=== PATIENT | male | born 1960 | race Two or more races ===

== ENCOUNTER 2017-06-11 14:46 | Inpatient (IN) | payer BC ==
--- NOTE | 2017-06-11 16:16 | PDOC ---
History of Present Illness - History of Present Illness Initial Comments: 06/11/17 17:00 56M with pmh of CKD stage V, HIV, HTN and diabetes sent to the EDby PCP dr. Anthony for admission and initiation of dialysis. Also with inguinal hernia as per Dr. Anthony. 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 Garcia ID: Dr. [email or web address]. 06/11/17 17:09 <Noel Cabral - Last Filed: 06/11/17 18:47> <Gavi West - Last Filed: 06/14/17 21:25> - General Chief Complaint: Dialysis Shunt Problem Stated Complaint: ADMISSION FOR DIALYSIS (PCP SENT) Time Seen by Provider: 06/11/17 16:15 Past History - Past Medical History Anemia: No Asthma: No Cancer: No Cardiac Disorders: No CVA: No COPD: No CHF: No (Left Bundle Branch Block - see EKG) Dementia: No Diabetes: No GI Disorders: No Disorders: No HTN: Yes Hypercholesterolemia: No Liver Disease: No Seizures: No Thyroid Disease: No - Surgical History Abdominal Surgery: No Appendectomy: No Cardiac Surgery: No Cholecystectomy: No Lung Surgery: No Neurologic Surgery: No Orthopedic Surgery: No - Suicide/Smoking/Psychosocial Hx Smoking History: Never smoked Have you smoked in the past 12 months: No Cigars Per Day: 0 Information on smoking cessation initiated: No Hx Alcohol Use: No Drug/Substance Use Hx: No Substance Use Type: None Hx Substance Use Treatment: No (Pt reports he is in control, hence refuses treatment) <Noel Cabral - Last Filed: 06/11/17 18:47> <Gavi West - Last Filed: 06/14/17 21:25> - Past Medical History Allergies/Adverse Reactions: Allergies Allergy/AdvReac Type Severity Reaction Status Date / Time No Known Allergies Allergy Verified 06/11/17 14:54 Home Medications: Ambulatory Orders Amlodipine Besylate [Norvasc -] 10 mg PO DAILY #30 tablet 05/19/17 Metoprolol Tartrate [Lopressor -] 25 mg PO BID #60 mg 05/19/17 Review of Systems - Review of Systems Able to Perform ROS?: Yes Comments:: 06/11/17 17:06 used [employer] Constitutional: No: Symptoms Reported HEENTM: No: Symptoms Reported Respiratory: No: Symptoms reported Cardiac (ROS): No: Symptoms Reported ABD/GI: No: Symptoms Reported : Yes: Other (clear urine) Musculoskeletal: No: Symptoms Reported Integumentary: No: Symptoms Reported Neurological: No: Symptoms reported <Noel Cabral - Last Filed: 06/11/17 18:47> *Physical Exam - Vital Signs Last Vital Signs Temp Pulse Resp BP Pulse Ox 98.7 F 87 14 146/22 100 06/11/17 14:48 06/11/17 14:48 06/11/17 14:48 06/11/17 14:48 06/11/17 14:48 - Physical Exam General Appearance: Yes: Nourished, Appropriately Dressed. No: Apparent Distress HEENT: positive: EOMI, MARTINA, Normal ENT Inspection Neck: positive: Trachea midline, Normal Thyroid. negative: Tender Respiratory/Chest: positive: Lungs Clear, Normal Breath Sounds. negative: Chest Tender Cardiovascular: positive: Regular Rhythm, Regular Rate, S1, S2 Vascular Pulses: Dorsalis-Pedis (R): 2+, Doralis-Pedis (L): 2+ Gastrointestinal/Abdominal: positive: Normal Bowel Sounds, Flat, Soft. negative : Tender <Noel Cabral - Last Filed: 06/11/17 18:47> - Vital Signs Last Vital Signs Temp Pulse Resp BP Pulse Ox 98.7 F 87 14 146/22 100 06/11/17 14:48 06/11/17 14:48 06/11/17 14:48 06/11/17 14:48 06/11/17 14:48 <Gavi West - Last Filed: 06/14/17 21:25> ED Treatment Course - LABORATORY CBC & Chemistry Diagram: 06/11/17 16:57 06/11/17 16:57 <Noel Cabral - Last Filed: 06/11/17 18:47> - LABORATORY CBC & Chemistry Diagram: 06/13/17 05:10 06/14/17 05:18 - ADDITIONAL ORDERS Additional order review: Laboratory Results 06/11/17 06/11/17 16:57 16:57 PT with INR 10.30 INR 0.91 PTT (Actin FS) 30.7 Sodium 137 Potassium 6.0 H Chloride 108 H Carbon Dioxide 21 Anion Gap 8 BUN 63 H Creatinine 8.1 H* Creat Clearance w eGFR 6.97 Random Glucose 163 H D Calcium 7.3 L Total Bilirubin 0.2 D Direct Bilirubin < 0.1 AST 29 ALT 32 Alkaline Phosphatase 105 Total Protein 7.4 Albumin 3.2 L 06/11/17 16:57 RBC 2.97 L MCV 89.4 MCHC 33.7 RDW 13.7 MPV 9.7 Neutrophils % 40.9 L D Lymphocytes % 37.7 D Monocytes % 16.7 H D Eosinophils % 4.2 Basophils % 0.5 <Gavi West - Last Filed: 06/14/17 21:25> Medical Decision Making - Medical Decision Making 56M with pmh of CKD stage V, HIV, HTN and diabetes sent to the EDby PCP dr. Anthony for admission and initiation of dialysis. Ordered labs, coags, type and cross. CXR pending Spoke to admitting hospitalist resident who accepted the patient. <Noel Cabral - Last Filed: 06/11/17 18:47> - Medical Decision Making 06/14/17 21:24 agree with resident exam. Pt recently ( 2 weeks ago) had an AV fistula placed in his arm; now here for dialysis admission. Pt has worsening lab results. He is still able to urinate and he appears well, however fatigued. <Gavi West - Last Filed: 06/14/17 21:25> *DC/Admit/Observation/Transfer - Discharge Dispostion Admit: Yes <Noel Cabral - Last Filed: 06/11/17 18:47> <Gavi West - Last Filed: 06/14/17 21:25> Diagnosis at time of Disposition: Admission for dialysis - Referrals
[2017-06-11 17:05] LABS: BASOPHIL 0.5 % (0-2.0); EOSINOPHIL 4.2 % (0-4.5); MCH 30.1 pg (25.7-33.7); MCHC 33.7 g/dl (32.0-35.9); MEAN CELL VOLUME 89.4 fl (80-96); MEAN PLT VOLUME 9.7 fl (7.5-11.1); NEUTROPHILS 40.9 % (42.8-82.8); PLATELET COUNT 118 K/MM3 (134-434); RDW 13.7 % (11.9-15.9); WHITE BLOOD COUNT 3.4 K/mm3 (4.0-10.0)
--- NOTE | 2017-06-11 17:10 | PDOC ---
Attending Attestation - Resident Resident Name: Noel Cabral - HPI HPI: 06/11/17 17:08 Pt was sent by his PMD for admission for dialysis shunt placement and for dialysis session. We will get pre-op labs and admit to the hospitalist team. Pt has a hx of HIV and HTN and DM. - Physicial Exam PE: 06/11/17 17:09 Agree with resident exam. - Medical Decision Making 06/11/17 17:09 CBC demonstrates falling Hb/HCT. Chemistry pending. Pt INR pending and Type and screen sent
[2017-06-11 17:18] LABS: INR 0.91 (0.82-1.09); PROTHROMBIN TIME (PATIENT) 10.3 SEC (9.98-11.88)
[2017-06-11 17:21] LABS: ACTIVATED PTT 30.7 SECONDS (26.9-34.4)
[2017-06-11 17:30] LABS: ALBUMIN 3.2 g/dl (3.4-5.0); ANION GAP 8 (8-16); BILIRUBIN,DIRECT < 0.1 mg/dL (0.0-0.2); CALCIUM 7.3 mg/dL (8.5-10.1); CO2 21 mmol/L (21-32); GLUCOSE,RANDOM 163 mg/dL (74-106); SGOT/AST 29 U/L (15-37); SGPT/ALT 32 U/L (12-78)
[2017-06-11 17:37] LABS: ALK PHOS 105 U/L (45-117); BILIRUBIN,TOTAL 0.2 mg/dL (0.2-1.0); TOT PROT 7.4 g/dl (6.4-8.2)
[2017-06-11 17:53] LABS: CREATININE 8.1 mg/dL (0.7-1.3)
[2017-06-11] MEDS ORDERED: SODIUM POLYSTYRENE SULFONATE 15 GM/60 ML BOTTLE PO ONE (18:00)
--- NOTE | 2017-06-11 18:10 | HP ---
CHIEF COMPLAINT: Sent by PCP PCP: Dr. Connors HISTORY OF PRESENT ILLNESS: Patient is a 56 yo m with a pmh of HTN, DM, and HIV , CKD stage 5 was sent by his air carrier operations inspector for dialysis because of abnormal labs. Patient's lab results taken last week was remarkable for 8.4 creatinine and 64 BUN. Patient states he is currently not HIV medication because of his renal function. He goes to the [facility] for the HIV. Patient also complains of a right inguinal hernia which he says hes had for 2 years and does not bother him. Patient denies headache, nausea, vomiting, dizziness, SOB, chest pain, urinary symptoms, diarrhea, weakness, palpitations. Recent Travel: n/A PAST MEDICAL HISTORY: HTN, DM2, HIV PAST SURGICAL HISTORY: n/A Social History: Smoking: denies Alcohol: quit years ago Drugs: denies Family History: Allergies No Known Allergies Allergy (Verified 06/11/17 14:54) HOME MEDICATIONS: Home Medications Medication Instructions Recorded Amlodipine Besylate [Norvasc -] 10 mg PO DAILY #30 tablet 05/19/17 Metoprolol Tartrate [Lopressor -] 25 mg PO BID #60 mg 05/19/17 REVIEW OF SYSTEMS CONSTITUTIONAL: Absent: fever, chills, diaphoresis, generalized weakness, malaise, loss of appetite, weight change HEENT: Absent: rhinorrhea, nasal congestion, throat pain, throat swelling, difficulty swallowing, mouth swelling, ear pain, eye pain, visual changes CARDIOVASCULAR: Absent: chest pain, syncope, palpitations, irregular heart rate, lightheadedness , peripheral edema RESPIRATORY: Absent: cough, shortness of breath, dyspnea with exertion, orthopnea, wheezing, stridor, hemoptysis GASTROINTESTINAL: Absent: abdominal pain, abdominal distension, nausea, vomiting, diarrhea, constipation, melena, hematochezia GENITOURINARY: Absent: dysuria, frequency, urgency, hesitancy, hematuria, flank pain, genital pain MUSCULOSKELETAL: Absent: myalgia, arthralgia, joint swelling, back pain, neck pain SKIN: Absent: rash, itching, pallor HEMATOLOGIC/IMMUNOLOGIC: Absent: easy bleeding, easy bruising, lymphadenopathy, frequent infections ENDOCRINE: Absent: unexplained weight gain, unexplained weight loss, heat intolerance, cold intolerance NEUROLOGIC: Absent: headache, focal weakness or paresthesias, dizziness, unsteady gait, seizure, mental status changes, bladder or bowel incontinence PSYCHIATRIC: Absent: anxiety, depression, suicidal or homicidal ideation, hallucinations. PHYSICAL EXAMINATION Vital Signs - 24 hr 06/11/17 14:48 Temperature 98.7 F Pulse Rate 87 Respiratory 14 Rate Blood Pressure 146/22 O2 Sat by Pulse 100 Oximetry (%) GENERAL: Awake, alert, and fully oriented, in no acute distress. HEAD: Normal with no signs of trauma. EYES: Pupils equal, round and reactive to light, extraocular movements intact, sclera anicteric, conjunctiva clear. No lid lag. EARS, NOSE, THROAT: Ears normal, nares patent, oropharynx clear without exudates. Moist mucous membranes. NECK: Normal range of motion, supple without lymphadenopathy, JVD, or masses. LUNGS: Breath sounds equal, clear to auscultation bilaterally. No wheezes, and no crackles. No accessory muscle use. HEART: Regular rate and rhythm, Systolic murmber 3/6 LUSB, normal S1 and S2 ABDOMEN: Soft, nontender, not distended, normoactive bowel sounds, no guarding, no rebound, no masses. No hepatomegaly or splenomegaly. MUSCULOSKELETAL: Normal range of motion at all joints. No bony deformities or tenderness. No CVA tenderness. UPPER EXTREMITIES: 2+ pulses, warm, well-perfused. No cyanosis. No clubbing. No peripheral edema. LOWER EXTREMITIES: 2+ pulses, warm, well-perfused. No calf tenderness. No peripheral edema. NEUROLOGICAL: Cranial nerves II-XII intact. Normal speech. Normal gait. PSYCHIATRIC: Cooperative. Good eye contact. Appropriate mood and affect. SKIN: Warm, dry, normal turgor, no rashes or lesions noted, normal capillary refill. : nontender Large right reducible hernia Laboratory Results - last 24 hr 06/11/17 06/11/17 06/11/17 16:57 16:57 16:57 WBC 3.4 L RBC 2.97 L Hgb 8.9 L Hct 26.5 L MCV 89.4 MCH 30.1 MCHC 33.7 RDW 13.7 Plt Count 118 L MPV 9.7 Neutrophils % 40.9 L D Lymphocytes % 37.7 D Monocytes % 16.7 H D Eosinophils % 4.2 Basophils % 0.5 PT with INR 10.30 INR 0.91 PTT (Actin FS) 30.7 Sodium 137 Potassium 6.0 H Chloride 108 H Carbon Dioxide 21 Anion Gap 8 BUN 63 H Creatinine 8.1 H* Creat Clearance w eGFR 6.97 Random Glucose 163 H D Calcium 7.3 L Total Bilirubin 0.2 D Direct Bilirubin < 0.1 AST 29 ALT 32 Alkaline Phosphatase 105 Total Protein 7.4 Albumin 3.2 L ASSESSMENT/PLAN: Patient is a 56 yo M with a past medical history of HIV, HTN, and DM, CKD stage 5 presents to the ED after being sent by his air carrier operations inspector for Dialysis and AV access. #CKD stage Stage 5 -creatinine 8.1, BUN 63 -proteinuria -renal consulted -vascular consulted for access #Hyperkalemia -K level of 6 -slight peaked t waves on ekg -CKD stage 5 -calcium gluconate -Kayexylate -insulin -D50 #DM2 -ISS -BGM ACHS #HIV -pancytopenia -Has not taken HAART meds in 4 months due to renal function -ID consulted #Pancytopenia -likely from HIV infection or HIV medication -will monitor #HTN -continue home meds -Metoprolol, Amlodipine -Last A1c 8.4 (05/18) #Right inguinal hernia -Follow up outpatient #FEN -D50 -hyperkalemia (being treated) -Diabetic diet #DVT - Heparin SQ Visit type - Emergency Visit Emergency Visit: Yes Care time: The patient presented to the Emergency Department on the above date and was hospitalized for further evaluation of their emergent condition. - New Patient This patient is new to me today: Yes Date on this admission: 06/11/17 - Critical Care Critical Care patient: No
--- NOTE | 2017-06-11 18:13 | HP ---
CHIEF COMPLAINT: Sent over for Dialysis PCP: Dr. Connors HISTORY OF PRESENT ILLNESS: This is a 56 year old male who was sent over by beef pusher office for dialysis due to worsening renal functioning, CKD stage 5. Patient still make urine, voids 5-6x per day. Denies any associated symptoms including [place], altered mental status, blurry vision, n,v, lightheadedness, chest pain, palpitations, shortness of breath, leg swelling, changes in bowel or bladder. had recent labs that revealed creatinine 8.4. Past medical history of HTN, Diabetes, HIV (stopped taking HARRT) three months ago, due to worsening kidney function, as per patient. Last CD4 and viral load unknown. Recent Travel: no PAST MEDICAL HISTORY: HIV, Diabetes type II, HTN, ESRD PAST SURGICAL HISTORY: none Social History: from [facility] [place], lives in [place] with his Smoking:no Alcohol:quit 8 years ago Drugs: no Family History: Allergies No Known Allergies Allergy (Verified 06/11/17 14:54) HOME MEDICATIONS: Home Medications Medication Instructions Recorded Amlodipine Besylate [Norvasc -] 10 mg PO DAILY #30 tablet 05/19/17 Metoprolol Tartrate [Lopressor -] 25 mg PO BID #60 mg 05/19/17 REVIEW OF SYSTEMS CONSTITUTIONAL: Absent: fever, chills, diaphoresis, generalized weakness, malaise, loss of appetite, weight change HEENT: Absent: rhinorrhea, nasal congestion, throat pain, throat swelling, difficulty swallowing, mouth swelling, ear pain, eye pain, visual changes CARDIOVASCULAR: Absent: chest pain, syncope, palpitations, irregular heart rate, lightheadedness , peripheral edema RESPIRATORY: Absent: cough, shortness of breath, dyspnea with exertion, orthopnea, wheezing, stridor, hemoptysis GASTROINTESTINAL: Absent: abdominal pain, abdominal distension, nausea, vomiting, diarrhea, constipation, melena, hematochezia GENITOURINARY: Absent: dysuria, frequency, urgency, hesitancy, hematuria, flank pain, genital pain MUSCULOSKELETAL: Absent: myalgia, arthralgia, joint swelling, back pain, neck pain SKIN: Absent: rash, itching, pallor HEMATOLOGIC/IMMUNOLOGIC: Absent: easy bleeding, easy bruising, lymphadenopathy, frequent infections ENDOCRINE: Absent: unexplained weight gain, unexplained weight loss, heat intolerance, cold intolerance NEUROLOGIC: Absent: headache, focal weakness or paresthesias, dizziness, unsteady gait, seizure, mental status changes, bladder or bowel incontinence PSYCHIATRIC: Absent: anxiety, depression, suicidal or homicidal ideation, hallucinations. PHYSICAL EXAMINATION Vital Signs - 24 hr 06/11/17 14:48 Temperature 98.7 F Pulse Rate 87 Respiratory 14 Rate Blood Pressure 146/22 O2 Sat by Pulse 100 Oximetry (%) GENERAL: Awake, alert, and fully oriented, in no acute distress. HEAD: Normal with no signs of trauma. EYES: Pupils equal, round and reactive to light, extraocular movements intact, sclera anicteric, conjunctiva clear. No lid lag. EARS, NOSE, THROAT: Ears normal, nares patent, oropharynx clear without exudates. Moist mucous membranes. NECK: Normal range of motion, supple without lymphadenopathy, JVD, or masses. LUNGS: Breath sounds decreased, clear to auscultation bilaterally. No wheezes, and no crackles. No accessory muscle use. HEART: Regular rate and rhythm, normal S1 and S2 III/ systolic murmur left upper sternal border, rub or gallop. ABDOMEN: Soft, nontender, not distended, normoactive bowel sounds, no guarding, no rebound, no masses. No hepatomegaly or splenomegaly. Large inguinal hernia right side, reducible, non painful MUSCULOSKELETAL: Normal range of motion at all joints. No bony deformities or tenderness. No CVA tenderness. UPPER EXTREMITIES: 2+ pulses, warm, well-perfused. No cyanosis. No clubbing. No peripheral edema. LOWER EXTREMITIES: 2+ pulses, warm, well-perfused. No calf tenderness. No peripheral edema. NEUROLOGICAL: Cranial nerves II-XII intact. Normal speech. Normal gait. PSYCHIATRIC: Cooperative. Good eye contact. Appropriate mood and affect. SKIN: Warm, dry, normal turgor, no rashes or lesions noted, normal capillary refill. Laboratory Results - last 24 hr 06/11/17 06/11/17 16:57 16:57 WBC 3.4 L RBC 2.97 L Hgb 8.9 L Hct 26.5 L MCV 89.4 MCH 30.1 MCHC 33.7 RDW 13.7 Plt Count 118 L MPV 9.7 Neutrophils % 40.9 L D Lymphocytes % 37.7 D Monocytes % 16.7 H D Eosinophils % 4.2 Basophils % 0.5 PT with INR 10.30 INR 0.91 PTT (Actin FS) 30.7 ASSESSMENT/PLAN: 56 year old male with with a past medical history of HIV, HTN, Diabetes, CKD stage 5 sent over by beef pusher for dialysis, AV access. #CKD stage 5 ; set up for dialysis -creatinine 8.1 -renal consulted -vascular consulted for avf/ poss permacath #hyperkalemia -slightly peaked t waves on ecg -calcuim gluconate -insulin -d50 -kayexelate -repeat k -cont cardiac monitoring #Diabetes type II: -insulin ss -bgm achs -last hemoglobin a1c was 8.4 in May 2017 #proteinuria most likely secondary to diabetes/HIV; #Pancytopenia most likely related to HIV; possible HIV medication -stable from previous lab work done 05/18 #HIV: -currently not on HIV meds: states he stopped taking them 4 months ago -consult ID to [employer] meds; follow at [facility] #HTN: -cont metoprolol -cont amlodipine -advise start gorge or arb due to proteinuria FEN: Fluids: po Electrolytes: f/u k Diet: diabetic VTE heparin sq Disposition: cardiac monitoring; vascular for access for dialysis; Problem List - Problem (1) Admission for dialysis Code(s): Z99.2 - DEPENDENCE ON RENAL DIALYSIS (2) CKD (chronic kidney disease) Code(s): N18.9 - CHRONIC KIDNEY DISEASE, UNSPECIFIED (3) HIV (human immunodeficiency virus infection) Code(s): Z21 - ASYMPTOMATIC HUMAN IMMUNODEFICIENCY VIRUS INFECTION STATUS (4) HTN (hypertension) Code(s): I10 - ESSENTIAL (PRIMARY) HYPERTENSION (5) Heart murmur Code(s): R01.1 - CARDIAC MURMUR, UNSPECIFIED (6) Proteinuria due to type 2 diabetes mellitus Code(s): E11.29 - TYPE 2 DIABETES MELLITUS W H DIABETIC KIDNEY COMPLICATION R80.9 - PROTEINURIA, UNSPECIFIED (7) Hyperkalemia Code(s): E87.5 - HYPERKALEMIA Visit type - Emergency Visit Emergency Visit: Yes Care time: The patient presented to the Emergency Department on the above date and was hospitalized for further evaluation of their emergent condition. - New Patient This patient is new to me today: Yes Date on this admission: 06/11/17 - Critical Care Critical Care patient: No
[2017-06-11] MEDS ORDERED: SODIUM POLYSTYRENE SULFONATE 15 GM/60 ML BOTTLE ONE (18:18)
[2017-06-11] MEDS ORDERED: INSULIN REGULAR HUMAN 100 UNITS/ML *VIAL IVPUSH ONE (18:37)
[2017-06-11] MEDS ORDERED: CALCIUM GLUCONATE 10% - 1,000 MG/10 ML VIAL IVPUSH ONE (18:38)
[2017-06-11] MEDS ORDERED: ALBUTEROL SO4 0.083% IH SOL 2.5 MG/3 ML VIAL.NEB. NEB ONE ×2 (18:39→18:50)
[2017-06-11] MEDS ORDERED: DEXTROSE 50%-WATER - 25 GM/50 ML VIAL IVPUSH ONE (18:39)
[2017-06-11] MEDS ORDERED: SODIUM BICARBONATE 8.4% 50 MEQ/50 ML DISP.SYRIN IVPUSH ONE (18:41)
[2017-06-11] MEDS ORDERED: INSULIN REGULAR HUMAN 100 UNITS/ML *VIAL ONE (18:50)
[2017-06-11] MEDS ORDERED: DEXTROSE 50%-WATER 25 GM/50 ML DISP.SYRIN ONE (18:50)
[2017-06-11] MEDS ORDERED: CALCIUM GLUCONATE 10% - 1,000 MG/10 ML VIAL ONE (18:50)
[2017-06-11] MEDS ORDERED: SODIUM BICARBONATE 8.4% - 50 ML ONE (18:50)
--- NOTE | 2017-06-11 20:27 | PN ---
Teaching Attending Note Name of Resident: Bruce Pack ATTENDING PHYSICIAN STATEMENT I saw and evaluated the patient. I reviewed the resident's note and discussed the case with the resident. I agree with the resident's findings and plan as documented. SUBJECTIVE: Patient is a 56 year old male who was sent over by his insurance associate office for dialysis due to worsening of his renal function, CKD stage 5. Patient still makes urine, voids 5-6x per day. Patient has a hx of HTN, Diabetes, HIV ( stopped taking HARRT) three months ago, patient stated that he stopped taking HIV meds due to worsening his kidney function. Patient's Last CD4 and viral load unknown. OBJECTIVE: Vital Signs Temperature 98 F 06/11/17 19:02 Pulse Rate 72 06/11/17 19:02 Respiratory Rate 20 06/11/17 19:02 Blood Pressure 157/91 06/11/17 19:02 O2 Sat by Pulse Oximetry (%) 98 06/11/17 19:02 CBCD WBC 3.4 K/mm3 (4.0-10.0) L 06/11/17 16:57 RBC 2.97 M/mm3 (4.00-5.60) L 06/11/17 16:57 Hgb 8.9 GM/dL (11.7-16.9) L 06/11/17 16:57 Hct 26.5 % (35.4-49) L 06/11/17 16:57 MCV 89.4 fl (80-96) 06/11/17 16:57 MCHC 33.7 g/dl (32.0-35.9) 06/11/17 16:57 RDW 13.7 % (11.9-15.9) 06/11/17 16:57 Plt Count 118 K/MM3 (134-434) L 06/11/17 16:57 MPV 9.7 fl (7.5-11.1) 06/11/17 16:57 CMP Sodium 137 mmol/L (136-145) 06/11/17 16:57 Potassium 6.0 mmol/L (3.5-5.1) H 06/11/17 16:57 Chloride 108 mmol/L (98-107) H 06/11/17 16:57 Carbon Dioxide 21 mmol/L (21-32) 06/11/17 16:57 Anion Gap 8 (8-16) 10/11/17 16:57 BUN 63 mg/dL (7-18) H 06/11/17 16:57 Creatinine 8.1 mg/dL (0.7-1.3) H* 06/11/17 16:57 Creat Clearance w eGFR 6.97 (>60) 06/11/17 16:57 Random Glucose 163 mg/dL (74-106) H D 06/11/17 16:57 Calcium 7.3 mg/dL (8.5-10.1) L 06/11/17 16:57 Total Bilirubin 0.2 mg/dL (0.2-1.0) D 06/11/17 16:57 AST 29 U/L (15-37) 06/11/17 16:57 ALT 32 U/L (12-78) 06/11/17 16:57 Alkaline Phosphatase 105 U/L (45-117) 06/11/17 16:57 Total Protein 7.4 g/dl (6.4-8.2) 06/11/17 16:57 Albumin 3.2 g/dl (3.4-5.0) L 06/11/17 16:57 Current Medications Generic Name Dose Route Start Last Admin Trade Name Freq PRN Reason Stop Dose Admin Amlodipine Besylate 10 mg 06/12/17 10:00 Norvasc - PO DAILY [facility] Heparin Sodium (Porcine) 5,000 unit 06/11/17 22:00 Heparin - SQ TID [facility] Insulin Aspart 1 vial 06/11/17 22:00 Novolog Vial Sliding Scale - SQ ACHS [facility] Protocol Metoprolol Tartrate 25 mg 06/11/17 22:00 Lopressor - PO BID [facility] Home Medications Medication Instructions Recorded Amlodipine Besylate [Norvasc -] 10 mg PO DAILY #30 tablet 05/19/17 Metoprolol Tartrate [Lopressor -] 25 mg PO BID #60 mg 05/19/17 PE: as per resident's note. S1S2 positive. ASSESSMENT AND PLAN: Patient is a 56 year old male who was sent to the ED. by his insurance associate office for dialysis due to worsening of his renal function, CKD stage 5. Patient has hx of HIV stopped taking his meds 3 month ago. translation was done by an [employer] who is fluent in korean. Patient still makes urine, voids 5-6x per day. Patient has a hx of HTN, Diabetes, HIV (stopped taking HARRT) three months ago, patient stated that he stopped taking HIV meds due to worsening his kidney function. Patient's Last CD4 and viral load unknown. While in Ed.was found to have elevated Potassium with EKG changes ;peaked Twaves # ARF over chronic ESRD CKD 5 , presented with Hyperkalemia. admit to telemetry , kayexalate given in ED, Insulin/bicarb/d50 given in ED with calcium gluconate # ESRD going for Permacath in am , vascular surgery consult. # Acute Pancytopenia , will monitor platelets since the patient on Heparin sq for DVT px # HTN uncontrolled continue home meds. Norvasc, lopressor # Hx of HIV not on any meds. ID consult DVT px: heparin sq
[2017-06-12] MEDS ORDERED: METOPROLOL TARTRATE 25 MG TABLET (FP) ONE (01:48)
[2017-06-12] MEDS ORDERED: HEPARIN NA (PORCINE) 5,000 UNITS/ML 1ML VIAL ONE (01:48)
[2017-06-12] MEDS: HEPARIN NA (PORCINE) 5,000 UNITS/ML 1ML VIAL SQ SCH ×4 (02:21→21:49)
[2017-06-12] MEDS: INSULIN SLIDING SCALE (NOVOLOG) 1 VIAL SQ SCH ×5 (02:21→21:51)
[2017-06-12] MEDS: METOPROLOL TARTRATE 25 MG TABLET (FP) PO SCH ×3 (02:22→21:49)
[2017-06-12 02:48] LABS: ANION GAP 8 (8-16); CO2 19 mmol/L (21-32); GLUCOSE,RANDOM 98 mg/dL (74-106); PHOSPHOROUS 4.4 mg/dL (2.5-4.9)
[2017-06-12 02:50] LABS: MAGNESIUM 1.9 mg/dL (1.8-2.4)
[2017-06-12 03:05] VITALS: BMI 32.8
[2017-06-12] MEDS ORDERED: CALCIUM GLUCONATE 10% - 1,000 MG/10 ML VIAL IVPB ONE (03:08)
[2017-06-12 06:52] LABS: MCH 29.5 pg (25.7-33.7); MEAN CELL VOLUME 89.4 fl (80-96); PLATELET COUNT 109 K/MM3 (134-434); RDW 13.4 % (11.9-15.9); WHITE BLOOD COUNT 3.4 K/mm3 (4.0-10.0)
[2017-06-12 07:11] LABS: ANION GAP 7 (8-16); CALCIUM 7.9 mg/dL (8.5-10.1); CO2 21 mmol/L (21-32); GLUCOSE,RANDOM 93 mg/dL (74-106)
[2017-06-12 07:43] LABS: CREATININE 7.7 mg/dL (0.7-1.3)
[2017-06-12] MEDS: amLODIPine BESYLATE 10 MG TABLET (FP) PO SCH (09:25)
--- NOTE | 2017-06-12 10:25 | PN ---
Progress Note (short form) - Note Progress Note: ID This 56 year lD diabetic male with HIV CKD progressive and Diabetes admitted for electrolye imbalance and need for dialysis going foward. With regard to his HIV he has AIDS with 67 T cells in October with undectable viral load less then 20 copies. Long history of nonadherance off meds more then 3 months. He goes back and forth to [facility] and gets lost to follow up Seeing Dr Fischer for his ESRD and was resitant to dialysis. Selected Entries 06/12/17 05:29 Temperature 98 F Pulse Rate 59 L Respiratory 20 Rate Blood Pressure 143/84 Lung Clear Cor S1 S2 RR Abd Soft nontender Ext No edema Laboratory Tests 11/13/16 02/19/17 06/12/17 10:30 15:00 06:15 WBC 3.4 L Hgb 8.6 L Hct 26.1 L Plt Count 109 L Sodium Potassium BUN Creatinine Absolute CD4 [place] 67 L HIV-1 RNA (PCR) <20 06/12/17 06:15 WBC Hgb Hct Plt Count Sodium 138 Potassium 5.0 BUN 57 H Creatinine 7.7 H* Absolute CD4 [place] HIV-1 RNA (PCR) Assessment AIDS currently untreated with significant viral drug resistance issues !! ESRD Diabetes Mellitus HPTN Hyperkalemia Plan Renal consult for hemodialysis ? This is not the forum for evaluating his HIV and he has a long history of noncompliance and needs to first be committed to medication. Mepron 750mg bid Germaine [facility] Problem List - Problems (1) CKD (chronic kidney disease) Code(s): N18.9 - CHRONIC KIDNEY DISEASE, UNSPECIFIED Qualifiers: Chronic kidney disease stage: stage 5, not on chronic dialysis Qualified Code(s): N18.5 - Chronic kidney disease, stage 5; N18.5 - Chronic kidney disease, stage 5; N18.5 - Chronic kidney disease, stage 5; N18.5 - Chronic kidney disease, stage 5 (2) AIDS Code(s): B20 - HUMAN IMMUNODEFICIENCY VIRUS [HIV] DISEASE (3) Diabetes Code(s): E11.9 - TYPE 2 DIABETES MELLITUS WITHOUT COMPLICATIONS
--- NOTE | 2017-06-12 11:56 | EKG ---
Test Reason : Blood Pressure : / mmHG Vent. Rate : 069 BPM Atrial Rate : 069 BPM P-R Int : 198 ms QRS Dur : 128 ms QT Int : 414 ms P-R-T Axes : 051 -37 051 degrees QTc Int : 443 ms NORMAL SINUS RHYTHM LEFT AXIS DEVIATION RIGHT BUNDLE BRANCH BLOCK ABNORMAL ECG WHEN COMPARED WITH ECG OF 07-DEC-2016 11:04, NO SIGNIFICANT CHANGE WAS FOUND Confirmed by TERRY MILLER MD ([id number]) on 06/12/2017 11:55:57 AM Referred By: Confirmed By:TERRY MILLER MD
--- NOTE | 2017-06-12 15:43 | CONSULT ---
Consult Consult Specialty:: Nephrology Reason for Consultation:: CKD stage 5 - History of Present Illness Chief Complaint: sent in for dialysis History of Present Illness: Pt is a 56 year old male with pmhx of CKD, HTN and HIV who was sent in to the ER for dialysis. He has history of CKD 5 that has been gradually worsening. He has seen several nephrologists over the last few months. He denies shortness of breath. He does complain of lower extremity edema. He denies loss of appetite. He denies chest pain or palpitations. He denies nausea or vomiting. He was found to be hyperkalemic in ER last night. - History Source History Provided By: Patient - Past Medical History Cardio/Vascular: Yes: HTN Renal/: Yes: Renal Inusuff Infectious Disease: Yes: HIV - Alcohol/Substance Use Hx Alcohol Use: No - Smoking History Smoking history: Never smoked Have you smoked in the past 12 months: No Home Medications - Allergies Allergies/Adverse Reactions: Allergies Allergy/AdvReac Type Severity Reaction Status Date / Time No Known Allergies Allergy Verified 06/11/17 14:54 - Home Medications Home Medications: Ambulatory Orders Amlodipine Besylate [Norvasc -] 10 mg PO DAILY #30 tablet 05/19/17 Metoprolol Tartrate [Lopressor -] 25 mg PO BID #60 mg 05/19/17 Family Disease History - Family Disease History Family History: Denies Review of Systems - Review of Systems Constitutional: reports: No Symptoms Eyes: reports: No Symptoms HENT: reports: No Symptoms Neck: reports: No Symptoms Cardiovascular: reports: No Symptoms Respiratory: reports: No Symptoms Gastrointestinal: reports: No Symptoms Genitourinary: reports: No Symptoms Musculoskeletal: reports: No Symptoms Integumentary: reports: No Symptoms Neurological: reports: No Symptoms Endocrine: reports: No Symptoms Hematology/Lymphatic: reports: No Symptoms Psychiatric: reports: No Symptoms Physical Exam Vital Signs: Vital Signs Temperature 98.1 F 06/12/17 14:00 Pulse Rate 70 06/12/17 14:00 Respiratory Rate 20 06/12/17 14:00 Blood Pressure 153/103 06/12/17 14:00 O2 Sat by Pulse Oximetry (%) 100 06/12/17 11:10 Constitutional: Yes: Calm Eyes: Yes: Conjunctiva Clear HENT: Yes: Atraumatic Cardiovascular: Yes: S1, S2 Respiratory: Yes: CTA Bilaterally Gastrointestinal: Yes: Normal Bowel Sounds, Soft Renal/: Yes: WNL Edema: Yes Edema: LLE: Trace, RLE: Trace Neurological: Yes: Oriented Psychiatric: Yes: Oriented Labs: CBC, BMP 06/12/17 06:15 06/12/17 06:15 Laboratory Tests 02/28/17 03/24/17 05/19/17 15:50 15:25 12:45 Potassium 4.5 5.0 Creatinine 6.3 H 6.9 H 8.2 H* 06/09/17 06/11/17 06/12/17 12:07 16:57 02:00 Potassium 5.5 H 6.0 H 5.3 H Creatinine 8.2 H* 8.1 H* 06/12/17 06:15 Potassium 5.0 Creatinine Imaging - Results Chest X-ray: Report Reviewed Ultrasound: Report Reviewed Problem List - Problems (1) Admission for dialysis Code(s): Z99.2 - DEPENDENCE ON RENAL DIALYSIS (2) Hyperkalemia Code(s): E87.5 - HYPERKALEMIA (3) CKD (chronic kidney disease) Code(s): N18.9 - CHRONIC KIDNEY DISEASE, UNSPECIFIED Qualifiers: Chronic kidney disease stage: stage 5, not on chronic dialysis Qualified Code(s): N18.5 - Chronic kidney disease, stage 5; N18.5 - Chronic kidney disease, stage 5; N18.5 - Chronic kidney disease, stage 5; N18.5 - Chronic kidney disease, stage 5 Assessment/Plan Current Medications Generic Name Dose Route Start Last Admin Trade Name Freq PRN Reason Stop Dose Admin Amlodipine Besylate 10 mg 06/12/17 10:00 06/12/17 09:25 Norvasc - PO 10 mg DAILY JAZMINE Administration Atovaquone 750 mg 06/12/17 17:30 Mepron - PO BIDWM [facility] Heparin Sodium (Porcine) 5,000 unit 06/11/17 22:00 06/12/17 15:03 Heparin - SQ Not Given TID [facility] Insulin Aspart 1 vial 06/11/17 22:00 06/12/17 11:38 Novolog Vial Sliding Scale - SQ Not Given ACHS [facility] Protocol Metoprolol Tartrate 25 mg 06/11/17 22:00 06/12/17 09:25 Lopressor - PO 25 mg BID JAZMINE Administration Impression 1. CKD stage 5 2. HIV 3. HTN 4. hyperkalemia 5. anemia Plan - spoke to pt at length about renal failure and HD. Used translater line as well , #[id number]. - called vascular surgery to place permacath and fistula - potassium treated medically in er - cont current meds - will send out serologic workup - spent over an hour and 15 minutes on his care today - discussed with medical team - will check ua with prt to flavorings compounder ration - discussed possibility of kidney biopsy if there is enough cortex - check iron studies - pt agrees to HD Dr Garcia
--- NOTE | 2017-06-12 15:51 | PN ---
Physical Exam: SUBJECTIVE: Patient seen and examined. No acute events overnight. Patient offers no complaints. Denies abdominal pain, headache, sob, dizziness, weakness. OBJECTIVE: Vital Signs Period Temp Pulse Resp BP Sys/Estrada Pulse Ox Last 24 Hr 98 F-98.7 F 59-72 17-20 141-157/80-103 97-100 GENERAL: Awake, alert, and fully oriented, in no acute distress. HEAD: Normal with no signs of trauma. EYES: Pupils equal, round and reactive to light, extraocular movements intact, sclera anicteric, conjunctiva clear. No lid lag. EARS, NOSE, THROAT: Ears normal, nares patent, oropharynx clear without exudates. Moist mucous membranes. NECK: Normal range of motion, supple without lymphadenopathy, JVD, or masses. LUNGS: Breath sounds equal, clear to auscultation bilaterally. No wheezes, and no crackles. No accessory muscle use. HEART: Regular rate and rhythm, Systolic murmber 3/6 LUSB, normal S1 and S2 ABDOMEN: Soft, nontender, not distended, normoactive bowel sounds, no guarding, no rebound, no masses. No hepatomegaly or splenomegaly. MUSCULOSKELETAL: Normal range of motion at all joints. No bony deformities or tenderness. No CVA tenderness. UPPER EXTREMITIES: 2+ pulses, warm, well-perfused. No cyanosis. No clubbing. No peripheral edema. LOWER EXTREMITIES: 2+ pulses, warm, well-perfused. No calf tenderness. No peripheral edema. NEUROLOGICAL: Cranial nerves II-XII intact. Normal speech. Normal gait. PSYCHIATRIC: Cooperative. Good eye contact. Appropriate mood and affect. SKIN: Warm, dry, normal turgor, no rashes or lesions noted, normal capillary refill. : nontender Large right reducible hernia Laboratory Results - last 24 hr 06/12/17 06/12/17 06/12/17 02:00 05:27 06:15 WBC 3.4 L RBC 2.92 L Hgb 8.6 L Hct 26.1 L MCV 89.4 MCH 29.5 MCHC 33.0 RDW 13.4 Plt Count 109 L MPV 10.0 Sodium 140 Potassium 5.3 H Chloride 113 H Carbon Dioxide 19 L Anion Gap 8 BUN 53 H Creatinine 7.0 H POC Glucometer 101 Random Glucose 98 D Calcium 7.0 L Phosphorus 4.4 Magnesium 1.9 06/12/17 06/12/17 06:15 11:25 WBC RBC Hgb Hct MCV MCH MCHC RDW Plt Count MPV Sodium 138 Potassium 5.0 Chloride 110 H Carbon Dioxide 21 Anion Gap 7 L BUN 57 H Creatinine 7.7 H* POC Glucometer 176 Random Glucose 93 Calcium 7.9 L Phosphorus Magnesium Active Medications Generic Name Dose Route Start Last Admin Trade Name Yfn PRN Reason Stop Dose Admin Amlodipine Besylate 10 mg 06/12/17 10:00 06/12/17 09:25 Norvasc - PO 10 mg DAILY JAZMINE Administration Atovaquone 750 mg 06/12/17 17:30 Mepron - PO BIDWM [facility] Heparin Sodium (Porcine) 5,000 unit 06/11/17 22:00 06/12/17 15:03 Heparin - SQ Not Given TID [facility] Insulin Aspart 1 vial 06/11/17 22:00 06/12/17 11:38 Novolog Vial Sliding Scale - SQ Not Given ACHS [facility] Protocol Metoprolol Tartrate 25 mg 06/11/17 22:00 06/12/17 09:25 Lopressor - PO 25 mg BID [facility] Administration ASSESSMENT/PLAN: Patient is a 56 yo M with a past medical history of HIV, HTN, and DM, CKD stage 5 presents to the ED after being sent by his kit assembler for Dialysis and AV access. #CKD stage Stage 5 -creatinine 7.7, BUN 57 -dialysis today -proteinuria -renal consulted -vascular consulted for access -FU hep panel, labs in am #Hyperkalemia -resolved -K level of 5 -CKD stage 5 #DM2 -ISS -BGM ACHS #HIV -pancytopenia -Has not taken HAART meds in 4 months due to renal function -ID consulted -atovaquone started #Pancytopenia -likely from HIV infection or HIV medication -will monitor #HTN -continue home meds -Metoprolol, Amlodipine -Last A1c 8.4 (05/18) #Right inguinal hernia -Follow up outpatient #FEN -No IV fluids -WNL -Diabetic diet #DVT - Heparin SQ Visit type - Emergency Visit Emergency Visit: Yes ED Registration Date: 06/11/17 Care time: The patient presented to the Emergency Department on the above date and was hospitalized for further evaluation of their emergent condition. - New Patient This patient is new to me today: No - Critical Care Critical Care patient: No
--- NOTE | 2017-06-12 17:16 | PN ---
Teaching Attending Note Name of Resident: Bruce Pack ATTENDING PHYSICIAN STATEMENT I saw and evaluated the patient. I reviewed the resident's note and discussed the case with the resident. I agree with the resident's findings and plan as documented. SUBJECTIVE: Patient is comfortable with no acute distress. OBJECTIVE: Vital Signs Temperature 98.1 F 06/12/17 14:00 Pulse Rate 70 06/12/17 14:00 Respiratory Rate 20 06/12/17 14:00 Blood Pressure 153/103 06/12/17 14:00 O2 Sat by Pulse Oximetry (%) 100 06/12/17 11:10 CBCD WBC 3.4 K/mm3 (4.0-10.0) L 06/12/17 06:15 RBC 2.92 M/mm3 (4.00-5.60) L 06/12/17 06:15 Hgb 8.6 GM/dL (11.7-16.9) L 06/12/17 06:15 Hct 26.1 % (35.4-49) L 06/12/17 06:15 MCV 89.4 fl (80-96) 06/12/17 06:15 MCHC 33.0 g/dl (32.0-35.9) 06/12/17 06:15 RDW 13.4 % (11.9-15.9) 06/12/17 06:15 Plt Count 109 K/MM3 (134-434) L 06/12/17 06:15 MPV 10.0 fl (7.5-11.1) 06/12/17 06:15 CMP Sodium 138 mmol/L (136-145) 06/12/17 06:15 Potassium 5.0 mmol/L (3.5-5.1) 06/12/17 06:15 Chloride 110 mmol/L (98-107) H 06/12/17 06:15 Carbon Dioxide 21 mmol/L (21-32) 06/12/17 06:15 Anion Gap 7 (8-16) L 06/12/17 06:15 BUN 57 mg/dL (7-18) H 06/12/17 06:15 Creatinine 7.7 mg/dL (0.7-1.3) H* 06/12/17 06:15 Creat Clearance w eGFR 6.97 (>60) 06/11/17 16:57 Random Glucose 93 mg/dL (74-106) 06/12/17 06:15 Calcium 7.9 mg/dL (8.5-10.1) L 06/12/17 06:15 Total Bilirubin 0.2 mg/dL (0.2-1.0) D 06/11/17 16:57 AST 29 U/L (15-37) 06/11/17 16:57 ALT 32 U/L (12-78) 06/11/17 16:57 Alkaline Phosphatase 105 U/L (45-117) 06/11/17 16:57 Total Protein 7.4 g/dl (6.4-8.2) 06/11/17 16:57 Albumin 3.2 g/dl (3.4-5.0) L 06/11/17 16:57 Current Medications Generic Name Dose Route Start Last Admin Trade Name Freq PRN Reason Stop Dose Admin Amlodipine Besylate 10 mg 06/12/17 10:00 06/12/17 09:25 Norvasc - PO 10 mg DAILY JAZMINE Administration Atovaquone 750 mg 06/12/17 17:30 Mepron - PO BIDWM [facility] Heparin Sodium (Porcine) 5,000 unit 06/11/17 22:00 06/12/17 15:03 Heparin - SQ Not Given TID [facility] Insulin Aspart 1 vial 06/11/17 22:00 06/12/17 16:31 Novolog Vial Sliding Scale - SQ Not Given ACHS [facility] Protocol Metoprolol Tartrate 25 mg 06/11/17 22:00 06/12/17 09:25 Lopressor - PO 25 mg BID JAZMINE Administration Sodium Bicarbonate 650 mg 06/12/17 22:00 Sodium Bicarbonate - PO TID [facility] Home Medications Medication Instructions Recorded Amlodipine Besylate [Norvasc -] 10 mg PO DAILY #30 tablet 05/19/17 Metoprolol Tartrate [Lopressor -] 25 mg PO BID #60 mg 05/19/17 PE: per resident's note ASSESSMENT AND PLAN: Patient is a 56 year old male who was sent to the ED. by his meter installer office for dialysis due to worsening of his renal function, CKD stage 5. Patient has hx of HIV stopped taking his meds 3 month ago. translation was done by an Ant[employer] Jewelry Repairer who is fluent in english. Patient still makes urine, voids 5-6x per day. Patient has a hx of HTN, Diabetes, HIV (stopped taking HARRT) three months ago, patient stated that he stopped taking HIV meds due to worsening his kidney function. Patient's Last CD4 and viral load unknown. While in Ed.was found to have elevated Potassium with EKG changes ;peaked Twaves # ARF over chronic ESRD CKD 5 , potassium dropped to 5.0 today fro 6.0 post kayexalate given in ED, Insulin/bicarb/d50 given in ED s/p calcium gluconate # ESRD going for Permacath in am , vascular surgery consult. Drafter Tool Design seen the patient # Acute Pancytopenia with thrombocytopenia on heparin will hold it for now, most likely due to HIV # HTN uncontrolled continue home meds. Norvasc, lopressor # Hx of HIV not on any meds. ID consult DVT px: will hold heparin sq for now, since dropping platelets, early ambulation.
[2017-06-12] MEDS: ATOVAQUONE 750 MG/5 ML (UNIT-DOSE PACKAGING) PO SCH (17:52)
--- NOTE | 2017-06-12 18:31 | CONSULT ---
Consult - Past Medical History Cardio/Vascular: Yes: HTN Renal/: Yes: Renal Inusuff Infectious Disease: Yes: HIV - Alcohol/Substance Use Hx Alcohol Use: No - Smoking History Smoking history: Never smoked Have you smoked in the past 12 months: No Home Medications - Allergies Allergies/Adverse Reactions: Allergies Allergy/AdvReac Type Severity Reaction Status Date / Time No Known Allergies Allergy Verified 06/11/17 14:54 - Home Medications Home Medications: Ambulatory Orders Amlodipine Besylate [Norvasc -] 10 mg PO DAILY #30 tablet 05/19/17 Metoprolol Tartrate [Lopressor -] 25 mg PO BID #60 mg 05/19/17 Physical Exam Vital Signs: Vital Signs Temperature 98.1 F 06/12/17 14:00 Pulse Rate 70 06/12/17 14:00 Respiratory Rate 20 06/12/17 14:00 Blood Pressure 153/103 06/12/17 14:00 O2 Sat by Pulse Oximetry (%) 100 06/12/17 11:10 Labs: CBC, BMP 06/12/17 06:15 06/12/17 06:15 Assessment/Plan VAscular Surgery 56M with pmh of CKD stage V, HIV, HTN and diabetes sent to the EDby PCP dr. Anthony for admission and initiation of dialysis. Also with inguinal hernia as per Dr. Anthony. Logistics Intern: Dr. Garcia ID: [email or web address]. 06/11/17 17:09 <Noel Cabral - Last Filed: 06/11/17 18:45> - General Chief Complaint: Dialysis Shunt Problem Stated Complaint: ADMISSION FOR DIALYSIS (PCP SENT) Time Seen by Provider: 06/11/17 16:15 PE Head - NC/AT Lung - cTA Heart - rRR abd - soft,nt,nd ext - warm, pink. Pt is right handed. A/P CKD 1. For PC in am. 2. will order vein mapping. 3. will need avf early next week. 4. save left arm. Robert Morgan DO
[2017-06-12] MEDS: SODIUM BICARBONATE 650 MG TABLET PO SCH (21:49)
[2017-06-13] MEDS: HEPARIN NA (PORCINE) 5,000 UNITS/ML 1ML VIAL SQ SCH ×3 (06:04→21:10)
[2017-06-13] MEDS: SODIUM BICARBONATE 650 MG TABLET PO SCH ×3 (06:05→21:06)
[2017-06-13] MEDS: INSULIN SLIDING SCALE (NOVOLOG) 1 VIAL SQ SCH ×4 (06:05→21:07)
[2017-06-13 07:21] LABS: BASOPHIL 0.7 % (0-2.0); EOSINOPHIL 5.8 % (0-4.5); MCH 29.9 pg (25.7-33.7); MCHC 33.7 g/dl (32.0-35.9); MEAN CELL VOLUME 88.5 fl (80-96); NEUTROPHILS 46.7 % (42.8-82.8); PLATELET COUNT 113 K/MM3 (134-434); RDW 13.1 % (11.9-15.9); WHITE BLOOD COUNT 3.3 K/mm3 (4.0-10.0)
[2017-06-13 07:35] LABS: ALBUMIN 3.1 g/dl (3.4-5.0); ANION GAP 8 (8-16); CALCIUM 7.5 mg/dL (8.5-10.1); CO2 21 mmol/L (21-32); GLUCOSE,RANDOM 109 mg/dL (74-106); SGOT/AST 23 U/L (15-37); SGPT/ALT 28 U/L (12-78)
[2017-06-13 07:45] LABS: ALK PHOS 94 U/L (45-117); BILIRUBIN,TOTAL 0.2 mg/dL (0.2-1.0); TOT PROT 6.8 g/dl (6.4-8.2)
[2017-06-13 09:35] LABS: CREATININE 7.8 mg/dL (0.7-1.3)
--- NOTE | 2017-06-13 09:35 | PN ---
Physical Exam: SUBJECTIVE: Patient seen and examined. No acute events overnight. Patient offered no new complaints. He denies dizziness, nausea, vomiting, abdominal/ chest pain, headache and weakness. OBJECTIVE: Vital Signs Period Temp Pulse Resp BP Sys/Estrada Pulse Ox Last 24 Hr 98.1 F-98.6 F 60-70 20-20 131-153/73-103 99-100 GENERAL: Awake, alert, and fully oriented, in no acute distress. HEAD: Normal with no signs of trauma. EYES: Pupils equal, round and reactive to light, extraocular movements intact, sclera anicteric, conjunctiva clear. No lid lag. EARS, NOSE, THROAT: Ears normal, nares patent, oropharynx clear without exudates. Moist mucous membranes. NECK: Normal range of motion, supple without lymphadenopathy, JVD, or masses. LUNGS: Breath sounds equal, clear to auscultation bilaterally. No wheezes, and no crackles. No accessory muscle use. HEART: Regular rate and rhythm, Systolic murmber 3/6 LUSB, normal S1 and S2 ABDOMEN: Soft, nontender, not distended, normoactive bowel sounds, no guarding, no rebound, no masses. No hepatomegaly or splenomegaly. MUSCULOSKELETAL: Normal range of motion at all joints. No bony deformities or tenderness. No CVA tenderness. UPPER EXTREMITIES: 2+ pulses, warm, well-perfused. No cyanosis. No clubbing. No peripheral edema. LOWER EXTREMITIES: 2+ pulses, warm, well-perfused. No calf tenderness. trace edema b/l NEUROLOGICAL: Cranial nerves II-XII intact. Normal speech. Normal gait. PSYCHIATRIC: Cooperative. Good eye contact. Appropriate mood and affect. SKIN: Warm, dry, normal turgor, no rashes or lesions noted, normal capillary refill. : nontender Large right reducible hernia Laboratory Results - last 24 hr 06/12/17 06/12/17 06/12/17 02:18 11:25 15:39 WBC RBC Hgb Hct MCV MCH MCHC RDW Plt Count MPV Neutrophils % Lymphocytes % Monocytes % Eosinophils % Basophils % Sodium Potassium Chloride Carbon Dioxide Anion Gap BUN Creat Clearance w eGFR POC Glucometer [phone] 125 Random Glucose Calcium Total Bilirubin AST ALT Alkaline Phosphatase Total Protein Albumin Sfzfp-1-Fwvhuzazu (%) Srdbm-5-Jnlsheino (%) Beta Globulins (%) Gamma Globulins (%) M-Xander % Ref Test Comments 06/12/17 06/13/17 06/13/17 21:48 05:10 05:10 WBC 3.3 L RBC 2.94 L Hgb 8.8 L Hct 26.0 L MCV 88.5 MCH 29.9 MCHC 33.7 RDW 13.1 Plt Count 113 L MPV 10.0 Neutrophils % 46.7 Lymphocytes % 33.2 Monocytes % 13.6 H Eosinophils % 5.8 H Basophils % 0.7 Sodium Potassium Chloride Carbon Dioxide Anion Gap BUN Creat Clearance w eGFR POC Glucometer 184 Random Glucose Calcium Total Bilirubin AST ALT Alkaline Phosphatase Total Protein Albumin Uohlk-8-Kbqapmfbw (%) Cancelled Gwhif-0-Vjqsorkod (%) Cancelled Beta Globulins (%) Cancelled Gamma Globulins (%) Cancelled M-Xander % Cancelled Ref Test Comments Cancelled 06/13/17 06/13/17 05:10 05:31 WBC RBC Hgb Hct MCV MCH MCHC RDW Plt Count MPV Neutrophils % Lymphocytes % Monocytes % Eosinophils % Basophils % Sodium 137 Potassium 4.6 Chloride 108 H Carbon Dioxide 21 Anion Gap 8 BUN 64 H Creat Clearance w eGFR 7.28 POC Glucometer 122 Random Glucose 109 H Calcium 7.5 L Total Bilirubin 0.2 AST 23 D ALT 28 Alkaline Phosphatase 94 Total Protein 6.8 Albumin 3.1 L Oqjit-7-Eybcbwxpc (%) Iswgc-1-Tpwfslomv (%) Beta Globulins (%) Gamma Globulins (%) M-Xander % Ref Test Comments Active Medications Generic Name Dose Route Start Last Admin Trade Name Freq PRN Reason Stop Dose Admin Amlodipine Besylate 10 mg 06/12/17 10:00 06/12/17 09:25 Norvasc - PO 10 mg DAILY [facility] Administration Atovaquone 750 mg 06/12/17 17:30 06/12/17 17:52 Mepron - PO Not Given BIDWM [facility] Heparin Sodium (Porcine) 5,000 unit 06/11/17 22:00 06/13/17 06:04 Heparin - SQ Not Given TID [facility] Insulin Aspart 1 vial 06/11/17 22:00 06/13/17 06:05 Novolog Vial Sliding Scale - SQ Not Given ACHS [facility] Protocol Metoprolol Tartrate 25 mg 06/11/17 22:00 06/12/17 21:49 Lopressor - PO 25 mg BID JAZMINE Administration Sodium Bicarbonate 650 mg 06/12/17 22:00 06/13/17 06:05 Sodium Bicarbonate - PO Not Given TID JAZMINE ASSESSMENT/PLAN: Patient is a 56 yo M with a past medical history of HIV, HTN, and DM, CKD stage 5 s/p permacath presents to the ED after being sent by his mail order sorter for Dialysis and AV access. #CKD stage Stage 5 -creatinine 7.8, BUN 64 -patient agrees to dialysis after long discussion with Dr. Garcia. ( rectifying operator used) -possibility of kidney biopsy -proteinuria -renal consulted -FU hep panel, iron studies -FU FELICITY M-spike, STACIA, c-Anca, PR3, p-anca, myeloperoxidase, DsDNA, Glomerular BM. -s/p permacath today -HD planned for tomorrow -will need avf early next week as per vascular #Hyperkalemia -resolved -K level of 4.6 -CKD stage 5 #DM2 -ISS -BGM ACHS --Last A1c 8.4 (05/18) #HIV -pancytopenia -Has not taken HAART meds in 4 months due to renal function -ID consulted -atovaquone 750mg daily started #Pancytopenia -likely from HIV infection or HIV medication -will monitor #HTN -continue home meds -Metoprolol 25mg BID -Cont. Amlodipine 10mg daily -Hydralazine 25mg BID added -Consider adding labetolol if needed as per Cardio -Need to avoid DANIEL inhibitor or ARB due to his kidney disease at this time #Chest Pain -echo in office 05/28: normal LV/RV size and function, no pericardial effusion, mod LVH , mild MR -F/U with cardio outpatient -Exercise stress test outpatient #Right inguinal hernia -reducible -nontender -Follow up outpatient #FEN -No IV fluids -WNL -Diabetic diet #DVT - Heparin SQ Visit type - Emergency Visit Emergency Visit: Yes ED Registration Date: 06/11/17 Care time: The patient presented to the Emergency Department on the above date and was hospitalized for further evaluation of their emergent condition. - New Patient This patient is new to me today: No - Critical Care Critical Care patient: No
--- NOTE | 2017-06-13 09:46 | CON.CARD ---
Consult Consult Specialty:: Cardiology Referred by:: Hospitalist Reason for Consultation:: Electrolyte abnormality, telemetry monitoring for arrhythmias - History of Present Illness Chief Complaint: admitted for initiation of HD, electrolyte abnl History of Present Illness: 56 year old man with h/o HTN, DMII, HIV, ESRD admitted for initiation of HD, HD access placement, electrolyte abnl. Pt was recently seen in office for difficult to control HTN, chest pain, dyspnea. [facility]. he denies any current complaints. No current chest pain, sob, palpitations. no pnd, orthopnea, or LE edema. no lightheadedness/dizziness, syncope, or near syncope. Pt had echo in office 05/28 showing normal LV/RV size and function, no pericardial effusion, mod LVH and E-A reversal c/w impaired relaxation, mild MR - History Source History Provided By: Patient, Medical Record Limitations to Obtaining History: Language Barrier - Past Medical History Cardio/Vascular: Yes: HTN, Hyperlipdemia Renal/: Yes: Renal Inusuff Infectious Disease: Yes: HIV - Alcohol/Substance Use Hx Alcohol Use: No - Smoking History Smoking history: Never smoked Have you smoked in the past 12 months: No - Social History Usual Living Arrangement: With Spouse ADL: Independent History of Recent Travel: No Home Medications - Allergies Allergies/Adverse Reactions: Allergies Allergy/AdvReac Type Severity Reaction Status Date / Time No Known Allergies Allergy Verified 06/11/17 14:54 - Home Medications Home Medications: Ambulatory Orders Amlodipine Besylate [Norvasc -] 10 mg PO DAILY #30 tablet 05/19/17 Metoprolol Tartrate [Lopressor -] 25 mg PO BID #60 mg 05/19/17 Family Disease History - Family Disease History Family History: Denies Review of Systems - Review of Systems Constitutional: reports: Malaise. denies: No Symptoms, Chills, Diaphoresis, Fever, Lethargy, Loss of Appetite, Night Sweats, Unintentional Wgt. Loss, Weakness, Other Eyes: denies: No Symptoms, Blind Spots, Blurred Vision, Double Vision, Eye Pain , Floaters, Photophobia, Recent Change in Vision, Other HENT: denies: No Symptoms, Difficult Swallowing, Ear Discharge, Ear Pain, Epistaxis, Gingival Bleeding, Hearing Loss, Mouth Swelling, Nasal Congestion, Ocular Prosthesis, Throat Pain, Toothache, Ringing in Ears, Other Neck: denies: No Symptoms, Decreased ROM, Lumps, Pain on Movement, Stiffness, Swollen Glands, Tenderness, Other Cardiovascular: reports: Chest Pain, Shortness of Breath. denies: No Symptoms, Edema, Palpitations, Other Respiratory: reports: Exercise Intolerance, SOB on Exertion. denies: No Symptoms, Cough, Hemoptysis, Orthopnea, PND, Snoring, SOB, Wheezing, Other Gastrointestinal: denies: No Symptoms, Abdominal Pain, Bloating, Constipation, Diarrhea, Dysphagia, Indigestion, Melena, Nausea, Rectal Bleeding, Vomiting, Vomiting Blood, Other Genitourinary: denies: No Symptoms, Burning, Discharge, Dysuria, Flank Pain, Frequency, Hematuria, Incontinence, Lesions, Menses, Pain, Testicular Mass, Testicular Pain, Testicular Swelling, Urgency, Vaginal Bleeding, Other Breasts: denies: No Symptoms Reported, See HPI, Breast Implants, Discharge from Nipple, Lumps, Pain, Skin Changes, Other Musculoskeletal: denies: No Symptoms, Back Pain, Crepitus, Decreased ROM, Extremity Pain, Joint Pain, Joint Swelling, Muscle Pain, Muscle Cramps, Muscle Weakness, Other Integumentary: denies: No Symptoms, Blister, Bruising, Change in Color, Eczema, Erythema, Incision, Lesions, Lump, Pallor, Pruritis, Rash, Wound, Other Neurological: denies: No Symptoms, Change in LOC, Change in Speech, Confusion, Dizziness, Headache, Incoordination, Numbness, Parasthesia, Pre-Existing Deficit , Seizure, Syncope, Tremors, Unsteady Gait, Weakness, Other Endocrine: denies: No Symptoms, Excessive Sweating, Flushing, Increased Hunger, Increased Thirst, Intolerance to Cold, Intolerance to Heat, Unexplained Weight Gain, Unexplained Weight Loss, Other Hematology/Lymphatic: denies: No Symptoms, Easily Bruised, Excessive Bleeding, Swollen Glands, Other Psychiatric: denies: No Symptoms, Altered Sleep Pattern, Anxiety, Depression, Hallucinations, Panic, Paranoia, Suicidal, Other - Risk Factors Known Risk Factors: Yes: Hypercholesterolemia, Hypertension Vital Signs: Vital Signs Temperature 98.5 F 06/13/17 06:00 Pulse Rate 66 06/13/17 06:00 Respiratory Rate 20 06/13/17 09:00 Blood Pressure 142/80 06/13/17 06:00 O2 Sat by Pulse Oximetry (%) 99 06/13/17 09:00 Constitutional: Yes: Well Nourished, No Distress, Calm Eyes: Yes: WNL, Conjunctiva Clear, EOM Intact, PERRL HENT: Yes: WNL, Atraumatic, Normocephalic Neck: Yes: WNL, Supple, Trachea Midline Respiratory: Yes: WNL, Regular, CTA Bilaterally. No: Rales, Rhonchi, Wheezes Gastrointestinal: Yes: WNL, Normal Bowel Sounds, Soft. No: Distention, Tenderness Renal/: Yes: WNL Cardiovascular: Yes: Regular Rate and Rhythm. No: Bradycardia, Tachycardia, Pulse Irregular, Gallop, Rub, Varicosities JVD: No Carotid Bruit: No PMI: Non-Displaced Heart Sounds: Yes: S1, S2. No: Split S2, S3, S4, Clicks, Gallop, Rub, Bruit Murmur: Yes: Systolic Murmur Musculoskeletal: Yes: WNL Extremities: Yes: WNL Edema: No Peripheral Pulses WNL: Yes Peripheral Pulses: 2+ Left Doralis Pedis, 2+ Right Dorsalis Pedis Integumentary: Yes: WNL Neurological: Yes: WNL, Alert, Oriented, Cran Nerves II-XII Intact ...Motor Strength: WNL Psychiatric: Yes: WNL, Alert, Oriented - Other Data Labs, Other Data: CBC, BMP 06/13/17 05:10 06/13/17 05:10 INR, PTT INR 0.91 (0.82-1.09) 06/11/17 16:57 ekg-nsr 69bpm, lad, rbbb, no sig st abnl Echo: Report Reviewed Imaging - Results Chest X-ray: Report Reviewed, Image Reviewed EKG: Report Reviewed, Image Reviewed Other: Report Reviewed, Image Reviewed (tele-nsr, no arrhythmias) Assessment/Plan 56 year old man with h/o HTN, DMII, HIV, ESRD admitted for initiation of HD, HD access placement, electrolyte abnl. Pt was recently seen in office for difficult to control HTN, chest pain, dyspnea. echo in office 05/28 showing normal LV/RV size and function, no pericardial effusion, mod LVH and E-A reversal c/w impaired relaxation, mild MR Hyperkalemia-K normalized -no arrhythmias on tele -can monitor on tele until after HD started if no arrhythmias it can be dcd, can go off tele for HD HTN-Mildly above goal -cont metoprolol and amlodipine for now -Hydralazine 25mg bid was added recently in office but pt not currently on it -if needed hydralazine can be added - We will add hydralazine 25 mg b.i.d. today. - Need to avoid DANIEL inhibitor or ARB due to his kidney disease at this time. If felt safe, would consider. - Avoid diuretics at this time due to his kidney disease. - Could also consider adding labetalol if needed. Chest pain Atypical, none on this admission - With multiple cardiac risk factors and then abnormal EKG. - plan is for exercise treadmill stress as outpatient. -echo as above, normal LV systolic function Shortness of breath and dyspnea overall euvolemic on examination - recent echo as above - We will plan for treadmill stress test as above as outpatient
[2017-06-13] MEDS: amLODIPine BESYLATE 10 MG TABLET (FP) PO SCH (09:47)
[2017-06-13] MEDS: METOPROLOL TARTRATE 25 MG TABLET (FP) PO SCH ×2 (09:47→21:07)
[2017-06-13] MEDS: ATOVAQUONE 750 MG/5 ML (UNIT-DOSE PACKAGING) PO SCH ×2 (09:47→16:51)
[2017-06-13] MEDS ORDERED: LIDOCAINE HCL 1%, 10 MG/ML (20ML VIAL) ONE (10:23)
[2017-06-13] MEDS ORDERED: MIDAZOLAM HCL 2 MG/2 ML SINGLE DOSE VIAL ONE (11:00)
--- NOTE | 2017-06-13 11:15 | PN ---
Teaching Attending Note Name of Resident: Bruce Pack ATTENDING PHYSICIAN STATEMENT I saw and evaluated the patient. I reviewed the resident's note and discussed the case with the resident. I agree with the resident's findings and plan as documented. SUBJECTIVE: Patient is feeling better, with no acute distress. OBJECTIVE: Vital Signs Temperature 98.3 F 06/13/17 10:05 Pulse Rate 67 06/13/17 10:05 Respiratory Rate 20 06/13/17 10:05 Blood Pressure 146/83 06/13/17 10:05 O2 Sat by Pulse Oximetry (%) 99 06/13/17 09:00 CBCD WBC 3.3 K/mm3 (4.0-10.0) L 06/13/17 05:10 RBC 2.94 M/mm3 (4.00-5.60) L 06/13/17 05:10 Hgb 8.8 GM/dL (11.7-16.9) L 06/13/17 05:10 Hct 26.0 % (35.4-49) L 06/13/17 05:10 MCV 88.5 fl (80-96) 06/13/17 05:10 MCHC 33.7 g/dl (32.0-35.9) 06/13/17 05:10 RDW 13.1 % (11.9-15.9) 06/13/17 05:10 Plt Count 113 K/MM3 (134-434) L 06/13/17 05:10 MPV 10.0 fl (7.5-11.1) 06/13/17 05:10 CMP Sodium 137 mmol/L (136-145) 06/13/17 05:10 Potassium 4.6 mmol/L (3.5-5.1) 06/13/17 05:10 Chloride 108 mmol/L (98-107) H 06/13/17 05:10 Carbon Dioxide 21 mmol/L (21-32) 06/13/17 05:10 Anion Gap 8 (8-16) 06/13/17 05:10 BUN 64 mg/dL (7-18) H 06/13/17 05:10 Creatinine 7.8 mg/dL (0.7-1.3) H* 06/13/17 05:10 Creat Clearance w eGFR 7.28 (>60) 06/13/17 05:10 Random Glucose 109 mg/dL (74-106) H 06/13/17 05:10 Calcium 7.5 mg/dL (8.5-10.1) L 06/13/17 05:10 Total Bilirubin 0.2 mg/dL (0.2-1.0) 06/13/17 05:10 AST 23 U/L (15-37) D 06/13/17 05:10 ALT 28 U/L (12-78) 06/13/17 05:10 Alkaline Phosphatase 94 U/L (45-117) 06/13/17 05:10 Total Protein 6.8 g/dl (6.4-8.2) 06/13/17 05:10 Albumin 3.1 g/dl (3.4-5.0) L 06/13/17 05:10 Current Medications Generic Name Dose Route Start Last Admin Trade Name Freq PRN Reason Stop Dose Admin Amlodipine Besylate 10 mg 06/12/17 10:00 06/13/17 09:47 Norvasc - PO 10 mg DAILY JAZMINE Administration Atovaquone 750 mg 06/12/17 17:30 06/13/17 09:47 Mepron - PO Not Given BIDWM [facility] Fentanyl 25 mcg 06/13/17 11:06 Sublimaze Injection - IVPUSH 06/16/17 11:07 [id number] PRN PAIN Heparin Sodium (Porcine) 5,000 unit 06/11/17 22:00 06/13/17 06:04 Heparin - SQ Not Given TID [facility] Insulin Aspart 1 vial 06/11/17 22:00 06/13/17 06:05 Novolog Vial Sliding Scale - SQ Not Given ACHS [facility] Protocol Metoprolol Tartrate 25 mg 06/11/17 22:00 06/13/17 09:47 Lopressor - PO 25 mg BID JAZMINE Administration Sodium Bicarbonate 650 mg 06/12/17 22:00 06/13/17 06:05 Sodium Bicarbonate - PO Not Given TID [facility] Home Medications Medication Instructions Recorded Amlodipine Besylate [Norvasc -] 10 mg PO DAILY #30 tablet 05/19/17 Metoprolol Tartrate [Lopressor -] 25 mg PO BID #60 mg 05/19/17 PE: per resident's note ASSESSMENT AND PLAN: Patient is a 56 year old male who was sent to the ED. 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 Patient has hx of HIV stopped taking his meds 3 month ago. translation was done by an Audiology Technician who is fluent in ind[place]ian. Patient still makes urine, voids 5-6x per day. Patient has a hx of HTN, Diabetes, HIV (stopped taking HARRT) three months ago, patient stated that he stopped taking HIV meds due to worsening his kidney function. Patient's Last CD4 and viral load unknown. While in Ed.was found to have elevated Potassium with EKG changes ;peaked Twaves # ARF over chronic ESRD CKD 5 , potassium dropped to 5.0 today fro 6.0 post kayexalate given in ED, Insulin/bicarb/d50 given in ED s/p calcium gluconate # ESRD, patient is going for Permacath today by vascular surgeon. for dialysis access # Acute Pancytopenia with thrombocytopenia on heparin will hold it for now, most likely due to HIV , ambulating ok # HTN uncontrolled continue home meds. Norvasc, lopressor # Hx of HIV not on any HIV meds. ID consult . On mepron only DVT px: will hold heparin sq for now, since dropping platelets,continue ambulation. discussed with , HD in am , Patient is still doesn't have chair in HD unit , hepatitis panel is pending.
[2017-06-13] MEDS ORDERED: ceFAZolin SODIUM 1 GM VIAL ONE (11:28)
[2017-06-13] MEDS ORDERED: ceFAZolin SODIUM 1 GM VIAL IVPB ONE (11:29)
[2017-06-13] MEDS ORDERED: LIDOCAINE HCL 1%, 10 MG/ML (50 mL VIAL) IJ ONE ×2 (11:36)
--- NOTE | 2017-06-13 11:56 | OP ---
Operative Note - Note: Operative Date: 06/13/17 Pre-Operative Diagnosis: ARF Operation: insertion of permacath Post-Operative Diagnosis: Same as Pre-op Surgeon: Robert Morgan Anesthesia: Fractional Estimated Blood Loss (mls): 10 Operative Report Dictated: Yes
--- NOTE | 2017-06-13 14:49 | PN ---
Progress Note, Physician History of Present Illness: Pt seen and examined at bedside. He had his permacath placed. He says he would prefer to start HD tomorrow. He does not want to start today. - Current Medication List Current Medications: Active Medications Amlodipine Besylate (Norvasc -) 10 mg PO DAILY [facility] Atovaquone (Mepron -) 750 mg PO BIDWM [facility] Fentanyl (Sublimaze Injection -) 25 mcg IVPUSH [id number] PRN PRN Reason: PAIN Stop: 06/16/17 11:07 Heparin Sodium (Porcine) (Heparin -) 5,000 unit SQ TID [facility] Last Admin: 06/13/17 14:08 Dose: Not Given Insulin Aspart (Novolog Vial Sliding Scale -) 1 vial SQ ACHS [facility] PRN Reason: Protocol Metoprolol Tartrate (Lopressor -) 25 mg PO BID [facility] Sodium Bicarbonate (Sodium Bicarbonate -) 650 mg PO TID [facility] Last Admin: 06/13/17 14:10 Dose: Not Given - Objective Vital Signs: Vital Signs Temperature 98.8 F 06/13/17 13:10 Pulse Rate 75 06/13/17 13:32 Respiratory Rate 20 06/13/17 13:32 Blood Pressure 146/89 06/13/17 13:32 O2 Sat by Pulse Oximetry (%) 96 06/13/17 12:55 Constitutional: Yes: Calm Eyes: Yes: Conjunctiva Clear HENT: Yes: Atraumatic Neck: Yes: Supple Cardiovascular: Yes: S1, S2 Respiratory: Yes: CTA Bilaterally Gastrointestinal: Yes: Soft Genitourinary: Yes: WNL Musculoskeletal: Yes: WNL Edema: Yes Edema: LLE: Trace, RLE: Trace Neurological: Yes: Oriented Psychiatric: Yes: Oriented Labs: CBC, BMP 06/13/17 05:10 06/13/17 05:10 INR, PTT INR 0.91 (0.82-1.09) 06/11/17 16:57 - ....Imaging Chest X-ray: Report Reviewed Problem List - Problems (1) Admission for dialysis Code(s): Z99.2 - DEPENDENCE ON RENAL DIALYSIS (2) Hyperkalemia Code(s): E87.5 - HYPERKALEMIA (3) CKD (chronic kidney disease) Code(s): N18.9 - CHRONIC KIDNEY DISEASE, UNSPECIFIED Qualifiers: Qualified Code(s): N18.5 - Chronic kidney disease, stage 5; N18.5 - Chronic kidney disease, stage 5; N18.5 - Chronic kidney disease, stage 5; N18.5 - Chronic kidney disease, stage 5 Assessment/Plan Current Medications Generic Name Dose Route Start Last Admin Trade Name Freq PRN Reason Stop Dose Admin Amlodipine Besylate 10 mg 06/14/17 10:00 Norvasc - PO DAILY [facility] Atovaquone 750 mg 06/13/17 17:30 Mepron - PO BIDWM [facility] Fentanyl 25 mcg 06/13/17 12:17 Sublimaze Injection - IVPUSH 06/16/17 11:07 [id number] PRN PAIN Heparin Sodium (Porcine) 5,000 unit 06/13/17 14:00 06/13/17 14:08 Heparin - SQ Not Given TID [facility] Insulin Aspart 1 vial 06/13/17 16:30 Novolog Vial Sliding Scale - SQ ACHS [facility] Protocol Metoprolol Tartrate 25 mg 06/13/17 22:00 Lopressor - PO BID [facility] Sodium Bicarbonate 650 mg 06/13/17 14:00 06/13/17 14:10 Sodium Bicarbonate - PO Not Given TID [facility] Laboratory Tests 06/13/17 05:10 Urine Total Protein Pending Urine PEP Interpret Pending FELICITY M-Xander Pending STACIA Screen Pending c-ANCA Pending Proteinase 3 (PR3) Pending p-ANCA Pending Atypical p-ANCA Pending Myeloperoxidase Ab Pending Double Strand DNA Ab Pending Glomerular Base Memb Ab Pending Hepatitis A Ab Total Pending Hep Bs Antigen Pending Hep Bs Antibody Pending Hep B Core Total Ab Pending Hepatitis C Antibody Pending Impression 1. ESRD 2. HIV 3. HTN 4. hyperkalemia 5. anemia Plan - permacath placed today - HD tomorrow - renal workup in progress - will also need av-fistula - monitor blood pressure - check iron and ferritin Dr Garcia
[2017-06-13 21:10] LABS: ANION GAP 8 (8-16); CALCIUM 7.7 mg/dL (8.5-10.1); CO2 21 mmol/L (21-32); GLUCOSE,RANDOM 112 mg/dL (74-106)
[2017-06-13 21:20] LABS: CREATININE 8.6 mg/dL (0.7-1.3)
[2017-06-13 21:23] LABS: URINE APPEARANCE CLEAR; URINE BILIRUBIN NEGATIVE (NEGATIVE); URINE BLOOD 1+ (NEGATIVE); URINE COLOR STRAW; URINE GLUCOSE (UA) 1+ (NEGATIVE); URINE KETONE NEGATIVE (NEGATIVE); URINE NITRITE NEGATIVE (NEGATIVE); URINE UROBILINOGEN NEGATIVE mg/dL (0.2-1.0)
[2017-06-13 21:33] LABS: URINE PROTEIN 2+ (NEGATIVE)
[2017-06-13 21:35] LABS: URINE BACTERIA RARE /hpf (NONE SEEN); URINE RBC 1 /hpf (0-3); URINE WBC 2 /hpf (3-5)
[2017-06-13 21:36] LABS: URINE MUCUS RARE
[2017-06-14] MEDS: SODIUM BICARBONATE 650 MG TABLET PO SCH ×3 (05:41→22:53)
[2017-06-14] MEDS: HEPARIN NA (PORCINE) 5,000 UNITS/ML 1ML VIAL SQ SCH ×3 (05:42→22:54)
[2017-06-14] MEDS: INSULIN SLIDING SCALE (NOVOLOG) 1 VIAL SQ SCH ×4 (06:14→23:03)
[2017-06-14 08:19] LABS: ANION GAP 7 (8-16); CALCIUM 8.1 mg/dL (8.5-10.1); CO2 21 mmol/L (21-32); GLUCOSE,RANDOM 96 mg/dL (74-106)
[2017-06-14 08:28] LABS: PHOSPHOROUS 5.3 mg/dL (2.5-4.9)
[2017-06-14 08:54] LABS: CREATININE 8.3 mg/dL (0.7-1.3)
--- NOTE | 2017-06-14 09:09 | PN ---
Progress Note, Physician Chief Complaint: on HD, no distress History of Present Illness: TELE: NSR - Current Medication List Current Medications: Active Medications Amlodipine Besylate (Norvasc -) 10 mg PO DAILY [facility] Atovaquone (Mepron -) 750 mg PO BIDWM [facility] Last Admin: 06/13/17 16:51 Dose: 750 mg Fentanyl (Sublimaze Injection -) 25 mcg IVPUSH [id number] PRN PRN Reason: PAIN Stop: 06/16/17 11:07 Heparin Sodium (Porcine) (Heparin -) 5,000 unit SQ TID [facility] Last Admin: 06/14/17 05:42 Dose: 5,000 unit Insulin Aspart (Novolog Vial Sliding Scale -) 1 vial SQ ACHS [facility] PRN Reason: Protocol Last Admin: 06/14/17 06:14 Dose: Not Given Metoprolol Tartrate (Lopressor -) 25 mg PO BID [facility] Last Admin: 06/13/17 21:07 Dose: 25 mg Sodium Bicarbonate (Sodium Bicarbonate -) 650 mg PO TID [facility] Last Admin: 06/14/17 05:41 Dose: 650 mg - Objective Vital Signs: Vital Signs Temperature 98.7 F 06/14/17 06:40 Pulse Rate 73 06/14/17 08:46 Respiratory Rate 18 06/14/17 08:46 Blood Pressure 156/97 06/14/17 08:46 O2 Sat by Pulse Oximetry (%) 99 06/13/17 20:29 Constitutional: Yes: No Distress Cardiovascular: Yes: Regular Rate and Rhythm Respiratory: Yes: CTA Bilaterally Gastrointestinal: Yes: Soft Edema: No Neurological: Yes: Alert, Oriented Labs: CBC, BMP 06/13/17 05:10 06/14/17 05:18 INR, PTT INR 0.91 (0.82-1.09) 06/11/17 16:57 - ....Imaging EKG: Image Reviewed (TELE: NSR) Assessment/Plan Assessment/Plan 56 year old man with h/o HTN, DMII, HIV, ESRD admitted for initiation of HD, HD access placement, electrolyte abnl. Pt was recently seen in office for difficult to control HTN, chest pain, dyspnea. echo in office 05/28 showing normal LV/RV size and function, no pericardial effusion, mod LVH and E-A reversal c/w impaired relaxation, mild MR HTN-Mildly above goal -cont metoprolol and amlodipine for now -Hydralazine 25mg bid was added recently in office but pt not currently on it -if needed hydralazine can be added - We will add hydralazine 25 mg b.i.d. today. - Need to avoid DANIEL inhibitor or ARB due to his kidney disease at this time. If felt safe, would consider. - Avoid diuretics at this time due to his kidney disease. - Could also consider adding labetalol if needed or switching amlodipine to Nifedipine 30g and titrating
--- NOTE | 2017-06-14 09:37 | PN ---
Progress Note (short form) - Note Progress Note: Anesthesia Post Op Pt seen and examined S;alert and awake O: Vital Signs Temperature 98.7 F 06/14/17 06:40 Pulse Rate 78 06/14/17 09:05 Respiratory Rate 18 06/14/17 09:05 Blood Pressure 158/76 06/14/17 09:05 O2 Sat by Pulse Oximetry (%) 99 06/13/17 20:29 CBC, BMP 06/13/17 05:10 06/14/17 05:18 A/P: Current Active Problems Admission for dialysis (Acute) Hyperkalemia (Acute) s/p permacath insertion Doing well post op Continue current care Stefan Bishop MD
[2017-06-14] MEDS: METOPROLOL TARTRATE 25 MG TABLET (FP) PO SCH ×2 (09:51→22:53)
[2017-06-14] MEDS: ATOVAQUONE 750 MG/5 ML (UNIT-DOSE PACKAGING) PO SCH ×2 (09:51→18:16)
[2017-06-14] MEDS: amLODIPine BESYLATE 10 MG TABLET (FP) PO SCH (09:51)
[2017-06-14 10:07] LABS: URINE CREATININE 76.4 mg/dL (20-370)
[2017-06-14 11:43] LABS: URINE LEUK ESTERASE Negative (NEGATIVE)
--- NOTE | 2017-06-14 13:04 | PN ---
Progress Note, Physician - Current Medication List Current Medications: Active Medications Amlodipine Besylate (Norvasc -) 10 mg PO DAILY [facility] Last Admin: 06/14/17 09:51 Dose: 10 mg Atovaquone (Mepron -) 750 mg PO BIDWM [facility] Last Admin: 06/14/17 09:51 Dose: 750 mg Fentanyl (Sublimaze Injection -) 25 mcg IVPUSH [id number] PRN PRN Reason: PAIN Stop: 06/16/17 11:07 Heparin Sodium (Porcine) (Heparin -) 5,000 unit SQ TID [facility] Last Admin: 06/14/17 05:42 Dose: 5,000 unit Insulin Aspart (Novolog Vial Sliding Scale -) 1 vial SQ ACHS [facility] PRN Reason: Protocol Last Admin: 06/14/17 12:17 Dose: Not Given Metoprolol Tartrate (Lopressor -) 25 mg PO BID [facility] Last Admin: 06/14/17 09:51 Dose: 25 mg Sodium Bicarbonate (Sodium Bicarbonate -) 650 mg PO TID [facility] Last Admin: 06/14/17 05:41 Dose: 650 mg - Objective Vital Signs: Vital Signs Temperature 98.7 F 06/14/17 06:40 Pulse Rate 83 06/14/17 10:53 Respiratory Rate 18 06/14/17 09:05 Blood Pressure 158/76 06/14/17 09:05 O2 Sat by Pulse Oximetry (%) 99 06/14/17 10:53 Constitutional: Yes: Well Nourished Eyes: Yes: WNL HENT: Yes: WNL Cardiovascular: Yes: WNL Respiratory: Yes: Regular, CTA Bilaterally Gastrointestinal: Yes: WNL Musculoskeletal: Yes: WNL (patient is doing well without any complaints sitting in the rest area waiting to be placed) Labs: CBC, BMP 06/13/17 05:10 06/14/17 05:18 INR, PTT INR 0.91 (0.82-1.09) 06/11/17 16:57 Problem List - Problems (1) Admission for dialysis Assessment/Plan: c/w dialysis waiting placement for dialysis center Code(s): Z99.2 - DEPENDENCE ON RENAL DIALYSIS (2) Hyperkalemia Assessment/Plan: c/w dialysis Code(s): E87.5 - HYPERKALEMIA (3) CKD (chronic kidney disease) Assessment/Plan: patient is ESRD s/p right catheter placement - awaiting placement in dialysis center Code(s): N18.9 - CHRONIC KIDNEY DISEASE, UNSPECIFIED Qualifiers: Chronic kidney disease stage: on chronic dialysis Qualified Code(s) : N18.6 - End stage renal disease; N18.6 - End stage renal disease; N18.6 - End stage renal disease; N18.6 - End stage renal disease; Z99.2 - Dependence on renal dialysis; Z99.2 - Dependence on renal dialysis; Z99.2 - Dependence on renal dialysis; Z99.2 - Dependence on renal dialysis (4) AIDS Assessment/Plan: ID follow up for medical managment and optimization Code(s): B20 - HUMAN IMMUNODEFICIENCY VIRUS [HIV] DISEASE (5) Acute kidney injury Code(s): N17.9 - ACUTE KIDNEY FAILURE, UNSPECIFIED (6) Diabetes Assessment/Plan: c/w insulin Code(s): E11.9 - TYPE 2 DIABETES MELLITUS WITHOUT COMPLICATIONS Qualifiers: Diabetes mellitus type: type 2 Diabetes mellitus complication status: with kidney complications Diabetes mellitus complication detail: with nephropathy Diabetes mellitus termite treater helper insulin use: without termite treater helper use Qualified Code(s): E11.21 - Type 2 diabetes mellitus with diabetic nephropathy; E11.21 - Type 2 diabetes mellitus with diabetic nephropathy; E11.21 - Type 2 diabetes mellitus with diabetic nephropathy; E11.21 - Type 2 diabetes mellitus with diabetic nephropathy; E11.21 - Type 2 diabetes mellitus with diabetic nephropathy (7) Glycosuria Code(s): R81 - GLYCOSURIA
--- NOTE | 2017-06-14 14:07 | PN ---
Progress Note, Physician History of Present Illness: Pt seen and examined at bedside. He is awake and alert. He tolerated HD this morning. - Current Medication List Current Medications: Active Medications Amlodipine Besylate (Norvasc -) 10 mg PO DAILY [facility] Last Admin: 06/14/17 09:51 Dose: 10 mg Atovaquone (Mepron -) 750 mg PO BIDWM [facility] Last Admin: 06/14/17 09:51 Dose: 750 mg Fentanyl (Sublimaze Injection -) 25 mcg IVPUSH [id number] PRN PRN Reason: PAIN Stop: 06/16/17 11:07 Heparin Sodium (Porcine) (Heparin -) 5,000 unit SQ TID [facility] Last Admin: 06/14/17 05:42 Dose: 5,000 unit Insulin Aspart (Novolog Vial Sliding Scale -) 1 vial SQ ACHS [facility] PRN Reason: Protocol Last Admin: 06/14/17 12:17 Dose: Not Given Metoprolol Tartrate (Lopressor -) 25 mg PO BID [facility] Last Admin: 06/14/17 09:51 Dose: 25 mg Sodium Bicarbonate (Sodium Bicarbonate -) 650 mg PO TID [facility] Last Admin: 06/14/17 05:41 Dose: 650 mg - Objective Vital Signs: Vital Signs Temperature 98.7 F 06/14/17 06:40 Pulse Rate 83 06/14/17 10:53 Respiratory Rate 18 06/14/17 09:05 Blood Pressure 158/76 06/14/17 09:05 O2 Sat by Pulse Oximetry (%) 99 06/14/17 10:53 Constitutional: Yes: Calm Eyes: Yes: Conjunctiva Clear HENT: Yes: Atraumatic Neck: Yes: Supple Cardiovascular: Yes: S1, S2 Respiratory: Yes: CTA Bilaterally Gastrointestinal: Yes: WNL Genitourinary: Yes: WNL Musculoskeletal: Yes: WNL Edema: No Neurological: Yes: Oriented Psychiatric: Yes: Oriented Labs: CBC, BMP 06/13/17 05:10 06/14/17 05:18 INR, PTT INR 0.91 (0.82-1.09) 06/11/17 16:57 Problem List - Problems (1) Admission for dialysis Code(s): Z99.2 - DEPENDENCE ON RENAL DIALYSIS (2) Hyperkalemia Code(s): E87.5 - HYPERKALEMIA (3) CKD (chronic kidney disease) Code(s): N18.9 - CHRONIC KIDNEY DISEASE, UNSPECIFIED Qualifiers: Chronic kidney disease stage: on chronic dialysis Qualified Code(s) : N18.6 - End stage renal disease; N18.6 - End stage renal disease; N18.6 - End stage renal disease; N18.6 - End stage renal disease; Z99.2 - Dependence on renal dialysis; Z99.2 - Dependence on renal dialysis; Z99.2 - Dependence on renal dialysis; Z99.2 - Dependence on renal dialysis Assessment/Plan Current Medications Generic Name Dose Route Start Last Admin Trade Name Freq PRN Reason Stop Dose Admin Amlodipine Besylate 10 mg 06/14/17 10:00 06/14/17 09:51 Norvasc - PO 10 mg DAILY [facility] Administration Atovaquone 750 mg 06/13/17 17:30 06/14/17 09:51 Mepron - PO 750 mg BIDWM [facility] Administration Fentanyl 25 mcg 06/13/17 12:17 Sublimaze Injection - IVPUSH 06/16/17 11:07 [id number] PRN PAIN Heparin Sodium (Porcine) 5,000 unit 06/13/17 14:00 06/14/17 05:42 Heparin - SQ 5,000 unit TID [facility] Administration Insulin Aspart 1 vial 06/13/17 16:30 06/14/17 12:17 Novolog Vial Sliding Scale - SQ Not Given ACHS [facility] Protocol Metoprolol Tartrate 25 mg 06/13/17 22:00 06/14/17 09:51 Lopressor - PO 25 mg BID [facility] Administration Sodium Bicarbonate 650 mg 06/13/17 14:00 06/14/17 05:41 Sodium Bicarbonate - PO 650 mg TID [facility] Administration Laboratory Tests 06/14/17 06/14/17 05:18 05:18 Iron Pending Ferritin 379.263 H Impression 1. ESRD 2. HIV 3. HTN 4. hyperkalemia 5. anemia Plan - renal workup in progress - check labs in am - will dialyze on friday - will likely stop po bicarb tomorrow - monitor bp - anemia workup - will follow Dr Garcia
[2017-06-15] MEDS: INSULIN SLIDING SCALE (NOVOLOG) 1 VIAL SQ SCH ×4 (06:15→22:29)
[2017-06-15] MEDS: HEPARIN NA (PORCINE) 5,000 UNITS/ML 1ML VIAL SQ SCH ×3 (06:15→22:29)
[2017-06-15] MEDS: SODIUM BICARBONATE 650 MG TABLET PO SCH ×2 (06:15→13:58)
[2017-06-15 06:37] LABS: HEP B SURFACE AB Reactive (.)
--- NOTE | 2017-06-15 09:12 | PN ---
Progress Note, Physician Chief Complaint: no complaints TELE: NSR BP trend improved - Current Medication List Current Medications: Active Medications Amlodipine Besylate (Norvasc -) 10 mg PO DAILY [facility] Last Admin: 06/14/17 09:51 Dose: 10 mg Atovaquone (Mepron -) 750 mg PO BIDWM [facility] Last Admin: 06/14/17 18:16 Dose: 750 mg Fentanyl (Sublimaze Injection -) 25 mcg IVPUSH [id number] PRN PRN Reason: PAIN Stop: 06/16/17 11:07 Heparin Sodium (Porcine) (Heparin -) 5,000 unit SQ TID [facility] Last Admin: 06/15/17 06:15 Dose: 5,000 unit Insulin Aspart (Novolog Vial Sliding Scale -) 1 vial SQ ACHS [facility] PRN Reason: Protocol Last Admin: 06/15/17 06:15 Dose: Not Given Metoprolol Tartrate (Lopressor -) 25 mg PO BID [facility] Last Admin: 06/14/17 22:53 Dose: 25 mg Sodium Bicarbonate (Sodium Bicarbonate -) 650 mg PO TID [facility] Last Admin: 06/15/17 06:15 Dose: 650 mg - Objective Vital Signs: Vital Signs Temperature 97.3 F L 06/15/17 08:45 Pulse Rate 83 06/15/17 08:45 Respiratory Rate 20 06/15/17 08:45 Blood Pressure 145/69 06/15/17 08:45 O2 Sat by Pulse Oximetry (%) 97 06/14/17 20:59 Constitutional: Yes: No Distress, Calm Cardiovascular: Yes: Regular Rate and Rhythm Respiratory: Yes: CTA Bilaterally Gastrointestinal: Yes: Soft Edema: No Neurological: Yes: Alert, Oriented Labs: INR, PTT INR 0.91 (0.82-1.09) 06/11/17 16:57 Laboratory Tests 06/15/17 06/15/17 08:35 08:35 WBC Pending RBC Pending Hgb Pending Hct Pending Plt Count Pending Sodium Pending Potassium Pending Chloride Pending Carbon Dioxide Pending Anion Gap Pending BUN Pending Creatinine Pending Creat Clearance w eGFR Pending Assessment/Plan Assessment/Plan 56 year old man with h/o HTN, DMII, HIV, ESRD admitted for initiation of HD, HD access placement, electrolyte abnl. Pt was recently seen in office for difficult to control HTN, chest pain, dyspnea. echo in office 05/28 showing normal LV/RV size and function, no pericardial effusion, mod LVH and E-A reversal c/w impaired relaxation, mild MR HTN-trend last 24 hours with improvement -cont metoprolol and amlodipine for now - Need to avoid DANIEL inhibitor or ARB due to his kidney disease at this time. If felt safe, would consider in future. - Avoid diuretics at this time due to his kidney disease.
[2017-06-15] MEDS: METOPROLOL TARTRATE 25 MG TABLET (FP) PO SCH ×2 (09:14→22:29)
[2017-06-15] MEDS: amLODIPine BESYLATE 10 MG TABLET (FP) PO SCH (09:14)
[2017-06-15] MEDS: ATOVAQUONE 750 MG/5 ML (UNIT-DOSE PACKAGING) PO SCH ×2 (09:15→16:54)
[2017-06-15 09:19] LABS: MCH 29.5 pg (25.7-33.7); MCHC 33.6 g/dl (32.0-35.9); MEAN CELL VOLUME 87.7 fl (80-96); MEAN PLT VOLUME 9.6 fl (7.5-11.1); PLATELET COUNT 108 K/MM3 (134-434); RDW 13.1 % (11.9-15.9); WHITE BLOOD COUNT 3.7 K/mm3 (4.0-10.0)
[2017-06-15 09:58] LABS: ALBUMIN 3.2 g/dl (3.4-5.0); ALK PHOS 97 U/L (45-117); ANION GAP 10 (8-16); BILIRUBIN,TOTAL 0.3 mg/dL (0.2-1.0); CALCIUM 7.7 mg/dL (8.5-10.1); CO2 24 mmol/L (21-32); GLUCOSE,RANDOM 143 mg/dL (74-106); SGOT/AST 38 U/L (15-37); SGPT/ALT 25 U/L (12-78); TOT PROT 7.4 g/dl (6.4-8.2)
[2017-06-15 10:57] LABS: CREATININE 7.5 mg/dL (0.7-1.3)
--- NOTE | 2017-06-15 10:57 | PN ---
Physical Exam: SUBJECTIVE: Patient seen and examined. No acute events overnight. Offers no new complaints. Denies dizziness, nausea, chest pain, sob, abdominal pain. OBJECTIVE: Vital Signs Period Temp Pulse Resp BP Sys/Estrada Pulse Ox Last 24 Hr 97.3 F-98.1 F 64-83 20-20 141-149/69-88 97-99 GENERAL: Awake, alert, and fully oriented, in no acute distress. HEAD: Normal with no signs of trauma. EYES: Pupils equal, round and reactive to light, extraocular movements intact, sclera anicteric, conjunctiva clear. No lid lag. EARS, NOSE, THROAT: Ears normal, nares patent, oropharynx clear without exudates. Moist mucous membranes. NECK: Normal range of motion, supple without lymphadenopathy, JVD, or masses. LUNGS: Breath sounds equal, clear to auscultation bilaterally. No wheezes, and no crackles. No accessory muscle use. HEART: Regular rate and rhythm, Systolic murmber 3/6 LUSB, normal S1 and S2 ABDOMEN: Soft, nontender, not distended, normoactive bowel sounds, no guarding, no rebound, no masses. No hepatomegaly or splenomegaly. MUSCULOSKELETAL: Normal range of motion at all joints. No bony deformities or tenderness. No CVA tenderness. UPPER EXTREMITIES: 2+ pulses, warm, well-perfused. No cyanosis. No clubbing. No peripheral edema. LOWER EXTREMITIES: 2+ pulses, warm, well-perfused. No calf tenderness. trace edema b/l NEUROLOGICAL: Cranial nerves II-XII intact. Normal speech. Normal gait. PSYCHIATRIC: Cooperative. Good eye contact. Appropriate mood and affect. SKIN: Warm, dry, normal turgor, no rashes or lesions noted, normal capillary refill. : nontender Large right reducible hernia Laboratory Results - last 24 hr 06/13/17 06/13/17 06/13/17 05:10 10:00 20:25 WBC RBC Hgb Hct MCV MCH MCHC RDW Plt Count MPV POC Glucometer Iron Urine Color Straw Urine Appearance Clear Urine pH 7.0 Ur Specific Oxbow 1.020 Urine Protein 2+ H Urine Glucose (UA) 1+ H Urine Ketones Negative Urine Blood 1+ H Urine Nitrite Negative Urine Bilirubin Negative Urine Urobilinogen Negative Ur Leukocyte Esterase Negative Urine RBC 1 Urine WBC 2 Ur Epithelial Cells Rare Urine Bacteria Rare Urine Mucus Rare U Random Total Protein 245 H Urine Creatinine 76.4 Protein/Creatinin Ratio 3.2 STACIA Screen Positive H STACIA Homogeneous Pattern TNP STACIA Nucleolar Pattern TNP STACIA Speckled Pattern 1:80 STACIA Centromere Pattern TNP Double Strand DNA Ab <1 Hep A IgM Ab Confirm Negative Hepatitis A Ab Total Positive H Hep Bs Antigen Negative Hep Bs Antibody Reactive Hep B Core Total Ab Negative Hepatitis C Antibody 0.1 06/14/17 06/14/17 06/14/17 05:18 12:15 17:14 WBC RBC Hgb Hct MCV MCH MCHC RDW Plt Count MPV POC Glucometer 134 129 Iron 53 Urine Color Urine Appearance Urine pH Ur Specific Oxbow Urine Protein Urine Glucose (UA) Urine Ketones Urine Blood Urine Nitrite Urine Bilirubin Urine Urobilinogen Ur Leukocyte Esterase Urine RBC Urine WBC Ur Epithelial Cells Urine Bacteria Urine Mucus U Random Total Protein Urine Creatinine Protein/Creatinin Ratio STACIA Screen STACIA Homogeneous Pattern STACIA Nucleolar Pattern STACIA Speckled Pattern STACIA Centromere Pattern Double Strand DNA Ab Hep A IgM Ab Confirm Hepatitis A Ab Total Hep Bs Antigen Hep Bs Antibody Hep B Core Total Ab Hepatitis C Antibody 06/15/17 06/15/17 06:03 08:35 WBC 3.7 L RBC 3.24 L Hgb 9.6 L Hct 28.4 L MCV 87.7 MCH 29.5 MCHC 33.6 RDW 13.1 Plt Count 108 L MPV 9.6 POC Glucometer 115 Iron Urine Color Urine Appearance Urine pH Ur Specific Oxbow Urine Protein Urine Glucose (UA) Urine Ketones Urine Blood Urine Nitrite Urine Bilirubin Urine Urobilinogen Ur Leukocyte Esterase Urine RBC Urine WBC Ur Epithelial Cells Urine Bacteria Urine Mucus U Random Total Protein Urine Creatinine Protein/Creatinin Ratio STACIA Screen STACIA Homogeneous Pattern STACIA Nucleolar Pattern STACIA Speckled Pattern STACIA Centromere Pattern Double Strand DNA Ab Hep A IgM Ab Confirm Hepatitis A Ab Total Hep Bs Antigen Hep Bs Antibody Hep B Core Total Ab Hepatitis C Antibody Active Medications Generic Name Dose Route Start Last Admin Trade Name Freq PRN Reason Stop Dose Admin Amlodipine Besylate 10 mg 06/14/17 10:00 06/15/17 09:14 Norvasc - PO 10 mg DAILY [facility] Administration Atovaquone 750 mg 06/13/17 17:30 06/15/17 09:15 Mepron - PO 750 mg BIDWM [facility] Administration Fentanyl 25 mcg 06/13/17 12:17 Sublimaze Injection - IVPUSH 06/16/17 11:07 [id number] PRN PAIN Heparin Sodium (Porcine) 5,000 unit 06/13/17 14:00 06/15/17 06:15 Heparin - SQ 5,000 unit TID [facility] Administration Insulin Aspart 1 vial 06/13/17 16:30 06/15/17 06:15 Novolog Vial Sliding Scale - SQ Not Given ACHS [facility] Protocol Metoprolol Tartrate 25 mg 06/13/17 22:00 06/15/17 09:14 Lopressor - PO 25 mg BID [facility] Administration Sodium Bicarbonate 650 mg 06/13/17 14:00 06/15/17 06:15 Sodium Bicarbonate - PO 650 mg TID [facility] Administration ASSESSMENT/PLAN: Patient is a 56 yo M with a past medical history of HIV, HTN, and DM, CKD stage 5 s/p permacath presents to the ED 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 #CKD stage Stage 5 -s/p permacath insertion -FU FELICITY M-spike, STACIA, c-Anca, PR3, p-anca, myeloperoxidase, DsDNA, Glomerular BM. -s/p permacath -HD planned for tomorrow -will need avf early next week as per vascular -Bicab given, will likely be stopped today #Hyperkalemia -resolved -K level of 4.6 -CKD stage 5 #DM2 -ISS -BGM ACHS -Last A1c 8.4 (05/18) #HIV -pancytopenia -Has not taken HAART meds in 4 months due to renal function -atovaquone 750mg daily started per ID #Pancytopenia -likely from HIV infection or HIV medication -will monitor #HTN -continue home meds -Metoprolol 25mg BID -Cont. Amlodipine 10mg daily -Hydralazine 25mg BID added -Consider adding labetolol if needed as per Cardio -Need to avoid DANIEL inhibitor or ARB due to his kidney disease at this time #Chest Pain -echo in office 05/28: normal LV/RV size and function, no pericardial effusion, mod LVH , mild MR -F/U with cardio outpatient -Exercise stress test outpatient #Right inguinal hernia -reducible -nontender -Follow up outpatient #FEN -No IV fluids -WNL -renal diet Visit type - Emergency Visit Emergency Visit: Yes ED Registration Date: 10/11/17 Care time: The patient presented to the Emergency Department on the above date and was hospitalized for further evaluation of their emergent condition. - New Patient This patient is new to me today: No - Critical Care Critical Care patient: No
--- NOTE | 2017-06-15 15:42 | PN ---
Teaching Attending Note Name of Resident: Bruce Pack ATTENDING PHYSICIAN STATEMENT I saw and evaluated the patient. I reviewed the resident's note and discussed the case with the resident. I agree with the resident's findings and plan as documented. SUBJECTIVE: OBJECTIVE: ASSESSMENT AND PLAN: patient was sitting outside the room he has no complaints, patient is awaiting dialysis center to be d/c Problem List - Problems (1) Admission for dialysis Code(s): Z99.2 - DEPENDENCE ON RENAL DIALYSIS (2) Hyperkalemia Code(s): E87.5 - HYPERKALEMIA (3) CKD (chronic kidney disease) Code(s): N18.9 - CHRONIC KIDNEY DISEASE, UNSPECIFIED Qualifiers: Chronic kidney disease stage: on chronic dialysis Qualified Code(s) : N18.6 - End stage renal disease; N18.6 - End stage renal disease; N18.6 - End stage renal disease; N18.6 - End stage renal disease; Z99.2 - Dependence on renal dialysis; Z99.2 - Dependence on renal dialysis; Z99.2 - Dependence on renal dialysis; Z99.2 - Dependence on renal dialysis (4) AIDS Code(s): B20 - HUMAN IMMUNODEFICIENCY VIRUS [HIV] DISEASE (5) Acute kidney injury Code(s): N17.9 - ACUTE KIDNEY FAILURE, UNSPECIFIED (6) Diabetes Code(s): E11.9 - TYPE 2 DIABETES MELLITUS WITHOUT COMPLICATIONS Qualifiers: Diabetes mellitus type: type 2 Diabetes mellitus complication status: with kidney complications Diabetes mellitus complication detail: with nephropathy Diabetes mellitus rn long term care insulin use: without rn long term care use Qualified Code(s): E11.21 - Type 2 diabetes mellitus with diabetic nephropathy; E11.21 - Type 2 diabetes mellitus with diabetic nephropathy; E11.21 - Type 2 diabetes mellitus with diabetic nephropathy; E11.21 - Type 2 diabetes mellitus with diabetic nephropathy; E11.21 - Type 2 diabetes mellitus with diabetic nephropathy; Z79.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
--- NOTE | 2017-06-15 17:02 | PN ---
Progress Note, Physician History of Present Illness: Pt seen and examined at bedside. He is awake and alert. He denies shortness of breath. - Current Medication List Current Medications: Active Medications Amlodipine Besylate (Norvasc -) 10 mg PO DAILY [facility] Last Admin: 06/15/17 09:14 Dose: 10 mg Atovaquone (Mepron -) 750 mg PO BIDWM [facility] Last Admin: 06/15/17 16:54 Dose: 750 mg Fentanyl (Sublimaze Injection -) 25 mcg IVPUSH [id number] PRN PRN Reason: PAIN Stop: 06/16/17 11:07 Heparin Sodium (Porcine) (Heparin -) 5,000 unit SQ TID [facility] Last Admin: 06/15/17 13:58 Dose: 5,000 unit Insulin Aspart (Novolog Vial Sliding Scale -) 1 vial SQ ACHS [facility] PRN Reason: Protocol Last Admin: 06/15/17 16:54 Dose: Not Given Metoprolol Tartrate (Lopressor -) 25 mg PO BID [facility] Last Admin: 06/15/17 09:14 Dose: 25 mg Sodium Bicarbonate (Sodium Bicarbonate -) 650 mg PO TID [facility] Last Admin: 06/15/17 13:58 Dose: 650 mg - Objective Vital Signs: Vital Signs Temperature 98.4 F 06/15/17 14:00 Pulse Rate 72 06/15/17 14:00 Respiratory Rate 20 06/15/17 08:45 Blood Pressure 142/86 06/15/17 14:00 O2 Sat by Pulse Oximetry (%) 97 06/15/17 10:30 Constitutional: Yes: Calm Eyes: Yes: Conjunctiva Clear HENT: Yes: Atraumatic Cardiovascular: Yes: S1, S2 Respiratory: Yes: CTA Bilaterally Gastrointestinal: Yes: Normal Bowel Sounds, Soft Genitourinary: Yes: WNL Musculoskeletal: Yes: WNL Edema: No Neurological: Yes: Oriented Psychiatric: Yes: Oriented Labs: CBC, BMP 06/15/17 08:35 06/15/17 08:35 INR, PTT INR 0.91 (0.82-1.09) 06/11/17 16:57 Problem List - Problems (1) Admission for dialysis Code(s): Z99.2 - DEPENDENCE ON RENAL DIALYSIS (2) Hyperkalemia Code(s): E87.5 - HYPERKALEMIA (3) CKD (chronic kidney disease) Code(s): N18.9 - CHRONIC KIDNEY DISEASE, UNSPECIFIED Qualifiers: Chronic kidney disease stage: on chronic dialysis Qualified Code(s) : N18.6 - End stage renal disease; N18.6 - End stage renal disease; N18.6 - End stage renal disease; N18.6 - End stage renal disease; Z99.2 - Dependence on renal dialysis; Z99.2 - Dependence on renal dialysis; Z99.2 - Dependence on renal dialysis; Z99.2 - Dependence on renal dialysis Assessment/Plan Current Medications Generic Name Dose Route Start Last Admin Trade Name Freq PRN Reason Stop Dose Admin Amlodipine Besylate 10 mg 06/14/17 10:00 06/15/17 09:14 Norvasc - PO 10 mg DAILY [facility] Administration Atovaquone 750 mg 06/13/17 17:30 06/15/17 16:54 Mepron - PO 750 mg BIDWM [facility] Administration Fentanyl 25 mcg 06/13/17 12:17 Sublimaze Injection - IVPUSH 06/16/17 11:07 [id number] PRN PAIN Heparin Sodium (Porcine) 5,000 unit 06/13/17 14:00 06/15/17 13:58 Heparin - SQ 5,000 unit TID [facility] Administration Insulin Aspart 1 vial 06/13/17 16:30 06/15/17 16:54 Novolog Vial Sliding Scale - SQ Not Given ACHS [facility] Protocol Metoprolol Tartrate 25 mg 06/13/17 22:00 06/15/17 09:14 Lopressor - PO 25 mg BID [facility] Administration Sodium Bicarbonate 650 mg 06/13/17 14:00 06/15/17 13:58 Sodium Bicarbonate - PO 650 mg TID [facility] Administration Laboratory Tests 06/13/17 05:10 FELICITY M-Xander Pending TATIANA Screen Positive H TATIANA Homogeneous Pattern TNP [place] Nucleolar Pattern TNP [place] Speckled Pattern 1:80 TATIANA Centromere Pattern TNP c-ANCA Pending Proteinase 3 (PR3) Pending p-ANCA Pending Atypical p-ANCA Pending Myeloperoxidase Ab Pending Double Strand DNA Ab <1 Glomerular Base Memb Ab Pending Hep A IgM Ab Confirm Negative Hepatitis A Ab Total Positive H Hep Bs Antigen Negative Hep Bs Antibody Reactive Hep B Core Total Ab Negative Hepatitis C Antibody 0.1 Impression 1. ESRD 2. HIV 3. HTN 4. hyperkalemia 5. anemia Plan - HD in am - pt needs placement for dialysis - rheum eval for tatiana - can stop PO bicarb - anemia workup - will follow Dr Garcia
[2017-06-16] MEDS: HEPARIN NA (PORCINE) 5,000 UNITS/ML 1ML VIAL SQ SCH ×3 (06:33→21:55)
[2017-06-16] MEDS: INSULIN SLIDING SCALE (NOVOLOG) 1 VIAL SQ SCH ×4 (06:34→21:58)
[2017-06-16 07:18] LABS: ANION GAP 10 (8-16); CALCIUM 7.6 mg/dL (8.5-10.1); CO2 23 mmol/L (21-32); GLUCOSE,RANDOM 107 mg/dL (74-106)
[2017-06-16 07:19] LABS: BASOPHIL 0.7 % (0-2.0); EOSINOPHIL 4.5 % (0-4.5); MCH 29.4 pg (25.7-33.7); MCHC 33.6 g/dl (32.0-35.9); MEAN CELL VOLUME 87.4 fl (80-96); MEAN PLT VOLUME 9.9 fl (7.5-11.1); NEUTROPHILS 43.8 % (42.8-82.8); PLATELET COUNT 95 K/MM3 (134-434); RDW 13.6 % (11.9-15.9); WHITE BLOOD COUNT 3.5 K/mm3 (4.0-10.0)
[2017-06-16 07:52] LABS: CREATININE 7.7 mg/dL (0.7-1.3)
[2017-06-16] MEDS: ATOVAQUONE 750 MG/5 ML (UNIT-DOSE PACKAGING) PO SCH ×3 (08:40→17:40)
[2017-06-16 08:45] LABS: MAGNESIUM 2.1 mg/dL (1.8-2.4); PHOSPHOROUS 5.6 mg/dL (2.5-4.9)
[2017-06-16] MEDS: amLODIPine BESYLATE 10 MG TABLET (FP) PO SCH ×2 (09:39→11:15)
[2017-06-16] MEDS: METOPROLOL TARTRATE 25 MG TABLET (FP) PO SCH ×3 (09:39→21:55)
--- NOTE | 2017-06-16 10:43 | PN ---
Progress Note, Physician History of Present Illness: seen and examined today in nad. currently on HD. no new complaints. no overnight events. - Current Medication List Current Medications: Active Medications Amlodipine Besylate (Norvasc -) 10 mg PO DAILY [facility] Last Admin: 06/16/17 09:39 Dose: Not Given Atovaquone (Mepron -) 750 mg PO BIDWM [facility] Last Admin: 06/16/17 08:40 Dose: Not Given Fentanyl (Sublimaze Injection -) 25 mcg IVPUSH [id number] PRN PRN Reason: PAIN Stop: 06/16/17 11:07 Heparin Sodium (Porcine) (Heparin -) 5,000 unit SQ TID [facility] Last Admin: 06/16/17 06:33 Dose: Not Given Insulin Aspart (Novolog Vial Sliding Scale -) 1 vial SQ ACHS [facility] PRN Reason: Protocol Last Admin: 06/16/17 06:34 Dose: Not Given Metoprolol Tartrate (Lopressor -) 25 mg PO BID [facility] Last Admin: 06/16/17 09:39 Dose: Not Given - Objective Vital Signs: Vital Signs Temperature 98 F 06/16/17 08:40 Pulse Rate 77 06/16/17 10:10 Respiratory Rate 18 06/16/17 10:10 Blood Pressure 143/93 06/16/17 10:10 O2 Sat by Pulse Oximetry (%) 96 06/16/17 08:43 Constitutional: Yes: Well Nourished, No Distress, Calm Eyes: Yes: WNL, Conjunctiva Clear, EOM Intact, PERRL HENT: Yes: WNL, Atraumatic, Normocephalic Neck: Yes: WNL, Supple, Trachea Midline Cardiovascular: Yes: Regular Rate and Rhythm, S1, S2. No: Bradycardia, Tachycardia, Pulse Irregular, Bruit, JVD, Gallop, Murmur, Rub, S3, S4, Varicosities Respiratory: Yes: Regular, CTA Bilaterally. No: Rales, Rhonchi, SOB, Wheezes Gastrointestinal: Yes: Normal Bowel Sounds, Soft. No: Distention, Tenderness Edema: No Peripheral Pulses WNL: Yes Peripheral Pulses: Left Doralis Pedis: 2+, Right Dorsalis Pedis: 2+ Neurological: Yes: Alert, Oriented Psychiatric: Yes: Alert, Oriented Labs: CBC, BMP 06/16/17 06:30 06/16/17 06:30 INR, PTT INR 0.91 (0.82-1.09) 06/11/17 16:57 - ....Imaging Chest X-ray: Report Reviewed, Image Reviewed EKG: Report Reviewed, Image Reviewed Other: Report Reviewed, Image Reviewed (tele-nsr, no arrhythmias recorded) Assessment/Plan 56 year old man with h/o HTN, DMII, HIV, ESRD admitted for initiation of HD, HD access placement, electrolyte abnl. Pt was recently seen in office for difficult to control HTN, chest pain, dyspnea. echo in office 05/28 showing normal LV/RV size and function, no pericardial effusion, mod LVH and E-A reversal c/w impaired relaxation, mild MR HTN-improving overall, still above long term goal but adequate for now - cont metoprolol and amlodipine for now - now that HD has been started may benefit from DANIEL-I/ARB, can be considered as outpatient -close outpatient f/up Chest pain/dyspnea-none during this admission -plan for stress test as outpatient -pt is acceptable from cardiac standpoint for discharge with close outpatient f/ up Would recc pt f/up in office this week or early next week for close f/up and further work up as needed If he remains inpatient can [facility] wing has been wnl
--- NOTE | 2017-06-16 13:55 | PN ---
Progress Note, Physician History of Present Illness: Pt seen and examined at bedside. He tolerated HD today. He denies chest pain or shortness of breath. - Current Medication List Current Medications: Active Medications Amlodipine Besylate (Norvasc -) 10 mg PO DAILY [facility] Last Admin: 06/16/17 11:15 Dose: 10 mg Atovaquone (Mepron -) 750 mg PO BIDWM [facility] Last Admin: 06/16/17 11:14 Dose: 750 mg Heparin Sodium (Porcine) (Heparin -) 5,000 unit SQ TID [facility] Last Admin: 06/16/17 06:33 Dose: Not Given Insulin Aspart (Novolog Vial Sliding Scale -) 1 vial SQ ACHS [facility] PRN Reason: Protocol Last Admin: 06/16/17 06:34 Dose: Not Given Metoprolol Tartrate (Lopressor -) 25 mg PO BID [facility] Last Admin: 06/16/17 11:15 Dose: 25 mg - Objective Vital Signs: Vital Signs Temperature 98 F 06/16/17 08:40 Pulse Rate 77 06/16/17 10:10 Respiratory Rate 18 06/16/17 10:10 Blood Pressure 143/93 06/16/17 10:10 O2 Sat by Pulse Oximetry (%) 96 06/16/17 08:43 Constitutional: Yes: Calm Eyes: Yes: Conjunctiva Clear HENT: Yes: Atraumatic Neck: Yes: Supple Cardiovascular: Yes: S1, S2 Respiratory: Yes: CTA Bilaterally Gastrointestinal: Yes: Soft Genitourinary: Yes: WNL Musculoskeletal: Yes: WNL Edema: No Neurological: Yes: Oriented Psychiatric: Yes: Oriented Labs: CBC, BMP 06/16/17 06:30 06/16/17 06:30 INR, PTT INR 0.91 (0.82-1.09) 06/11/17 16:57 Problem List - Problems (1) Admission for dialysis Code(s): Z99.2 - DEPENDENCE ON RENAL DIALYSIS (2) Hyperkalemia Code(s): E87.5 - HYPERKALEMIA (3) CKD (chronic kidney disease) Code(s): N18.9 - CHRONIC KIDNEY DISEASE, UNSPECIFIED Qualifiers: Chronic kidney disease stage: on chronic dialysis Qualified Code(s) : N18.6 - End stage renal disease; N18.6 - End stage renal disease; N18.6 - End stage renal disease; N18.6 - End stage renal disease; Z99.2 - Dependence on renal dialysis; Z99.2 - Dependence on renal dialysis; Z99.2 - Dependence on renal dialysis; Z99.2 - Dependence on renal dialysis Assessment/Plan Current Medications Generic Name Dose Route Start Last Admin Trade Name Freq PRN Reason Stop Dose Admin Amlodipine Besylate 10 mg 06/14/17 10:00 06/16/17 11:15 Norvasc - PO 10 mg DAILY [facility] Administration Atovaquone 750 mg 06/13/17 17:30 06/16/17 11:14 Mepron - PO 750 mg BIDWM [facility] Administration Heparin Sodium (Porcine) 5,000 unit 06/13/17 14:00 06/16/17 06:33 Heparin - SQ Not Given TID [facility] Insulin Aspart 1 vial 06/13/17 16:30 06/16/17 06:34 Novolog Vial Sliding Scale - SQ Not Given ACHS [facility] Protocol Metoprolol Tartrate 25 mg 06/13/17 22:00 06/16/17 11:15 Lopressor - PO 25 mg BID [facility] Administration Laboratory Tests 06/13/17 06/13/17 05:10 10:00 Protein/Creatinin Ratio 3.2 Urine Total Protein Pending Urine PEP Interpret Pending STACIA Screen Positive H STACIA Homogeneous Pattern TNP STACIA Nucleolar Pattern TNP STACIA Speckled Pattern 1:80 STACIA Centromere Pattern TNP c-ANCA Pending Proteinase 3 (PR3) Pending p-ANCA Pending Atypical p-ANCA Pending Myeloperoxidase Ab Pending Double Strand DNA Ab <1 Glomerular Base Memb Ab 4 Hep Bs Antigen Negative Hep Bs Antibody Reactive Hep B Core Total Ab Negative Hepatitis C Antibody 0.1 Impression 1. ESRD 2. HIV 3. HTN 4. hyperkalemia 5. anemia Plan - pt had HD today - spoke to vascular, fistula to be placed on Friday - rheum follow up - renal workup in progress - recommend ID follow up - anemia workup - will follow Dr Garcia
--- NOTE | 2017-06-16 15:20 | PN ---
Progress Note (short form) - Note Progress Note: VAsc[facility] Surgery Pt for avf placement on fri morning. US reviewed, pt has a good cephalic vein. Will do cephalic vein fistula. Robert brown DO
--- NOTE | 2017-06-16 15:46 | PN ---
Teaching Attending Note Name of Resident: Bruce Pack ATTENDING PHYSICIAN STATEMENT I saw and evaluated the patient. I reviewed the resident's note and discussed the case with the resident. I agree with the resident's findings and plan as documented. SUBJECTIVE: no acute events no new complaints OBJECTIVE: Vital Signs Temperature 97.9 F 06/16/17 15:00 Pulse Rate 68 06/16/17 15:00 Respiratory Rate 18 06/16/17 15:00 Blood Pressure 139/76 06/16/17 15:00 O2 Sat by Pulse Oximetry (%) 96 06/16/17 08:43 HENT: Yes: Atraumatic Neck: Yes: Supple Cardiovascular: Yes: S1, S2 Respiratory: Yes: CTA Bilaterally Gastrointestinal: Yes: Soft Genitourinary: Yes: WNL Musculoskeletal: Yes: WNL Edema: No CBC, BMP 06/16/17 06:30 06/16/17 06:30 ASSESSMENT AND PLAN: #CKD stage Stage 5 -s/p permacath insertion -HD planned for tomorrow -as per vascular surgery - av fistula on Friday #HIV -pancytopenia -Has not taken HAART meds in 4 months due to renal function -atovaquone 750mg daily started per ID #HTN- controlled -Metoprolol 25mg BID -Cont. Amlodipine 10mg daily -Hydralazine #Chest Pain -echo in office 05/28: normal LV/RV size and function, no pericardial effusion, mod LVH , mild MR -F/U with cardio outpatient -Exercise stress test outpatient #Right inguinal hernia -reducible -nontender -Follow up outpatient Disposition - AV fistula on friday D/C planning
--- NOTE | 2017-06-16 16:06 | PN ---
Physical Exam: SUBJECTIVE: Patient seen and examined. No acute events overnight. Offers no new complaints. Denies dizziness, chest pain, headache, nausea and vomiting. OBJECTIVE: Vital Signs Period Temp Pulse Resp BP Sys/Estrada Pulse Ox Last 24 Hr 97.2 F-98.9 F 62-78 18-20 130-149/76-96 96-97 GENERAL: Awake, alert, and fully oriented, in no acute distress. HEAD: Normal with no signs of trauma. EYES: Pupils equal, round and reactive to light, extraocular movements intact, sclera anicteric, conjunctiva clear. No lid lag. EARS, NOSE, THROAT: oropharynx clear without exudates. Moist mucous membranes. NECK: Normal range of motion, supple without lymphadenopathy, JVD, or masses. LUNGS: Breath sounds equal, clear to auscultation bilaterally. No wheezes, and no crackles. No accessory muscle use. HEART: Regular rate and rhythm, Systolic murmber 3/6 LUSB, normal S1 and S2 ABDOMEN: Soft, nontender, not distended, normoactive bowel sounds, no guarding, no rebound, no masses. No hepatomegaly or splenomegaly. MUSCULOSKELETAL: Normal range of motion at all joints. No bony deformities or tenderness. No CVA tenderness. UPPER EXTREMITIES: 2+ pulses, warm, well-perfused. No cyanosis. No clubbing. No peripheral edema. LOWER EXTREMITIES: 2+ pulses, warm, well-perfused. No calf tenderness. trace edema b/l NEUROLOGICAL: Cranial nerves II-XII intact. Normal speech. Normal gait. PSYCHIATRIC: Cooperative. Good eye contact. Appropriate mood and affect. SKIN: Warm, dry, normal turgor, no rashes or lesions noted, normal capillary refill. : nontender Large right reducible hernia Laboratory Results - last 24 hr 06/13/17 06/15/17 06/16/17 05:10 16:49 05:25 WBC RBC Hgb Hct MCV MCH MCHC RDW Plt Count MPV Neutrophils % Lymphocytes % Monocytes % Eosinophils % Basophils % Sodium Potassium Chloride Carbon Dioxide Anion Gap BUN Creatinine POC Glucometer 128 118 Random Glucose Calcium Phosphorus Magnesium STACIA Screen Positive H STACIA Homogeneous Pattern TNP STACIA Nucleolar Pattern TNP STACIA Speckled Pattern 1:80 STACIA Centromere Pattern TNP Double Strand DNA Ab <1 Glomerular Base Memb Ab 4 Hep A IgM Ab Confirm Negative Hepatitis A Ab Total Positive H Hep Bs Antigen Negative Hep Bs Antibody Reactive Hep B Core Total Ab Negative Hepatitis C Antibody 0.1 06/16/17 06/16/17 06/16/17 06:30 06:30 11:10 WBC 3.5 L RBC 3.05 L Hgb 9.0 L Hct 26.7 L MCV 87.4 MCH 29.4 MCHC 33.6 RDW 13.6 Plt Count 95 L MPV 9.9 Neutrophils % 43.8 Lymphocytes % 35.7 Monocytes % 15.3 H Eosinophils % 4.5 Basophils % 0.7 Sodium 136 Potassium 4.4 Chloride 103 Carbon Dioxide 23 Anion Gap 10 BUN 56 H Creatinine 7.7 H* POC Glucometer 491 Random Glucose 107 H D Calcium 7.6 L Phosphorus 5.6 H Magnesium 2.1 STACIA Screen STACIA Homogeneous Pattern STACIA Nucleolar Pattern STACIA Speckled Pattern STACIA Centromere Pattern Double Strand DNA Ab Glomerular Base Memb Ab Hep A IgM Ab Confirm Hepatitis A Ab Total Hep Bs Antigen Hep Bs Antibody Hep B Core Total Ab Hepatitis C Antibody Active Medications Generic Name Dose Route Start Last Admin Trade Name Gauravq PRN Reason Stop Dose Admin Amlodipine Besylate 10 mg 06/14/17 10:00 06/16/17 11:15 Norvasc - PO 10 mg DAILY [facility] Administration Atovaquone 750 mg 06/13/17 17:30 06/16/17 11:14 Mepron - PO 750 mg BIDWM [facility] Administration Heparin Sodium (Porcine) 5,000 unit 06/13/17 14:00 06/16/17 14:35 Heparin - SQ 5,000 unit TID [facility] Administration Insulin Aspart 1 vial 06/13/17 16:30 06/16/17 11:35 Novolog Vial Sliding Scale - SQ Not Given [facility] Protocol Metoprolol Tartrate 25 mg 06/13/17 22:00 06/16/17 11:15 Lopressor - PO 25 mg BID [facility] Administration ASSESSMENT/PLAN: Patient is a 56 yo M with a past medical history of HIV, HTN, and DM, CKD stage 5 s/p permacath presents to the ED after being sent by his product design manager for Dialysis and AV access. #CKD stage Stage 5 -s/p permacath insertion -FU FELICITY M-spike, STACIA, c-Anca, PR3, p-anca, myeloperoxidase, DsDNA, Glomerular BM. -s/p permacath -had HD today -Pt for avf placement (cephalic vein fistule) on fri. -Bicarb stopped #Hyperkalemia -resolved -K level of 4.4 -CKD stage 5 #DM2 -ISS -BGM ACHS -Last A1c 8.4 (05/18) #HIV -pancytopenia -atovaquone 750mg daily started per ID -follow up ID #Pancytopenia -likely from HIV infection or HIV medication -will monitor #HTN -continue home meds -Metoprolol 25mg BID -Cont. Amlodipine 10mg daily -Hydralazine 25mg BID added -Consider adding labetolol if needed as per Cardio -Need to avoid DANIEL inhibitor or ARB due to his kidney disease at this time #Chest Pain -echo in office 05/28: normal LV/RV size and function, no pericardial effusion, mod LVH , mild MR -F/U with cardio outpatient -Exercise stress test outpatient #Right inguinal hernia -reducible -nontender -Follow up outpatient #FEN -No IV fluids -WNL -renal diet Visit type - Emergency Visit Emergency Visit: Yes ED Registration Date: 06/11/17 Care time: The patient presented to the Emergency Department on the above date and was hospitalized for further evaluation of their emergent condition. - New Patient This patient is new to me today: No - Critical Care Critical Care patient: No
[2017-06-17 00:16] LABS: A/G RATIO 0.9 (0.7-1.7); ALBUMIN 3.2 g/dL (2.9-4.4); GLOBULIN, TOTAL 3.6 g/dL (2.2-3.9); M-SPIKE Not Observed g/dL (Not Observed); TOTAL PROTEIN 6.8 g/dL (6.0-8.5)
[2017-06-17] MEDS: INSULIN SLIDING SCALE (NOVOLOG) 1 VIAL SQ SCH ×4 (06:16→22:09)
[2017-06-17] MEDS: HEPARIN NA (PORCINE) 5,000 UNITS/ML 1ML VIAL SQ SCH ×3 (06:16→22:09)
[2017-06-17 07:05] LABS: ANION GAP 10 (8-16); CALCIUM 7.4 mg/dL (8.5-10.1); CO2 27 mmol/L (21-32); GLUCOSE,RANDOM 108 mg/dL (74-106)
[2017-06-17 07:08] LABS: CREATININE 6.2 mg/dL (0.7-1.3)
--- NOTE | 2017-06-17 08:11 | CONSULT ---
Consult Consult Specialty:: Rheumatology - History of Present Illness History of Present Illness: 56 year old male with history of diabetes since 2000, HIV since 2008 (October 2016 CD4: 67, viral load <20 - not compliant with medications), HTN and chronic kidney insufficiency, admitted with hyperkalemia and progression of CKD. The patient was found to have a positive STACIA, rule out CTD. The patient is asymptomatic. He denies arthralgia, skin rash, oral ulcers, Raynaud's phenomenon, Sicca syndrome, shortness of breath, chest pain or fever. Laboratory: CBC with WBC of 3.5, Hgb 9, platelets 95. Creat on admission 8.1. UA with protein 2+. blood 1+, glucose 1+. STACIA 1:80 with speckled pattern. Anti -DNA ds, anti-GBM antibody were negative. M-spike was negative. - History Source History Provided By: Patient, Medical Record Limitations to Obtaining History: No Limitations - Past Medical History Cardio/Vascular: Yes: HTN, Hyperlipdemia Renal/: Yes: Renal Inusuff Infectious Disease: Yes: HIV - Alcohol/Substance Use Hx Alcohol Use: No - Smoking History Smoking history: Never smoked Have you smoked in the past 12 months: No - Social History Usual Living Arrangement: With Spouse ADL: Independent History of Recent Travel: No Home Medications - Allergies Allergies/Adverse Reactions: Allergies Allergy/AdvReac Type Severity Reaction Status Date / Time No Known Allergies Allergy Verified 06/11/17 14:54 - Home Medications Home Medications: Ambulatory Orders Amlodipine Besylate [Norvasc -] 10 mg PO DAILY #30 tablet 05/19/17 Metoprolol Tartrate [Lopressor -] 25 mg PO BID #60 mg 05/19/17 Review of Systems - Review of Systems Constitutional: reports: No Symptoms Eyes: reports: No Symptoms HENT: reports: No Symptoms Neck: reports: No Symptoms Cardiovascular: reports: No Symptoms Respiratory: reports: No Symptoms Gastrointestinal: reports: No Symptoms Musculoskeletal: reports: No Symptoms Integumentary: reports: No Symptoms Physical Exam Vital Signs: Vital Signs Temperature 98.1 F 06/17/17 05:53 Pulse Rate 68 06/17/17 05:53 Respiratory Rate 18 06/17/17 05:53 Blood Pressure 128/78 06/17/17 05:53 O2 Sat by Pulse Oximetry (%) 98 06/16/17 20:33 Constitutional: Yes: No Distress Eyes: Yes: WNL HENT: Yes: WNL Neck: Yes: WNL Cardiovascular: Yes: Other (S1 and S2 normal 2/5 systolic murmur in apex.) Respiratory: Yes: WNL Gastrointestinal: Yes: WNL Musculoskeletal: Yes: WNL Labs: CBC, BMP 06/16/17 06:30 06/17/17 06:15 Laboratory Tests 06/13/17 06/13/17 05:10 20:25 Urine Color Straw Urine Appearance Clear Urine pH 7.0 Ur Specific Cooter 1.020 Urine Protein 2+ H Urine Glucose (UA) 1+ H Urine Ketones Negative Urine Blood 1+ H FELICITY M-Xander Not observed STACIA Screen Positive H STACIA Speckled Pattern 1:80 Double Strand DNA Ab <1 Glomerular Base Memb Ab 4 Problem List - Problems (1) STACIA positive Assessment/Plan: Progressive chronic renal insufficiency. detention history of diabetes , HTN and HIV positive. Pancytopenia. STACIA positive at a low titer (1:80) and anti- DNAds negative. The patient is asymptomatic. Probable false positive STACIA. Even though unlikely - rule out lupus. Plan: ANCA pending. Complement and Serology. repeat UA. Hematology consult. Code(s): R76.8 - OTHER SPECIFIED ABNORMAL IMMUNOLOGICAL FINDINGS IN SERUM
--- NOTE | 2017-06-17 08:20 | PN ---
Physical Exam: SUBJECTIVE: Patient seen and examined. No acute events overnight. Offers no new complaints. Denies dizziness, chest pain, headache, nausea and vomiting. OBJECTIVE: Vital Signs Period Temp Pulse Resp BP Sys/Estrada Pulse Ox Last 24 Hr 97.9 F-98.3 F 68-78 18-20 128-149/73-96 96-98 GENERAL: The patient is awake, alert, and fully oriented, in no acute distress. HEAD: Normal with no signs of trauma. EYES: PERRL, extraocular movements intact, sclera anicteric, conjunctiva clear. No ptosis. ENT: Ears normal, nares patent, oropharynx clear without exudates, moist mucous membranes. NECK: Trachea midline, full range of motion, supple. LUNGS: Breath sounds equal, clear to auscultation bilaterally, no wheezes, no crackles, no accessory muscle use. HEART: Regular rate and rhythm, S1, S2 without murmur, rub or gallop. ABDOMEN: Soft, nontender, nondistended, normoactive bowel sounds, no guarding, no rebound, no hepatosplenomegaly, no masses. EXTREMITIES: 2+ pulses, warm, well-perfused, no edema. NEUROLOGICAL: Cranial nerves II through XII grossly intact. Normal speech, gait not observed. PSYCH: Normal mood, normal affect. SKIN: Warm, dry, normal turgor, no rashes or lesions noted : nontender Large right reducible hernia Laboratory Results - last 24 hr 06/13/17 06/16/17 06/16/17 05:10 06:30 11:10 Sodium 136 Potassium 4.4 Chloride 103 Carbon Dioxide 23 Anion Gap 10 BUN 56 H Creatinine 7.7 H* POC Glucometer 491 Random Glucose 107 H D Calcium 7.6 L Phosphorus 5.6 H Magnesium 2.1 Prot Electrophoresis Serum Total Protein 6.8 Albumin 3.2 Globulin 3.6 Albumin/Globulin Ratio 0.9 Mdjsv-2-Wmdapgxuj 0.2 Cvupx-6-Xuypmxnuh 0.6 Beta Globulins 0.8 Gamma Globulins 2.0 H FELICITY M-Xander Not observed STACIA Screen Positive H STACIA Homogeneous Pattern TNP STACIA Nucleolar Pattern TNP STACIA Speckled Pattern 1:80 STACIA Centromere Pattern TNP Double Strand DNA Ab <1 Glomerular Base Memb Ab 4 Hep A IgM Ab Confirm Negative Hepatitis A Ab Total Positive H Hep Bs Antigen Negative Hep Bs Antibody Reactive Hep B Core Total Ab Negative Hepatitis C Antibody 0.1 06/16/17 06/16/17 06/17/17 17:27 21:53 05:46 Sodium Potassium Chloride Carbon Dioxide Anion Gap BUN Creatinine POC Glucometer 137 217 100 Random Glucose Calcium Phosphorus Magnesium Prot Electrophoresis Serum Total Protein Albumin Globulin Albumin/Globulin Ratio Gkasa-0-Ffhhupcae Kopyf-9-Efwjxfdtz Beta Globulins Gamma Globulins FELICITY M-Xander STACIA Screen STACIA Homogeneous Pattern STACIA Nucleolar Pattern STACIA Speckled Pattern STACIA Centromere Pattern Double Strand DNA Ab Glomerular Base Memb Ab Hep A IgM Ab Confirm Hepatitis A Ab Total Hep Bs Antigen Hep Bs Antibody Hep B Core Total Ab Hepatitis C Antibody 06/17/17 06:15 Sodium 137 Potassium 4.4 Chloride 100 Carbon Dioxide 27 Anion Gap 10 BUN 45 H Creatinine 6.2 H POC Glucometer Random Glucose 108 H Calcium 7.4 L Phosphorus Magnesium Prot Electrophoresis Serum Total Protein Albumin Globulin Albumin/Globulin Ratio Soqra-8-Ncsqwihdz Nzkfw-2-Kqvkubdqt Beta Globulins Gamma Globulins FELICITY M-Xander STACIA Screen STACIA Homogeneous Pattern STACIA Nucleolar Pattern STACIA Speckled Pattern STACIA Centromere Pattern Double Strand DNA Ab Glomerular Base Memb Ab Hep A IgM Ab Confirm Hepatitis A Ab Total Hep Bs Antigen Hep Bs Antibody Hep B Core Total Ab Hepatitis C Antibody Active Medications Generic Name Dose Route Start Last Admin Trade Name Freq PRN Reason Stop Dose Admin Amlodipine Besylate 10 mg 06/14/17 10:00 06/16/17 11:15 Norvasc - PO 10 mg DAILY [facility] Administration Atovaquone 750 mg 06/13/17 17:30 06/16/17 17:40 Mepron - PO 750 mg BIDWM [facility] Administration Heparin Sodium (Porcine) 5,000 unit 06/13/17 14:00 06/17/17 06:16 Heparin - SQ Not Given TID [facility] Insulin Aspart 1 vial 06/13/17 16:30 06/17/17 06:16 Novolog Vial Sliding Scale - SQ Not Given ACHS [facility] Protocol Metoprolol Tartrate 25 mg 06/13/17 22:00 06/16/17 21:55 Lopressor - PO 25 mg BID [facility] Administration ASSESSMENT/PLAN: Patient is a 56 yo M with a past medical history of HIV, HTN, and DM, CKD stage 5 s/p permacath presents to the ED after being sent by his food and nutrition professor for Dialysis and AV access. #CKD stage Stage 5 -s/p permacath insertion -FU FELICITY M-spike, STACIA, c-Anca, PR3, p-anca, myeloperoxidase, DsDNA, Glomerular BM. -s/p permacath -had HD today -Pt for avf placement (cephalic vein fistule) AM tomorrow. -Bicarb stopped - may benefit from daniel/arb as outpatient since dialysis has started. #Hyperkalemia -resolved -K level of 4.4 -CKD stage 5 #Positve STACIA -Rheum on board to r/o CTD -follow up reccs #DM2 -ISS -BGM ACHS -Last A1c 8.4 (05/18) #HIV -pancytopenia -atovaquone 750mg daily started per ID -follow up ID reccs #Pancytopenia -likely from HIV infection or HIV medication -will monitor #HTN -continue home meds -Metoprolol 25mg BID -Cont. Amlodipine 10mg daily -Hydralazine 25mg BID added -Need to avoid DANIEL inhibitor or ARB due to his kidney disease at this time #Chest Pain -echo in office 05/28: normal LV/RV size and function, no pericardial effusion, mod LVH , mild MR -F/U with cardio outpatient -Exercise stress test outpatient #Right inguinal hernia -reducible -nontender -Follow up outpatient #FEN -No IV fluids -WNL -renal diet dispo: will likely discharge after AVF placement tomorrow Visit type - Emergency Visit Emergency Visit: Yes ED Registration Date: 06/11/17 Care time: The patient presented to the Emergency Department on the above date and was hospitalized for further evaluation of their emergent condition. - New Patient This patient is new to me today: No - Critical Care Critical Care patient: No
[2017-06-17] MEDS: ATOVAQUONE 750 MG/5 ML (UNIT-DOSE PACKAGING) PO SCH (08:42)
--- NOTE | 2017-06-17 09:16 | PN ---
Progress Note, Physician Chief Complaint: TELE: NSR, no complaints Plan for fistula tomorrow - Current Medication List Current Medications: Active Medications Amlodipine Besylate (Norvasc -) 10 mg PO DAILY [facility] Last Admin: 06/16/17 11:15 Dose: 10 mg Atovaquone (Mepron -) 750 mg PO BIDWM [facility] Last Admin: 06/16/17 17:40 Dose: 750 mg Heparin Sodium (Porcine) (Heparin -) 5,000 unit SQ TID [facility] Last Admin: 06/17/17 06:16 Dose: Not Given Insulin Aspart (Novolog Vial Sliding Scale -) 1 vial SQ ACHS [facility] PRN Reason: Protocol Last Admin: 06/17/17 06:16 Dose: Not Given Metoprolol Tartrate (Lopressor -) 25 mg PO BID [facility] Last Admin: 06/16/17 21:55 Dose: 25 mg - Objective Vital Signs: Vital Signs Temperature 98.1 F 06/17/17 05:53 Pulse Rate 68 06/17/17 05:53 Respiratory Rate 18 06/17/17 05:53 Blood Pressure 128/78 06/17/17 05:53 O2 Sat by Pulse Oximetry (%) 98 06/16/17 20:33 Constitutional: Yes: Calm Cardiovascular: Yes: Regular Rate and Rhythm Respiratory: Yes: CTA Bilaterally Gastrointestinal: Yes: Soft Edema: No Neurological: Yes: Alert, Oriented Labs: CBC, BMP 06/16/17 06:30 06/17/17 06:15 INR, PTT INR 0.91 (0.82-1.09) 06/11/17 16:57 Laboratory Tests 06/17/17 06:15 Potassium 4.4 Creatinine 6.2 H - ....Imaging EKG: Image Reviewed Assessment/Plan Assessment/Plan 56 year old man with h/o HTN, DMII, HIV, ESRD admitted for initiation of HD, HD access placement, electrolyte abnl. Pt was recently seen in office for difficult to control HTN, chest pain, dyspnea. echo in office 05/28 showing normal LV/RV size and function, no pericardial effusion, mod LVH and E-A reversal c/w impaired relaxation, mild MR HTN-improved. - cont metoprolol and amlodipine for now - now that HD has been started may benefit from DANIEL-I/ARB, can be considered as outpatient -close outpatient f/up -no arrhythmias noted in last 48-72 hours; can d/c tele
[2017-06-17] MEDS: amLODIPine BESYLATE 10 MG TABLET (FP) PO SCH (09:42)
[2017-06-17] MEDS: METOPROLOL TARTRATE 25 MG TABLET (FP) PO SCH ×2 (09:42→22:08)
--- NOTE | 2017-06-17 11:34 | SPA.PREOP ---
- PRE-OP NOTE Dx: ESRD Planned Procedure: LUE AVF, possible graft Surgeon: Robert Morgan Consent: To be obtained by surgeon after all risks, benefits and alternatives explained to patient. Last Vital Signs Temp Pulse Resp BP Pulse Ox 98.1 F 68 18 128/78 97 06/17/17 05:53 06/17/17 05:53 06/17/17 08:32 06/17/17 05:53 06/17/17 08:32 Lab Results WBC 3.5 K/mm3 (4.0-10.0) L 06/16/17 06:30 RBC 3.05 M/mm3 (4.00-5.60) L 06/16/17 06:30 Hgb 9.0 GM/dL (11.7-16.9) L 06/16/17 06:30 Hct 26.7 % (35.4-49) L 06/16/17 06:30 MCV 87.4 fl (80-96) 06/16/17 06:30 MCHC 33.6 g/dl (32.0-35.9) 06/16/17 06:30 RDW 13.6 % (11.9-15.9) 06/16/17 06:30 Plt Count 95 K/MM3 (134-434) L 06/16/17 06:30 Sodium 137 mmol/L (136-145) 06/17/17 06:15 Potassium 4.4 mmol/L (3.5-5.1) 06/17/17 06:15 Chloride 100 mmol/L (98-107) 06/17/17 06:15 Carbon Dioxide 27 mmol/L (21-32) 06/17/17 06:15 Anion Gap 10 (8-16) 06/17/17 06:15 BUN 45 mg/dL (7-18) H 06/17/17 06:15 Creatinine 6.2 mg/dL (0.7-1.3) H 06/17/17 06:15 Random Glucose 108 mg/dL (74-106) H 06/17/17 06:15 Calcium 7.4 mg/dL (8.5-10.1) L 06/17/17 06:15 Blood Type O POSITIVE 06/11/17 16:57 Antibody Screen Negative 06/11/17 16:57 INR 0.91 (0.82-1.09) 06/11/17 16:57 - IMAGING Other: Image Reviewed, Other (LUE vein mapping --> acceptable cephalic vein) - ASSESSMENT/PLAN Problem List - Problems (1) ESRD (end stage renal disease) Assessment/Plan: 1. Make NPO after midnight except po meds 2. GI/DVT PPX 3. Medical optimization / clearance Code(s): N18.6 - END STAGE RENAL DISEASE (2) CKD (chronic kidney disease) Code(s): N18.9 - CHRONIC KIDNEY DISEASE, UNSPECIFIED Qualifiers: Chronic kidney disease stage: on chronic dialysis Qualified Code(s) : N18.6 - End stage renal disease; N18.6 - End stage renal disease; N18.6 - End stage renal disease; N18.6 - End stage renal disease; Z99.2 - Dependence on renal dialysis; Z99.2 - Dependence on renal dialysis; Z99.2 - Dependence on renal dialysis; Z99.2 - Dependence on renal dialysis Visit type - Case Type Case Type: ED Admission - New patient This patient is new to me today: Yes Date on this admission: 06/17/17
--- NOTE | 2017-06-17 16:43 | PN ---
Progress Note, Physician History of Present Illness: Pt seen and examined at bedside. He is awake and alert. He denies shortness of breath. - Current Medication List Current Medications: Active Medications Amlodipine Besylate (Norvasc -) 10 mg PO DAILY [facility] Last Admin: 06/17/17 09:42 Dose: 10 mg Atovaquone (Mepron -) 750 mg PO BIDWM [facility] Last Admin: 06/17/17 08:42 Dose: 750 mg Heparin Sodium (Porcine) (Heparin -) 5,000 unit SQ TID [facility] Last Admin: 06/17/17 14:16 Dose: Not Given Insulin Aspart (Novolog Vial Sliding Scale -) 1 vial SQ ACHS [facility] PRN Reason: Protocol Last Admin: 06/17/17 12:43 Dose: Not Given Metoprolol Tartrate (Lopressor -) 25 mg PO BID [facility] Last Admin: 06/17/17 09:42 Dose: 25 mg - Objective Vital Signs: Vital Signs Temperature 98.2 F 06/17/17 14:55 Pulse Rate 71 06/17/17 14:55 Respiratory Rate 18 06/17/17 14:55 Blood Pressure 133/77 06/17/17 14:55 O2 Sat by Pulse Oximetry (%) 98 06/17/17 10:35 Constitutional: Yes: Calm Eyes: Yes: Conjunctiva Clear Cardiovascular: Yes: S1, S2 Respiratory: Yes: CTA Bilaterally Gastrointestinal: Yes: Normal Bowel Sounds, Soft Genitourinary: Yes: WNL Musculoskeletal: Yes: WNL Edema: No Neurological: Yes: Oriented Psychiatric: Yes: Oriented Labs: CBC, BMP 06/16/17 06:30 06/17/17 06:15 INR, PTT INR 0.91 (0.82-1.09) 06/11/17 16:57 Problem List - Problems (1) Admission for dialysis Code(s): Z99.2 - DEPENDENCE ON RENAL DIALYSIS (2) Hyperkalemia Code(s): E87.5 - HYPERKALEMIA (3) CKD (chronic kidney disease) Code(s): N18.9 - CHRONIC KIDNEY DISEASE, UNSPECIFIED Qualifiers: Chronic kidney disease stage: on chronic dialysis Qualified Code(s) : N18.6 - End stage renal disease; N18.6 - End stage renal disease; N18.6 - End stage renal disease; N18.6 - End stage renal disease; Z99.2 - Dependence on renal dialysis; Z99.2 - Dependence on renal dialysis; Z99.2 - Dependence on renal dialysis; Z99.2 - Dependence on renal dialysis Assessment/Plan Current Medications Generic Name Dose Route Start Last Admin Trade Name Freq PRN Reason Stop Dose Admin Amlodipine Besylate 10 mg 06/14/17 10:00 06/17/17 09:42 Norvasc - PO 10 mg DAILY [facility] Administration Atovaquone 750 mg 06/13/17 17:30 06/17/17 08:42 Mepron - PO 750 mg BIDWM [facility] Administration Heparin Sodium (Porcine) 5,000 unit 06/13/17 14:00 06/17/17 14:16 Heparin - SQ Not Given TID [facility] Insulin Aspart 1 vial 06/13/17 16:30 06/17/17 12:43 Novolog Vial Sliding Scale - SQ Not Given ACHS [facility] Protocol Metoprolol Tartrate 25 mg 06/13/17 22:00 06/17/17 09:42 Lopressor - PO 25 mg BID [facility] Administration Laboratory Tests 06/13/17 05:10 STACIA Screen Positive H STACIA Speckled Pattern 1:80 STACIA Centromere Pattern TNP c-ANCA Pending Proteinase 3 (PR3) Pending p-ANCA Pending Atypical p-ANCA Pending Myeloperoxidase Ab Pending Double Strand DNA Ab <1 Glomerular Base Memb Ab 4 Impression 1. ESRD 2. HIV 3. HTN 4. hyperkalemia 5. anemia Plan - Hd in am - pt going for av fistula tomorrow - ID eval for HIV meds - rheum input appreciated - discussed with vascular Dr Garcia
--- NOTE | 2017-06-17 17:07 | CONSULT ---
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 Patient has hx of HIV stopped taking his meds 3 month ago. hx of HTN, Diabetes, HIV (stopped taking HARRT) three months ago - History Source History Provided By: Patient, Medical Record - Past Medical History Cardio/Vascular: Yes: HTN, Hyperlipdemia Renal/: Yes: Renal Inusuff Infectious Disease: Yes: HIV - Alcohol/Substance Use Hx Alcohol Use: No - Smoking History Smoking history: Never smoked Have you smoked in the past 12 months: No - Social History Usual Living Arrangement: With Spouse ADL: Independent History of Recent Travel: No Home Medications - Allergies Allergies/Adverse Reactions: Allergies Allergy/AdvReac Type Severity Reaction Status Date / Time No Known Allergies Allergy Verified 06/11/17 14:54 - Home Medications Home Medications: Ambulatory Orders Amlodipine Besylate [Norvasc -] 10 mg PO DAILY #30 tablet 05/19/17 Metoprolol Tartrate [Lopressor -] 25 mg PO BID #60 mg 05/19/17 Review of Systems - Review of Systems Constitutional: denies: Chills, Diaphoresis, Fever, Lethargy, Loss of Appetite Neck: denies: Decreased ROM, Lumps Cardiovascular: denies: Chest Pain Respiratory: denies: Cough, Exercise Intolerance, Hemoptysis Gastrointestinal: denies: Abdominal Pain Neurological: denies: Change in LOC, Change in Speech, Confusion, Dizziness Physical Exam Vital Signs: Vital Signs Temperature 98.2 F 06/17/17 14:55 Pulse Rate 71 06/17/17 14:55 Respiratory Rate 18 06/17/17 14:55 Blood Pressure 133/77 06/17/17 14:55 O2 Sat by Pulse Oximetry (%) 98 06/17/17 10:35 Constitutional: Yes: Well Nourished, No Distress, Calm Eyes: Yes: Conjunctiva Clear HENT: Yes: Atraumatic, Normocephalic Neck: Yes: Supple, Trachea Midline. No: Lymphadenopathy Cardiovascular: Yes: Regular Rate and Rhythm Respiratory: Yes: Regular, CTA Bilaterally Gastrointestinal: Yes: Normal Bowel Sounds, Soft, Abdomen, Obese Edema: No Labs: CBC, BMP 06/16/17 06:30 06/17/17 06:15 Assessment/Plan Pancytopenia ESRD HIV, off of meds for three months. likely in the setting of HIV. Likely chronic, but now thrombocytopenia is worsening unlikely HIT. US abdomen. for labs
--- NOTE | 2017-06-17 17:34 | PN ---
Teaching Attending Note Name of Resident: Bruce Pack ATTENDING PHYSICIAN STATEMENT I saw and evaluated the patient. I reviewed the resident's note and discussed the case with the resident. I agree with the resident's findings and plan as documented. SUBJECTIVE: Patient has no complaints. OBJECTIVE: Vital Signs Period Temp Pulse Resp BP Sys/Estrada Pulse Ox Last 24 Hr 97.9 F-98.3 F 68-82 18-20 128-146/73-92 97-98 HEART: S1S2, RRR LUNGS: Clear ABDOMEN: Soft, non-tender, non-distended, normal BS EXTREMITIES: No edema Current Medications Generic Name Dose Route Start Last Admin Trade Name Freq PRN Reason Stop Dose Admin Amlodipine Besylate 10 mg 06/14/17 10:00 06/17/17 09:42 Norvasc - PO 10 mg DAILY [facility] Administration Atovaquone 750 mg 06/13/17 17:30 06/17/17 08:42 Mepron - PO 750 mg BIDWM [facility] Administration Heparin Sodium (Porcine) 5,000 unit 06/13/17 14:00 06/17/17 14:16 Heparin - SQ Not Given TID [facility] Insulin Aspart 1 vial 06/13/17 16:30 06/17/17 17:20 Novolog Vial Sliding Scale - SQ Not Given ACHS [facility] Protocol Metoprolol Tartrate 25 mg 06/13/17 22:00 06/17/17 09:42 Lopressor - PO 25 mg BID [facility] Administration ASSESSMENT AND PLAN: 1. ESRD - HD started 06/16 - Plan for HD tomorrow - Plan for AV fistula tomorrow - Outpatient HD at [facility] starting 06/20 2. Hyperkalemia - Resolved 3. HIV/AIDS - Has been non-compliant with treatment - On Mepron for PCP prophylaxis 4. HTN - Continue Norvasc 5. Pancytopenia - WBC and hemoglobin stable, platelets decreasing - Work-up in progress - Continue to monitor CBC 6. Right inguinal hernia
[2017-06-18 00:06] LABS: C-ANCA <1:20 titer (Neg:<1:20); MYELOPEROXIDASE ANTIBODY <9.0 U/mL (0.0-9.0); P-ANCA <1:20 titer (Neg:<1:20); PROTEINASE-3 ANTIBODY <3.5 U/mL (0.0-3.5)
[2017-06-18] MEDS: HEPARIN NA (PORCINE) 5,000 UNITS/ML 1ML VIAL SQ SCH ×3 (06:19→21:45)
[2017-06-18] MEDS: INSULIN SLIDING SCALE (NOVOLOG) 1 VIAL SQ SCH ×4 (06:19→23:39)
--- NOTE | 2017-06-18 08:22 | PN ---
Physical Exam: SUBJECTIVE: Patient seen and examined. No acute events overnight. Offers no new complaints. Denies dizziness, headache, chest pain, sob, nausea, vomiting, chills. OBJECTIVE: Vital Signs Period Temp Pulse Resp BP Sys/Estrada Pulse Ox Last 24 Hr 98 F-98.2 F 71-82 18-20 126-138/65-86 97-98 GENERAL: The patient is awake, alert, and fully oriented, in no acute distress. HEAD: Normal with no signs of trauma. EYES: PERRL, extraocular movements intact, sclera anicteric, conjunctiva clear. No ptosis. ENT: Ears normal, nares patent, oropharynx clear without exudates, moist mucous membranes. NECK: Trachea midline, full range of motion, supple. LUNGS: Breath sounds equal, clear to auscultation bilaterally, no wheezes, no crackles, no accessory muscle use. HEART: Regular rate and rhythm, S1, S2 without murmur, rub or gallop. ABDOMEN: Soft, nontender, nondistended, normoactive bowel sounds, no guarding, no rebound, no hepatosplenomegaly, no masses. EXTREMITIES: 2+ pulses, warm, well-perfused, no edema. NEUROLOGICAL: Cranial nerves II through XII grossly intact. Normal speech, gait not observed. PSYCH: Normal mood, normal affect. SKIN: Warm, dry, normal turgor, no rashes or lesions noted : nontender Large right reducible hernia Laboratory Results - last 24 hr 06/13/17 06/18/17 06/18/17 05:10 05:18 05:18 Retic Count 0.85 POC Glucometer Prot Electrophoresis Serum Total Protein 6.8 Albumin 3.2 Globulin 3.6 Albumin/Globulin Ratio 0.9 Urfth-0-Boakareuu 0.2 Yosrv-7-Zonipzfhb 0.6 Beta Globulins 0.8 Gamma Globulins 2.0 H FELICITY M-Xander Not observed STACIA Screen Positive H STACIA Homogeneous Pattern TNP STACIA Nucleolar Pattern TNP STAC[facility] Speckled Pattern 1:80 STACIA Centromere Pattern TNP c-ANCA <1:20 Proteinase 3 (PR3) <3.5 p-ANCA <1:20 Atypical p-ANCA <1:20 Myeloperoxidase Ab <9.0 Double Strand DNA Ab <1 Glomerular Base Memb Ab 4 Hep A IgM Ab Confirm Negative Hepatitis A Ab Total Positive H Hep Bs Antigen Negative Hep Bs Antibody Reactive Hep B Core Total Ab Negative Hepatitis C Antibody 0.1 Direct Antiglob Test Negative 06/18/17 06:17 Retic Count POC Glucometer 109 Prot Electrophoresis Serum Total Protein Albumin Globulin Albumin/Globulin Ratio Esozi-1-Ycrkbilcj Atayr-4-Ykgttyufq Beta Globulins Gamma Globulins FELICITY M-Xander STACIA Screen STACIA Homogeneous Pattern STACIA Nucleolar Pattern STACIA Speckled Pattern STACIA Centromere Pattern c-ANCA Proteinase 3 (PR3) p-ANCA Atypical p-ANCA Myeloperoxidase Ab Double Strand DNA Ab Glomerular Base Memb Ab Hep A IgM Ab Confirm Hepatitis A Ab Total Hep Bs Antigen Hep Bs Antibody Hep B Core Total Ab Hepatitis C Antibody Direct Antiglob Test Active Medications Generic Name Dose Route Start Last Admin Trade Name Freq PRN Reason Stop Dose Admin Amlodipine Besylate 10 mg 06/14/17 10:00 06/17/17 09:42 Norvasc - PO 10 mg DAILY [facility] Administration Atovaquone 750 mg 06/13/17 17:30 06/17/17 08:42 Mepron - PO 750 mg BIDWM [facility] Administration Heparin Sodium (Porcine) 5,000 unit 06/13/17 14:00 06/18/17 06:19 Heparin - SQ Not Given TID [facility] Insulin Aspart 1 vial 06/13/17 16:30 06/18/17 06:19 Novolog Vial Sliding Scale - SQ Not Given ACHS [facility] Protocol Metoprolol Tartrate 25 mg 06/13/17 22:00 06/17/17 22:08 Lopressor - PO 25 mg BID [facility] Administration ASSESSMENT/PLAN: Patient is a 56 yo M with a past medical history of HIV, HTN, and DM, CKD stage 5 s/p permacath presents to the ED 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 #CKD stage Stage 5 -s/p permacath insertion -HD today -s/p avf placement (cephalic vein fistula) -will monitor post-avf placement -Bicarb stopped -may benefit from daniel/arb as outpatient since dialysis has started. #Hyperkalemia -resolved -K level of 4.4 -CKD stage 5 #Positve STACIA -Probable false positive STACIA per Rheum -r/o CTD -follow up reccs -FU serology #DM2 -ISS -BGM ACHS -Last A1c 8.4 (05/18) #HIV -noncompliant, has no taken medications in 4 months -pancytopenia -atovaquone 750mg daily for PCP ppx per ID (for life or until T cell>200) -follow up ID reccs #Pancytopenia -likely from HIV infection or HIV medication -will monitor -heme consulted -FU abdominal US #HTN -continue home meds -Metoprolol 25mg BID -Cont. Amlodipine 10mg daily -Hydralazine 25mg BID added -Need to avoid DANIEL inhibitor or ARB due to his kidney disease at this time #Chest Pain -echo in office 05/28: normal LV/RV size and function, no pericardial effusion, mod LVH , mild MR -F/U with cardio outpatient -Exercise stress test outpatient #Right inguinal hernia -reducible -nontender -Follow up outpatient #FEN -No IV fluids -WNL -renal diet Visit type - Emergency Visit Emergency Visit: Yes ED Registration Date: 06/11/17 Care time: The patient presented to the Emergency Department on the above date and was hospitalized for further evaluation of their emergent condition. - New Patient This patient is new to me today: No - Critical Care Critical Care patient: No
[2017-06-18 08:39] LABS: ALBUMIN 3.1 g/dl (3.4-5.0); ALK PHOS 85 U/L (45-117); ANION GAP 10 (8-16); BILIRUBIN,TOTAL 0.2 mg/dL (0.2-1.0); CALCIUM 7.5 mg/dL (8.5-10.1); CO2 24 mmol/L (21-32); CREATININE 7.1 mg/dL (0.7-1.3); GLUCOSE,RANDOM 107 mg/dL (74-106); LDH 256 U/L (87-241); SGOT/AST 45 U/L (15-37); SGPT/ALT 38 U/L (12-78); TOT PROT 6.9 g/dl (6.4-8.2)
[2017-06-18] MEDS ORDERED: HEPARIN NA (PORCINE) 5,000 UNITS/ML 1ML VIAL ONE ×2 (08:59→11:07)
[2017-06-18] MEDS ORDERED: LIDOCAINE HCL 1%, 10 MG/ML (20ML VIAL) ONE (08:59)
[2017-06-18] MEDS ORDERED: DEXAMETHASONE SOD PHOSPHATE/PF 10 MG/ML SDV ONE (09:06)
[2017-06-18] MEDS ORDERED: ROPIVACAINE HCL 0.5% 30ML VIAL ONE (09:06)
[2017-06-18] MEDS ORDERED: MIDAZOLAM HCL 2 MG/2 ML SINGLE DOSE VIAL ONE ×2 (09:08)
[2017-06-18] MEDS ORDERED: ceFAZolin SODIUM 1 GM VIAL IVPB ONE (09:56)
[2017-06-18] MEDS ORDERED: LIDOCAINE HCL 1%, 10 MG/ML (20ML VIAL) INF ONE (09:57)
[2017-06-18] MEDS ORDERED: ONDANSETRON 4 MG/2 ML VIAL IVPUSH PRN ×2 (10:36→13:04)
[2017-06-18] MEDS ORDERED: POVIDONE-IODINE OINTMENT 10% - 28.4 GM TUBE ONE (12:14)
--- NOTE | 2017-06-18 12:54 | OP ---
Operative Note - Note: Operative Date: 06/18/17 Pre-Operative Diagnosis: ESRD Operation: Creation of left radial cephalic fistula Post-Operative Diagnosis: Same as Pre-op Surgeon: Robert Morgan Anesthesia: Fractional Estimated Blood Loss (mls): 75 Operative Report Dictated: Yes
--- NOTE | 2017-06-18 13:16 | PN ---
Progress Note, Physician History of Present Illness: Pt seen and examined at bedside. He is in the recovery room. He had the AV fistula placed today. - Current Medication List Current Medications: Active Medications Amlodipine Besylate (Norvasc -) 10 mg PO DAILY [facility] Atovaquone (Mepron -) 750 mg PO [facility]IDWM [facility] Heparin Sodium (Porcine) (Heparin -) 5,000 unit SQ TID [facility] Insulin Aspart (Novolog Vial Sliding Scale -) 1 vial SQ ACHS [facility] PRN Reason: Protocol Metoprolol Tartrate (Lopressor -) 25 mg PO BID [facility] Ondansetron HCl (Zofran Injection) 4 mg IVPUSH Q6H PRN PRN Reason: NAUSEA AND/OR VOMITING Stop: 06/18/17 16:37 - Objective Vital Signs: Vital Signs Temperature 98 F 06/18/17 08:32 Pulse Rate 76 06/18/17 08:32 Respiratory Rate 18 06/18/17 08:32 Blood Pressure 124/70 06/18/17 08:32 O2 Sat by Pulse Oximetry (%) 96 06/18/17 09:00 Constitutional: Yes: Calm Eyes: Yes: Conjunctiva Clear HENT: Yes: Atraumatic Cardiovascular: Yes: S1, S2 Respiratory: Yes: CTA Bilaterally Gastrointestinal: Yes: Soft Genitourinary: Yes: WNL Musculoskeletal: Yes: WNL Extremities: Yes: Other (left arm fistula with thrill and bruit) Neurological: Yes: Oriented Psychiatric: Yes: Oriented Labs: CBC, BMP 06/16/17 06:30 06/18/17 05:18 INR, PTT INR 0.91 (0.82-1.09) 06/11/17 16:57 Problem List - Problems (1) Admission for dialysis Code(s): Z99.2 - DEPENDENCE ON RENAL DIALYSIS (2) Hyperkalemia Code(s): E87.5 - HYPERKALEMIA (3) CKD (chronic kidney disease) Code(s): N18.9 - CHRONIC KIDNEY DISEASE, UNSPECIFIED Qualifiers: Chronic kidney disease stage: on chronic dialysis Qualified Code(s) : N18.6 - End stage renal disease; N18.6 - End stage renal disease; N18.6 - End stage renal disease; N18.6 - End stage renal disease; Z99.2 - Dependence on renal dialysis; Z99.2 - Dependence on renal dialysis; Z99.2 - Dependence on renal dialysis; Z99.2 - Dependence on renal dialysis Assessment/Plan Current Medications Generic Name Dose Route Start Last Admin Trade Name Yfn PRN Reason Stop Dose Admin Amlodipine Besylate 10 mg 06/19/17 10:00 Norvasc - PO DAILY [facility] Atovaquone 750 mg 06/18/17 17:30 Mepron - PO BIDWM [facility] Heparin Sodium (Porcine) 5,000 unit 06/18/17 14:00 Heparin - SQ TID [facility] Insulin Aspart 1 vial 06/18/17 16:30 Novolog Vial Sliding Scale - SQ ACHS [facility] Protocol Metoprolol Tartrate 25 mg 06/18/17 22:00 Lopressor - PO BID [facility] Ondansetron HCl 4 mg 06/18/17 13:04 Zofran Injection IVPUSH 06/18/17 16:37 Q6H PRN NAUSEA AND/OR VOMITING Laboratory Tests 06/13/17 05:10 c-ANCA <1:20 Proteinase 3 (PR3) <3.5 p-ANCA <1:20 Atypical p-ANCA <1:20 Myeloperoxidase Ab <9.0 Double Strand DNA Ab <1 Glomerular Base Memb Ab 4 Impression 1. ESRD 2. HIV 3. HTN 4. hyperkalemia 5. anemia 6. thrombocytopenia Plan - pt had fistula placed - discussed plan with him and his - HD today - ID eval for HIV meds - discussed with vascular, will need follow up after discharge - will follow Dr Garcia
[2017-06-18] MEDS: METOPROLOL TARTRATE 25 MG TABLET (FP) PO SCH ×2 (14:03→21:45)
[2017-06-18] MEDS: ATOVAQUONE 750 MG/5 ML (UNIT-DOSE PACKAGING) PO SCH ×2 (14:03→18:19)
[2017-06-18] MEDS: amLODIPine BESYLATE 10 MG TABLET (FP) PO SCH (14:03)
[2017-06-18] MEDS ORDERED: PT OWN MED DRAWER 7, Y5N ONE (17:19)
[2017-06-18] MEDS ORDERED: morphine CARPU-JECT 2 MG/1 ML DISP.SYRIN IVPUSH ONE (17:41)
--- NOTE | 2017-06-18 17:55 | PN ---
Teaching Attending Note Name of Resident: Bruce Pack ATTENDING PHYSICIAN STATEMENT I saw and evaluated the patient. I reviewed the resident's note and discussed the case with the resident. I agree with the resident's findings and plan as documented. SUBJECTIVE: pain in L fore arm after fistula creation no SOB or fever or chills OBJECTIVE: NAD CV: RRR Lungs : CTAB Ext : no edema , L fore arm dressing . ASSESSMENT AND PLAN: 56 y/o man with h/o HTN, DM , ESRD and other medical problems who presented with hyperkalemia 1- ESRD: started on HD . s/p L AVF creation today tylenol for pain no Bx done in past , and current w/u neg so far. Further w/u as out p t 2- HTN: cont BB and norvasc 3- DM : SSI 4- Pancytopenia : likely due to BM suppression from uremia and HIV. - US pending - HIT Abs pending , unlikely HIT. dispo : need to monitor the graft, till am , then dc tomorrow
[2017-06-18] MEDS: ACETAMINOPHEN 325 MG TABLET (FP) PO PRN ×2 (18:18→23:41)
[2017-06-19 06:06] LABS: SERUM IRON 57 ug/dL (38-169); TOTAL IRON BINDING CAPACITY 184 ug/dL (250-450); UIBC 127 ug/dL (111-343)
[2017-06-19] MEDS: ACETAMINOPHEN 325 MG TABLET (FP) PO PRN ×2 (06:06→11:47)
[2017-06-19] MEDS: HEPARIN NA (PORCINE) 5,000 UNITS/ML 1ML VIAL SQ SCH ×2 (06:07→14:10)
[2017-06-19] MEDS: INSULIN SLIDING SCALE (NOVOLOG) 1 VIAL SQ SCH ×2 (06:08→12:41)
--- NOTE | 2017-06-19 06:41 | OP ---
DATE OF OPERATION: 06/18/2017 PREOPERATIVE DIAGNOSIS: End-stage renal disease. POSTOPERATIVE DIAGNOSIS: End-stage renal disease. PROCEDURE: Creation of left radiocephalic arteriovenous fistula. SURGEON: Robert Vines DO ANESTHESIA: Fractional. BLOOD LOSS: 75 mL. INDICATION: The patient is a 56-year-old male who has end-stage renal disease. He had a PermCath placed last week and now needs permanent dialysis access. DESCRIPTION OF PROCEDURE: Preoperative vain mapping showed that he has a good cephalic vein in his left arm. Patient came in. Patient was consented for procedure understanding all risks, benefits, and alternatives prior to the procedure. Anesthesia performed a supraclavicular nerve block for the left arm, and the patient was then brought to the operating room. Once in the operating room, we then mapped out our cephalic vein using ultrasound guidance and the cephalic vein was marked on the wrist using a skin marker, and the radial artery was marked on the skin as well. We then went ahead and prepped and draped the left arm in the sterile surgical manner. We then went ahead and made a 7-cm incision over the cephalic vein above the wrist. Bovie electrocautery was used to control hemostasis. We dissected out our vein anteriorly and posteriorly. All branches were ligated using 4-0 silk. We then ligated the vein using 4-0 silk distally, and we then were able to dilate the vein up with saline, and there was good backflow. We then went ahead medially and made a 4-cm incision using a 15 blade. Bovie electrocautery was used to control hemostasis, and we were able to get down to the radial artery. Radial artery was dissected anteriorly and posteriorly and vessel loops were placed around it; 5000 units of IV heparin were administered to the patient then. We then were able to tunnel the cephalic vein over to the radial artery using micro Herrera scissors. We were able to make a 7-mm venotomy on the vein. We then went ahead and after 3 minutes of being on IV heparin, we got distal and proximal control on the radial artery. We then used a 15 blade and made an arteriotomy extended to 7 mm using Herrera scissors. We then went ahead and placed 6-0 Prolene stay sutures on the artery, then used 6-0 Prolene double-arm outside in the vein and inside of the artery and ran a suture around artery and the vein. Once completed, we opened this artery first and the proximal artery, and there was a good thrill in our AV fistula. We then went ahead and irrigated both copiously. We then used 3-0 Vicryl and the subcutaneous tissue was approximated in an interrupted manner for both incisions, and the skin was then closed with skin sidney. The areas were then dried, 4x4s and Tegaderm were placed. Patient tolerated with no complications. Patient transferred back in stable condition. Total blood loss 75 mL. ROBERT VINES DO NP/[id number]
[2017-06-19 08:00] LABS: MCH 29.5 pg (25.7-33.7); MCHC 33.8 g/dl (32.0-35.9); MEAN CELL VOLUME 87.2 fl (80-96); MEAN PLT VOLUME 10.3 fl (7.5-11.1); PLATELET COUNT 91 K/MM3 (134-434); WHITE BLOOD COUNT 4.4 K/mm3 (4.0-10.0)
[2017-06-19 08:28] LABS: ANION GAP 10 (8-16); CALCIUM 7.9 mg/dL (8.5-10.1); CO2 27 mmol/L (21-32); CREATININE 5.7 mg/dL (0.7-1.3); GLUCOSE,RANDOM 107 mg/dL (74-106)
--- NOTE | 2017-06-19 08:45 | DS ---
Physical Exam: SUBJECTIVE: Patient seen and examined Had the L radial cephalic fistula created yesterday. Arm still a bit swollen, is elevated on a pillow. No new c/o. OBJECTIVE: Vital Signs Period Temp Pulse Resp BP Sys/Estrada Pulse Ox Last 24 Hr 97.6 F-98.8 F 65-87 18-20 122-169/70-103 96-100 PHYSICAL EXAM GENERAL: The patient is awake, alert, and fully oriented, in no acute distress. HEAD: Normal with no signs of trauma. EYES: PERRL, extraocular movements intact, sclera anicteric, conjunctiva clear. ENT: Oropharynx clear without exudates, moist mucous membranes. NECK: Trachea midline, full range of motion, supple. LUNGS: Permacath on the R upper chest. Breath sounds equal, clear to auscultation bilaterally, no wheezes, no crackles HEART: Regular rate and rhythm, S1, S2 , Grade 3/6 murmur apical region,not radiating to the axilla. ABDOMEN: Soft, nontender, nondistended, normoactive bowel sounds, no guarding, no rebound, no hepatosplenomegaly, no masses. EXTREMITIES: R arm 2+ pulses, warm, well-perfused, no edema. L arm mildly swollen, sidney in place of surgical incison site proximal to wrist. Bruit present. No pedal edema. NEUROLOGICAL: AAO X3. No facial droop. No tongue or uvula deviation. Power, tone and reflexes normal globally. Normal speech, gait not observed. PSYCH: Normal mood, normal affect. LABS Laboratory Results - last 24 hr 06/18/17 06/18/17 06/18/17 05:18 05:18 05:18 WBC RBC Hgb Hct MCV MCH MCHC RDW Plt Count MPV ESR 76 H Sodium 135 L Potassium 4.6 Chloride 101 Carbon Dioxide 24 Anion Gap 10 BUN 55 H D Creatinine 7.1 H Creat Clearance w eGFR 8.11 POC Glucometer Random Glucose 107 H Calcium 7.5 L Iron 57 TIBC 184 L Iron Saturation 31 Total Bilirubin 0.2 D AST 45 H ALT 38 D Alkaline Phosphatase 85 LD Total 256 H Total Protein 6.9 Albumin 3.1 L Vitamin B12 418 Serum Folate 7 06/18/17 06/19/17 06/19/17 13:26 05:25 06:01 WBC 4.4 RBC 2.96 L Hgb 8.7 L Hct 25.8 L MCV 87.2 MCH 29.5 MCHC 33.8 RDW 13.0 Plt Count 91 L MPV 10.3 ESR Sodium Potassium Chloride Carbon Dioxide Anion Gap BUN Creatinine Creat Clearance w eGFR POC Glucometer 102 117 Random Glucose Calcium Iron TIBC Iron Saturation Total Bilirubin AST ALT Alkaline Phosphatase LD Total Total Protein Albumin Vitamin B12 Serum Folate HOSPITAL COURSE: Date of Admission:06/11/17 Date of Discharge: 06/19/17 Minutes to complete discharge: 47 Discharge Summary Reason For Visit: CHRONIC KIDNEY DISEASE; HIV Current Active Problems STACIA positive (Acute) Admission for dialysis (Acute) ESRD (end stage renal disease) (Acute) Hyperkalemia (Acute) AIDS (Chronic) Diabetes (Chronic) HIV (human immunodeficiency virus infection) (Chronic) HTN (hypertension) (Chronic) Renal insufficiency (Chronic) Hospital Course: Patient is a 56 yo M with a past medical history of HIV, HTN, and DM, CKD stage 5 s/p permacath presents to the ED after being sent by his computer applications instructor for Dialysis and AV access. #CKD stage Stage 5 -permacath insertion done -Had Cephalic vein avf done on 06/18/17 -Had hemodialysis on 06/18/17 -To continue Friday, Friday, Friday Schedule -may benefit from daniel/arb as outpatient since dialysis has started. #Hyperkalemia -resolved- presented with 6.0 -K level of 4.1 this am -CKD stage 5 #Positve STACIA -Probable false positive STACIA per Rheum -r/o Connective Tissue Disease -ANCA results- negative #DM2 -Glimepiride 2mg PO daily -Last A1c 8.4 (05/18) #HIV -noncompliant, has no taken medications in 4 months -pancytopenia -atovaquone 750mg daily for PCP ppx per ID (for life or until T cell>200) -follow up ID rec -Follow up in [facility] #Pancytopenia -likely from HIV infection or HIV medication -will monitor -heme consulted -FU abdominal US #HTN -continue home meds -Metoprolol 25mg BID -Cont. Amlodipine 10mg daily -To discuss DANIEL inhibitor or ARB with computer applications instructor #Chest Pain -echo in office 05/28: normal LV/RV size and function, no pericardial effusion, mod LVH , mild MR -F/U with cardio outpatient -Exercise stress test outpatient #Right inguinal hernia -reducible -nontender -Follow up outpatient Condition: Improved - Instructions Diet, Activity, Other Instructions: Kidney Disease: You came in because your kidneys were not working as well as they should and you needed to have a catheter placed and a permanent blood vessel channel created so you could get dialysis. Please follow at the dialysis center [facility] Fri, Fri, Friday starting tomorrow Please follow up with your computer applications instructor as an outpatient. Diabetes: Continue with diet and exercise. Your glimepiride is being reduced from 4mg to 2mg daily You will no longer take metformin because you have kidney disease HIV: You were placed on atovaquone 750mg daily to prevent a lung infection since your CD4 cell count is low Please follow up with your infectious disease doctor - Dr Metzger at [facility] for your HIV management Low blood counts: Please follow up with a blood doctor -Dr Gracia as an outpatient to identify the likely cause of your low blood numbers High blood pressure: Please continue with your home medications: Metoprolol 25mg BID Amlodipine 10mg daily Please follow up with your primary care provider-Alen Islas Chest pain: Ultrasound of your heart on 05/28:only showed a moderately enlarged left side of the heart with mild L poor valve closure Please follow up with your heart doctor _Dr Ponce as outpatient Your Heart doctor may do an exercise stress test for you as an outpatient Hernia: On the right side of your groin is not painful now and goes back in Please follow up with your primary care provider as an outpatient to make sure there are no complications If you have fever, increased swelling or bleeding from your arm or difficulty breathing, worsening chest pain or feel like you are not getting better, please go to your primary care doctor or go to the nearest emergency room. Referrals: Alen Islas NP [Nurse Practitioner] - 1 Week (Follow up with your primary care provider- Alen Islas about management of your DM, HTN, and HIV) Nithya Gracia MD [Staff Physician] - 2 Weeks (To check about the likely cause of your low blood count) Eder Crawford MD [Staff Physician] - 2 Weeks (Follow up to see about an exercise stress test as an outpatient) Robert Morgan MD [Staff Physician] - 1 Week (Follow up with Dr Robert Morgan on Friday06/22/17 to have the surgery on your left arm checked) Umer Garcia MD [Staff Physician] - 1 Week (Follow up with your kidney doctor and check about adding ACEI/ARBs to your medications) Disposition: HOME - Home Medications Comprehensive Discharge Medication List: Ambulatory Orders Amlodipine Besylate [Norvasc -] 10 mg PO DAILY #30 tablet 05/19/17 Metoprolol Tartrate [Lopressor -] 25 mg PO BID #60 mg 05/19/17 Atovaquone [Mepron Oral Solution -] 750 mg PO BIDWM #120 mg 06/19/17 Glimepiride 2mg PO daily This patient is new to me today: Yes Date on this admission: 06/22/17 Emergency Visit: Yes ED Registration Date: 06/11/17 Care time: The patient presented to the Emergency Department on the above date and was hospitalized for further evaluation of their emergent condition. Critical Care patient: No - Discharge Referral Referred to [facility] Med P.C.: No
--- NOTE | 2017-06-19 09:03 | PN ---
Progress Note, Physician Chief Complaint: seen and examined in US No distress - Current Medication List Current Medications: Active Medications Acetaminophen (Tylenol -) 650 mg PO Q6H PRN PRN Reason: FEVER OR PAIN Last Admin: 06/19/17 06:06 Dose: 650 mg Amlodipine Besylate (Norvasc -) 10 mg PO DAILY [facility] Atovaquone (Mepron -) 750 mg PO BIDWM [facility] Last Admin: 06/18/17 18:19 Dose: 750 mg Heparin Sodium (Porcine) (Heparin -) 5,000 unit SQ TID [facility] Last Admin: 06/19/17 06:07 Dose: 5,000 unit Insulin Aspart (Novolog Vial Sliding Scale -) 1 vial SQ ACHS [facility] PRN Reason: Protocol Last Admin: 06/19/17 06:08 Dose: Not Given Metoprolol Tartrate (Lopressor -) 25 mg PO BID [facility] Last Admin: 06/18/17 21:45 Dose: 25 mg - Objective Vital Signs: Vital Signs Temperature 98 F 06/19/17 05:59 Pulse Rate 78 06/19/17 05:59 Respiratory Rate 20 06/19/17 05:59 Blood Pressure 138/90 06/19/17 05:59 O2 Sat by Pulse Oximetry (%) 100 06/18/17 20:54 Constitutional: Yes: No Distress Cardiovascular: Yes: Regular Rate and Rhythm Respiratory: Yes: CTA Bilaterally Gastrointestinal: Yes: Soft Edema: No Neurological: Yes: Alert Labs: CBC, BMP 06/19/17 05:25 06/19/17 05:25 INR, PTT INR 0.91 (0.82-1.09) 06/11/17 16:57 Laboratory Tests 06/19/17 06/19/17 05:25 05:25 WBC 4.4 Hgb 8.7 L Plt Count 91 L Sodium 136 Potassium 4.1 BUN 36 H D Creatinine 5.7 H Random Glucose 107 H Calcium 7.9 L Assessment/Plan Assessment/Plan 56 year old man with h/o HTN, DMII, HIV, ESRD admitted for initiation of HD, HD access placement, electrolyte abnl. Pt was recently seen in office for difficult to control HTN, dyspnea. echo in office 05/28 showing normal LV/RV size and function, no pericardial effusion, mod LVH and E-A reversal c/w impaired relaxation, mild MR HTN-improved. - cont metoprolol and amlodipine for now - now that HD has been started may benefit from DANIEL-I/ARB, can be considered as outpatient -Should f/u w/ Dr. Crawford in 2 weeks
[2017-06-19] MEDS: METOPROLOL TARTRATE 25 MG TABLET (FP) PO SCH (09:23)
[2017-06-19] MEDS: ATOVAQUONE 750 MG/5 ML (UNIT-DOSE PACKAGING) PO SCH (09:26)
[2017-06-19] MEDS ORDERED: amLODIPine BESYLATE 10 MG TABLET (FP) PO SCH (10:00)
--- NOTE | 2017-06-19 14:08 | PN ---
Teaching Attending Note Name of Resident: Estelita Barber ATTENDING PHYSICIAN STATEMENT I saw and evaluated the patient. I reviewed the resident's note and discussed the case with the resident. I agree with the resident's findings and plan as documented. SUBJECTIVE: no fever or chills. has minimal pain in L forearm . OBJECTIVE: NAD CV: RRR Lungs : CTAB Ext : no edema over LE . , L fore arm dressing removed, 2 wounds with sidney, with clear non erythematous skin. R hand dorsum edema . ASSESSMENT AND PLAN: 56 y/o man with h/o HTN, DM , ESRD and other medical problems who presented with hyperkalemia 1- ESRD: started on HD . s/p L AVF creation yesterday tylenol for pain no Bx done in past , further w/u as outpt with Dr. Garcia 2- HTN: cont BB and norvasc 3- DM : meds confirmed with pharmacy. will resume a lower dose of glemipiride 2 mg due to low sugars here not needing SSI.last A1C elevated 4- Pancytopenia : likely due to BM suppression from uremia and HIV. - US showed splenomegaly - HIT Abs pending , unlikely HIT. - continued w/u as out pt with Dr. Felder dispo : DC today
[2017-06-19 14:31] VITALS: BP 137/85; PULSE 86; TEMP 97.9
--- NOTE | 2017-06-19 14:34 | PN ---
Progress Note, Physician History of Present Illness: Pt seen and examined at bedside. He is going home today. - Objective Vital Signs: Vital Signs Temperature 98 F 06/19/17 05:59 Pulse Rate 78 06/19/17 05:59 Respiratory Rate 20 06/19/17 05:59 Blood Pressure 138/90 06/19/17 05:59 O2 Sat by Pulse Oximetry (%) 100 06/19/17 09:00 Constitutional: Yes: Calm Eyes: Yes: Conjunctiva Clear Cardiovascular: Yes: S1, S2 Respiratory: Yes: CTA Bilaterally Gastrointestinal: Yes: Soft Genitourinary: Yes: WNL Extremities: Yes: Other (fistula with thrill and bruit) Neurological: Yes: Oriented Psychiatric: Yes: Oriented Labs: CBC, BMP 06/19/17 05:25 06/19/17 05:25 INR, PTT INR 0.91 (0.82-1.09) 06/11/17 16:57 Problem List - Problems (1) Admission for dialysis Code(s): Z99.2 - DEPENDENCE ON RENAL DIALYSIS (2) Hyperkalemia Code(s): E87.5 - HYPERKALEMIA (3) CKD (chronic kidney disease) Code(s): N18.9 - CHRONIC KIDNEY DISEASE, UNSPECIFIED Qualifiers: Chronic kidney disease stage: on chronic dialysis Qualified Code(s) : N18.6 - End stage renal disease; N18.6 - End stage renal disease; N18.6 - End stage renal disease; N18.6 - End stage renal disease; Z99.2 - Dependence on renal dialysis; Z99.2 - Dependence on renal dialysis; Z99.2 - Dependence on renal dialysis; Z99.2 - Dependence on renal dialysis Assessment/Plan Impression 1. ESRD 2. HIV 3. HTN 4. hyperkalemia 5. anemia 6. thrombocytopenia Plan - pt scheduled for HD tomorrow as outpt - will need follow up with ID - discussed plan with him and his - will need vascular follow up as well - will follow Dr Garcia
--- NOTE | 2017-06-24 15:25 | OP ---
DATE OF OPERATION: 06/13/2017 PREOPERATIVE DIAGNOSIS: Acute renal failure. POSTOPERATIVE DIAGNOSIS: Acute renal failure. PROCEDURE: Insertion of PermCath. SURGEON: Robert Vines DO ANESTHESIA: Fractional. BLOOD LOSS: 10 mL INDICATION FOR PROCEDURE: The patient comes in with acute renal failure and needs temporary dialysis catheter placement. The patient was consented for the procedure, understanding all risks, benefits, and alternatives, and was then taken to the operating room. DESCRIPTION OF PROCEDURE: Once in the operating room, he laid on the operating table in supine manner. The area of the right neck and chest were prepped and draped in a sterile surgical manner. Under ultrasound guidance, we were able to visualize the right internal jugular vein, and 10 mL of lidocaine 1% was injected there. We then took our Micropuncture needle and punctured the right internal jugular vein under ultrasound guidance, and a Micropuncture wire was inserted. A 5-Greenlandic sheath was inserted, and a traditional 0.035 floppy guidewire was inserted under fluoroscopy. We then injected 10 mL of lidocaine 1% above and below the clavicle. We then took an 11 blade and made a 1-cm incision at the puncture site. We took a 15 blade and made a 1-cm incision below the clavicle. We then tunneled the PermCath up to the puncture site. We then took our break-away sheath and placed it over the guidewire under fluoroscopy, and the cannula and guidewire were removed. Catheter was placed inside the sheath. Sheath was broken away as the catheter was placed inside the vein. The neck of the catheter was nice and smooth. Tip of the catheter was located outside the right atrium. We then jesus back on each port of the catheter, and there was good flow. Heparinized saline was injected, and 2000 units of IV heparin were injected. We then took 4-0 Biosyn, and 2 simple sutures were placed at the puncture site. Nylon 3-0 was used, and the catheter was attached to the skin. Biopatch, Steri-Strips, 4 x 4, and Tegaderms were placed. The patient tolerated the procedure with no complications. The patient transferred to the PACU in stable condition where chest x-ray will be ordered. TOTAL BLOOD LOSS: 10 mL ROBERT VINES DO CONCESSION STAND ATTENDANT/[id number]
--- NOTE | 2017-06-25 07:55 | OP ---
DATE OF OPERATION: 06/12/2017 PREOPERATIVE DIAGNOSIS: End-stage renal disease. POSTOPERATIVE DIAGNOSIS: End-stage renal disease. PROCEDURE PERFORMED: Insertion of PermCath. SURGEON: Robert Vines DO ANESTHESIA: Fractional. BLOOD LOSS: 10 mL. INDICATIONS: The patient is a 56-year-old male who comes in with acute renal failure and needs temporary dialysis catheter placement. DESCRIPTION OF PROCEDURE: The patient was consented for the procedure, understanding all risks, benefits and alternatives. He was then taken to the operating room. Once in the operating room, the patient was laid on the operating table in the supine manner. The area of the right neck and chest were prepped and draped in a sterile surgical manner. Under ultrasound guidance, we visualized the right internal jugular vein and 10 mL of lidocaine 1% was injected there. We then took our Micropuncture needle and punctured the right internal jugular vein. A Micropuncture wire was inserted. A 5-H[place] Konger sheath was inserted. A 0.035 floppy guidewire was inserted. We then injected 10 mL of lidocaine 1% above and below the clavicle. We then took a number 11 blade and made a 1-cm incision at the puncture site. Using a 15 blade, we made a 1-cm incision below the clavicle. We then tunneled the PermCath up to the punctate site. We then took our break-away sheath and placed it over the guidewire into the vein under fluoroscopy. The cannula and guidewire were removed. The catheter was placed inside the sheath, and the sheath was pulled. The neck of the catheter was nice and smooth. The tip of the catheter was located outside the right atrium. We then jesus back on each port of the catheter, and there was good flow. Heparinized saline was injected, 2000 units of IV heparin was injected into each port. Two 4-0 Biosyn stitches were placed at the puncture site. 3-0 nylon was used to attach the catheter to the skin. Biopatch, Steri-Strips, 4 x 4s and Tegaderm were placed. The patient tolerated the procedure with no complications. The patient was transferred to PACU in stable condition, where a chest x-ray will be obtained. ROBERT VINES DO NP/[id number]
== END 2017-06-19 14:29 | disposition home or self-care (01) | DRG 673 ==
LOC: JER 14:46 → JERBED 18:45 → J4W 06-12 02:39
PROVIDERS: ADMIT Internal Medicine; ATTEND Internal Medicine
PROC: 05HM33Z Insertion of Infusion Device into Right Internal Jugular Vein, Percutaneous Approach (ICD-10-PCS; 2017-06-13)
PROC: B513ZZA Fluoroscopy of Right Jugular Veins, Guidance (ICD-10-PCS; 2017-06-13)
PROC: 3E043GC Introduction of Other Therapeutic Substance into Central Vein, Percutaneous Approach (ICD-10-PCS; 2017-06-13)
PROC: B543ZZA Ultrasonography of Right Jugular Veins, Guidance (ICD-10-PCS; 2017-06-13)
PROC: 5A1D70Z Performance of Urinary Filtration, Intermittent, Less than 6 Hours Per Day (ICD-10-PCS; 2017-06-14)
PROC: 031C0ZF Bypass Left Radial Artery to Lower Arm Vein, Open Approach (ICD-10-PCS; principal; 2017-06-18 10:30)
DX: I12.0 Hypertensive chronic kidney disease with stage 5 chronic kidney disease or end stage renal disease (principal); N18.6 End stage renal disease; B20 Human immunodeficiency virus [HIV] disease; N17.8 Other acute kidney failure; E11.22 Type 2 diabetes mellitus with diabetic chronic kidney disease; E87.5 Hyperkalemia; K40.90 Unilateral inguinal hernia, without obstruction or gangrene, not specified as recurrent; D64.9 Anemia, unspecified; E87.8 Other disorders of electrolyte and fluid balance, not elsewhere classified; E11.21 Type 2 diabetes mellitus with diabetic nephropathy; R07.89 Other chest pain; R76.8 Other specified abnormal immunological findings in serum; D69.6 Thrombocytopenia, unspecified; Z91.14 Patient's other noncompliance with medication regimen; Z99.2 Dependence on renal dialysis
CPT/HCPCS: 36415; 71010-TC; 76000-TC; 76700-TC; 80048; 80053; 80076; 81003; 81015; 82570; 82607; 82728; 82746; 83516; 83520; 83540; 83550; 83615; 83735; 84100; 84155; 84156; 84165; 85025; 85027; 85044; 85610; 85651; 85730; 86022; 86038; 86162; 86225; 86256; 86704; 86706; 86708; 86803; 86850; 86880; 86900; 86901; 87340; 93005; 93010; 93931; 93971; 94760; 99284-25; J1644

== ENCOUNTER 2017-07-11 10:00 | Inpatient (IN) | payer BC ==
--- NOTE | 2017-07-11 10:31 | PDOC ---
History of Present Illness - General History Source: Patient Exam Limitations: No Limitations - History of Present Illness Initial Comments: 07/11/17 11:02 56 year old male, with significant past medical history of ESRD (dialysis Fri/ Fri/Friday), HTN, DM, and HIV (last CD4 = 90), who presents to the emergency room complaining of persistent fever and weakness. The patient was recently evaluated in the ED for similar complaints on 07/09/17 and discharged with the diagnosis of a viral infection. Blood cultures from 07/10/17 resulted in presumptive Mssa. He was sent into the emergency room by this morning for further evaluation. He is scheduled for dialysis this afternoon. Denies nausea, vomiting, abdominal pain. Denies chest pain, SOB, cough. Denies headache, lightheadedness. Allergies: NKA Social Hx: No tobacco use. ID: Dr. Metzger, Alen Islas [[facility]] Car Cleaning Supervisor: Dr. Garcia <Mela Rock - Last Filed: 07/11/17 12:00> <Isac Love - Last Filed: 07/11/17 18:27> - General Chief Complaint: Pain, Acute Stated Complaint: RT SIDE PAIN Time Seen by Provider: 07/11/17 10:30 Past History <Mela Rock - Last Filed: 07/11/17 12:00> - Past Medical History Anemia: No Asthma: No Cancer: No Cardiac Disorders: No CVA: No COPD: No CHF: No (Left Bundle Branch Block - see EKG) Dementia: No Diabetes: No GI Disorders: No Disorders: Yes (Dialysis (M,W,F)) HTN: Yes Hypercholesterolemia: No Liver Disease: No Seizures: No Thyroid Disease: No - Surgical History Abdominal Surgery: No Appendectomy: No Cardiac Surgery: No Cholecystectomy: No Lung Surgery: No Neurologic Surgery: No Orthopedic Surgery: No - Immunization History Immunization Up to Date: Yes - Suicide/Smoking/Psychosocial Hx Smoking History: Unknown if ever smoked Have you smoked in the past 12 months: No Cigars Per Day: 0 Information on smoking cessation initiated: No Hx Alcohol Use: No Drug/Substance Use Hx: No Substance Use Type: None Hx Substance Use Treatment: No (Pt reports he is in control, hence refuses treatment) <Isac Love - Last Filed: 07/11/17 18:27> - Past Medical History Allergies/Adverse Reactions: Allergies Allergy/AdvReac Type Severity Reaction Status Date / Time No Known Allergies Allergy Verified 07/11/17 10:03 Home Medications: Ambulatory Orders Abacavir Sulfate [Ziagen -] 300 mg PO BID #60 tablet 06/24/17 Acetaminophen [Tylenol] 2 tab PO Q6H PRN #30 tablet MDD 8 06/24/17 Amlodipine Besylate [Norvasc -] 10 mg PO DAILY #30 tablet 06/24/17 Atovaquone [Mepron Oral Solution -] 750 mg PO BIDWM #120 mg 06/24/17 Dolutegravir Sodium [Tivicay] 50 mg PO DAILY #30 tablet 06/24/17 Glimepiride 2 mg PO DAILY #30 tablet 06/24/17 Metoprolol Tartrate [Lopressor -] 25 mg PO BID #60 mg 06/24/17 Multivitamin-Min/Iron/FA/Vit K [Multi-Day Plus Minerals Tablet] 1 each PO DAILY #30 tablet 06/24/17 Rilpivirine HCl [Edurant] 25 mg PO DAILY #30 tablet 06/24/17 Review of Systems - Review of Systems Able to Perform ROS?: Yes Comments:: 07/11/17 11:03 A complete review of 10 out of 10 review of systems is taken and is negative apart from what is previously mentioned below and in the HPI. <Mela Rock - Last Filed: 07/11/17 12:00> *Physical Exam - Vital Signs Last Vital Signs Temp Pulse Resp BP Pulse Ox 98.3 F 108 H 16 106/63 100 07/11/17 10:03 07/11/17 10:03 07/11/17 10:03 07/11/17 10:03 07/11/17 10:03 - Physical Exam Comments: 07/11/17 11:03 Vitals: Triage Vital signs reviewed General Appearance: no acute distress, well nourished well developed Head: Atraumatic Eyes: Pupils equal reactive round, extraocular movement intact Neck: Supple; No Nucal rigidity Chest Wall: Nontender Cardiac: Regular rate and rhythym, no murmurs, no rubs, no gallops Lungs: Clear to auscultation bilateral, good air movement bilaterally Abdomen: Soft, non distended, normal bowel sounds, non tender to palpation Genitourinary: Edematous testicles Extremities: Full range of motion to all extremities, no cyanosis, clubbing, or edema Skin: Warm and dry, left wrist fistula slight dehissanance with some purulent drainage, right tunneled infraclavicular port, no flutuance or erythema, no petechiae Psych: Normal mood, normal affect 07/11/17 12:00 <Mela Rock - Last Filed: 07/11/17 12:00> - Vital Signs Last Vital Signs Temp Pulse Resp BP Pulse Ox 98.3 F 108 H 16 106/63 100 07/11/17 10:03 07/11/17 10:03 07/11/17 10:03 07/11/17 10:03 07/11/17 10:03 <Isac Love - Last Filed: 07/11/17 18:27> Heart Score/ECG Review #1 07/11/17 11:25 EKG performed at 11:16am demonstrates rate of 102bpm, rhythm of sinus tachycardia, right bundle branch block, axis normal. No st elevations, No t wave inversions. <Mela Rock - Last Filed: 07/11/17 12:00> ED Treatment Course - LABORATORY CBC & Chemistry Diagram: 07/11/17 11:07 07/11/17 11:07 <Mela Rock - Last Filed: 07/11/17 12:00> - LABORATORY CBC & Chemistry Diagram: 07/11/17 11:07 07/11/17 11:07 <Isac Love - Last Filed: 07/11/17 18:27> Medical Decision Making - Medical Decision Making 07/11/17 11:04 Dr. Garcia was paged at 11:04am. 07/11/17 11:[address] Garcia at 11:28am 07/11/17 11:32 Dr. Garcia retuned the page at 11:32am. 07/11/17 11:[address] Metzger 07/11/17 11:57 Dr. Metzger visited the patient bedside 11:57am <Mela Rock - Last Filed: 07/11/17 12:00> - Critical Care Time Total Critical Care Time (minutes): 35 Critical Care Statement: The care of this patient involved high complexity decision making to prevent further life threatening deterioration of the patient 's condition and/or to evaluate & treat vital organ system(s) failure or risk of failure. - Medical Decision Making Patient with slight tachycardia slight hypotension end-stage renal disease diabetic patient with positive blood cultures from 2 days ago. Normal saline ordered. Tylenol ordered. Vancomycin and Zosyn ordered. ID consulted. Patient' s elevated guard consulted for dialysis later today. Vascular consulted in for evaluation of possible infected fistula on left wrist/tunneled catheter infection. We'll admit to hospital for further management of bacteremia early sepsis <Isac Love - Last Filed: 07/11/17 18:27> *DC/Admit/Observation/Transfer - Attestations Scribe Attestion: 07/11/17 11:03 Documentation prepared by SANDHYA Wilson, acting as medical imaging tech for Isac Love MD. <Mela Rock - Last Filed: 07/11/17 12:00> - Discharge Dispostion Admit: Yes <Isac Love - Last Filed: 07/11/17 18:27> Diagnosis at time of Disposition: Bacteremia, ESRD (end stage renal disease), HIV (human immunodeficiency virus infection) Diabetes Qualifiers: Diabetes mellitus type: type 2 Diabetes mellitus complication status: with kidney complications Diabetes mellitus complication detail: with nephropathy Diabetes mellitus skilled nursing insulin use: without skilled nursing use Qualified Code(s) : E11.21 - Type 2 diabetes mellitus with diabetic nephropathy - Discharge Dispostion Condition at time of disposition: Stable
[2017-07-11] MEDS ORDERED: PIPERACILLIN/TAZOBACTAM 4.5 GM VIAL IVPB ONE (10:36)
[2017-07-11] MEDS ORDERED: SODIUM CHLORIDE 0.9% 1000 ML INFUS.BAG IV STA (10:36)
[2017-07-11] MEDS ORDERED: VANCOMYCIN 1,000 MG in DEXTROSE 5%-WATER - 250 ML IVPB ONE (10:36)
[2017-07-11] MEDS ORDERED: ACETAMINOPHEN 500 MG TABLET (FP) PO ONE (10:56)
[2017-07-11 11:12] LABS: VENOUS PH 7.38 (7.32-7.42)
[2017-07-11 11:13] LABS: VENOUS BLOOD GAS HCO3 24.2 meq/L (19-25)
[2017-07-11] MEDS ORDERED: ACETAMINOPHEN 325 MG TABLET (FP) ONE ×2 (11:16→16:07)
[2017-07-11] MEDS ORDERED: VANCOMYCIN 1 GRAM (PRE-DOCKED) 1,000 MG/250 ML BAG IVPB ONE (11:17)
[2017-07-11] MEDS ORDERED: PIPERACILLIN/TAZOB 4.5 GM 4.5 GM/100 ML BAG IVPB ONE (11:17)
[2017-07-11 11:19] LABS: MCH 29.1 pg (25.7-33.7); MCHC 32.3 g/dl (32.0-35.9); MEAN PLT VOLUME 8.7 fl (7.5-11.1); PLATELET COUNT 141 K/MM3 (134-434); RDW 14.1 % (11.9-15.9); WHITE BLOOD COUNT 12.8 K/mm3 (4.0-10.0)
[2017-07-11 11:30] LABS: INR 1.24 (0.82-1.09)
[2017-07-11 11:33] LABS: ACTIVATED PTT 30.5 SECONDS (26.9-34.4)
[2017-07-11 11:42] LABS: URINE APPEARANCE CLOUDY; URINE BILIRUBIN NEGATIVE (NEGATIVE); URINE BLOOD 2+ (NEGATIVE); URINE COLOR DKYELLOW; URINE GLUCOSE (UA) 1+ (NEGATIVE); URINE KETONE NEGATIVE (NEGATIVE); URINE NITRITE NEGATIVE (NEGATIVE); URINE UROBILINOGEN NEGATIVE mg/dL (0.2-1.0)
[2017-07-11 11:44] LABS: ALBUMIN 3.1 g/dl (3.4-5.0); ANION GAP 12 (8-16); BILIRUBIN,TOTAL 1.1 mg/dL (0.2-1.0); CALCIUM 8.3 mg/dL (8.5-10.1); CO2 22 mmol/L (21-32); GLUCOSE,RANDOM 189 mg/dL (74-106); SGOT/AST 79 U/L (15-37); SGPT/ALT 60 U/L (12-78); TOT PROT 7.9 g/dl (6.4-8.2)
[2017-07-11 11:44] LABS: URINE PROTEIN 3+ (NEGATIVE)
[2017-07-11 11:47] LABS: GRANULAR CASTS 21 /lpf; URINE BACTERIA RARE /hpf (NONE SEEN); URINE RBC 30; URINE WBC 15; YEAST FEW
[2017-07-11 11:50] LABS: ALK PHOS 115 U/L (45-117); CPK 142 IU/L (39-308); TROPONIN I < 0.02 ng/ml (0.00-0.05)
[2017-07-11 11:58] LABS: CREATININE 10.1 mg/dL (0.7-1.3)
[2017-07-11 12:01] LABS: HYPOCHROMIA 1+; PLATELET COMMENTS NO CLUMPING; PLATELET ESTIMATE DECREASED; POLYCHROMASIA 1+; TOTAL CELLS COUNTED 100; TOXIC GRANULATION 1+
[2017-07-11] MEDS ORDERED: VANCOMYCIN 1,500 MG in DEXTROSE 5%-WATER - 500 ML IVPB ONE (12:03)
--- NOTE | 2017-07-11 12:07 | PN ---
Progress Note (short form) - Note Progress Note: ID consult dictated imp/reccd staph bacteremia esrd/hd HIV-aids by abimael vancomycin based on levels until cultures are back blood cultures via permacath vascular to see- drainage at avf site noted, evaluate the permacath continue hiv meds-patient may need to have family bring in his meds continue his mepron for pcp prophylaxis as well echo has been ordered Problem List - Problems (1) Staphylococcus aureus bacteremia Code(s): R78.81 - BACTEREMIA (2) ESRD (end stage renal disease) on dialysis Code(s): N18.6 - END STAGE RENAL DISEASE; Z99.2 - DEPENDENCE ON RENAL DIALYSIS (3) AIDS Code(s): B20 - HUMAN IMMUNODEFICIENCY VIRUS [HIV] DISEASE
[2017-07-11] MEDS ORDERED: SODIUM CHLORIDE 1,000 ML IV STA (13:12)
--- NOTE | 2017-07-11 13:38 | CONSULT ---
Consult Consult Specialty:: Nephrology Reason for Consultation:: ESRD on HD - History of Present Illness Chief Complaint: called in for positive blood cultures History of Present Illness: Pt is a 56 year old male with pmhx of ESRD and HIV who initially presented to the ER for fever yesterday. He had blood cultures that were positive and he was called back. He complains of chills. He has a left av fistula which has erythma. He is due for dialysis today. He gets HD via a chest wall permacath. He denies shortness of breath. He is not taking HIV meds. - History Source History Provided By: Patient, Medical Record - Past Medical History Cardio/Vascular: Yes: HTN, Hyperlipdemia Renal/: Yes: Renal Failure, Hemodialysis Heme/Onc: Yes: Anemia Infectious Disease: Yes: HIV - Alcohol/Substance Use Hx Alcohol Use: No - Smoking History Smoking history: Unknown if ever smoked Have you smoked in the past 12 months: No - Social History Usual Living Arrangement: With Spouse ADL: Independent History of Recent Travel: No Home Medications - Allergies Allergies/Adverse Reactions: Allergies Allergy/AdvReac Type Severity Reaction Status Date / Time No Known Allergies Allergy Verified 07/11/17 10:03 - Home Medications Home Medications: Ambulatory Orders Abacavir Sulfate [Ziagen -] 300 mg PO BID #60 tablet 06/24/17 Acetaminophen [Tylenol] 2 tab PO Q6H PRN #30 tablet MDD 8 06/24/17 Amlodipine Besylate [Norvasc -] 10 mg PO DAILY #30 tablet 06/24/17 Atovaquone [Mepron Oral Solution -] 750 mg PO BIDWM #120 mg 06/24/17 Dolutegravir Sodium [Tivicay] 50 mg PO DAILY #30 tablet 06/24/17 Glimepiride 2 mg PO DAILY #30 tablet 06/24/17 Metoprolol Tartrate [Lopressor -] 25 mg PO BID #60 mg 06/24/17 Multivitamin-Min/Iron/FA/Vit K [Multi-Day Plus Minerals Tablet] 1 each PO DAILY #30 tablet 06/24/17 Rilpivirine HCl [Edurant] 25 mg PO DAILY #30 tablet 06/24/17 Family Disease History - Family Disease History Family History: Denies Review of Systems - Review of Systems Constitutional: reports: Fever, Malaise Eyes: reports: No Symptoms HENT: reports: No Symptoms Neck: reports: No Symptoms Cardiovascular: reports: No Symptoms Respiratory: reports: No Symptoms Gastrointestinal: reports: No Symptoms Genitourinary: reports: No Symptoms Musculoskeletal: reports: No Symptoms Integumentary: reports: Erythema Endocrine: reports: No Symptoms Hematology/Lymphatic: reports: No Symptoms Psychiatric: reports: No Symptoms Physical Exam Vital Signs: Vital Signs Temperature 100.5 F H 07/11/17 10:30 Pulse Rate 108 H 07/11/17 10:03 Respiratory Rate 16 07/11/17 10:03 Blood Pressure 106/63 07/11/17 10:03 O2 Sat by Pulse Oximetry (%) 100 07/11/17 10:03 Constitutional: Yes: Calm Eyes: Yes: Conjunctiva Clear HENT: Yes: Atraumatic Cardiovascular: Yes: S1, S2 Respiratory: Yes: CTA Bilaterally Gastrointestinal: Yes: Soft Renal/: Yes: WNL Extremities: Yes: Other (left arm av fistula, erythema) Neurological: Yes: Oriented Psychiatric: Yes: Oriented Labs: CBC, BMP 07/11/17 11:07 07/11/17 11:07 Laboratory Tests 06/13/17 07/11/17 07/11/17 05:10 11:07 11:07 WBC 12.8 H D Hgb 9.0 L Sodium 131 L Potassium 4.7 Chloride 97 L Carbon Dioxide 22 Anion Gap 12 BUN 56 H D Creatinine 10.1 H* D Random Glucose 189 H D Urine Color Urine Appearance Urine pH Ur Specific [place] Urine Protein Urine Glucose (UA) Urine Ketones Urine Blood Urine Nitrite Urine Bilirubin Urine Urobilinogen c-ANCA <1:20 Proteinase 3 (PR3) <3.5 p-ANCA <1:20 Atypical p-ANCA <1:20 Myeloperoxidase Ab <9.0 Double Strand DNA Ab <1 Glomerular Base Memb Ab 4 Hep Bs Antigen Negative Hep B Core Total Ab Negative 07/11/17 11:28 WBC Hgb Sodium Potassium Chloride Carbon Dioxide Anion Gap BUN Creatinine Random Glucose Urine Color Dkyellow Urine Appearance Cloudy Urine pH 5.0 Ur Specific [place] 1.016 Urine Protein 3+ H Urine Glucose (UA) 1+ H Urine Ketones Negative Urine Blood 2+ H Urine Nitrite Negative Urine Bilirubin Negative Urine Urobilinogen Negative c-ANCA Proteinase 3 (PR3) p-ANCA Atypical p-ANCA Myeloperoxidase Ab Double Strand DNA Ab Glomerular Base Memb Ab Hep Bs Antigen Hep B Core Total Ab Problem List - Problems (1) Anemia Code(s): D64.9 - ANEMIA, UNSPECIFIED (2) AIDS Code(s): B20 - HUMAN IMMUNODEFICIENCY VIRUS [HIV] DISEASE (3) Staphylococcus aureus bacteremia Code(s): R78.81 - BACTEREMIA (4) HIV (human immunodeficiency virus infection) Code(s): Z21 - ASYMPTOMATIC HUMAN IMMUNODEFICIENCY VIRUS INFECTION STATUS Assessment/Plan Current Medications Generic Name Dose Route Start Last Admin Trade Name Freq PRN Reason Stop Dose Admin Acetaminophen 650 mg 07/11/17 13:12 Tylenol - PO Q4H PRN FEVER OR PAIN Heparin Sodium (Porcine) 5,000 unit 07/11/17 18:00 Heparin - SQ Q8H-IV JAZMINE Vancomycin HCl 1,500 mg/ 500 mls @ 250 mls/hr 07/11/17 12:03 07/11/17 13:34 Dextrose IVPB 07/11/17 14:02 250 mls/hr ONCE ONE Administration Protocol Sodium Chloride 1,000 mls @ 1,000 mls/hr 07/11/17 13:12 07/11/17 13:34 Normal Saline - IV 07/11/17 14:11 1,000 mls/hr ASDIR STA Administration Impression 1. ESRD 2. HIV 3. HTN 4. sepsis 5. anemia 6. bacteremia - staph Plan - admit for antibiotics - will arrange for HD today - check blood cultures on dialysis - called vascular surgery to evaluate fistula - discussed case with ID - epogen for anemia - cont to follow blood cultures Dr Garcia
[2017-07-11] MEDS ORDERED: EPOETIN ALFA 2,000 UNITS/1 ML VIAL IVPUSH ONE (13:39)
[2017-07-11 14:06] LABS: URINE LEUK ESTERASE Negative (NEGATIVE)
--- NOTE | 2017-07-11 14:21 | CONS ---
DATE OF CONSULTATION: HISTORY: This is a 66-year-old man who is followed at the [facility]. He has a history of end-stage renal disease, recently started on dialysis via PermCath. He has a history of hypertension as well. He presented to the emergency room on the complaining of weakness and fever. He reports that he went to dialysis on Friday after which he developed some abdominal cramps and generalized weakness and fever. In the emergency room on the , he was found to have fever of 103.9. His exam was felt to be normal. He was noted to have a right-sided PermCath. He had a white count of 8.5. Blood cultures were sent, and he was discharged home. He was called the next morning to return as his blood cultures are now growing gram-positive cocci 4/4 bottles in clusters. I am seeing him in the emergency room. He reports feeling better. He denies any cough, nausea, vomiting, diarrhea, or dysuria. PAST MEDICAL HISTORY: Notable for HIV disease. His most recent T cells are 90 with a viral load of 25,000. He has a history of end-stage renal disease. PermCath was placed on June 12. He has a recent placement of AV fistula as well, which was placed on June 18. As well, he has a history of hypertension and [id number] diabetes. ALLERGIES: He has no known drug allergies. MEDICATIONS: As an outpatient include Rilpivirine, multivitamins, metoprolol, glimepiride, Tivicay, Atovaquone, amlodipine, acetaminophen, and Abacavir. FAMILY HISTORY: Noncontributory. SOCIAL HISTORY: He resides in the community. He was born in [place]. He denies any illicit substance use. He is not a smoker. REVIEW OF SYSTEMS: He reports feeling better but still has generalized weakness. He has no focal joint pain. He has no rash. He has no nausea, vomiting, diarrhea, dysuria, chest pain, or abdominal pain. PHYSICAL EXAMINATION: Vital Signs: His current temperature is 100.5, pulse of 108, blood pressure is 106/63, respiratory rate 16. He weighs 124 ounces. He is saturating 100%. HEENT: He is normocephalic. His eyes are anicteric. He has no conjunctival hemorrhages. He has no thrush. Neck: Supple. Lungs: Clear to auscultation. Heart: Regular rate and rhythm. Abdomen: Soft and nontender. Extremities: He has no edema. Skin: He has no skin breakdown. He has no healed ulcers. He has no perirectal sores or lesions. He has no stigmata of endocarditis on his hands. His PermCath site is without any erythema or tenderness. His left hand AV fistula site there is some opening at the incision, and he has some drainage on the gauze. There is no surrounding erythema. LABORATORIES: Notable for a white count of 12.8, hemoglobin 9, platelets 141, BUN 56, creatinine 10.1 with AST 79. As stated before his blood culture of 12/03 bottle on the are growing gram-positive cocci, presumptive Staphylococcus aureus. In summary, this is a 56-year-old man with Staphylococcal bacteremia, end-stage renal disease on dialysis, HIV disease, AIDS by T cells. Would dose him with vancomycin and continue based on levels until cultures and sensitivities are back. Blood cultures via PermCath have been ordered by Renal. Vascular to see for drainage of the AV fistula site and to evaluate the PermCath. Both were just placed in June. I would continue his HIV medications. The patient may need his family to bring in his medications. Would continue his Mepron for PCP prophylaxis as well. Echocardiogram has been ordered. Further recommendations based on his clinical course. I discussed the case with Renal. MARIANNA LANDEROS M.D. JESICA/[id number]
--- NOTE | 2017-07-11 14:32 | HP ---
CHIEF COMPLAINT:fever/ chills. PCP:Dr. Garcia HISTORY OF PRESENT ILLNESS: 56 yo M with PMhx of ESRD (HD MWF), HTN, Diabetes, HIV (stopped taking HARRT) three months ago, presents with three day history of worsening fever and chills. He was here in ED two days ago when these symptoms started. He was dishcarged home without Antibiotics and blood cultures done. His BC returned positive for MSSA and was called to return to ED. His has had fever, chills, night sweats, and generalized malaise. Denies CP,LEWIS,SOB, palpitations, abdominal pain, N/V or urinary symptoms. ER course was notable for: (1)Started on Vanco Zosyn (2)Echo pending (3)IVF Recent Travel: no PAST MEDICAL HISTORY:HIV, Diabetes type II, HTN, ESRD PAST SURGICAL HISTORY:none Social History: from [facility] [place], lives in [place] with his Smoking:no Alcohol:quit 8 years ago Drugs: no Family History: Allergies No Known Allergies Allergy (Verified 07/11/17 10:03) HOME MEDICATIONS: Home Medications Medication Instructions Recorded Abacavir Sulfate [Ziagen -] 300 mg PO BID #60 tablet 06/24/17 Acetaminophen [Tylenol] 2 tab PO Q6H PRN #30 tablet MDD 8 06/24/17 Amlodipine Besylate [Norvasc -] 10 mg PO DAILY #30 tablet 06/24/17 Atovaquone [Mepron Oral Solution -] 750 mg PO BIDWM #120 mg 06/24/17 Dolutegravir Sodium [Tivicay] 50 mg PO DAILY #30 tablet 06/24/17 Glimepiride 2 mg PO DAILY #30 tablet 06/24/17 Metoprolol Tartrate [Lopressor -] 25 mg PO BID #60 mg 06/24/17 Multivitamin-Min/Iron/FA/Vit K 1 each PO DAILY #30 tablet 06/24/17 [Multi-Day Plus Minerals Tablet] Rilpivirine HCl [Edurant] 25 mg PO DAILY #30 tablet 06/24/17 REVIEW OF SYSTEMS CONSTITUTIONAL: fever, chills, diaphoresis, generalized weakness, malaise, loss of appetite Absent: , weight change HEENT: Absent: rhinorrhea, nasal congestion, throat pain, throat swelling, difficulty swallowing, mouth swelling, ear pain, eye pain, visual changes CARDIOVASCULAR: Absent: chest pain, syncope, palpitations, irregular heart rate, lightheadedness , peripheral edema RESPIRATORY: Absent: cough, shortness of breath, dyspnea with exertion, orthopnea, wheezing, stridor, hemoptysis GASTROINTESTINAL: Absent: abdominal pain, abdominal distension, nausea, vomiting, diarrhea, constipation, melena, hematochezia GENITOURINARY: Absent: dysuria, frequency, urgency, hesitancy, hematuria, flank pain, genital pain MUSCULOSKELETAL: Absent: myalgia, arthralgia, joint swelling, back pain, neck pain SKIN: Absent: rash, itching, pallor HEMATOLOGIC/IMMUNOLOGIC: Absent: easy bleeding, easy bruising, lymphadenopathy, frequent infections ENDOCRINE: Absent: unexplained weight gain, unexplained weight loss, heat intolerance, cold intolerance NEUROLOGIC: Absent: headache, focal weakness or paresthesias, dizziness, unsteady gait, seizure, mental status changes, bladder or bowel incontinence PSYCHIATRIC: Absent: anxiety, depression, suicidal or homicidal ideation, hallucinations. PHYSICAL EXAMINATION Vital Signs - 24 hr 07/11/17 07/11/17 10:03 10:30 Temperature 98.3 F 100.5 F H Pulse Rate 108 H Respiratory 16 Rate Blood Pressure 106/63 O2 Sat by Pulse 100 Oximetry (%) GENERAL:AAOx3, Mild distress HEAD: NC/AT EYES: PERRLA,EOMI, sclera pallor, conjunctiva clear. No lid lag. EARS, NOSE, THROAT: Dry mucous membranes. NECK: Supple , NO JVD LUNGS: CTAB. No wheezes, and no crackles. No accessory muscle use. HEART:RRR, normal S1 and S2 , 2/6 VONDA RSB ABDOMEN: Soft, NT/ND, normoactive bowel sounds, no guarding, no rebound, no masses. No hepatomegaly or splenomegaly. MUSCULOSKELETAL: Normal range of motion at all joints. No bony deformities or tenderness. No CVA tenderness. UPPER EXTREMITIES: 2+ pulses, warm, well-perfused. No cyanosis. No clubbing. Left arm AV fistula erythema, and indurated. LOWER EXTREMITIES: 2+ pulses, warm, well-perfused. No calf tenderness. No peripheral edema. NEUROLOGICAL: Cranial nerves II-XII intact. Normal speech. PSYCHIATRIC: anxious SKIN: erythema and induration of left forearm AV fistula. Laboratory Results - last 24 hr 07/11/17 07/11/17 07/11/17 11:03 11:07 11:07 WBC 12.8 H D RBC 3.09 L Hgb 9.0 L Hct 27.8 L MCV 90.0 MCH 29.1 MCHC 32.3 RDW 14.1 Plt Count 141 MPV 8.7 Total Counted 100 Neutrophils % Auto Leasing Manager Neutrophils % (Manual) 76.0 D Band Neutrophils % 12.0 Lymphocytes % Auto Leasing Manager Lymphocytes % (Manual) 6.0 L D Monocytes % Auto Leasing Manager Monocytes % (Manual) 5 Eosinophils % Auto Leasing Manager Eosinophils % (Manual) 1.0 Basophils % Auto Le[employer] Manager Hypochromia 1+ Toxic Granulation 1+ Dohle Bodies 1+ Platelet Estimate Decreased Platelet Comment No clumping Polychromasia 1+ PT with INR 14.00 H INR 1.24 H PTT (Actin FS) 30.5 VBG pH 7.38 POC VBG pCO2 42.0 POC VBG pO2 25.9 L Mixed VBG HCO3 24.2 Sodium Potassium Chloride Carbon Dioxide Anion Gap BUN Creatinine Creat Clearance w eGFR Random Glucose Lactic Acid Calcium Total Bilirubin AST ALT Alkaline Phosphatase Creatine Kinase Troponin I Total Protein Albumin Urine Color Urine Appearance Urine pH Ur Specific [place] Urine Protein Urine Glucose (UA) Urine Ketones Urine Blood Urine Nitrite Urine Bilirubin Urine Urobilinogen Ur Leukocyte Esterase Urine RBC Urine WBC Ur Epithelial Cells Urine Bacteria Granular Casts Urine Yeast Blood Type Antibody Screen 07/11/17 07/11/17 07/11/17 11:07 11:07 11:07 WBC RBC Hgb Hct MCV MCH MCHC RDW Plt Count MPV Total Counted Neutrophils % Neutrophils % (Manual) Band Neutrophils % Lymphocytes % Lymphocytes % (Manual) Monocytes % Monocytes % (Manual) Eosinophils % Eosinophils % (Manual) Basophils % Hypochromia Toxic Granulation Dohle Bodies Platelet Estimate Platelet Comment Polychromasia PT with INR INR PTT (Actin FS) VBG pH POC VBG pCO2 POC VBG pO2 Mixed VBG HCO3 Sodium 131 L Potassium 4.7 Chloride 97 L Carbon Dioxide 22 Anion Gap 12 BUN 56 H D Creatinine 10.1 H* D Creat Clearance w eGFR 5.40 Random Glucose 189 H D Lactic Acid 1.6 Calcium 8.3 L Total Bilirubin 1.1 H D AST 79 H D ALT 60 D Alkaline Phosphatase 115 Creatine Kinase 142 Troponin I < 0.02 Total Protein 7.9 Albumin 3.1 L Urine Color Urine Appearance Urine pH Ur Specific [place] Urine Protein Urine Glucose (UA) Urine Ketones Urine Blood Urine Nitrite Urine Bilirubin Urine Urobilinogen Ur Leukocyte Esterase Urine RBC Urine WBC Ur Epithelial Cells Urine Bacteria Granular Casts Urine Yeast Blood Type O POSITIVE Antibody Screen Negative 07/11/17 11:28 WBC RBC Hgb Hct MCV MCH MCHC RDW Plt Count MPV Total Counted Neutrophils % Neutrophils % (Manual) Band Neutrophils % Lymphocytes % Lymphocytes % (Manual) Monocytes % Monocytes % (Manual) Eosinophils % Eosinophils % (Manual) Basophils % Hypochromia Toxic Granulation Dohle Bodies Platelet Estimate Platelet Comment Polychromasia PT with INR INR PTT (Actin FS) VBG pH POC VBG pCO2 POC VBG pO2 Mixed VBG HCO3 Sodium Potassium Chloride Carbon Dioxide Anion Gap BUN Creatinine Creat Clearance w eGFR Random Glucose Lactic Acid Calcium Total Bilirubin AST ALT Alkaline Phosphatase Creatine Kinase Troponin I Total Protein Albumin Urine Color Dkyellow Urine Appearance Cloudy Urine pH 5.0 Ur Specific [place] 1.016 Urine Protein 3+ H Urine Glucose (UA) 1+ H Urine Ketones Negative Urine Blood 2+ H Urine Nitrite Negative Urine Bilirubin Negative Urine Urobilinogen Negative Ur Leukocyte Esterase Negative Urine RBC 30 Urine WBC 15 Ur Epithelial Cells Rare Urine Bacteria Rare Granular Casts 21 Urine Yeast Few Blood Type Antibody Screen ASSESSMENT/PLAN: 56 yo M with PMhx of HTN, Diabetes, HIV (stopped taking HARRT) three months ago , presents with 3 day history of fever and chills will be admitted for sepsis secondary to bactermia. Problem List - Problem (1) Staphylococcus aureus bacteremia Assessment/Plan: This is most likely from infected AV fistula. * Blood cultures show MSSA * Vanco and Zosyn given in ED--> ID consulted. * Echo pending. * IV fluids with NS 1L bolus. (2) Diabetes mellitus type II, controlled Assessment/Plan: Will hold oral hyperglycemic meds. * Renal/diabetic diet. * ISS with Novolog ACHS * BGM ACHS (3) HIV (human immunodeficiency virus infection) Assessment/Plan: HAART has been on hold for last three months. * ID consulted * CD4 and viral load pending. * Will refer to ID as to when to restart HAART considering acute bactermia. (4) CKD (chronic kidney disease) Assessment/Plan: He is on MWF schedule * Agrees to dialysis today. * Will obtain cultures for catheter tip. * Dr. Samarneh has been consulted. * Avoid nephrotoxins. * Renal dose meds. (5) HTN (hypertension) Assessment/Plan: Essenital HTN * Metoprolol and Amlodipine to be continued at home dose. * Hold parameters for SBP<90 or HR <55 (6) DVT prophylaxis Assessment/Plan: Heparin SQ 5000u Q8H Visit type - Emergency Visit Emergency Visit: Yes ED Registration Date: 07/11/17 Care time: The patient presented to the Emergency Department on the above date and was hospitalized for further evaluation of their emergent condition. - New Patient This patient is new to me today: Yes Date on this admission: 07/14/17 - Critical Care Critical Care patient: No
[2017-07-11] MEDS ORDERED: LIDOCAINE HCL/PF 2% SDV 5ML VIAL SQ ONE (15:29)
[2017-07-11] MEDS ORDERED: LIDOCAINE HCL 2% (20ML MULTI-DOSE VIAL) NR ONE (15:31)
[2017-07-11] MEDS: ACETAMINOPHEN 325 MG TABLET (FP) PO PRN ×2 (16:00→20:22)
--- NOTE | 2017-07-11 16:17 | PN ---
Teaching Attending Note Name of Resident: Clinton Griggs ATTENDING PHYSICIAN STATEMENT I saw and evaluated the patient. I reviewed the resident's note and discussed the case with the resident. I agree with the resident's findings and plan as documented. SUBJECTIVE: OBJECTIVE: Vital Signs Period Temp Pulse Resp BP Sys/Estrada Pulse Ox Last 24 Hr 97.9 F-100.5 F 87-108 16-16 95-106/63-68 98-100 Home Medications Medication Instructions Recorded Abacavir Sulfate [Ziagen -] 300 mg PO BID #60 tablet 06/24/17 Acetaminophen [Tylenol] 2 tab PO Q6H PRN #30 tablet MDD 8 06/24/17 Amlodipine Besylate [Norvasc -] 10 mg PO DAILY #30 tablet 06/24/17 Atovaquone [Mepron Oral Solution -] 750 mg PO BIDWM #120 mg 06/24/17 Dolutegravir Sodium [Tivicay] 50 mg PO DAILY #30 tablet 06/24/17 Glimepiride 2 mg PO DAILY #30 tablet 06/24/17 Metoprolol Tartrate [Lopressor -] 25 mg PO BID #60 mg 06/24/17 Multivitamin-Min/Iron/FA/Vit K 1 each PO DAILY #30 tablet 06/24/17 [Multi-Day Plus Minerals Tablet] Rilpivirine HCl [Edurant] 25 mg PO DAILY #30 tablet 06/24/17 Laboratory Tests 07/11/17 07/11/17 07/11/17 11:03 11:07 11:07 WBC 12.8 H D RBC 3.09 L Hgb 9.0 L Hct 27.8 L MCV 90.0 MCH 29.1 MCHC 32.3 RDW 14.1 Plt Count 141 MPV 8.7 Total Counted 100 Neutrophils % Diamond Grinder Neutrophils % (Manual) 76.0 D Band Neutrophils % 12.0 Lymphocytes % Diamond Grinder Lymphocytes % (Manual) 6.0 L D Monocytes % Diamond Grinder Monocytes % (Manual) 5 Eosinophils % Diamond Grinder Eosinophils % (Manual) 1.0 Basophils % Diamond Grinder Hypochromia 1+ Toxic Granulation 1+ Dohle Bodies 1+ Platelet Estimate Decreased Platelet Comment No clumping Polychromasia 1+ PT with INR 14.00 H INR 1.24 H PTT (Actin FS) 30.5 VBG pH 7.38 POC VBG pCO2 42.0 POC VBG pO2 25.9 L Mixed VBG HCO3 24.2 Sodium Potassium Chloride Carbon Dioxide Anion Gap BUN Creatinine Creat Clearance w eGFR Random Glucose Lactic Acid Calcium Total Bilirubin AST ALT Alkaline Phosphatase Creatine Kinase Troponin I Total Protein Albumin Urine Color Urine Appearance Urine pH Ur Specific [place] Urine Protein Urine Glucose (UA) Urine Ketones Urine Blood Urine Nitrite Urine Bilirubin Urine Urobilinogen Ur Leukocyte Esterase Urine RBC Urine WBC Ur Epithelial Cells Urine Bacteria Granular Casts Urine Yeast Blood Type Antibody Screen 07/11/17 07/11/17 07/11/17 11:07 11:07 11:07 WBC RBC Hgb Hct MCV MCH MCHC RDW Plt Count MPV Total Counted Neutrophils % Neutrophils % (Manual) Band Neutrophils % Lymphocytes % Lymphocytes % (Manual) Monocytes % Monocytes % (Manual) Eosinophils % Eosinophils % (Manual) Basophils % Hypochromia Toxic Granulation Dohle Bodies Platelet Estimate Platelet Comment Polychromasia PT with INR INR PTT (Actin FS) VBG pH POC VBG pCO2 POC VBG pO2 Mixed VBG HCO3 Sodium 131 L Potassium 4.7 Chloride 97 L Carbon Dioxide 22 Anion Gap 12 BUN 56 H D Creatinine 10.1 H* D Creat Clearance w eGFR 5.40 Random Glucose 189 H D Lactic Acid 1.6 Calcium 8.3 L Total Bilirubin 1.1 H D AST 79 H D ALT 60 D Alkaline Phosphatase 115 Creatine Kinase 142 Troponin I < 0.02 Total Protein 7.9 Albumin 3.1 L Urine Color Urine Appearance Urine pH Ur Specific [place] Urine Protein Urine Glucose (UA) Urine Ketones Urine Blood Urine Nitrite Urine Bilirubin Urine Urobilinogen Ur Leukocyte Esterase Urine RBC Urine WBC Ur Epithelial Cells Urine Bacteria Granular Casts Urine Yeast Blood Type O POSITIVE Antibody Screen Negative 07/11/17 11:28 WBC RBC Hgb Hct MCV MCH MCHC RDW Plt Count MPV Total Counted Neutrophils % Neutrophils % (Manual) Band Neutrophils % Lymphocytes % Lymphocytes % (Manual) Monocytes % Monocytes % (Manual) Eosinophils % Eosinophils % (Manual) Basophils % Hypochromia Toxic Granulation Dohle Bodies Platelet Estimate Platelet Comment Polychromasia PT with INR INR PTT (Actin FS) VBG pH POC VBG pCO2 POC VBG pO2 Mixed VBG HCO3 Sodium Potassium Chloride Carbon Dioxide Anion Gap BUN Creatinine Creat Clearance w eGFR Random Glucose Lactic Acid Calcium Total Bilirubin AST ALT Alkaline Phosphatase Creatine Kinase Troponin I Total Protein Albumin Urine Color Dkyellow Urine Appearance Cloudy Urine pH 5.0 Ur Specific [place] 1.016 Urine Protein 3+ H Urine Glucose (UA) 1+ H Urine Ketones Negative Urine Blood 2+ H Urine Nitrite Negative Urine Bilirubin Negative Urine Urobilinogen Negative Ur Leukocyte Esterase Negative Urine RBC 30 Urine WBC 15 Ur Epithelial Cells Rare Urine Bacteria Rare Granular Casts 21 Urine Yeast Few Blood Type Antibody Screen ASSESSMENT AND PLAN:
--- NOTE | 2017-07-11 16:22 | PN ---
Progress Note (short form) - Note Progress Note: Vascular Surgery Pt seen and examined. Pt with positive echo with vegetations on heart. PC is infected. PC removed in ER. Pus found around cath. Left femoral shiley placed. Guidewire removed. All ports flushed. can use cath for HD Left avf evaluated -- no thrill or bruit. Will need new access. Brachial cephalic fistula left arm prior to DC Robert Morgan DO
[2017-07-11] MEDS ORDERED: EPOETIN ALFA 3,000 UNIT, EPOETIN ALFA 2,000 UNIT IVPUSH ONE (18:30)
--- NOTE | 2017-07-11 18:49 | CON.CARD ---
Consult Consult Specialty:: Cardiology Referred by:: Hospitalist Medicine Reason for Consultation:: R/o endocarditis - History of Present Illness Chief Complaint: Fever History of Present Illness: Pt is a 56 year old male with pmhx of ESRD on HD and HIV who initially presented to the ER for fever yesterday. He had blood cultures that were positive and he was called back. He complains of chills. He has a left av fistula which has erythma. He is due for dialysis today. He gets HD via a chest wall permacath. He denies shortness of breath. He is not taking HIV meds. PC removed in ER, pus found around cath, left femoral shiley placed, left AVF failed. - History Source History Provided By: Patient Limitations to Obtaining History: No Limitations - Past Medical History Cardio/Vascular: Yes: HTN, Hyperlipdemia Renal/: Yes: Renal Failure, Hemodialysis Infectious Disease: Yes: HIV - Alcohol/Substance Use Hx Alcohol Use: No - Smoking History Smoking history: Unknown if ever smoked Have you smoked in the past 12 months: No - Social History Usual Living Arrangement: With Spouse ADL: Independent History of Recent Travel: No Home Medications - Allergies Allergies/Adverse Reactions: Allergies Allergy/AdvReac Type Severity Reaction Status Date / Time No Known Allergies Allergy Verified 07/11/17 10:03 - Home Medications Home Medications: Ambulatory Orders Abacavir Sulfate [Ziagen -] 300 mg PO BID #60 tablet 06/24/17 Acetaminophen [Tylenol] 2 tab PO Q6H PRN #30 tablet MDD 8 06/24/17 Amlodipine Besylate [Norvasc -] 10 mg PO DAILY #30 tablet 06/24/17 Atovaquone [Mepron Oral Solution -] 750 mg PO BIDWM #120 mg 06/24/17 Dolutegravir Sodium [Tivicay] 50 mg PO DAILY #30 tablet 06/24/17 Glimepiride 2 mg PO DAILY #30 tablet 06/24/17 Metoprolol Tartrate [Lopressor -] 25 mg PO BID #60 mg 06/24/17 Multivitamin-Min/Iron/FA/Vit K [Multi-Day Plus Minerals Tablet] 1 each PO DAILY #30 tablet 06/24/17 Rilpivirine HCl [Edurant] 25 mg PO DAILY #30 tablet 06/24/17 Vital Signs: Vital Signs Temperature 97.9 F 07/11/17 15:00 Pulse Rate 104 H 07/11/17 17:50 Respiratory Rate 18 07/11/17 17:50 Blood Pressure 119/78 07/11/17 17:50 O2 Sat by Pulse Oximetry (%) 98 07/11/17 15:00 Constitutional: Yes: No Distress, Calm Neck: Yes: Supple Respiratory: Yes: Diminished Gastrointestinal: Yes: Normal Bowel Sounds, Soft Cardiovascular: Yes: Tachycardia JVD: No Carotid Bruit: No Heart Sounds: Yes: S1, S2 Murmur: Yes: Systolic Murmur, Grade 1 Edema: No - Other Data Labs, Other Data: CBC, BMP 07/11/17 11:07 07/11/17 11:07 INR, PTT INR 1.24 (0.82-1.09) H 07/11/17 11:07 Troponin, BNP 07/11/17 11:07 Troponin I < 0.02 Troponin, BNP 07/11/17 11:07 Troponin I < 0.02 ST @ 102 RBBB Imaging - Results Chest X-ray: Report Reviewed (NAD) Problem List - Problems (1) AIDS Code(s): B20 - HUMAN IMMUNODEFICIENCY VIRUS [HIV] DISEASE (2) Diabetes mellitus type II, controlled Code(s): E11.9 - TYPE 2 DIABETES MELLITUS WITHOUT COMPLICATIONS Qualifiers: Diabetes mellitus complication status: with kidney complications Diabetes mellitus complication detail: with chronic kidney disease Diabetes mellitus intermediate school teacher insulin use: unspecified intermediate school teacher insulin use status Chronic kidney disease stage: on chronic dialysis Qualified Code(s): E11.22 - Type 2 diabetes mellitus with diabetic chronic kidney disease; N18.6 - End stage renal disease; N18.6 - End stage renal disease; N18.6 - End stage renal disease; N18.6 - End stage renal disease; Z99.2 - Dependence on renal dialysis; Z99.2 - Dependence on renal dialysis; Z99.2 - Dependence on renal dialysis; Z99.2 - Dependence on renal dialysis (3) Staphylococcus aureus bacteremia Code(s): R78.81 - BACTEREMIA (4) HIV (human immunodeficiency virus infection) Code(s): Z21 - ASYMPTOMATIC HUMAN IMMUNODEFICIENCY VIRUS INFECTION STATUS (5) AVF (arteriovenous fistula) Code(s): I77.0 - ARTERIOVENOUS FISTULA, ACQUIRED (6) Diabetes Code(s): E11.9 - TYPE 2 DIABETES MELLITUS WITHOUT COMPLICATIONS Qualifiers: Diabetes mellitus type: type 2 Diabetes mellitus complication status: with kidney complications Diabetes mellitus complication detail: with nephropathy Diabetes mellitus nursing home insulin use: without intermediate school teacher use Qualified Code(s): E11.21 - Type 2 diabetes mellitus with diabetic nephropathy (7) ESRD (end stage renal disease) on dialysis Code(s): N18.6 - END STAGE RENAL DISEASE; Z99.2 - DEPENDENCE ON RENAL DIALYSIS (8) HTN (hypertension) Code(s): I10 - ESSENTIAL (PRIMARY) HYPERTENSION Assessment/Plan 07/11/2017 Echo: Low normal LV fxn, small mobile echodensity on posterior leaflet of MV and aortic valve suspicious for vegetation, mild MR, TR 1. Staph bacteremia and line sepsis with suspected endocarditis post infected PC removal 2. ESRD->HD 3. HIV-aids by t cells 4. HTN 5. Type 2 DM P:1. Vancomycin based on levels until cultures are back 2. HAART and PCP prophylaxis per ID 3. Will review echo, may require WILLARD to further elucidate vegetations 4. Continue Norvasc 10 qd, Lopressor 25 bid 5. Thank you for consultative opportunity
[2017-07-11 20:38] VITALS: BMI 32.3
[2017-07-12] MEDS: ACETAMINOPHEN 325 MG TABLET (FP) PO PRN ×2 (00:24→19:01)
[2017-07-12] MEDS: HEPARIN NA (PORCINE) 5,000 UNITS/ML 1ML VIAL SQ SCH ×3 (02:14→17:50)
[2017-07-12 08:28] LABS: MCH 29.6 pg (25.7-33.7); MCHC 33.2 g/dl (32.0-35.9); MEAN CELL VOLUME 89.2 fl (80-96); MEAN PLT VOLUME 9.4 fl (7.5-11.1); PLATELET COUNT 109 K/MM3 (134-434); RDW 14.2 % (11.9-15.9); WHITE BLOOD COUNT 9.6 K/mm3 (4.0-10.0)
--- NOTE | 2017-07-12 08:46 | PN ---
Physical Exam: SUBJECTIVE: Patient seen and examined Patient is c/o having lower extremity pain, fever of 102.3, he states that he does not feel well. Vital Signs Temperature 102.3 F H 07/12/17 18:57 Pulse Rate 103 H 07/12/17 18:00 Respiratory Rate 18 07/12/17 18:00 Blood Pressure 127/71 07/12/17 18:00 O2 Sat by Pulse Oximetry (%) 96 07/11/17 20:53 OBJECTIVE: GENERAL: The patient is awake, alert, and fully oriented, Feverish . HEAD: Normal with no signs of trauma. EYES: PERRL, extraocular movements intact, sclera anicteric, conjunctiva clear. ENT: Ears normal, oropharynx clear without exudates, moist mucous membranes. NECK: Trachea midline, full range of motion, supple. LUNGS: Breath sounds equal, clear to auscultation bilaterally, no wheezes, no crackles, no accessory muscle use. HEART: tachycardic, SEM2/6 , S1, S2 positive, no rub or gallop. ABDOMEN: Soft, nontender, nondistended, normoactive bowel sounds, no guarding, no rebound, no hepatosplenomegaly, no masses. EXTREMITIES: 2+ pulses, warm, well-perfused, no edema. NEUROLOGICAL: Cranial nerves II through XII grossly intact. Normal speech, gait not observed. PSYCH: Normal mood, normal affect. SKIN: Warm, dry, normal turgor, no rashes or lesions noted CBCD WBC 9.6 K/mm3 (4.0-10.0) 07/12/17 07:00 RBC 2.78 M/mm3 (4.00-5.60) L 07/12/17 07:00 Hgb 8.2 GM/dL (11.7-16.9) L 07/12/17 07:00 Hct 24.8 % (35.4-49) L 07/12/17 07:00 MCV 89.2 fl (80-96) 07/12/17 07:00 MCHC 33.2 g/dl (32.0-35.9) 07/12/17 07:00 RDW 14.2 % (11.9-15.9) 07/12/17 07:00 Plt Count 109 K/MM3 (134-434) L D 07/12/17 07:00 MPV 9.4 fl (7.5-11.1) 07/12/17 07:00 CMP Sodium 131 mmol/L (136-145) L 07/11/17 11:07 Potassium 4.7 mmol/L (3.5-5.1) 07/11/17 11:07 Chloride 97 mmol/L (98-107) L 07/11/17 11:07 Carbon Dioxide 22 mmol/L (21-32) 07/11/17 11:07 Anion Gap 12 (8-16) 07/11/17 11:07 BUN 56 mg/dL (7-18) H D 07/11/17 11:07 Creatinine 10.1 mg/dL (0.7-1.3) H* D 07/11/17 11:07 Creat Clearance w eGFR 5.40 (>60) 07/11/17 11:07 Random Glucose 189 mg/dL (74-106) H D 07/11/17 11:07 Calcium 8.3 mg/dL (8.5-10.1) L 07/11/17 11:07 Total Bilirubin 1.1 mg/dL (0.2-1.0) H D 07/11/17 11:07 AST 79 U/L (15-37) H D 07/11/17 11:07 ALT 60 U/L (12-78) D 07/11/17 11:07 Alkaline Phosphatase 115 U/L (45-117) 07/11/17 11:07 Total Protein 7.9 g/dl (6.4-8.2) 07/11/17 11:07 Albumin 3.1 g/dl (3.4-5.0) L 07/11/17 11:07 CARDIAC ENZYMES Creatine Kinase 142 IU/L (39-308) 07/11/17 11:07 Troponin I < 0.02 ng/ml (0.00-0.05) 07/11/17 11:07 Active Medications Generic Name Dose Route Start Last Admin Trade Name Freq PRN Reason Stop Dose Admin Acetaminophen 650 mg 07/11/17 13:12 07/12/17 00:24 Tylenol - PO 650 mg Q4H PRN Administration FEVER OR PAIN Heparin Sodium (Porcine) 5,000 unit 07/11/17 18:00 07/12/17 02:14 Heparin - SQ 5,000 unit Q8H-IV JAZMINE Administration Home Medications Medication Instructions Recorded Abacavir Sulfate [Ziagen -] 300 mg PO BID #60 tablet 06/24/17 Acetaminophen [Tylenol] 2 tab PO Q6H PRN #30 tablet MDD 8 06/24/17 Amlodipine Besylate [Norvasc -] 10 mg PO DAILY #30 tablet 06/24/17 Atovaquone [Mepron Oral Solution -] 750 mg PO BIDWM #120 mg 06/24/17 Dolutegravir Sodium [Tivicay] 50 mg PO DAILY #30 tablet 06/24/17 Glimepiride 2 mg PO DAILY #30 tablet 06/24/17 Metoprolol Tartrate [Lopressor -] 25 mg PO BID #60 mg 06/24/17 Multivitamin-Min/Iron/FA/Vit K 1 each PO DAILY #30 tablet 06/24/17 [Multi-Day Plus Minerals Tablet] Rilpivirine HCl [Edurant] 25 mg PO DAILY #30 tablet 06/24/17 Urine Test Results Urine Color Dkyellow 07/11/17 11:28 Urine Appearance Cloudy 07/11/17 11:28 Urine pH 5.0 (5.0-8.0) 07/11/17 11:28 Ur Specific [place] 1.016 (1.001-1.035) 07/11/17 11:28 Urine Protein 3+ (NEGATIVE) H 07/11/17 11:28 Urine Glucose (UA) 1+ (NEGATIVE) H 07/11/17 11:28 Urine Ketones Negative (NEGATIVE) 07/11/17 11:28 Urine Blood 2+ (NEGATIVE) H 07/11/17 11:28 Urine Nitrite Negative (NEGATIVE) 07/11/17 11:28 Urine Bilirubin Negative (NEGATIVE) 07/11/17 11:28 Ur Leukocyte Esterase Negative (NEGATIVE) 07/11/17 11:28 Urine RBC 30 07/11/17 11:28 Urine WBC 15 07/11/17 11:28 Ur Epithelial Cells Rare /hpf (FEW) 07/11/17 11:28 Urine Bacteria Rare /hpf (NONE SEEN) 07/11/17 11:28 Microbiology 07/11/17 11:07 Blood - Peripheral Venous Blood Culture - Preliminary Pending Organism Pending Organism#2 07/11/17 11:40 Blood - Peripheral Venous Blood Culture - Preliminary Pending Organism Assessment/Plan: 56 yo M with PMhx of HTN, Diabetes, HIV (stopped taking HARRT) three months ago, presents with 3 day history of fever and chills will be admitted for sepsis secondary to bactermia. # Acute Staphylococcus aureus bacteremia 4/ ; most likely due from infected AV fistula. pending organism and sensitivity s/p Vanco and Zosyn given in ED--> discussed with Dr. Quijano added Nafcillin and Vancomycin x 1 dose as per ID. Echo Mobile echodensity attached to Aortic valve and Mitral valve, arlet give him one more liter of IVF, discussed with ok to give one liter, discussed with cardio, no indication to TX the patient to another facility , discussed with ICU attending to Tx the patient to ICU but no Beds are available at this time. Fever of 102.3, ordered one dose of IV Tylenol. # Diabetes mellitus type II controlled : SS with coverage # HIV (human immunodeficiency virus infection); HAART has been on hold for last three months. ID consulted, CD4 and viral load pending. # CKD (chronic kidney disease) ;He is on MWF schedule, Agrees to dialysis , Discussed with # HTN (hypertension); Essenital HTN. Metoprolol and Amlodipine to be continued at home dose. Hold parameters for SBP<90 or HR <55 DVT : Sq heparin Critical care time of 35 minutes. No beds to ICU to Tx the patient. Visit type - Emergency Visit Emergency Visit: Yes ED Registration Date: 07/11/17 Care time: The patient presented to the Emergency Department on the above date and was hospitalized for further evaluation of their emergent condition. - New Patient This patient is new to me today: Yes Date on this admission: 07/12/17 - Critical Care Critical Care patient: Yes Total Critical Care Time (in minutes): 35 Critical Care Statement: The care of this patient involved high complexity decision making to prevent further life threatening deterioration of the patient 's condition and/or to evaluate & treat vital organ system(s) failure or risk of failure.
[2017-07-12 08:56] LABS: ALBUMIN 2.6 g/dl (3.4-5.0); ANION GAP 12 (8-16); CALCIUM 7.5 mg/dL (8.5-10.1); CO2 26 mmol/L (21-32); GLUCOSE,RANDOM 107 mg/dL (74-106); MAGNESIUM 2.1 mg/dL (1.8-2.4)
[2017-07-12 09:08] LABS: ALK PHOS 97 U/L (45-117); PHOSPHOROUS 3.2 mg/dL (2.5-4.9); SGOT/AST 63 U/L (15-37); SGPT/ALT 50 U/L (12-78); TOT PROT 6.6 g/dl (6.4-8.2)
[2017-07-12 09:27] LABS: CREATININE 7.7 mg/dL (0.7-1.3)
[2017-07-12 09:32] LABS: HYPOCHROMIA 1+; POLYCHROMASIA 1+; TOTAL CELLS COUNTED 100
[2017-07-12 09:33] LABS: PLATELET ESTIMATE SLT DECREASE
--- NOTE | 2017-07-12 11:27 | PN ---
Progress Note (short form) - Note Progress Note: RENAL Pt is awake and alert says he cant move but his legs are moving Last Vital Signs Temp Pulse Resp BP Pulse Ox 100.0 F H 106 H 20 127/62 96 07/12/17 08:40 07/12/17 08:40 07/12/17 08:40 07/12/17 08:40 07/11/17 20:53 lungs clear cvs s1s2 rr abd soft ext no edema, left arm avf no thrill or bruit neuro a+Ox3 Current Medications Generic Name Dose Route Start Last Admin Trade Name Freq PRN Reason Stop Dose Admin Acetaminophen 650 mg 07/11/17 13:12 07/12/17 00:24 Tylenol - PO 650 mg Q4H PRN Administration FEVER OR PAIN Heparin Sodium (Porcine) 5,000 unit 07/11/17 18:00 07/12/17 09:57 Heparin - SQ Not Given Q8H-IV JAZMINE Impression 1. ESRD 2. HIV 3. HTN 4. sepsis- pt took a shower and permcath was wet--- became infected 5. anemia 6. bacteremia - staph Plan -antibiotics - will need a new fistula once infection clears - epogen for anemia - cont to follow blood cultures -PT MV
--- NOTE | 2017-07-12 15:47 | EKG ---
Test Reason : Blood Pressure : / mmHG Vent. Rate : 102 BPM Atrial Rate : 102 BPM P-R Int : 172 ms QRS Dur : 138 ms QT Int : 364 ms P-R-T Axes : 046 011 051 degrees QTc Int : 474 ms SINUS TACHYCARDIA RIGHT BUNDLE BRANCH BLOCK ATRIAL ABNORMALITY ABNORMAL ECG WHEN COMPARED WITH ECG OF 10-JUL-2017 02:49, LEFT ANTERIOR FASCICULAR BLOCK IS NO LONGER PRESENT Confirmed by TERA DAVID MD ([id number]) on 07/12/2017 3:46:38 PM Referred By: Confirmed By:TERA DAVID MD
--- NOTE | 2017-07-12 16:01 | PN ---
Progress Note (short form) - Note Progress Note: Chief Complaint: Events noted, notes reviewed, resting in bed, complaining of left groin discomfort at the site of the catheter insertion for HD History of Present Illness: Seen and examined. Events noted, notes reviewed, resting in bed, complaining of left groin discomfort at the site of the catheter insertion for HD Echocardiography dated 07/11/2017 Low normal LV function, small mobile echodensity on posterior leaflet of MV and aortic valve suspicious for vegetation, mild MR and TR Medications: Current Medications Acetaminophen (Tylenol -) 650 mg PO Q4H PRN PRN Reason: FEVER OR PAIN Last Admin: 07/12/17 00:24 Dose: 650 mg Heparin Sodium (Porcine) (Heparin -) 5,000 unit SQ Q8H-IV JAZMINE Last Admin: 07/12/17 09:57 Dose: Not Given Vital Signs: Last Vital Signs Temp Pulse Resp BP Pulse Ox 100.5 F H 103 H 18 119/76 96 07/12/17 14:05 07/12/17 14:05 07/12/17 14:05 07/12/17 14:05 07/11/17 20:53 Intake & Output 07/09/17 07/10/17 07/11/17 07/12/17 23:59 23:59 23:59 23:59 Intake Total 700 500 Output Total 200 400 Balance 500 100 Weight 225 lb Constitutional: No Distress, Calm Neck: Supple Negative JVD no bruit appreciated Respiratory: Diminished Breath sounds at the bases Cardiovascular: S1 and S2 regular rate and rhythm grade 2/6 systolic ejection murmur Gastrointestinal: Soft benign Normal Bowel Sounds Ext: No Edema Labs: CBC, BMP 07/12/17 07:00 07/12/17 07:00 Assessment/Plan ASSESSMENT: 1. Staphylococcus aureus bacteremia/line sepsis with suspected endocarditis ( Based on transthoracic echocardiographic finding) post infected line removal 2. HTN 3. DM 4. ESRD on HD 5. HIV-AIDS PLAN: 1. Antibiotics as per the primary and ID teams 2. Continue Lopressor, hemodynamics permitting 3. continue Norvasc, hemodynamics permitting 4. Plan to proceed with transesophageal echocardiography this coming week for further evaluation of the above-noted valvular vegetations Azar Callahan M.D.
[2017-07-12] MEDS ORDERED: VANCOMYCIN 1,000 MG in DEXTROSE 5%-WATER - 250 ML IVPB ONE (18:30)
--- NOTE | 2017-07-12 18:33 | PN ---
Progress Note, Physician History of Present Illness: OOB in chair C/O scrotal edema Temps, WBC down BC presumed MSSA Final c/s pending - Current Medication List Current Medications: Active Medications Acetaminophen (Tylenol -) 650 mg PO Q4H PRN PRN Reason: FEVER OR PAIN Last Admin: 07/12/17 00:24 Dose: 650 mg Heparin Sodium (Porcine) (Heparin -) 5,000 unit SQ Q8H-IV JAZMINE Last Admin: 07/12/17 17:50 Dose: 5,000 unit Vancomycin HCl 1,000 mg/ (Dextrose) 250 mls @ 200 mls/hr IVPB ONCE ONE Stop: 07/12/17 19:44 - Objective Vital Signs: Vital Signs Temperature 100.5 F H 07/12/17 14:05 Pulse Rate 103 H 07/12/17 14:05 Respiratory Rate 18 07/12/17 14:05 Blood Pressure 119/76 07/12/17 14:05 O2 Sat by Pulse Oximetry (%) 96 07/11/17 20:53 Constitutional: Yes: No Distress Eyes: Yes: Conjunctiva Clear Cardiovascular: Yes: Regular Rate and Rhythm, S1, S2 Respiratory: Yes: CTA Bilaterally Gastrointestinal: Yes: Normal Bowel Sounds, Soft Genitourinary: Yes: Scrotal Edema Edema: Yes Labs: CBC, BMP 07/12/17 07:00 07/12/17 07:00 INR, PTT INR 1.24 (0.82-1.09) H 07/11/17 11:07 Assessment/Plan Staph bacteremia/ sepsis ESRD HIV/AIDS Await final blood c/s Redose vancomycin 1gm
[2017-07-12] MEDS ORDERED: SODIUM CHLORIDE 1,000 ML IV SCH (19:30)
[2017-07-12] MEDS ORDERED: CEFEPIME HCL 2 GM VIAL (RESTRICTED TO ID) IVPB ONE (19:50)
[2017-07-12] MEDS ORDERED: ACETAMINOPHEN 1000 MG/100 ML VIAL (NON FORMULARY) IVPB ONE (20:00)
[2017-07-12] MEDS: NAFCILLIN - 2 GM in DEXTROSE 5%-WATER - 100 ML IVPB SCH ×3 (20:00→22:55)
[2017-07-12] MEDS ORDERED: CEFEPIME 2 GM/100 ML BAG PRE-DOCKED IVPB ONE (20:15)
[2017-07-13] MEDS: HEPARIN NA (PORCINE) 5,000 UNITS/ML 1ML VIAL SQ SCH ×3 (01:29→17:47)
[2017-07-13] MEDS: NAFCILLIN - 2 GM in DEXTROSE 5%-WATER - 100 ML IVPB SCH ×6 (02:37→21:29)
--- NOTE | 2017-07-13 07:36 | PDOC ---
Patient Follow-up (Call Back) - Post ED Follow - Up Condition at time of discharge: Stable Reason for Call Back: Abnwl. Microbiology (prelim blood cx shows staph areus. Pt is admitted to 6s . ID involved. Pt has new blood cxs pending result in the computer)
--- NOTE | 2017-07-13 09:10 | PN ---
Teaching Attending Note Name of Resident: Stefan Willett ATTENDING PHYSICIAN STATEMENT I saw and evaluated the patient. I reviewed the resident's note and discussed the case with the resident. I agree with the resident's findings and plan as documented. SUBJECTIVE: Patient has no new complain, No fever or chills, denies any back pain, no nausea or vomiting, no shortness of breath. OBJECTIVE: Vital Signs Temperature 97.7 F 07/13/17 05:51 Pulse Rate 89 07/13/17 05:51 Respiratory Rate 19 07/13/17 05:51 Blood Pressure 132/79 07/13/17 05:51 O2 Sat by Pulse Oximetry (%) 96 07/11/17 20:53 CBCD WBC 9.6 K/mm3 (4.0-10.0) 07/12/17 07:00 RBC 2.78 M/mm3 (4.00-5.60) L 07/12/17 07:00 Hgb 8.2 GM/dL (11.7-16.9) L 07/12/17 07:00 Hct 24.8 % (35.4-49) L 07/12/17 07:00 MCV 89.2 fl (80-96) 07/12/17 07:00 MCHC 33.2 g/dl (32.0-35.9) 07/12/17 07:00 RDW 14.2 % (11.9-15.9) 07/12/17 07:00 Plt Count 109 K/MM3 (134-434) L D 07/12/17 07:00 MPV 9.4 fl (7.5-11.1) 07/12/17 07:00 CMP Sodium 136 mmol/L (136-145) 07/12/17 07:00 Potassium 3.9 mmol/L (3.5-5.1) 07/12/17 07:00 Chloride 98 mmol/L (98-107) 07/12/17 07:00 Carbon Dioxide 26 mmol/L (21-32) 07/12/17 07:00 Anion Gap 12 (8-16) 07/12/17 07:00 BUN 41 mg/dL (7-18) H D 07/12/17 07:00 Creatinine 7.7 mg/dL (0.7-1.3) H* D 07/12/17 07:00 Creat Clearance w eGFR 7.39 (>60) 07/12/17 07:00 Random Glucose 107 mg/dL (74-106) H D 07/12/17 07:00 Calcium 7.5 mg/dL (8.5-10.1) L 07/12/17 07:00 Total Bilirubin 1.0 mg/dL (0.2-1.0) 07/12/17 07:00 AST 63 U/L (15-37) H D 07/12/17 07:00 ALT 50 U/L (12-78) 07/12/17 07:00 Alkaline Phosphatase 97 U/L (45-117) 07/12/17 07:00 Total Protein 6.6 g/dl (6.4-8.2) 07/12/17 07:00 Albumin 2.6 g/dl (3.4-5.0) L 07/12/17 07:00 CARDIAC ENZYMES Creatine Kinase 142 IU/L (39-308) 07/11/17 11:07 Troponin I < 0.02 ng/ml (0.00-0.05) 07/11/17 11:07 Current Medications Generic Name Dose Route Start Last Admin Trade Name Freq PRN Reason Stop Dose Admin Acetaminophen 1,000 mg 07/12/17 19:22 Tylenol - PO Q6H PRN FEVER OR PAIN Heparin Sodium (Porcine) 5,000 unit 07/11/17 18:00 07/13/17 01:29 Heparin - SQ 5,000 unit Q8H-IV JAZMINE Administration Nafcillin Sodium 2 gm/ 100 mls @ 100 mls/hr 07/12/17 19:00 07/13/17 06:01 Dextrose IVPB 100 mls/hr Q4H-IV JAZMINE Administration Protocol Home Medications Medication Instructions Recorded Abacavir Sulfate [Ziagen -] 300 mg PO BID #60 tablet 06/24/17 Acetaminophen [Tylenol] 2 tab PO Q6H PRN #30 tablet MDD 8 06/24/17 Amlodipine Besylate [Norvasc -] 10 mg PO DAILY #30 tablet 06/24/17 Atovaquone [Mepron Oral Solution -] 750 mg PO BIDWM #120 mg 06/24/17 Dolutegravir Sodium [Tivicay] 50 mg PO DAILY #30 tablet 06/24/17 Glimepiride 2 mg PO DAILY #30 tablet 06/24/17 Metoprolol Tartrate [Lopressor -] 25 mg PO BID #60 mg 06/24/17 Multivitamin-Min/Iron/FA/Vit K 1 each PO DAILY #30 tablet 06/24/17 [Multi-Day Plus Minerals Tablet] Rilpivirine HCl [Edurant] 25 mg PO DAILY #30 tablet 06/24/17 Microbiology 07/11/17 17:10 Blood - Pre-Dialysis Blood Culture - Preliminary Gram Positive Cocci 07/11/17 17:10 Blood - Pre-Dialysis Blood Culture - Preliminary Gram Positive Cocci 07/11/17 11:07 Blood - Peripheral Venous Blood Culture - Preliminary Pending Organism 07/11/17 11:40 Blood - Peripheral Venous Blood Culture - Preliminary Pending Organism Laboratory Tests 01/17/15 06/18/17 06/24/17 09:20 05:18 13:00 Urine Color Urine Appearance Urine pH Ur Specific [place] Urine Protein Urine Glucose (UA) Urine Blood Urine RBC Urine WBC Tot Complement (CH50) 29 L T-Lymphocyte CD4 11.0 L T-Lymph CD4/CD8 Ratio 0.21 L Absolute CD3 Count 824 % CD3+ Lymphocytes 68.7 Absolute CD4 [place] 90 L % CD4+ Lymphocyte 7.5 L CD4/CD8 Ratio 0.12 L % CD8+ Lymphocyte 61.0 H Absolute CD8 Count 732 07/11/17 11:28 Urine Color Dkyellow Urine Appearance Cloudy Urine pH 5.0 Ur Specific [place] 1.016 Urine Protein 3+ H Urine Glucose (UA) 1+ H Urine Blood 2+ H Urine RBC 30 Urine WBC 15 Tot Complement (CH50) T-Lymphocyte CD4 T-Lymph CD4/CD8 Ratio Absolute CD3 Count % CD3+ Lymphocytes Absolute CD4 [place] % CD4+ Lymphocyte CD4/CD8 Ratio % CD8+ Lymphocyte Absolute CD8 Count PE: VONDA /. Shiley on his left femoral for now. rest of PE per resident's note Assessment/Plan: 56 yo M with PMhx of HTN, Diabetes, HIV (stopped taking HARRT) three months ago, presents with 3 day history of fever and chills will be admitted for sepsis secondary to bactermia. # Sepsis with Staphylococcus aureus bacteremia / , no fever this morning, received one dose of cefepime and vancomycin and Nafcillin. Most likely due from infected AV fistula. Pending organism and sensitivity.S/p Vanco and Zosyn given in ED. Echo Mobile echodensity attached to Aortic valve and Mitral valve. s/p One liter of IVF. s/p one dose of IV Tylenol. Continue with PO Tylenol 1gm q6h prn. # Diabetes mellitus type II controlled : diet controlled # HIV (human immunodeficiency virus infection); HAART has been on hold for last three months. ID consulted, CD4 count is low, further management as per ID . # CKD (chronic kidney disease) ; He is on MWF schedule. # HTN (hypertension); Essenital HTN. Metoprolol and Amlodipine to be continued at home dose. Hold parameters for SBP<90 or HR <55 DVT : Sq heparin
[2017-07-13 09:30] LABS: MCH 29.3 pg (25.7-33.7); MCHC 33.2 g/dl (32.0-35.9); MEAN CELL VOLUME 88.3 fl (80-96); PLATELET COUNT 114 K/MM3 (134-434); RDW 14.4 % (11.9-15.9); WHITE BLOOD COUNT 7.3 K/mm3 (4.0-10.0)
--- NOTE | 2017-07-13 09:37 | PN ---
Physical Exam: SUBJECTIVE: Patient c/o pain from L knee down to L foot. Pt states it has felt slightly painful since catheter, however is seen sitting comfortably in bed and can transition to sitting at bedside without problem. Denies fevers/chills, back pain, abdominal pain. OBJECTIVE: Vital Signs Period Temp Pulse Resp BP Sys/Estrada Pulse Ox Last 24 Hr 97.7 F-102.3 F 81-103 18-20 108-132/62-79 GENERAL: The patient is awake, alert, and fully oriented, in no acute distress. HEENT: Moist mucosa, EOMI, ANDREW LUNGS: CTA bilaterally, no wheezes, rhonchi, rales. HEART: RRR, S1, S2 with 3+/6 systolic murmur ABDOMEN: Soft, nontender, nondistended, normoactive bowel sounds, no guarding, no rebound, no hepatosplenomegaly, no masses. EXTREMITIES: DP, PT 2+ pulses, warm, no edema, catheter in place R groin without drainage. NEUROLOGICAL: alert and orientedx3. Gait not observed. Pt has 5/5 strength b/l upper extremities. 5/5 RLE strength. 4/5 hip flexion LLE otherwise 5/5 elsewhere SKIN: Warm, dry, normal turgor, no rashes or lesions noted Laboratory Results - last 24 hr 07/12/17 07/12/17 07:00 07:00 Total Counted 100 Neutrophils % (Manual) 59.0 D Band Neutrophils % 14.0 Lymphocytes % (Manual) 18.0 D Monocytes % (Manual) 8 Hypochromia 1+ Platelet Estimate Slt decrease Platelet Comment No Result Required. Polychromasia 1+ Sodium 136 Potassium 3.9 Chloride 98 Carbon Dioxide 26 Anion Gap 12 BUN 41 H D Creatinine 7.7 H* D Creat Clearance w eGFR 7.39 Random Glucose 107 H D Calcium 7.5 L Phosphorus 3.2 D Magnesium 2.1 D Total Bilirubin 1.0 AST 63 H D ALT 50 Alkaline Phosphatase 97 Total Protein 6.6 Albumin 2.6 L Active Medications Generic Name Dose Route Start Last Admin Trade Name Freq PRN Reason Stop Dose Admin Acetaminophen 1,000 mg 07/12/17 19:22 Tylenol - PO Q6H PRN FEVER OR PAIN Heparin Sodium (Porcine) 5,000 unit 07/11/17 18:00 07/13/17 01:29 Heparin - SQ 5,000 unit Q8H-IV JAZMINE Administration Nafcillin Sodium 2 gm/ 100 mls @ 100 mls/hr 07/12/17 19:00 07/13/17 06:01 Dextrose IVPB 100 mls/hr Q4H-IV JAZMINE Administration Protocol Laboratory Tests 06/24/17 13:00 Absolute CD4 [place] 90 L % CD4+ Lymphocyte 7.5 L CD4/CD8 Ratio 0.12 L % CD8+ Lymphocyte 61.0 H Absolute CD8 Count 732 ASSESSMENT/PLAN: 1) Sepsis 2/2 staph aureus bacteremia --Most likely from AV fistula seeding --Repeat cultures still positive --Continue Naficillin 2gm and Vancomycin --ID on case --Tylenol 1gm PRN q6 for fever 2) CKD --Pt is on HD MWF --May repeat Blood Cx with dialysis on Friday (07/14) --Dr. Garcia following 3) DM Type II --BGM --Glucose levels controlled currently with proper diet 4) HIV --Per ID --Immunology from 06/24/17 as above --CD4 helper 90 with CD4/8 ratio 0.12 --Appreciate ID recommendations --Pt stopped HAART therapy for 3 months prior to this hospitalization 5) HTN --Essential HTN --Metoprolol continued --Amlodipine continued FEN: Fluids: None currently: tolerating PO and on HD Electrolyte abnormalities: Mild hyponatremia; will trend; fluid restrict and expect to come up. Nutrition: Renal and diabetic diet PPX: DVT - Heparin 5000U SQ TID Case discussed with Dr. Kei Willett, DO - Internal Medicine PGY-1 Visit type - Emergency Visit Emergency Visit: No - New Patient This patient is new to me today: No - Critical Care Critical Care patient: No
--- NOTE | 2017-07-13 10:23 | PN ---
Progress Note, Physician History of Present Illness: Ambulatory C/O leg pain Temps down this am WBC WNL C/O scrotal edema BC (07/10) MSSA oxacillin JOON < 0.5 ? Ireneo intermediate - Current Medication List Current Medications: Active Medications Acetaminophen (Tylenol -) 1,000 mg PO Q6H PRN PRN Reason: FEVER OR PAIN Heparin Sodium (Porcine) (Heparin -) 5,000 unit SQ Q8H-IV JAZMINE Last Admin: 07/13/17 09:29 Dose: 5,000 unit Nafcillin Sodium 2 gm/ (Dextrose) 100 mls @ 100 mls/hr IVPB Q4H-IV JAZMINE PRN Reason: Protocol Last Admin: 07/13/17 09:27 Dose: 100 mls/hr - Objective Vital Signs: Vital Signs Temperature 97.7 F 07/13/17 05:51 Pulse Rate 89 07/13/17 05:51 Respiratory Rate 19 07/13/17 05:51 Blood Pressure 132/79 07/13/17 05:51 O2 Sat by Pulse Oximetry (%) 96 07/11/17 20:53 Constitutional: Yes: No Distress, Obese Eyes: Yes: Conjunctiva Clear Cardiovascular: Yes: Regular Rate and Rhythm, S1, S2 Respiratory: Yes: CTA Bilaterally Gastrointestinal: Yes: Normal Bowel Sounds, Soft, Tenderness Genitourinary: Yes: Scrotal Edema, Other Extremities: Yes: Other (+ femoral dialysis catheter) Labs: CBC, BMP 07/13/17 09:00 INR, PTT INR 1.24 (0.82-1.09) H 07/11/17 11:07 Assessment/Plan MSSA bacteremia/ sepsis ESRD HIV/AIDS Continue nafcillin 2gm q4h Repeat BC at HD am
[2017-07-13 10:25] LABS: ALBUMIN 2.3 g/dl (3.4-5.0); ANION GAP 12 (8-16); CALCIUM 7.8 mg/dL (8.5-10.1); CO2 24 mmol/L (21-32); GLUCOSE,RANDOM 168 mg/dL (74-106); SGOT/AST 75 U/L (15-37); SGPT/ALT 58 U/L (12-78); TOT PROT 6.4 g/dl (6.4-8.2)
[2017-07-13 10:31] LABS: ALK PHOS 106 U/L (45-117); BILIRUBIN,TOTAL 2.3 mg/dL (0.2-1.0)
[2017-07-13 10:40] LABS: CREATININE 9.1 mg/dL (0.7-1.3)
--- NOTE | 2017-07-13 12:50 | PN ---
Progress Note (short form) - Note Progress Note: RENAL Pt is awake and alert describes some leg numbness. Was able to walk yesterday Last Vital Signs Temp Pulse Resp BP Pulse Ox 98.4 F 93 H 20 121/71 96 07/13/17 10:00 07/13/17 10:00 07/13/17 10:00 07/13/17 10:00 07/11/17 20:53 lungs clear cvs s1s2 rr +VONDA abd soft ext no edema, left arm avf no thrill or bruit neuro a+Ox3 Current Medications Generic Name Dose Route Start Last Admin Trade Name Freq PRN Reason Stop Dose Admin Acetaminophen 1,000 mg 07/12/17 19:22 Tylenol - PO Q6H PRN FEVER OR PAIN Heparin Sodium (Porcine) 5,000 unit 07/11/17 18:00 07/13/17 09:29 Heparin - SQ 5,000 unit Q8H-IV JAZMINE Administration Nafcillin Sodium 2 gm/ 100 mls @ 100 mls/hr 07/12/17 19:00 07/13/17 09:27 Dextrose IVPB 100 mls/hr Q4H-IV JAZMINE Administration Protocol Impression 1. ESRD 2. HIV 3. HTN 4. sepsis- pt took a shower and permcath was wet--- became infected 5. anemia 6. bacteremia - staph Plan - antibiotics - will need a new fistula once infection clears - epogen for anemia - cont to follow blood cultures - PT - re hd tomorrow MV
[2017-07-13] MEDS ORDERED: PT OWN MED DRAWER 7, Y5N ONE ×2 (13:11→17:45)
--- NOTE | 2017-07-13 13:19 | PN ---
Progress Note (short form) - Note Progress Note: Chief Complaint: Events noted, notes reviewed, sitting in a chair, complaining of persistent left groin discomfort at the site of the catheter insertion for HD History of Present Illness: Seen and examined. Events noted, notes reviewed, sitting in a chair, complaining of persistent left groin discomfort at the site of the catheter insertion for HD Echocardiography dated 07/11/2017 Low normal LV function, small mobile echodensity on posterior leaflet of MV and aortic valve suspicious for vegetation, mild MR and TR Medications: Current Medications Acetaminophen (Tylenol -) 1,000 mg PO Q6H PRN PRN Reason: FEVER OR PAIN Epoetin Stanley (Procrit -) 10,000 unit SQ ONCE ONE Stop: 07/13/17 14:01 Heparin Sodium (Porcine) (Heparin -) 5,000 unit SQ Q8H-IV JAZMINE Last Admin: 07/13/17 09:29 Dose: 5,000 unit Nafcillin Sodium 2 gm/ (Dextrose) 100 mls @ 100 mls/hr IVPB Q4H-IV JAZMINE PRN Reason: Protocol Last Admin: 07/13/17 09:27 Dose: 100 mls/hr Vital Signs: Last Vital Signs Temp Pulse Resp BP Pulse Ox 98.4 F 93 H 20 121/71 96 07/13/17 10:00 07/13/17 10:00 07/13/17 10:00 07/13/17 10:00 07/11/17 20:53 Intake & Output 07/10/17 07/11/17 07/12/17 07/13/17 23:59 23:59 23:59 23:59 Intake Total 700 850 550 Output Total 200 400 800 Balance 500 450 -250 Weight 225 lb Constitutional: No Distress, Calm Neck: Supple Negative JVD no bruit appreciated Respiratory: Diminished Breath sounds at the bases Cardiovascular: S1 and S2 regular rate and rhythm grade 2/6 systolic ejection murmur Gastrointestinal: Soft benign Normal Bowel Sounds Ext: No Edema Labs: CBC, BMP 07/13/17 09:00 07/13/17 09:00 INR, PTT INR 1.24 (0.82-1.09) H 07/11/17 11:07 Microbiology 07/11/17 11:28 Urine - Urine Clean Catch Urine Culture - Final NO GROWTH OBTAINED 07/11/17 17:10 Blood - Pre-Dialysis Blood Culture - Preliminary Staphylococcus Latex Coag Pos 07/11/17 17:10 Blood - Pre-Dialysis Blood Culture - Preliminary Staphylococcus Latex Coag Pos 07/11/17 11:40 Blood - Peripheral Venous Blood Culture - Preliminary Staphylococcus Latex Coag Pos 07/11/17 11:07 Blood - Peripheral Venous Blood Culture - Preliminary Staphylococcus Latex Coag Pos Assessment/Plan ASSESSMENT: 1. Staphylococcus aureus bacteremia/line sepsis with suspected endocarditis ( Based on transthoracic echocardiographic finding) post infected line removal 2. HTN 3. DM 4. ESRD on HD 5. HIV-AIDS PLAN: 1. Antibiotics as per the primary and ID teams 2. Resume Lopressor, hemodynamics permitting 3. Hold Norvasc therapy re-initiation 4. Plan to proceed with transesophageal echocardiography this coming week for further evaluation of the above-noted suspected valvular vegetations Azar Callahan M.D.
[2017-07-13] MEDS ORDERED: EPOETIN ALFA 10,000 UNIT/1 ML VIAL SQ ONE (14:00)
[2017-07-13] MEDS: ACETAMINOPHEN 500 MG TABLET (FP) PO PRN (20:13)
[2017-07-13] MEDS: METOPROLOL TARTRATE 25 MG TABLET (FP) PO SCH (21:29)
[2017-07-14] MEDS: NAFCILLIN - 2 GM in DEXTROSE 5%-WATER - 100 ML IVPB SCH ×6 (01:53→21:50)
[2017-07-14] MEDS: HEPARIN NA (PORCINE) 5,000 UNITS/ML 1ML VIAL SQ SCH ×3 (01:54→18:37)
[2017-07-14] MEDS: ACETAMINOPHEN 500 MG TABLET (FP) PO PRN ×2 (06:15→15:35)
[2017-07-14 07:48] LABS: MCH 29.4 pg (25.7-33.7); MCHC 33.5 g/dl (32.0-35.9); MEAN PLT VOLUME 9.4 fl (7.5-11.1); PLATELET COUNT 138 K/MM3 (134-434); RDW 14.3 % (11.9-15.9); WHITE BLOOD COUNT 7.2 K/mm3 (4.0-10.0)
[2017-07-14 07:56] LABS: ALBUMIN 2.3 g/dl (3.4-5.0); ANION GAP 11 (8-16); BILIRUBIN,DIRECT 2.1 mg/dL (0.0-0.2); CALCIUM 7.8 mg/dL (8.5-10.1); CO2 24 mmol/L (21-32); GLUCOSE,RANDOM 83 mg/dL (74-106); MAGNESIUM 2.4 mg/dL (1.8-2.4); PHOSPHOROUS 3.7 mg/dL (2.5-4.9); SGOT/AST 50 U/L (15-37); SGPT/ALT 51 U/L (12-78)
[2017-07-14 08:03] LABS: ALK PHOS 119 U/L (45-117); BILIRUBIN,TOTAL 3.6 mg/dL (0.2-1.0); TOT PROT 6.5 g/dl (6.4-8.2)
[2017-07-14 08:37] LABS: CREATININE 9.2 mg/dL (0.7-1.3)
--- NOTE | 2017-07-14 08:41 | PN ---
Physical Exam: SUBJECTIVE: Pt seen sleeping in bed. Pt reports not problems overnight. Pt has no complaints today. Pt denies SOB, CP/discomfort, abdominal pain, and leg pain. OBJECTIVE: Vital Signs Period Temp Pulse Resp BP Sys/Estrada Pulse Ox Last 24 Hr 98.4 F-99.8 F 93-104 18-20 119-140/71-80 GENERAL: The patient is awake, alert, and fully oriented, in no acute distress. HEENT: Moist mucosa, EOMI, ANDREW LUNGS: CTA bilaterally, no wheezes, rhonchi, rales. HEART: RRR, S1, S2 present with 3+/6 systolic murmur ABDOMEN: Soft, nontender, nondistended, normoactive bowel sounds, no guarding, no rebound, no hepatosplenomegaly, no masses. EXTREMITIES: DP, PT 2+ pulses, warm, no edema, catheter in place R groin without drainage. NEUROLOGICAL: alert and orientedx3. Gait not observed. Pt has 5/5 strength b/l upper extremities. 5/5 RLE strength. 4/5 hip flexion LLE otherwise 5/5 elsewhere SKIN: L hand scar near wrist noted. No splinter hemorrhages or rash noted. Laboratory Results - last 24 hr 07/13/17 07/13/17 07/14/17 09:00 09:00 06:08 WBC 7.3 RBC 2.65 L Hgb 7.8 L Hct 23.4 L MCV 88.3 MCH 29.3 MCHC 33.2 RDW 14.4 Plt Count 114 L MPV 9.0 Sodium 134 L Potassium 3.9 Chloride 98 Carbon Dioxide 24 Anion Gap 12 BUN 50 H D Creatinine 9.1 H* Creat Clearance w eGFR 6.09 POC Glucometer 80 Random Glucose 168 H D Calcium 7.8 L Phosphorus Magnesium Total Bilirubin 2.3 H D Direct Bilirubin AST 75 H ALT 58 Alkaline Phosphatase 106 Total Protein 6.4 Albumin 2.3 L 07/14/17 07/14/17 06:20 06:20 WBC 7.2 RBC 2.76 L Hgb 8.1 L Hct 24.3 L MCV 88.0 MCH 29.4 MCHC 33.5 RDW 14.3 Plt Count 138 D MPV 9.4 Sodium 132 L Potassium 4.3 Chloride 97 L Carbon Dioxide 24 Anion Gap 11 BUN 55 H Creatinine 9.2 H* Creat Clearance w eGFR POC Glucometer Random Glucose 83 D Calcium 7.8 L Phosphorus 3.7 Magnesium 2.4 Total Bilirubin 3.6 H D Direct Bilirubin 2.1 H D AST 50 H D ALT 51 Alkaline Phosphatase 119 H Total Protein 6.5 Albumin 2.3 L Active Medications Generic Name Dose Route Start Last Admin Trade Name Freq PRN Reason Stop Dose Admin Acetaminophen 1,000 mg 07/12/17 19:22 07/14/17 06:15 Tylenol - PO 1,000 mg Q6H PRN Administration FEVER OR PAIN Epoetin Stanley 10,000 unit 07/14/17 12:00 Procrit - SQ 07/14/17 12:01 ONCE ONE Heparin Sodium (Porcine) 5,000 unit 07/11/17 18:00 07/14/17 01:54 Heparin - SQ 5,000 unit Q8H-IV JAZMINE Administration Nafcillin Sodium 2 gm/ 100 mls @ 100 mls/hr 07/12/17 19:00 07/14/17 06:10 Dextrose IVPB 100 mls/hr Q4H-IV JAZMINE Administration Protocol Metoprolol Tartrate 25 mg 07/13/17 22:00 07/13/17 21:29 Lopressor - PO 25 mg BID JAZMINE Administration ASSESSMENT/PLAN: 1) Sepsis 2/2 staph aureus bacteremia --Endocarditis suspected due to murmurs and vegetations seen --Cardiology note reviewed: Planning WILLARD --Can resume Lopressor --Hold Norvasc --Most likely from AV fistula seeding --Repeat cultures still positive; sensitivity came back on first Blood Cx showing MSSA with Vancomycin intermediate --Continue Naficillin 2gm and Vancomycin --ID on case --Tylenol 1gm PRN q6 for fever 2) CKD --Pt is on HD MWF --May repeat Blood Cx with dialysis on Friday (07/14) --Dr. Garcia following 3) DM Type II --BGM --Glucose levels controlled currently with proper diet 4) HIV --Per ID --Immunology from 06/24/17 as above --CD4 helper 90 with CD4/8 ratio 0.12 --Appreciate ID recommendations --Pt stopped HAART therapy for 3 months prior to this hospitalization 5) HTN --Essential HTN --Metoprolol continued --Amlodipine continued FEN: Fluids: None currently: tolerating PO and on HD Electrolyte abnormalities: Mild hyponatremia; dialysis today Nutrition: Renal and diabetic diet PPX: DVT - Heparin 5000U SQ TID Case discussed with Dr. Kei Willett, DO - Internal Medicine PGY-1 Visit type - Emergency Visit Emergency Visit: No - New Patient This patient is new to me today: No - Critical Care Critical Care patient: No
[2017-07-14] MEDS: METOPROLOL TARTRATE 25 MG TABLET (FP) PO SCH ×2 (10:13→22:50)
[2017-07-14] MEDS ORDERED: EPOETIN ALFA 10,000 UNIT/1 ML VIAL IVPUSH ONE (11:00)
--- NOTE | 2017-07-14 13:11 | PN ---
Progress Note, Physician Chief Complaint: Currently being dialyzed Not in distress History of Present Illness: Patient was seen and examined. Awake and alert. Chart was reviewed Denies chest pain, SOB or palpitations - Current Medication List Current Medications: Active Medications Acetaminophen (Tylenol -) 1,000 mg PO Q6H PRN PRN Reason: FEVER OR PAIN Last Admin: 07/14/17 06:15 Dose: 1,000 mg Heparin Sodium (Porcine) (Heparin -) 5,000 unit SQ Q8H-IV JAZMINE Last Admin: 07/14/17 10:13 Dose: Not Given Nafcillin Sodium 2 gm/ (Dextrose) 100 mls @ 100 mls/hr IVPB Q4H-IV JAZMINE PRN Reason: Protocol Last Admin: 07/14/17 10:13 Dose: Not Given Metoprolol Tartrate (Lopressor -) 25 mg PO BID JAZMINE Last Admin: 07/14/17 10:13 Dose: Not Given - Objective Vital Signs: Vital Signs Temperature 99.8 F H 07/14/17 06:00 Pulse Rate 80 07/14/17 10:00 Respiratory Rate 18 07/14/17 10:00 Blood Pressure 128/72 07/14/17 10:00 O2 Sat by Pulse Oximetry (%) 96 07/11/17 20:53 Neck: Yes: Supple Cardiovascular: Yes: Regular Rate and Rhythm, Murmur (VONDA), S1, S2 Respiratory: Yes: CTA Bilaterally Gastrointestinal: Yes: Normal Bowel Sounds, Soft. No: Tenderness Edema: No Labs: CBC, BMP 07/14/17 06:20 07/14/17 06:20 INR, PTT INR 1.24 (0.82-1.09) H 07/11/17 11:07 Problem List - Problems (1) AIDS Code(s): B20 - HUMAN IMMUNODEFICIENCY VIRUS [HIV] DISEASE (2) Anemia Code(s): D64.9 - ANEMIA, UNSPECIFIED (3) Diabetes mellitus type II, controlled Code(s): E11.9 - TYPE 2 DIABETES MELLITUS WITHOUT COMPLICATIONS Qualifiers: Diabetes mellitus complication status: with kidney complications Diabetes mellitus complication detail: with chronic kidney disease Diabetes mellitus detention insulin use: unspecified gauge checker insulin use status Chronic kidney disease stage: on chronic dialysis Qualified Code(s): E11.22 - Type 2 diabetes mellitus with diabetic chronic kidney disease; N18.6 - End stage renal disease; N18.6 - End stage renal disease; N18.6 - End stage renal disease; N18.6 - End stage renal disease; Z99.2 - Dependence on renal dialysis; Z99.2 - Dependence on renal dialysis; Z99.2 - Dependence on renal dialysis; Z99.2 - Dependence on renal dialysis (4) Staphylococcus aureus bacteremia Code(s): R78.81 - BACTEREMIA (5) AVF (arteriovenous fistula) Code(s): I77.0 - ARTERIOVENOUS FISTULA, ACQUIRED (6) CKD (chronic kidney disease) Code(s): N18.9 - CHRONIC KIDNEY DISEASE, UNSPECIFIED Qualifiers: Chronic kidney disease stage: on chronic dialysis Qualified Code(s): N18.6 - End stage renal disease (7) ESRD (end stage renal disease) on dialysis Code(s): N18.6 - END STAGE RENAL DISEASE; Z99.2 - DEPENDENCE ON RENAL DIALYSIS (8) HTN (hypertension) Code(s): I10 - ESSENTIAL (PRIMARY) HYPERTENSION Qualifiers: Hypertension type: essential hypertension Qualified Code(s): I10 - Essential (primary) hypertension Assessment/Plan 1. Staphylococcus aureus bacteremia/line sepsis with suspected endocarditis ( Based on transthoracic echocardiographic finding) post infected line removal 2. HTN 3. DM 4. ESRD on HD 5. HIV-AIDS PLAN: 1. Empioric antibiotics coverage 2. Continue Lopressor and Amlodipine as tolerated 3. Plan to proceed with transesophageal echocardiography tomorrow to rule out vegetation. Keep NPO Further plans are to follow Robbi Monreal MD
--- NOTE | 2017-07-14 14:25 | PN ---
Progress Note (short form) - Note Progress Note: Vascular Surgery Pt seen and examined in HD Complains of discomfort at [facility]. Will place Permacath once cx clear. Pt understands everything. We used a intepreter to explain to him all the steps we are taking to get him better. Robert Morgan DO
[2017-07-14] MEDS ORDERED: PT OWN MED DRAWER 7, Y5N ONE ×3 (14:50→22:48)
--- NOTE | 2017-07-14 15:18 | PN ---
Progress Note (short form) - Note Progress Note: no complaints reports he is taking his ART at home on nafcillin started on 07/12 femoral catheter Vital Signs Period Temp Pulse Resp BP Sys/Estrada Pulse Ox Last 24 Hr 98.0 F-99.8 F 80-102 18-20 121-149/30-100 cor-rrr 2/6 arsh lungs clear abd soft,nt ext no edema +femoral catheter CBC, BMP 07/14/17 06:20 07/14/17 06:20 Microbiology 07/11/17 17:10 Blood - Pre-Dialysis Blood Culture - Final Staphylococcus Aureus 07/11/17 17:10 Blood - Pre-Dialysis Blood Culture - Final Staphylococcus Aureus 07/11/17 11:07 Blood - Peripheral Venous Blood Culture - Preliminary Staphylococcus Latex Coag Pos 07/11/17 11:40 Blood - Peripheral Venous Blood Culture - Preliminary Staphylococcus Latex Coag Pos 07/11/17 11:28 Urine - Urine Clean Catch Urine Culture - Final NO GROWTH OBTAINED a/p MSSA bacteremia endocarditis for WILLARD continue nafcillin repeat blood cultures duplex left IJ esrd/hd HIV-aids by abimael continue hiv meds-family will bring in meds, we will start here continue his mepron for pcp prophylaxis as well Problem List - Problems (1) Staphylococcus aureus bacteremia Code(s): R78.81 - BACTEREMIA (2) ESRD (end stage renal disease) on dialysis Code(s): N18.6 - END STAGE RENAL DISEASE; Z99.2 - DEPENDENCE ON RENAL DIALYSIS (3) AIDS Code(s): B20 - HUMAN IMMUNODEFICIENCY VIRUS [HIV] DISEASE
--- NOTE | 2017-07-14 15:57 | PN ---
Progress Note, Physician History of Present Illness: Pt seen and examined at bedside. He is tolerating HD. He denies fevers or chills. - Current Medication List Current Medications: Active Medications Abacavir Sulfate (Ziagen -) 300 mg PO BID [facility] Acetaminophen (Tylenol -) 1,000 mg PO Q6H PRN PRN Reason: FEVER OR PAIN Last Admin: 07/14/17 15:35 Dose: 1,000 mg Atovaquone (Mepron -) 1,500 mg PO DAILY@0800 JAZMINE Heparin Sodium (Porcine) (Heparin -) 5,000 unit SQ Q8H-IV JAZMINE Last Admin: 07/14/17 10:13 Dose: Not Given Nafcillin Sodium 2 gm/ (Dextrose) 100 mls @ 100 mls/hr IVPB Q4H-IV JAZMINE PRN Reason: Protocol Last Admin: 07/14/17 14:54 Dose: 100 mls/hr Metoprolol Tartrate (Lopressor -) 25 mg PO BID [facility] Last Admin: 07/14/17 10:13 Dose: Not Given - Objective Vital Signs: Vital Signs Temperature 98.0 F 07/14/17 14:00 Pulse Rate 86 07/14/17 14:31 Respiratory Rate 18 07/14/17 14:31 Blood Pressure 132/96 07/14/17 14:31 O2 Sat by Pulse Oximetry (%) 96 07/11/17 20:53 Constitutional: Yes: Calm Eyes: Yes: Conjunctiva Clear HENT: Yes: Atraumatic Neck: Yes: Supple Cardiovascular: Yes: S1, S2 Respiratory: Yes: CTA Bilaterally Gastrointestinal: Yes: Soft Genitourinary: Yes: WNL Musculoskeletal: Yes: WNL Extremities: Yes: Other (left arm fistula, appears improved from friday) Edema: No Neurological: Yes: Oriented Psychiatric: Yes: Oriented Labs: CBC, BMP 07/14/17 06:20 07/14/17 06:20 INR, PTT INR 1.24 (0.82-1.09) H 07/11/17 11:07 Problem List - Problems (1) Anemia Code(s): D64.9 - ANEMIA, UNSPECIFIED (2) AIDS Code(s): B20 - HUMAN IMMUNODEFICIENCY VIRUS [HIV] DISEASE (3) Staphylococcus aureus bacteremia Code(s): R78.81 - BACTEREMIA (4) HIV (human immunodeficiency virus infection) Code(s): Z21 - ASYMPTOMATIC HUMAN IMMUNODEFICIENCY VIRUS INFECTION STATUS Assessment/Plan Current Medications Generic Name Dose Route Start Last Admin Trade Name Freq PRN Reason Stop Dose Admin Abacavir Sulfate 300 mg 07/14/17 15:30 Ziagen - PO BID JAZMINE Acetaminophen 1,000 mg 07/12/17 19:22 07/14/17 15:35 Tylenol - PO 1,000 mg Q6H PRN Administration FEVER OR PAIN Atovaquone 1,500 mg 07/14/17 15:15 Mepron - PO DAILY@0800 JAZMINE Heparin Sodium (Porcine) 5,000 unit 07/11/17 18:00 07/14/17 10:13 Heparin - SQ Not Given Q8H-IV JAZMINE Nafcillin Sodium 2 gm/ 100 mls @ 100 mls/hr 07/12/17 19:00 07/14/17 14:54 Dextrose IVPB 100 mls/hr Q4H-IV JAZMINE Administration Protocol Metoprolol Tartrate 25 mg 07/13/17 22:00 07/14/17 10:13 Lopressor - PO Not Given BID JAZMINE Impression 1. ESRD 2. HIV 3. HTN 4. sepsis 5. anemia 6. bacteremia - staph Plan - HD today - remove shiley after HD - discussed with vascular - ordered repeat cultures on HD - cardio input appreciated, pt for WILLARD - discussed case with ID - epogen for anemia - cont to follow blood cultures Dr Garcia
--- NOTE | 2017-07-14 17:01 | PROC ---
Procedure Note Procedure: The catheter was asked to be rmeoved by renal and Dr. Morgan. Left groin shiley removed and pressure held for 10 minutes. No evidence of bleeding and a pressure dressing was applied. The phone intrepreter service was used #[phone] to explain the procedure and future plans for HD. He had HD today, further access will be needed pending treatments as per renal.
[2017-07-14] MEDS: DOLUTEGRAVIR SODIUM 50 MG TABLET PO SCH (17:42)
[2017-07-14] MEDS: ATOVAQUONE 750 MG/5 ML (UNIT-DOSE PACKAGING) PO SCH (17:42)
[2017-07-14] MEDS: ABACAVIR SULFATE 300 MG TABLET PO SCH ×2 (17:42→22:50)
--- NOTE | 2017-07-14 18:41 | PN ---
Teaching Attending Note Name of Resident: Stefan Willett ATTENDING PHYSICIAN STATEMENT I saw and evaluated the patient. I reviewed the resident's note and discussed the case with the resident. I agree with the resident's findings and plan as documented. SUBJECTIVE: Patient is feeling better with no acute distress, no shortness of breath. No fever or chills. OBJECTIVE: Vital Signs Temperature 98.0 F 07/14/17 14:00 Pulse Rate 86 07/14/17 14:31 Respiratory Rate 18 07/14/17 14:31 Blood Pressure 132/96 07/14/17 14:31 O2 Sat by Pulse Oximetry (%) 96 07/11/17 20:53 CBCD WBC 7.2 K/mm3 (4.0-10.0) 07/14/17 06:20 RBC 2.76 M/mm3 (4.00-5.60) L 07/14/17 06:20 Hgb 8.1 GM/dL (11.7-16.9) L 07/14/17 06:20 Hct 24.3 % (35.4-49) L 07/14/17 06:20 MCV 88.0 fl (80-96) 07/14/17 06:20 MCHC 33.5 g/dl (32.0-35.9) 07/14/17 06:20 RDW 14.3 % (11.9-15.9) 07/14/17 06:20 Plt Count 138 K/MM3 (134-434) D 07/14/17 06:20 MPV 9.4 fl (7.5-11.1) 07/14/17 06:20 CMP Sodium 132 mmol/L (136-145) L 07/14/17 06:20 Potassium 4.3 mmol/L (3.5-5.1) 07/14/17 06:20 Chloride 97 mmol/L (98-107) L 07/14/17 06:20 Carbon Dioxide 24 mmol/L (21-32) 07/14/17 06:20 Anion Gap 11 (8-16) 07/14/17 06:20 BUN 55 mg/dL (7-18) H 07/14/17 06:20 Creatinine 9.2 mg/dL (0.7-1.3) H* 07/14/17 06:20 Creat Clearance w eGFR 6.09 (>60) 07/13/17 09:00 Random Glucose 83 mg/dL (74-106) D 07/14/17 06:20 Calcium 7.8 mg/dL (8.5-10.1) L 07/14/17 06:20 Total Bilirubin 3.6 mg/dL (0.2-1.0) H D 07/14/17 06:20 AST 50 U/L (15-37) H D 07/14/17 06:20 ALT 51 U/L (12-78) 07/14/17 06:20 Alkaline Phosphatase 119 U/L (45-117) H 07/14/17 06:20 Total Protein 6.5 g/dl (6.4-8.2) 07/14/17 06:20 Albumin 2.3 g/dl (3.4-5.0) L 07/14/17 06:20 CARDIAC ENZYMES Creatine Kinase 142 IU/L (39-308) 07/11/17 11:07 Troponin I < 0.02 ng/ml (0.00-0.05) 07/11/17 11:07 Current Medications Generic Name Dose Route Start Last Admin Trade Name Freq PRN Reason Stop Dose Admin Abacavir Sulfate 300 mg 07/14/17 15:30 07/14/17 17:42 Ziagen - PO 300 mg BID JAZMINE Administration Acetaminophen 1,000 mg 07/12/17 19:22 07/14/17 15:35 Tylenol - PO 1,000 mg Q6H PRN Administration FEVER OR PAIN Atovaquone 1,500 mg 07/14/17 15:15 07/14/17 17:42 Mepron - PO 1,500 mg DAILY@0800 JAZMINE Administration Heparin Sodium (Porcine) 5,000 unit 07/11/17 18:00 07/14/17 18:37 Heparin - SQ 5,000 unit Q8H-IV JAZMINE Administration Nafcillin Sodium 2 gm/ 100 mls @ 100 mls/hr 07/12/17 19:00 07/14/17 18:37 Dextrose IVPB 100 mls/hr Q4H-IV JAZMINE Administration Protocol Metoprolol Tartrate 25 mg 07/13/17 22:00 07/14/17 10:13 Lopressor - PO Not Given BID [facility] Home Medications Medication Instructions Recorded Abacavir Sulfate [Ziagen -] 300 mg PO BID #60 tablet 06/24/17 Acetaminophen [Tylenol] 2 tab PO Q6H PRN #30 tablet MDD 8 06/24/17 Amlodipine Besylate [Norvasc -] 10 mg PO DAILY #30 tablet 06/24/17 Atovaquone [Mepron Oral Solution -] 750 mg PO BIDWM #120 mg 06/24/17 Dolutegravir Sodium [Tivicay] 50 mg PO DAILY #30 tablet 06/24/17 Glimepiride 2 mg PO DAILY #30 tablet 06/24/17 Metoprolol Tartrate [Lopressor -] 25 mg PO BID #60 mg 06/24/17 Multivitamin-Min/Iron/FA/Vit K 1 each PO DAILY #30 tablet 06/24/17 [Multi-Day Plus Minerals Tablet] Rilpivirine HCl [Edurant] 25 mg PO DAILY #30 tablet 06/24/17 Microbiology 07/11/17 11:40 Blood - Peripheral Venous Blood Culture - Preliminary Staphylococcus Aureus 07/11/17 11:07 Blood - Peripheral Venous Blood Culture - Preliminary Staphylococcus Aureus 07/11/17 17:10 Blood - Pre-Dialysis Blood Culture - Final Staphylococcus Aureus 07/11/17 17:10 Blood - Pre-Dialysis Blood Culture - Final Staphylococcus Aureus 07/11/17 11:28 Urine - Urine Clean Catch Urine Culture - Final NO GROWTH OBTAINED PE: per resident's note ASSESSMENT AND PLAN: 56 yo M with PMhx of HTN, Diabetes, HIV (stopped taking HARRT) three months ago, presents with 3 day history of fever and chills will be admitted for sepsis secondary to bactermia. # Sepsis with Staphylococcus aureus bacteremia 4/ , fever resolved s/p one dose of cefepime. Vancomycin level is 15 , will continue IV Nafcillin 2gm. Most likely due from infected AV fistula. Pending organism and sensitivity.S/p Vanco and Zosyn given in ED. Echo Mobile echodensity attached to Aortic valve and Mitral valve. s/p One liter of IVF. s/p one dose of IV Tylenol. Continue with PO Tylenol 1gm q6h prn. Going for WILLARD in am, NPO after midnight. # # HIV (human immunodeficiency virus infection); HAART has been on hold for last three months. ID consulted, CD4 count is low, added Mepron 1500mg po daily , and on Ziagen continue # Diabetes mellitus type II controlled : diet controlled # CKD (chronic kidney disease) ; He is on MWF schedule. Post dialysis , Nephro will remove the femoral catheter. and will re-access after cultures come back negative. # HTN (hypertension); Essenital HTN. Metoprolol and Amlodipine continue . Hold parameters for SBP<90 or HR <55 DVT : Sq heparin
[2017-07-15] MEDS: NAFCILLIN - 2 GM in DEXTROSE 5%-WATER - 100 ML IVPB SCH ×6 (02:06→21:07)
[2017-07-15] MEDS: ATOVAQUONE 750 MG/5 ML (UNIT-DOSE PACKAGING) PO SCH ×2 (08:49→16:12)
[2017-07-15 09:48] LABS: ALBUMIN 2.1 g/dl (3.4-5.0); ALK PHOS 127 U/L (45-117); ANION GAP 9 (8-16); BILIRUBIN,DIRECT 2.1 mg/dL (0.0-0.2); BILIRUBIN,TOTAL 3.5 mg/dL (0.2-1.0); CALCIUM 7.4 mg/dL (8.5-10.1); CO2 27 mmol/L (21-32); CREATININE 6.7 mg/dL (0.7-1.3); GLUCOSE,RANDOM 112 mg/dL (74-106); SGOT/AST 48 U/L (15-37); SGPT/ALT 47 U/L (12-78); TOT PROT 6.2 g/dl (6.4-8.2)
[2017-07-15] MEDS: DOLUTEGRAVIR SODIUM 50 MG TABLET PO SCH ×2 (11:06→16:12)
[2017-07-15] MEDS: METOPROLOL TARTRATE 25 MG TABLET (FP) PO SCH ×2 (11:06→21:31)
[2017-07-15] MEDS: ABACAVIR SULFATE 300 MG TABLET PO SCH ×3 (11:07→21:07)
[2017-07-15] MEDS ORDERED: PROPOFOL 20 ML ONE ×2 (11:52)
[2017-07-15] MEDS ORDERED: LIDOCAINE HCL/PF 2% SDV 5ML VIAL ONE (11:52)
[2017-07-15] MEDS: RILPIVIRINE HCL 25 MG PO SCH ×2 (13:00→16:12)
[2017-07-15] MEDS ORDERED: PT OWN MED DRAWER 7, Y5N ONE ×2 (13:36→20:59)
--- NOTE | 2017-07-15 14:34 | PN ---
Progress Note (short form) - Note Progress Note: Chief Complaint: Events noted, notes reviewed, denies any chest pain or dyspnea History of Present Illness: Seen and examined. Events noted, notes reviewed, denies any chest pain or dyspnea WILLARD preliminary results, no reported valvular vegetations Echocardiography dated 07/11/2017 Low normal LV function, small mobile echodensity on posterior leaflet of MV and aortic valve suspicious for vegetation, mild MR and TR Medications: Current Medications Abacavir Sulfate (Ziagen -) 300 mg PO BID [facility] Last Admin: 07/15/17 11:07 Dose: Not Given Acetaminophen (Tylenol -) 1,000 mg PO Q6H PRN PRN Reason: FEVER OR PAIN Last Admin: 07/14/17 15:35 Dose: 1,000 mg Atovaquone (Mepron -) 1,500 mg PO DAILY@0800 [facility] Last Admin: 07/15/17 08:49 Dose: Not Given Heparin Sodium (Porcine) (Heparin -) 5,000 unit SQ Q8H-IV [facility] Last Admin: 07/14/17 18:37 Dose: 5,000 unit Nafcillin Sodium 2 gm/ (Dextrose) 100 mls @ 100 mls/hr IVPB Q4H-IV JAZMINE PRN Reason: Protocol Last Admin: 07/15/17 13:38 Dose: 100 mls/hr Metoprolol Tartrate (Lopressor -) 25 mg PO BID [facility] Last Admin: 07/15/17 11:06 Dose: Not Given Vital Signs: Last Vital Signs Temp Pulse Resp BP Pulse Ox 98.1 F 85 18 143/82 99 07/15/17 14:00 07/15/17 14:00 07/15/17 14:00 07/15/17 14:00 07/15/17 12:39 Intake & Output 07/12/17 07/13/17 07/14/17 07/15/17 23:59 23:59 23:59 23:59 Intake Total 850 1775 1100 350 Output Total 400 800 300 300 Balance 450 975 800 50 Constitutional: No Distress, Calm Neck: Supple Negative JVD no bruit appreciated Respiratory: Diminished Breath sounds at the bases Cardiovascular: S1 and S2 regular rate and rhythm grade 2/6 systolic ejection murmur Gastrointestinal: Soft benign Normal Bowel Sounds Ext: No Edema Labs: CBC, BMP 07/14/17 06:20 07/15/17 07:00 Microbiology 07/14/17 15:56 Blood - Post-Dialysis Blood Culture - Preliminary Pending Organism 07/11/17 17:10 Blood - Pre-Dialysis Blood Culture - Final Staphylococcus Aureus 07/11/17 17:10 Blood - Pre-Dialysis Blood Culture - Final Staphylococcus Aureus 07/11/17 11:07 Blood - Peripheral Venous Blood Culture - Final Staphylococcus Aureus 07/11/17 11:40 Blood - Peripheral Venous Blood Culture - Final Staphylococcus Aureus Assessment/Plan ASSESSMENT: 1. Staphylococcus aureus bacteremia/line sepsis with evidence of valvular endocarditis by WILLARD criteria, post infected line removal 2. HTN 3. DM 4. ESRD on HD 5. HIV-AIDS PLAN: 1. Antibiotics as per the primary and ID teams 2. Continue Lopressor, hemodynamics permitting 3. Continue Lipitor [place]
--- NOTE | 2017-07-15 14:41 | PN ---
Physical Exam: SUBJECTIVE: Pt afebrile last night, but diaphoretic this morning. L groin shiley removed yesterday with no problems. Pt to go for WILLARD today. Pt denies chills, CP/discomfort, SOB, abdominal pain, lower extremity pain. Pt denies any other complaints. OBJECTIVE: Vital Signs Period Temp Pulse Resp BP Sys/Estrada Pulse Ox Last 24 Hr 98 F-99.8 F 78-98 18-20 127-148/66-89 99-100 GENERAL: NAD, sleeping in bed. Diaphoretic in bed. HEENT: Moist mucosa, EOMI, ANDREW LUNGS: CTA bilaterally, no wheezes, rhonchi, rales. HEART: RRR, S1, S2 present with 3+/6 systolic murmur heard throughout all tomlin (strongest in apex and R upper sternal border) ABDOMEN: Soft, nontender, nondistended, normoactive bowel sounds, no guarding, no rebound, no hepatomegaly EXTREMITIES: DP, PT 2+ pulses, no edema, L groin site C/D/I with gauze. NEUROLOGICAL: alert and orientedx3. Gait not observed. Pt has 5/5 strength b/l upper extremities. 5/5 RLE strength. 4/5 hip flexion LLE otherwise 5/5 elsewhere SKIN: L hand scar near wrist noted. No splinter hemorrhages or rash noted. No oslers nodes appreciated. Pt skin is very warm today. Laboratory Results - last 24 hr 07/14/17 07/15/17 07/15/17 17:25 06:19 07:00 Sodium 135 L Potassium 4.2 Chloride 99 Carbon Dioxide 27 Anion Gap 9 BUN 32 H D Creatinine 6.7 H D POC Glucometer 165 120 Random Glucose 112 H D Calcium 7.4 L Total Bilirubin 3.5 H Direct Bilirubin 2.1 H AST 48 H ALT 47 Alkaline Phosphatase 127 H C-Reactive Protein Total Protein 6.2 L Albumin 2.1 L 07/15/17 07:00 Sodium Potassium Chloride Carbon Dioxide Anion Gap BUN Creatinine POC Glucometer Random Glucose Calcium Total Bilirubin Direct Bilirubin AST ALT Alkaline Phosphatase C-Reactive Protein 8.6 H Total Protein Albumin Active Medications Generic Name Dose Route Start Last Admin Trade Name Freq PRN Reason Stop Dose Admin Abacavir Sulfate 300 mg 07/14/17 15:30 07/15/17 11:07 Ziagen - PO Not Given BID JAZMINE Acetaminophen 1,000 mg 07/12/17 19:22 07/14/17 15:35 Tylenol - PO 1,000 mg Q6H PRN Administration FEVER OR PAIN Atovaquone 1,500 mg 07/14/17 15:15 07/15/17 08:49 Mepron - PO Not Given DAILY@0800 [facility] Heparin Sodium (Porcine) 5,000 unit 07/11/17 18:00 07/14/17 18:37 Heparin - SQ 5,000 unit Q8H-IV JAZMINE Administration Nafcillin Sodium 2 gm/ 100 mls @ 100 mls/hr 07/12/17 19:00 07/15/17 13:38 Dextrose IVPB 100 mls/hr Q4H-IV JAZMINE Administration Protocol Metoprolol Tartrate 25 mg 07/13/17 22:00 07/15/17 11:06 Lopressor - PO Not Given BID [facility] ASSESSMENT/PLAN: 1) Sepsis 2/2 staph aureus bacteremia --Endocarditis suspected due to murmurs and vegetations seen --Cardiology on board --WILLARD today --Continue Lopressor 25mg PO BID --Continue to hold Norvasc --Error with lab; repeat cultures drawn today and cultures from dialysis. --Dialysis cultures still showing pending organism --RUE doppler to r/o thrombus and possible seeding of bacteria --Negative for DVT in RUE --ID on board --Continue Naficillin 2gm --Continuing Vancomycin --Tylenol 1gm PRN q6 for fever 2) CKD --Pt is on HD MWF; Laura krishnan removed for potential seeding at the moment --Dr. Garcia following 3) DM Type II --BGM --Glucose levels controlled currently with proper diet 4) HIV --Per ID --Pt to bring in home medications to resume for HIV therapy 5) HTN --Essential HTN --Lopressor continued as above --Hold Amlodipine as above FEN: Fluids: None currently: tolerating PO and on HD Electrolyte abnormalities: Mild hyponatremia improving today (135 from 132 yesterday) Nutrition: Renal and diabetic diet PPX: DVT - Heparin 5000U SQ TID Case discussed with Dr. Kei Willett, DO - Internal Medicine PGY-1 Visit type - Emergency Visit Emergency Visit: No - New Patient This patient is new to me today: No - Critical Care Critical Care patient: No
--- NOTE | 2017-07-15 15:48 | PN ---
Progress Note (short form) - Note Progress Note: no complaints reports he is taking his ART at home femoral catheter out WILLARD d/w Dr Monreal- negative for valvular vegetation Vital Signs Period Temp Pulse Resp BP Sys/Estrada Pulse Ox Last 24 Hr 98 F-99.8 F 78-98 18-20 127-148/66-89 99-100 cor-rrr lungs clear abd soft,nt ext no edema CBC, BMP 07/14/17 06:20 07/15/17 07:00 Microbiology 07/14/17 15:56 Blood - Post-Dialysis Blood Culture - Preliminary Pending Organism 07/11/17 17:10 Blood - Pre-Dialysis Blood Culture - Final Staphylococcus Aureus 07/11/17 17:10 Blood - Pre-Dialysis Blood Culture - Final Staphylococcus Aureus 07/11/17 11:07 Blood - Peripheral Venous Blood Culture - Final Staphylococcus Aureus 07/11/17 11:40 Blood - Peripheral Venous Blood Culture - Final Staphylococcus Aureus 07/11/17 11:28 Urine - Urine Clean Catch Urine Culture - Final NO GROWTH OBTAINED a/p MSSA bacteremia endocarditis WILLARD negative continue nafcillin repeat blood cultures pending duplex left IJ pending infected permacath removed intermediated vanco sensitivity!- needs contact isolation esrd/hd HIV-aids by tcells continue hiv meds-family will bring in meds, we will start here continue his mepron for pcp prophylaxis as well Problem List - Problems (1) Staphylococcus aureus bacteremia Code(s): R78.81 - BACTEREMIA (2) ESRD (end stage renal disease) on dialysis Code(s): N18.6 - END STAGE RENAL DISEASE; Z99.2 - DEPENDENCE ON RENAL DIALYSIS (3) AIDS Code(s): B20 - HUMAN IMMUNODEFICIENCY VIRUS [HIV] DISEASE
--- NOTE | 2017-07-15 17:06 | PN ---
Progress Note, Physician History of Present Illness: Pt seen and examined at bedside. He is awake and alert. He denies shortness of breath, fevers or chills. - Current Medication List Current Medications: Active Medications Abacavir Sulfate (Ziagen -) 300 mg PO BID [facility] Last Admin: 07/15/17 16:12 Dose: 300 mg Acetaminophen (Tylenol -) 1,000 mg PO Q6H PRN PRN Reason: FEVER OR PAIN Last Admin: 07/14/17 15:35 Dose: 1,000 mg Atovaquone (Mepron -) 1,500 mg PO DAILY@0800 [facility] Last Admin: 07/15/17 16:12 Dose: 1,500 mg Heparin Sodium (Porcine) (Heparin -) 5,000 unit SQ Q8H-IV [facility] Last Admin: 07/14/17 18:37 Dose: 5,000 unit Nafcillin Sodium 2 gm/ (Dextrose) 100 mls @ 100 mls/hr IVPB Q4H-IV [facility] PRN Reason: Protocol Last Admin: 07/15/17 13:38 Dose: 100 mls/hr Metoprolol Tartrate (Lopressor -) 25 mg PO BID [facility] Last Admin: 07/15/17 11:06 Dose: Not Given - Objective Vital Signs: Vital Signs Temperature 98.1 F 07/15/17 14:00 Pulse Rate 85 07/15/17 14:00 Respiratory Rate 18 07/15/17 14:00 Blood Pressure 143/82 07/15/17 14:00 O2 Sat by Pulse Oximetry (%) 99 07/15/17 12:39 Constitutional: Yes: Calm Eyes: Yes: Conjunctiva Clear HENT: Yes: Atraumatic Neck: Yes: Supple Cardiovascular: Yes: S1, S2 Respiratory: Yes: CTA Bilaterally Gastrointestinal: Yes: Soft Genitourinary: Yes: WNL Musculoskeletal: Yes: WNL Edema: No Neurological: Yes: Oriented Psychiatric: Yes: Oriented Labs: CBC, BMP 07/14/17 06:20 07/15/17 07:00 INR, PTT INR 1.24 (0.82-1.09) H 07/11/17 11:07 Problem List - Problems (1) Anemia Code(s): D64.9 - ANEMIA, UNSPECIFIED (2) AIDS Code(s): B20 - HUMAN IMMUNODEFICIENCY VIRUS [HIV] DISEASE (3) Staphylococcus aureus bacteremia Code(s): R78.81 - BACTEREMIA (4) HIV (human immunodeficiency virus infection) Code(s): Z21 - ASYMPTOMATIC HUMAN IMMUNODEFICIENCY VIRUS INFECTION STATUS Assessment/Plan Current Medications Generic Name Dose Route Start Last Admin Trade Name Freq PRN Reason Stop Dose Admin Abacavir Sulfate 300 mg 07/14/17 15:30 07/15/17 16:12 Ziagen - PO 300 mg BID JAZMINE Administration Acetaminophen 1,000 mg 07/12/17 19:22 07/14/17 15:35 Tylenol - PO 1,000 mg Q6H PRN Administration FEVER OR PAIN Atovaquone 1,500 mg 07/14/17 15:15 07/15/17 16:12 Mepron - PO 1,500 mg DAILY@0800 JAZMINE Administration Heparin Sodium (Porcine) 5,000 unit 07/11/17 18:00 07/14/17 18:37 Heparin - SQ 5,000 unit Q8H-IV JAZMINE Administration Nafcillin Sodium 2 gm/ 100 mls @ 100 mls/hr 07/12/17 19:00 07/15/17 13:38 Dextrose IVPB 100 mls/hr Q4H-IV JAZMINE Administration Protocol Metoprolol Tartrate 25 mg 07/13/17 22:00 07/15/17 11:06 Lopressor - PO Not Given BID JAZMINE Impression 1. ESRD 2. HIV 3. HTN 4. sepsis 5. anemia 6. bacteremia - staph Plan - cont abx - will evaluate labs daily - will try to keep pt catheter free for as long as possible - kamlesh neg for vegetations - discussed with ID - follow repeat blood cultures - epogen for anemia Dr Garcia
--- NOTE | 2017-07-15 17:22 | PN ---
Progress Note (short form) - Note Progress Note: Vascular Surgery Pt on IV antibiotics for endocarditis. Will be on standby for new cath placement for HD. infected permacath removed. Robert Morgan DO
--- NOTE | 2017-07-15 19:51 | PN ---
Teaching Attending Note Name of Resident: Stefan Willett ATTENDING PHYSICIAN STATEMENT I saw and evaluated the patient. I reviewed the resident's note and discussed the case with the resident. I agree with the resident's findings and plan as documented. SUBJECTIVE: OBJECTIVE: Vital Signs Temperature 98.6 F 07/15/17 16:35 Pulse Rate 90 07/15/17 16:35 Respiratory Rate 20 07/15/17 16:35 Blood Pressure 149/79 07/15/17 16:35 O2 Sat by Pulse Oximetry (%) 99 07/15/17 12:39 CBCD WBC 7.2 K/mm3 (4.0-10.0) 07/14/17 06:20 RBC 2.76 M/mm3 (4.00-5.60) L 07/14/17 06:20 Hgb 8.1 GM/dL (11.7-16.9) L 07/14/17 06:20 Hct 24.3 % (35.4-49) L 07/14/17 06:20 MCV 88.0 fl (80-96) 07/14/17 06:20 MCHC 33.5 g/dl (32.0-35.9) 07/14/17 06:20 RDW 14.3 % (11.9-15.9) 07/14/17 06:20 Plt Count 138 K/MM3 (134-434) D 07/14/17 06:20 MPV 9.4 fl (7.5-11.1) 07/14/17 06:20 CMP Sodium 135 mmol/L (136-145) L 07/15/17 07:00 Potassium 4.2 mmol/L (3.5-5.1) 07/15/17 07:00 Chloride 99 mmol/L (98-107) 07/15/17 07:00 Carbon Dioxide 27 mmol/L (21-32) 07/15/17 07:00 Anion Gap 9 (8-16) 07/15/17 07:00 BUN 32 mg/dL (7-18) H D 07/15/17 07:00 Creatinine 6.7 mg/dL (0.7-1.3) H D 07/15/17 07:00 Creat Clearance w eGFR 6.09 (>60) 07/13/17 09:00 Random Glucose 112 mg/dL (74-106) H D 07/15/17 07:00 Calcium 7.4 mg/dL (8.5-10.1) L 07/15/17 07:00 Total Bilirubin 3.5 mg/dL (0.2-1.0) H 07/15/17 07:00 AST 48 U/L (15-37) H 07/15/17 07:00 ALT 47 U/L (12-78) 07/15/17 07:00 Alkaline Phosphatase 127 U/L (45-117) H 07/15/17 07:00 Total Protein 6.2 g/dl (6.4-8.2) L 07/15/17 07:00 Albumin 2.1 g/dl (3.4-5.0) L 07/15/17 07:00 CARDIAC ENZYMES Creatine Kinase 142 IU/L (39-308) 07/11/17 11:07 Troponin I < 0.02 ng/ml (0.00-0.05) 07/11/17 11:07 Current Medications Generic Name Dose Route Start Last Admin Trade Name Fre PRN Reason Stop Dose Admin Abacavir Sulfate 300 mg 07/14/17 15:30 07/15/17 16:12 Ziagen - PO 300 mg BID JAZMINE Administration Acetaminophen 1,000 mg 07/12/17 19:22 07/14/17 15:35 Tylenol - PO 1,000 mg Q6H PRN Administration FEVER OR PAIN Atovaquone 1,500 mg 07/14/17 15:15 07/15/17 16:12 Mepron - PO 1,500 mg DAILY@0800 JAZMINE Administration Heparin Sodium (Porcine) 5,000 unit 07/11/17 18:00 07/14/17 18:37 Heparin - SQ 5,000 unit Q8H-IV JAZMINE Administration Nafcillin Sodium 2 gm/ 100 mls @ 100 mls/hr 07/12/17 19:00 07/15/17 18:14 Dextrose IVPB 100 mls/hr Q4H-IV JAZMINE Administration Protocol Metoprolol Tartrate 25 mg 07/13/17 22:00 07/15/17 11:06 Lopressor - PO Not Given BID [facility] Home Medications Medication Instructions Recorded Abacavir Sulfate [Ziagen -] 300 mg PO BID #60 tablet 06/24/17 Acetaminophen [Tylenol] 2 tab PO Q6H PRN #30 tablet MDD 8 06/24/17 Amlodipine Besylate [Norvasc -] 10 mg PO DAILY #30 tablet 06/24/17 Atovaquone [Mepron Oral Solution -] 750 mg PO BIDWM #120 mg 06/24/17 Dolutegravir Sodium [Tivicay] 50 mg PO DAILY #30 tablet 06/24/17 Glimepiride 2 mg PO DAILY #30 tablet 06/24/17 Metoprolol Tartrate [Lopressor -] 25 mg PO BID #60 mg 06/24/17 Multivitamin-Min/Iron/FA/Vit K 1 each PO DAILY #30 tablet 06/24/17 [Multi-Day Plus Minerals Tablet] Rilpivirine HCl [Edurant] 25 mg PO DAILY #30 tablet 06/24/17 07/11/17 11:40 Blood - Peripheral Venous Blood Culture - Preliminary Staphylococcus Aureus 07/11/17 11:07 Blood - Peripheral Venous Blood Culture - Preliminary Staphylococcus Aureus 07/11/17 17:10 Blood - Pre-Dialysis Blood Culture - Final Staphylococcus Aureus 07/11/17 17:10 Blood - Pre-Dialysis Blood Culture - Final Staphylococcus Aureus 07/11/17 11:28 Urine - Urine Clean Catch Urine Culture - Final NO GROWTH OBTAINED PE: per resident's note ASSESSMENT AND PLAN: 56 yo M with PMhx of HTN, Diabetes, HIV (stopped taking HARRT) three months ago, presents with 3 day history of fever and chills will be admitted for sepsis secondary to bactermia. # Sepsis with Staphylococcus aureus bacteremia 4/ , fever resolved s/p one dose of cefepime. Vancomycin level is 15 , will continue IV Nafcillin 2gm. Most likely due from infected AV fistula. Pending organism and sensitivity.S/p Vanco and Zosyn given in ED. Echo Mobile echodensity attached to Aortic valve and Mitral valve. s/p One liter of IVF. s/p one dose of IV Tylenol. Continue with PO Tylenol 1gm q6h prn. Going for WILLARD in am, NPO after midnight. # # HIV (human immunodeficiency virus infection); HAART has been on hold for last three months. ID consulted, CD4 count is low, added Mepron 1500mg po daily , and on Ziagen continue # Diabetes mellitus type II controlled : diet controlled # CKD (chronic kidney disease) ; He is on MWF schedule. Post dialysis , Nephro will remove the femoral catheter. and will re-access after cultures come back negative. # HTN (hypertension); Essenital HTN. Metoprolol and Amlodipine continue . Hold parameters for SBP<90 or HR <55 DVT : Sq heparin
[2017-07-16] MEDS: NAFCILLIN - 2 GM in DEXTROSE 5%-WATER - 100 ML IVPB SCH ×6 (01:30→22:55)
[2017-07-16] MEDS: HEPARIN NA (PORCINE) 5,000 UNITS/ML 1ML VIAL SQ SCH ×3 (02:13→17:33)
[2017-07-16] MEDS ORDERED: PT OWN MED DRAWER 7, Y5N ONE ×2 (05:20→08:42)
[2017-07-16 08:16] LABS: MCH 29.5 pg (25.7-33.7); MEAN CELL VOLUME 89.2 fl (80-96); PLATELET COUNT 206 K/MM3 (134-434); RDW 14.6 % (11.9-15.9); WHITE BLOOD COUNT 6.8 K/mm3 (4.0-10.0)
[2017-07-16 09:10] LABS: ALK PHOS 131 U/L (45-117); ANION GAP 12 (8-16); BILIRUBIN,TOTAL 4.1 mg/dL (0.2-1.0); CALCIUM 7.7 mg/dL (8.5-10.1); CO2 24 mmol/L (21-32); GLUCOSE,RANDOM 97 mg/dL (74-106); SGOT/AST 72 U/L (15-37); SGPT/ALT 60 U/L (12-78); TOT PROT 6.3 g/dl (6.4-8.2)
[2017-07-16] MEDS: METOPROLOL TARTRATE 25 MG TABLET (FP) PO SCH ×2 (09:31→22:56)
[2017-07-16] MEDS: DOLUTEGRAVIR SODIUM 50 MG TABLET PO SCH (09:32)
[2017-07-16] MEDS: ABACAVIR SULFATE 300 MG TABLET PO SCH ×2 (09:32→22:56)
[2017-07-16] MEDS: ATOVAQUONE 750 MG/5 ML (UNIT-DOSE PACKAGING) PO SCH (09:32)
[2017-07-16 09:42] LABS: CREATININE 7.5 mg/dL (0.7-1.3)
[2017-07-16] MEDS: RILPIVIRINE HCL 25 MG PO SCH (12:17)
--- NOTE | 2017-07-16 12:44 | PN ---
Progress Note, Physician History of Present Illness: Pt seen and examined at bedside. He is awake and alert. He denies shortness of breath. - Current Medication List Current Medications: Active Medications Abacavir Sulfate (Ziagen -) 300 mg PO BID [facility] Last Admin: 07/16/17 09:32 Dose: 300 mg Acetaminophen (Tylenol -) 1,000 mg PO Q6H PRN PRN Reason: FEVER OR PAIN Last Admin: 07/14/17 15:35 Dose: 1,000 mg Atovaquone (Mepron -) 1,500 mg PO DAILY@0800 [facility] Last Admin: 07/16/17 09:32 Dose: 1,500 mg Heparin Sodium (Porcine) (Heparin -) 5,000 unit SQ Q8H-IV [facility] Last Admin: 07/16/17 09:31 Dose: 5,000 unit Nafcillin Sodium 2 gm/ (Dextrose) 100 mls @ 100 mls/hr IVPB Q4H-IV JAZMINE PRN Reason: Protocol Last Admin: 07/16/17 09:33 Dose: 100 mls/hr Metoprolol Tartrate (Lopressor -) 25 mg PO BID [facility] Last Admin: 07/16/17 09:31 Dose: 25 mg - Objective Vital Signs: Vital Signs Temperature 98.4 F 07/16/17 10:00 Pulse Rate 87 07/16/17 10:00 Respiratory Rate 16 07/16/17 10:00 Blood Pressure 123/82 07/16/17 10:00 O2 Sat by Pulse Oximetry (%) 99 07/16/17 09:00 Constitutional: Yes: Calm Eyes: Yes: Conjunctiva Clear HENT: Yes: Atraumatic Neck: Yes: Supple Cardiovascular: Yes: S1, S2 Respiratory: Yes: CTA Bilaterally Gastrointestinal: Yes: Soft Genitourinary: Yes: Other (hernia) Musculoskeletal: Yes: WNL Edema: No Neurological: Yes: Oriented Psychiatric: Yes: Oriented Labs: CBC, BMP 07/16/17 06:50 07/16/17 06:50 INR, PTT INR 1.24 (0.82-1.09) H 07/11/17 11:07 Problem List - Problems (1) Anemia Code(s): D64.9 - ANEMIA, UNSPECIFIED (2) AIDS Code(s): B20 - HUMAN IMMUNODEFICIENCY VIRUS [HIV] DISEASE (3) Staphylococcus aureus bacteremia Code(s): R78.81 - BACTEREMIA (4) HIV (human immunodeficiency virus infection) Code(s): Z21 - ASYMPTOMATIC HUMAN IMMUNODEFICIENCY VIRUS INFECTION STATUS Assessment/Plan Current Medications Generic Name Dose Route Start Last Admin Trade Name Freq PRN Reason Stop Dose Admin Abacavir Sulfate 300 mg 07/14/17 15:30 07/16/17 09:32 Ziagen - PO 300 mg BID JAZMINE Administration Acetaminophen 1,000 mg 07/12/17 19:22 07/14/17 15:35 Tylenol - PO 1,000 mg Q6H PRN Administration FEVER OR PAIN Atovaquone 1,500 mg 07/14/17 15:15 07/16/17 09:32 Mepron - PO 1,500 mg DAILY@0800 JAZMINE Administration Heparin Sodium (Porcine) 5,000 unit 07/11/17 18:00 07/16/17 09:31 Heparin - SQ 5,000 unit Q8H-IV JAZMINE Administration Nafcillin Sodium 2 gm/ 100 mls @ 100 mls/hr 07/12/17 19:00 07/16/17 09:33 Dextrose IVPB 100 mls/hr Q4H-IV JAZMINE Administration Protocol Metoprolol Tartrate 25 mg 07/13/17 22:00 07/16/17 09:31 Lopressor - PO 25 mg BID JAZMINE Administration Impression 1. ESRD 2. HIV 3. HTN 4. sepsis 5. anemia 6. bacteremia - staph 7. hernia Plan - cont to follow blood cultures - will hold off HD today - repeat labs in am - ID follow up - will decide on HD tomorrow after evaluating labs and pt - kamlesh neg for vegetations - discussed with ID - epogen for anemia - discussed plan with pt - spoke to HD team - vascular follow up - cont wound care Dr Garcia
--- NOTE | 2017-07-16 13:35 | PN ---
Progress Note (short form) - Note Progress Note: vascular surgery Discussed case with ID New cx ordered today Hoping to place new PC on friday if cx are neg Robert Morgan DO
--- NOTE | 2017-07-16 13:36 | PN ---
Progress Note (short form) - Note Progress Note: Chief Complaint: Events noted, notes reviewed, denies any chest pain or dyspnea History of Present Illness: Seen and examined. Events noted, notes reviewed, denies any chest pain or dyspnea WILLARD revealed no evidence of valvular vegetations Echocardiography dated 07/11/2017 Low normal LV function, small mobile echodensity on posterior leaflet of MV and aortic valve suspicious for vegetation, mild MR and TR Medications: Current Medications Abacavir Sulfate (Ziagen -) 300 mg PO BID [facility] Last Admin: 07/16/17 09:32 Dose: 300 mg Acetaminophen (Tylenol -) 1,000 mg PO Q6H PRN PRN Reason: FEVER OR PAIN Last Admin: 07/14/17 15:35 Dose: 1,000 mg Atovaquone (Mepron -) 1,500 mg PO DAILY@0800 [facility] Last Admin: 07/16/17 09:32 Dose: 1,500 mg Heparin Sodium (Porcine) (Heparin -) 5,000 unit SQ Q8H-IV [facility] Last Admin: 07/16/17 09:31 Dose: 5,000 unit Nafcillin Sodium 2 gm/ (Dextrose) 100 mls @ 100 mls/hr IVPB Q4H-IV JAZMINE PRN Reason: Protocol Last Admin: 07/16/17 13:27 Dose: 100 mls/hr Metoprolol Tartrate (Lopressor -) 25 mg PO BID [facility] Last Admin: 07/16/17 09:31 Dose: 25 mg Vital Signs: Last Vital Signs Temp Pulse Resp BP Pulse Ox 98.4 F 87 16 123/82 99 07/16/17 10:00 07/16/17 10:00 07/16/17 10:00 07/16/17 10:00 07/16/17 09:00 Intake & Output 07/13/17 07/14/17 07/15/17 07/16/17 23:59 23:59 23:59 23:59 Intake Total 1775 6972 659 0576 Output Total 800 300 300 Balance 975 130 605 4529 Constitutional: No Distress, Calm Neck: Supple Negative JVD no bruit appreciated Respiratory: Diminished Breath sounds at the bases Cardiovascular: S1 and S2 regular rate and rhythm grade 2/6 systolic ejection murmur Gastrointestinal: Soft benign Normal Bowel Sounds Ext: No Edema Labs: CBC, BMP 07/16/17 06:50 07/16/17 06:50 Hepatic Panel Total Bilirubin 4.1 mg/dL (0.2-1.0) H 07/16/17 06:50 Direct Bilirubin 2.1 mg/dL (0.0-0.2) H 07/15/17 07:00 AST 72 U/L (15-37) H D 07/16/17 06:50 ALT 60 U/L (12-78) D 07/16/17 06:50 Alkaline Phosphatase 131 U/L (45-117) H 07/16/17 06:50 Albumin 2.0 g/dl (3.4-5.0) L 07/16/17 06:50 Microbiology 07/15/17 09:45 Blood - Peripheral Venous Blood Culture - Preliminary NO GROWTH OBTAINED AFTER 24 HOURS, INCUBATION TO CONTINUE FOR 4 DAYS. 07/15/17 09:48 Blood - Peripheral Venous Blood Culture - Preliminary NO GROWTH OBTAINED AFTER 24 HOURS, INCUBATION TO CONTINUE FOR 4 DAYS. 07/14/17 15:56 Blood - Post-Dialysis Blood Culture - Preliminary NO GROWTH OBTAINED AFTER 24 HOURS, INCUBATION TO CONTINUE FOR 4 DAYS. 07/11/17 11:40 Blood - Peripheral Venous Blood Culture - Final Staph Aureus Vanco Intermediat 07/14/17 15:56 Blood - Post-Dialysis Blood Culture - Preliminary Pending Organism 07/11/17 17:10 Blood - Pre-Dialysis Blood Culture - Final Staphylococcus Aureus 07/11/17 17:10 Blood - Pre-Dialysis Blood Culture - Final Staphylococcus Aureus 07/11/17 11:07 Blood - Peripheral Venous Blood Culture - Final Staphylococcus Aureus Assessment/Plan ASSESSMENT: 1. Staphylococcus aureus bacteremia/line sepsis with no evidence of valvular endocarditis by WILLARD criteria, post infected line removal (possible infected residual thrombus) 2. HTN 3. DM 4. ESRD on HD 5. HIV-AIDS PLAN: 1. Antibiotics as per the primary and ID teams 2. Continue Lopressor, hemodynamics permitting 3. Continue Lipitor 4. If bacteremia/fever persists consideration for the above-noted potential differential diagnosis of an infected residual thrombus in the right subclavian vein Azar Callahan M.D.
--- NOTE | 2017-07-16 13:56 | PN ---
Progress Note (short form) - Note Progress Note: no complaints reports he is taking his ART at home femoral catheter out WILLARD d/w Dr Monreal- negative for valvular vegetation Vital Signs Period Temp Pulse Resp BP Sys/Estrada Pulse Ox Last 24 Hr 98.1 F-98.8 F 82-90 16-20 123-149/71-82 99-99 cor-rrr lungs clear abd soft,nt ext no edema CBC, BMP 07/16/17 06:50 07/16/17 06:50 Microbiology 07/15/17 09:45 Blood - Peripheral Venous Blood Culture - Preliminary NO GROWTH OBTAINED AFTER 24 HOURS, INCUBATION TO CONTINUE FOR 4 DAYS. 07/15/17 09:48 Blood - Peripheral Venous Blood Culture - Preliminary NO GROWTH OBTAINED AFTER 24 HOURS, INCUBATION TO CONTINUE FOR 4 DAYS. 07/14/17 15:56 Blood - Post-Dialysis Blood Culture - Preliminary NO GROWTH OBTAINED AFTER 24 HOURS, INCUBATION TO CONTINUE FOR 4 DAYS. 07/11/17 11:40 Blood - Peripheral Venous Blood Culture - Final Staph Aureus Vanco Intermediat 07/14/17 15:56 Blood - Post-Dialysis Blood Culture - Preliminary Pending Organism 07/11/17 17:10 Blood - Pre-Dialysis Blood Culture - Final Staphylococcus Aureus 07/11/17 17:10 Blood - Pre-Dialysis Blood Culture - Final Staphylococcus Aureus 07/11/17 11:07 Blood - Peripheral Venous Blood Culture - Final Staphylococcus Aureus 07/11/17 11:28 Urine - Urine Clean Catch Urine Culture - Final NO GROWTH OBTAINED a/p MSSA bacteremia endocarditis WILLARD negative continue nafcillin repeat blood cultures negative, will repeat again, hopefully permacath can be placed on Friday duplex negative infected permacath removed intermediated vanco sensitivity!-VISA-needs contact isolation esrd/hd HIV-aids by tcells continue hiv meds- continue his mepron for pcp prophylaxis as well d/w Dr Morgan D/w hospitalist Problem List - Problems (1) Staphylococcus aureus bacteremia Code(s): R78.81 - BACTEREMIA (2) ESRD (end stage renal disease) on dialysis Code(s): N18.6 - END STAGE RENAL DISEASE; Z99.2 - DEPENDENCE ON RENAL DIALYSIS (3) AIDS Code(s): B20 - HUMAN IMMUNODEFICIENCY VIRUS [HIV] DISEASE
[2017-07-16 14:26] LABS: TOTAL CELLS COUNTED 100
[2017-07-16 14:27] LABS: NUCLEATED RED BLOOD CELL 1 % (0-0); PLATELET ESTIMATE ADEQUATE
--- NOTE | 2017-07-16 18:47 | PN ---
Physical Exam: SUBJECTIVE: Pt afebrile last night. No acute events overnight. 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 Pt was also concerned if the need for another shiley would have to be put in. Denies fever/chills, visual disturbances, SOB, CP/discomfort, and groin pain. OBJECTIVE: Vital Signs Period Temp Pulse Resp BP Sys/Estrada Pulse Ox Last 24 Hr 98.0 F-98.8 F 77-88 16-20 123-162/71-87 99-99 GENERAL: NAD, resting comfortably in bed. HEENT: Moist mucosa, EOMI, ANDREW LUNGS: CTA bilaterally, no wheezes, rhonchi, rales. HEART: RRR, S1, S2 present with 3+/6 systolic murmur heard throughout all tomlin (strongest in apex and R upper sternal border) ABDOMEN: Soft, nontender, nondistended, normoactive bowel sounds, no guarding, no rebound, no hepatomegaly EXTREMITIES: DP, PT 2+ pulses, no edema NEUROLOGICAL: alert and orientedx3. 5/5 strength throughout. SKIN: L hand scar near wrist noted. No splinter hemorrhages or rash noted. No Janeway lesions. No oslers nodes appreciated. Laboratory Results - last 24 hr 07/16/17 07/16/17 06:50 06:50 WBC 6.8 RBC 2.70 L Hgb 8.0 L Hct 24.1 L MCV 89.2 MCH 29.5 MCHC 33.0 RDW 14.6 Plt Count 206 D MPV 9.0 Total Counted 100 Neutrophils % No Result Required. Neutrophils % (Manual) 65.0 Band Neutrophils % 1.0 Lymphocytes % No Result Required. Lymphocytes % (Manual) 14.0 D Monocytes % (Manual) 12 H Eosinophils % (Manual) 8.0 H D Nucleated RBC % 1 H Platelet Estimate Adequate Sodium 135 L Potassium 4.4 Chloride 99 Carbon Dioxide 24 Anion Gap 12 BUN 40 H D Creatinine 7.5 H* Creat Clearance w eGFR 7.61 Random Glucose 97 Calcium 7.7 L Total Bilirubin 4.1 H AST 72 H D ALT 60 D Alkaline Phosphatase 131 H Total Protein 6.3 L Albumin 2.0 L Active Medications Generic Name Dose Route Start Last Admin Trade Name Freq PRN Reason Stop Dose Admin Abacavir Sulfate 300 mg 07/14/17 15:30 07/16/17 09:32 Ziagen - PO 300 mg BID JAZMINE Administration Acetaminophen 1,000 mg 07/12/17 19:22 07/14/17 15:35 Tylenol - PO 1,000 mg Q6H PRN Administration FEVER OR PAIN Atovaquone 1,500 mg 07/14/17 15:15 07/16/17 09:32 Mepron - PO 1,500 mg DAILY@0800 JAZMINE Administration Heparin Sodium (Porcine) 5,000 unit 07/11/17 18:00 07/16/17 17:33 Heparin - SQ Not Given Q8H-IV JAZMINE Nafcillin Sodium 2 gm/ 100 mls @ 100 mls/hr 07/12/17 19:00 07/16/17 17:33 Dextrose IVPB 100 mls/hr Q4H-IV JAZMINE Administration Protocol Metoprolol Tartrate 25 mg 07/13/17 22:00 07/16/17 09:31 Lopressor - PO 25 mg BID JAZMINE Administration ASSESSMENT/PLAN: 1) Sepsis 2/2 staph aureus bacteremia --WILLARD shows no vegetations --Suspected TTE findings might be due to calcifications --Continue Lopressor 25mg PO BID --07/15 cultures negative --Will repeat cultures today --ID on board --Continue Naficillin 2gm --Tylenol 1gm PRN q6 for fever 2) CKD --Pt is on HD MWF; Laura krishnan removed for potential seeding at the moment --Dr. Garcia following --Will need access tomorrow if plans for dialysis --Dr. Morgan on case: if newest blood cultures are negative will plan for permacath on Friday 3) DM Type II --BGM --Glucose levels controlled currently with proper diet 4) HIV --Pt currently on Ziagen, Edurant, and Tivacay --Pt continue Mepron for PCP prophylaxis 5) HTN --Essential HTN --Lopressor continued as above FEN: Fluids: None currently: tolerating PO and on HD Electrolyte abnormalities: Na stable at 135; K 4.4 Nutrition: Renal and diabetic diet PPX: DVT - Heparin 5000U SQ TID Case discussed with Dr. Nenita Willett, DO - Internal Medicine PGY-1 Visit type - Emergency Visit Emergency Visit: No - New Patient This patient is new to me today: No - Critical Care Critical Care patient: No
--- NOTE | 2017-07-16 20:05 | PN ---
Teaching Attending Note Name of Resident: Stefan Willett ATTENDING PHYSICIAN STATEMENT I saw and evaluated the patient. I reviewed the resident's note and discussed the case with the resident. I agree with the resident's findings and plan as documented. SUBJECTIVE: no fever or chills, feels better today OBJECTIVE: NAd CV : RRR, 3/6 Sm all over pericardium LUngs : CTAB ext : no edema . ABd: soft, NT, ND , NL BS declined Scrotum exam ASSESSMENT AND PLAN: 56 yo Man with of HTN, Diabetes, HIV who presented with fever and chills and was found to have Sepssi due to MSSA bacteremia 1- Sepsis with MSSA bacteremia: last blood cx neg , blood cx drawn again today - d/w Dr. Burns. cont NAficillin - follow repeat blood cx - no vegetations on WILLARD - no thrombus in subclavians 2- ESRD on HD . no access now . No urgent need for HD - plan for permacath on Friday if blood cx remains neg 3- DM : HIV: meds reviewed with pt - cont his home regimen 4- HTN: cont metoprolol. Add Norvasc Might need rehab fro IV ABx at [place] . 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
[2017-07-17] MEDS: NAFCILLIN - 2 GM in DEXTROSE 5%-WATER - 100 ML IVPB SCH ×6 (02:06→21:25)
[2017-07-17] MEDS: HEPARIN NA (PORCINE) 5,000 UNITS/ML 1ML VIAL SQ SCH ×3 (02:07→18:47)
[2017-07-17 07:15] LABS: BASOPHIL 0.5 % (0-2.0); EOSINOPHIL 6.9 % (0-4.5); MCH 29.2 pg (25.7-33.7); MCHC 33.1 g/dl (32.0-35.9); MEAN CELL VOLUME 88.2 fl (80-96); MEAN PLT VOLUME 8.4 fl (7.5-11.1); NEUTROPHILS 67.6 % (42.8-82.8); PLATELET COUNT 256 K/MM3 (134-434); RDW 14.7 % (11.9-15.9); WHITE BLOOD COUNT 7.4 K/mm3 (4.0-10.0)
--- NOTE | 2017-07-17 07:29 | PN ---
Physical Exam: SUBJECTIVE: Pt remains afebrile and there were note acute events noted overnight. Pt has no complaints today, but is adamant about not having another shiley placed. Pt denies fever/chills, SOB, CP/discomfort, headache, visual changes, neck stiffness, and leg pain. OBJECTIVE: Vital Signs Period Temp Pulse Resp BP Sys/Estrada Pulse Ox Last 24 Hr 98.0 F-98.5 F 77-87 16-20 123-162/68-87 97-99 GENERAL: NAD, resting comfortably in bed. HEENT: Moist mucosa, EOMI, ANDREW LUNGS: CTA bilaterally, no wheezes, rhonchi, rales. HEART: RRR, S1, S2 present with 3+/6 systolic murmur heard throughout all tomlin (strongest in apex and R upper sternal border) ABDOMEN: Soft, nontender, nondistended, normoactive bowel sounds, no guarding, no rebound, no hepatomegaly /Groin: Deferred today EXTREMITIES: DP, PT 2+ pulses, no edema NEUROLOGICAL: alert and orientedx3. 5/5 strength throughout. No neck stiffness SKIN: L hand scar near wrist noted. No splinter hemorrhages or rash noted. No Janeway lesions. No oslers nodes appreciated. Laboratory Results - last 24 hr 07/16/17 07/16/17 06:50 06:50 WBC 6.8 RBC 2.70 L Hgb 8.0 L Hct 24.1 L MCV 89.2 MCH 29.5 MCHC 33.0 RDW 14.6 Plt Count 206 D MPV 9.0 Total Counted 100 Neutrophils % No Result Required. Neutrophils % (Manual) 65.0 Band Neutrophils % 1.0 Lymphocytes % No Result Required. Lymphocytes % (Manual) 14.0 D Monocytes % (Manual) 12 H Eosinophils % (Manual) 8.0 H D Nucleated RBC % 1 H Platelet Estimate Adequate Sodium 135 L Potassium 4.4 Chloride 99 Carbon Dioxide 24 Anion Gap 12 BUN 40 H D Creatinine 7.5 H* Creat Clearance w eGFR 7.61 Random Glucose 97 Calcium 7.7 L Total Bilirubin 4.1 H AST 72 H D ALT 60 D Alkaline Phosphatase 131 H Total Protein 6.3 L Albumin 2.0 L Active Medications Generic Name Dose Route Start Last Admin Trade Name Freq PRN Reason Stop Dose Admin Abacavir Sulfate 300 mg 07/14/17 15:30 07/16/17 22:56 Ziagen - PO 300 mg BID JAZMINE Administration Acetaminophen 1,000 mg 07/12/17 19:22 07/14/17 15:35 Tylenol - PO 1,000 mg Q6H PRN Administration FEVER OR PAIN Amlodipine Besylate 10 mg 07/17/17 10:00 Norvasc - PO DAILY JAZMINE Atovaquone 1,500 mg 07/14/17 15:15 07/16/17 09:32 Mepron - PO 1,500 mg DAILY@0800 JAZMINE Administration Heparin Sodium (Porcine) 5,000 unit 07/11/17 18:00 07/17/17 02:07 Heparin - SQ Not Given Q8H-IV [facility]INE Nafcillin Sodium 2 gm/ 100 mls @ 100 mls/hr 07/12/17 19:00 07/17/17 05:55 Dextrose IVPB 100 mls/hr Q4H-IV JAZMINE Administration Protocol Metoprolol Tartrate 25 mg 07/13/17 22:00 07/16/17 22:56 Lopressor - PO 25 mg BID JAZMINE Administration ASSESSMENT/PLAN: 1) Sepsis 2/2 staph aureus bacteremia --WILLARD shows no vegetations --07/15 cultures remain negative; 07/16 cultures still pending and expect to f/u today --ID on board --Continue Naficillin 2gm --Tylenol 1gm PRN q6 for fever 2) CKD --Pt is on HD MWF; currently has no vascular access for HD --Neprhology on board; will decide if HD is necessary today based on pending labs this morning --Overall plan is if 07/16 cultures are negative than pt can receive permacath on Friday for routine dialysis --Vascular surgery on board and agrees 3) DM Type II --BGM --Glucose levels controlled currently with proper diet 4) HIV --Pt currently on Ziagen, Edurant, and Tivacay --Pt continue Mepron for PCP prophylaxis 5) HTN --Essential HTN --Lopressor 25mg BID PO --Currently controlled 144/68 today FEN: Fluids: None currently: tolerating PO and on HD Electrolyte abnormalities: Pending labs; replete as necessary Nutrition: Renal and diabetic diet PPX: DVT - Heparin 5000U SQ TID Case discussed with Dr. Nenita Willett, DO - Internal Medicine PGY-1 Visit type - Emergency Visit Emergency Visit: No - New Patient This patient is new to me today: No - Critical Care Critical Care patient: No
[2017-07-17 07:49] LABS: ALK PHOS 143 U/L (45-117); ANION GAP 13 (8-16); BILIRUBIN,TOTAL 3.4 mg/dL (0.2-1.0); CALCIUM 7.8 mg/dL (8.5-10.1); CO2 21 mmol/L (21-32); GLUCOSE,RANDOM 133 mg/dL (74-106); SGOT/AST 50 U/L (15-37); SGPT/ALT 57 U/L (12-78); TOT PROT 6.5 g/dl (6.4-8.2)
[2017-07-17 09:05] LABS: CREATININE 8.4 mg/dL (0.7-1.3)
--- NOTE | 2017-07-17 10:08 | PN ---
Progress Note, Physician Chief Complaint: ID Nafcillin Feels well - Current Medication List Current Medications: Active Medications Abacavir Sulfate (Ziagen -) 300 mg PO BID [facility] Last Admin: 07/16/17 22:56 Dose: 300 mg Acetaminophen (Tylenol -) 1,000 mg PO Q6H PRN PRN Reason: FEVER OR PAIN Last Admin: 07/14/17 15:35 Dose: 1,000 mg Amlodipine Besylate (Norvasc -) 10 mg PO DAILY [facility] Atovaquone (Mepron -) 1,500 mg PO DAILY@0800 [facility] Last Admin: 07/16/17 09:32 Dose: 1,500 mg Heparin Sodium (Porcine) (Heparin -) 5,000 unit SQ Q8H-IV [facility] Last Admin: 07/17/17 02:07 Dose: Not Given Nafcillin Sodium 2 gm/ (Dextrose) 100 mls @ 100 mls/hr IVPB Q4H-IV JAZMINE PRN Reason: Protocol Last Admin: 07/17/17 05:55 Dose: 100 mls/hr Metoprolol Tartrate (Lopressor -) 25 mg PO BID [facility] Last Admin: 07/16/17 22:56 Dose: 25 mg - Objective Vital Signs: Vital Signs Temperature 98.5 F 07/17/17 06:00 Pulse Rate 77 07/17/17 06:00 Respiratory Rate 20 07/17/17 06:00 Blood Pressure 144/68 07/17/17 06:00 O2 Sat by Pulse Oximetry (%) 97 07/16/17 21:00 Constitutional: Yes: Well Nourished, No Distress HENT: Yes: WNL, Atraumatic Neck: Yes: WNL, Supple Cardiovascular: Yes: Regular Rate and Rhythm, S1, S2. No: Murmur Respiratory: Yes: WNL, Regular, CTA Bilaterally Gastrointestinal: Yes: Soft Edema: No Labs: CBC, BMP 07/17/17 06:00 07/17/17 06:00 INR, PTT INR 1.24 (0.82-1.09) H 07/11/17 11:07 Assessment/Plan Microbiology 07/15/17 09:48 Blood - Peripheral Venous Blood Culture - Preliminary NO GROWTH OBTAINED AFTER 24 HOURS, INCUBATION TO CONTINUE FOR 4 DAYS. 07/15/17 09:45 Blood - Peripheral Venous Blood Culture - Preliminary NO GROWTH OBTAINED AFTER 24 HOURS, INCUBATION TO CONTINUE FOR 4 DAYS. Laboratory Tests 07/15/17 07/17/17 07:00 06:00 WBC 7.4 Hgb 7.8 L Hct 23.6 L Plt Count 256 D C-Reactive Protein 8.6 H Assessment MSSA bacteremia Treat for few weeks with Cefazolin @ dialysis Plan Continue current antibiotics and await final blood cultures Germaine BAH
[2017-07-17] MEDS: amLODIPine BESYLATE 10 MG TABLET (FP) PO SCH (10:14)
[2017-07-17] MEDS: METOPROLOL TARTRATE 25 MG TABLET (FP) PO SCH ×2 (10:14→21:25)
[2017-07-17] MEDS: ATOVAQUONE 750 MG/5 ML (UNIT-DOSE PACKAGING) PO SCH (10:16)
[2017-07-17] MEDS: DOLUTEGRAVIR SODIUM 50 MG TABLET PO SCH (10:16)
[2017-07-17] MEDS: ABACAVIR SULFATE 300 MG TABLET PO SCH ×2 (10:17→21:25)
[2017-07-17] MEDS: RILPIVIRINE HCL 25 MG PO SCH (12:53)
--- NOTE | 2017-07-17 14:03 | PN ---
Progress Note, Physician Chief Complaint: Not in distress History of Present Illness: Patient was seen and examined. Awake and alert. Chart was reviewed Denies chest pain, SOB or palpitations - Current Medication List Current Medications: Active Medications Abacavir Sulfate (Ziagen -) 300 mg PO BID [facility] Last Admin: 07/17/17 10:17 Dose: 300 mg Acetaminophen (Tylenol -) 1,000 mg PO Q6H PRN PRN Reason: FEVER OR PAIN Last Admin: 07/14/17 15:35 Dose: 1,000 mg Amlodipine Besylate (Norvasc -) 10 mg PO DAILY [facility] Last Admin: 07/17/17 10:14 Dose: 10 mg Atovaquone (Mepron -) 1,500 mg PO DAILY@0800 [facility] Last Admin: 07/17/17 10:16 Dose: 1,500 mg Heparin Sodium (Porcine) (Heparin -) 5,000 unit SQ Q8H-IV [facility] Last Admin: 07/17/17 10:14 Dose: 5,000 unit Nafcillin Sodium 2 gm/ (Dextrose) 100 mls @ 100 mls/hr IVPB Q4H-IV JAZMINE PRN Reason: Protocol Last Admin: 07/17/17 10:15 Dose: 100 mls/hr Metoprolol Tartrate (Lopressor -) 25 mg PO BID [facility] Last Admin: 07/17/17 10:14 Dose: 25 mg - Objective Vital Signs: Vital Signs Temperature 98.5 F 07/17/17 10:00 Pulse Rate 83 07/17/17 10:00 Respiratory Rate 16 07/17/17 10:00 Blood Pressure 146/84 07/17/17 10:00 O2 Sat by Pulse Oximetry (%) 97 07/17/17 09:00 Neck: Yes: Supple Cardiovascular: Yes: Regular Rate and Rhythm, Murmur (Soft VONDA), S1, S2 Respiratory: Yes: CTA Bilaterally Gastrointestinal: Yes: Normal Bowel Sounds, Soft. No: Tenderness Edema: No Labs: CBC, BMP 07/17/17 06:00 07/17/17 06:00 Problem List - Problems (1) AIDS Code(s): B20 - HUMAN IMMUNODEFICIENCY VIRUS [HIV] DISEASE (2) Anemia Code(s): D64.9 - ANEMIA, UNSPECIFIED (3) Diabetes mellitus type II, controlled Code(s): E11.9 - TYPE 2 DIABETES MELLITUS WITHOUT COMPLICATIONS Qualifiers: Diabetes mellitus complication status: with kidney complications Diabetes mellitus complication detail: with chronic kidney disease Diabetes mellitus prison insulin use: unspecified prison insulin use status Chronic kidney disease stage: on chronic dialysis Qualified Code(s): E11.22 - Type 2 diabetes mellitus with diabetic chronic kidney disease; N18.6 - End stage renal disease; N18.6 - End stage renal disease; N18.6 - End stage renal disease; N18.6 - End stage renal disease; Z99.2 - Dependence on renal dialysis; Z99.2 - Dependence on renal dialysis; Z99.2 - Dependence on renal dialysis; Z99.2 - Dependence on renal dialysis (4) Staphylococcus aureus bacteremia Code(s): R78.81 - BACTEREMIA (5) AVF (arteriovenous fistula) Code(s): I77.0 - ARTERIOVENOUS FISTULA, ACQUIRED (6) CKD (chronic kidney disease) Code(s): N18.9 - CHRONIC KIDNEY DISEASE, UNSPECIFIED Qualifiers: Chronic kidney disease stage: on chronic dialysis Qualified Code(s): N18.6 - End stage renal disease (7) ESRD (end stage renal disease) on dialysis Code(s): N18.6 - END STAGE RENAL DISEASE; Z99.2 - DEPENDENCE ON RENAL DIALYSIS (8) HTN (hypertension) Code(s): I10 - ESSENTIAL (PRIMARY) HYPERTENSION Qualifiers: Hypertension type: essential hypertension Qualified Code(s): I10 - Essential (primary) hypertension Assessment/Plan 1. Staphylococcus aureus bacteremia/line sepsis post infected line removal - no evidence of vegetations 2. HTN 3. DM 4. ESRD on HD 5. HIV-AIDS PLAN: 1. Antibiotics coverage as per ID 2. Continue Lopressor and Amlodipine as tolerated 3.No further cardiac intervention is warranted Further plans are to follow Robbi Monreal MD
--- NOTE | 2017-07-17 14:34 | PN ---
Progress Note, Physician History of Present Illness: Pt seen and examined at bedside. He is awake and alert. He denies shortness of breath. - Current Medication List Current Medications: Active Medications Abacavir Sulfate (Ziagen -) 300 mg PO BID [facility] Last Admin: 07/17/17 10:17 Dose: 300 mg Acetaminophen (Tylenol -) 1,000 mg PO Q6H PRN PRN Reason: FEVER OR PAIN Last Admin: 07/14/17 15:35 Dose: 1,000 mg Amlodipine Besylate (Norvasc -) 10 mg PO DAILY [facility] Last Admin: 07/17/17 10:14 Dose: 10 mg Atovaquone (Mepron -) 1,500 mg PO DAILY@0800 [facility] Last Admin: 07/17/17 10:16 Dose: 1,500 mg Heparin Sodium (Porcine) (Heparin -) 5,000 unit SQ Q8H-IV [facility] Last Admin: 07/17/17 10:14 Dose: 5,000 unit Nafcillin Sodium 2 gm/ (Dextrose) 100 mls @ 100 mls/hr IVPB Q4H-IV [facility]INE PRN Reason: Protocol Last Admin: 07/17/17 14:12 Dose: 100 mls/hr Metoprolol Tartrate (Lopressor -) 25 mg PO BID [facility] Last Admin: 07/17/17 10:14 Dose: 25 mg - Objective Vital Signs: Vital Signs Temperature 98.5 F 07/17/17 10:00 Pulse Rate 83 07/17/17 10:00 Respiratory Rate 16 07/17/17 10:00 Blood Pressure 146/84 07/17/17 10:00 O2 Sat by Pulse Oximetry (%) 97 07/17/17 09:00 Constitutional: Yes: Calm Eyes: Yes: Conjunctiva Clear HENT: Yes: Atraumatic Neck: Yes: Supple Cardiovascular: Yes: S1, S2 Respiratory: Yes: CTA Bilaterally Gastrointestinal: Yes: Normal Bowel Sounds, Soft Genitourinary: Yes: WNL Musculoskeletal: Yes: WNL Edema: No Neurological: Yes: Oriented Psychiatric: Yes: Oriented Labs: CBC, BMP 07/17/17 06:00 07/17/17 06:00 INR, PTT INR 1.24 (0.82-1.09) H 07/11/17 11:07 Problem List - Problems (1) Anemia Code(s): D64.9 - ANEMIA, UNSPECIFIED (2) AIDS Code(s): B20 - HUMAN IMMUNODEFICIENCY VIRUS [HIV] DISEASE (3) Staphylococcus aureus bacteremia Code(s): R78.81 - BACTEREMIA (4) HIV (human immunodeficiency virus infection) Code(s): Z21 - ASYMPTOMATIC HUMAN IMMUNODEFICIENCY VIRUS INFECTION STATUS Assessment/Plan Current Medications Generic Name Dose Route Start Last Admin Trade Name Freq PRN Reason Stop Dose Admin Abacavir Sulfate 300 mg 07/14/17 15:30 07/17/17 10:17 Ziagen - PO 300 mg BID JAZMINE Administration Acetaminophen 1,000 mg 07/12/17 19:22 07/14/17 15:35 Tylenol - PO 1,000 mg Q6H PRN Administration FEVER OR PAIN Amlodipine Besylate 10 mg 07/17/17 10:00 07/17/17 10:14 Norvasc - PO 10 mg DAILY JAZ[facility]INE Administration Atovaquone 1,500 mg 07/14/17 15:15 07/17/17 10:16 Mepron - PO 1,500 mg DAILY@0800 [facility] Administration Heparin Sodium (Porcine) 5,000 unit 07/11/17 18:00 07/17/17 10:14 Heparin - SQ 5,000 unit Q8H-IV JAZ[facility]INE Administration Nafcillin Sodium 2 gm/ 100 mls @ 100 mls/hr 07/12/17 19:00 07/17/17 14:12 Dextrose IVPB 100 mls/hr Q4H-IV JAZMINE Administration Protocol Metoprolol Tartrate 25 mg 07/13/17 22:00 07/17/17 10:14 Lopressor - PO 25 mg BID JAZMINE Administration Impression 1. ESRD 2. HIV 3. HTN 4. sepsis 5. anemia 6. bacteremia - staph 7. hernia Plan - blood cultures from 07/15 and 07/16 are negative to date - likely permacath tomorrow, pending ID - will not dialyze today - repeat labs in am - cont abx - kamlesh neg for vegetations - epogen for anemia - discussed plan with pt - cont wound care Dr Garcia
--- NOTE | 2017-07-17 16:29 | PN ---
Progress Note (short form) - Note Progress Note: Vascular Surgery Will make pt npo for possible permacath robert. If blood cx remain negative and ID can clear, will place robert Robert brown DO
--- NOTE | 2017-07-17 17:22 | PN ---
Teaching Attending Note Name of Resident: Stefan Willett ATTENDING PHYSICIAN STATEMENT I saw and evaluated the patient. I reviewed the resident's note and discussed the case with the resident. I agree with the resident's findings and plan as documented. SUBJECTIVE: No fever or chills . Has no SOB or CP or cough OBJECTIVE: NAd CV: RRR, 3/6 SM all over pericardium LUngs : CTAB ext : no edema . ASSESSMENT AND PLAN: 56 yo Man with of HTN, Diabetes, HIV who presented with fever and chills and was found to have Sepssi due to MSSA bacteremia 1- Sepsis with MSSA bacteremia: last two blood cx remain neg to date - cont NAficillin - follow repeat blood cx - no vegetations on WILLARD 2- ESRD on HD. No urgent need for HD - plan for permacath tomorrow if blood cx remains neg then dialyze 3- DM : - Add SSI 4- HTN: cont metoprolol and Norvasc 5- HIV: cont home regimen HLOC
[2017-07-17] MEDS ORDERED: PT OWN MED DRAWER 7, Y5N ONE (21:19)
[2017-07-18] MEDS: HEPARIN NA (PORCINE) 5,000 UNITS/ML 1ML VIAL SQ SCH ×2 (02:07→09:55)
[2017-07-18] MEDS: NAFCILLIN - 2 GM in DEXTROSE 5%-WATER - 100 ML IVPB SCH ×4 (02:10→13:28)
[2017-07-18] MEDS: INSULIN SLIDING SCALE (NOVOLOG) 1 VIAL SQ SCH ×2 (06:04→12:22)
[2017-07-18] MEDS: ATOVAQUONE 750 MG/5 ML (UNIT-DOSE PACKAGING) PO SCH (07:20)
--- NOTE | 2017-07-18 07:53 | PN ---
Physical Exam: SUBJECTIVE: Patient seen and examined OBJECTIVE: Vital Signs Period Temp Pulse Resp BP Sys/Estrada Pulse Ox Last 24 Hr 97.8 F-98.9 F 79-90 16-18 146-157/84-98 97-97 GENERAL: The patient is awake, alert, and fully oriented, in no acute distress. HEAD: Normal with no signs of trauma. EYES: PERRL, extraocular movements intact, sclera anicteric, conjunctiva clear. No ptosis. ENT: Ears normal, nares patent, oropharynx clear without exudates, moist mucous membranes. NECK: Trachea midline, full range of motion, supple. LUNGS: Breath sounds equal, clear to auscultation bilaterally, no wheezes, no crackles, no accessory muscle use. HEART: Regular rate and rhythm, S1, S2 without murmur, rub or gallop. ABDOMEN: Soft, nontender, nondistended, normoactive bowel sounds, no guarding, no rebound, no hepatosplenomegaly, no masses. EXTREMITIES: 2+ pulses, warm, well-perfused, no edema. NEUROLOGICAL: Cranial nerves II through XII grossly intact. Normal speech, gait not observed. PSYCH: Normal mood, normal affect. SKIN: Warm, dry, normal turgor, no rashes or lesions noted Laboratory Results - last 24 hr 07/17/17 07/18/17 06:00 05:48 Sodium 133 L Potassium 4.2 Chloride 99 Carbon Dioxide 21 Anion Gap 13 BUN 40 H Creatinine 8.4 H* Creat Clearance w eGFR 6.68 POC Glucometer 117 Random Glucose 133 H D Calcium 7.8 L Total Bilirubin 3.4 H AST 50 H D ALT 57 Alkaline Phosphatase 143 H Total Protein 6.5 Albumin 2.0 L Active Medications Generic Name Dose Route Start Last Admin Trade Name Freq PRN Reason Stop Dose Admin Abacavir Sulfate 300 mg 07/14/17 15:30 07/17/17 21:25 Ziagen - PO 300 mg BID [facility] Administration Acetaminophen 1,000 mg 07/12/17 19:22 07/14/17 15:35 Tylenol - PO 1,000 mg Q6H PRN Administration FEVER OR PAIN Amlodipine Besylate 10 mg 07/17/17 10:00 07/17/17 10:14 Norvasc - PO 10 mg DAILY [facility] Administration Atovaquone 1,500 mg 07/14/17 15:15 07/18/17 07:20 Mepron - PO Not Given DAILY@0800 [facility] Heparin Sodium (Porcine) 5,000 unit 07/11/17 18:00 07/18/17 02:07 Heparin - SQ Not Given Q8H-IV [facility] Nafcillin Sodium 2 gm/ 100 mls @ 100 mls/hr 07/12/17 19:00 07/18/17 05:38 Dextrose IVPB 100 mls/hr Q4H-IV [facility] Administration Protocol Insulin Aspart 1 vial 07/18/17 07:00 07/18/17 06:04 Novolog Vial Sliding Scale - SQ Not Given TIDAC [facility] Protocol Metoprolol Tartrate 25 mg 07/13/17 22:00 07/17/17 21:25 Lopressor - PO 25 mg BID [facility] Administration ASSESSMENT/PLAN:
[2017-07-18 08:03] LABS: BASOPHIL 0.9 % (0-2.0); EOSINOPHIL 4.8 % (0-4.5); MCH 29.2 pg (25.7-33.7); MCHC 32.8 g/dl (32.0-35.9); MEAN PLT VOLUME 8.4 fl (7.5-11.1); NEUTROPHILS 70.5 % (42.8-82.8); PLATELET COUNT 299 K/MM3 (134-434); RDW 14.8 % (11.9-15.9); WHITE BLOOD COUNT 8.1 K/mm3 (4.0-10.0)
[2017-07-18 08:37] LABS: ALBUMIN 1.9 g/dl (3.4-5.0); ALK PHOS 141 U/L (45-117); ANION GAP 13 (8-16); CALCIUM 7.7 mg/dL (8.5-10.1); CO2 22 mmol/L (21-32); GLUCOSE,RANDOM 113 mg/dL (74-106); MAGNESIUM 2.3 mg/dL (1.8-2.4); SGOT/AST 28 U/L (15-37); SGPT/ALT 43 U/L (12-78); TOT PROT 6.3 g/dl (6.4-8.2)
[2017-07-18 08:46] LABS: CREATININE 8.9 mg/dL (0.7-1.3)
[2017-07-18] MEDS ORDERED: PT OWN MED DRAWER 7, Y5N ONE ×3 (09:54→16:28)
[2017-07-18] MEDS: amLODIPine BESYLATE 10 MG TABLET (FP) PO SCH (10:00)
[2017-07-18] MEDS: METOPROLOL TARTRATE 25 MG TABLET (FP) PO SCH (10:00)
[2017-07-18] MEDS: DOLUTEGRAVIR SODIUM 50 MG TABLET PO SCH (10:00)
[2017-07-18] MEDS: ABACAVIR SULFATE 300 MG TABLET PO SCH (10:01)
[2017-07-18] MEDS: RILPIVIRINE HCL 25 MG PO SCH (11:41)
[2017-07-18] MEDS ORDERED: HEPARIN NA (PORCINE) 5,000 UNITS/ML 1ML VIAL ONE (13:16)
--- NOTE | 2017-07-18 13:48 | PN ---
Progress Note (short form) - Note Progress Note: ID For umer today Currently getting Nafcillin Selected Entries 07/18/17 10:00 Temperature 98.0 F Pulse Rate 73 Respiratory 18 Rate Blood Pressure 146/88 Laboratory Tests 07/18/17 07/18/17 06:00 06:00 WBC 8.1 Hgb 7.9 L Hct 23.9 L Plt Count 299 BUN 43 H Creatinine 8.9 H* AST 28 D ALT 43 D Alkaline Phosphatase 141 H Microbiology 07/14/17 15:56 Blood - Post-Dialysis Blood Culture - Final Staphylococcus Aureus 07/11/17 11:28 Urine - Urine Clean Catch Urine Culture - Final NO GROWTH OBTAINED 07/11/17 11:07 Blood - Peripheral Venous Blood Culture - Final Staphylococcus Aureus 07/14/17 15:56 Blood - Post-Dialysis Blood Culture - Preliminary Staphylococcus Aureus Assessment MSSA bacteremia Plan Cefazolin 3 grs on Friday ( today) Cefazolin 2 gram on friday Cefazolin 2 grs weds Post dialysis Can stop Nafcillin Germaine BAH
[2017-07-18] MEDS ORDERED: NAFCILLIN NA 2 GM VIAL IVPB ONE (13:54)
[2017-07-18] MEDS ORDERED: MIDAZOLAM HCL 2 MG/2 ML SINGLE DOSE VIAL ONE ×3 (13:55)
[2017-07-18] MEDS ORDERED: LIDOCAINE HCL 1%, 10 MG/ML (20ML VIAL) INF ONE (14:03)
[2017-07-18] MEDS ORDERED: EPOETIN ALFA 2,000 UNITS/1 ML VIAL IVPUSH ONE ×2 (14:24→16:45)
--- NOTE | 2017-07-18 14:28 | OP ---
Operative Note - Note: Operative Date: 07/18/17 Pre-Operative Diagnosis: ESRD Operation: insertion of permacath Post-Operative Diagnosis: Same as Pre-op Surgeon: Robert Morgan Anesthesia: Fractional Estimated Blood Loss (mls): 20 Operative Report Dictated: Yes
[2017-07-18] MEDS ORDERED: ACETAMINOPHEN 500 MG TABLET (FP) PO PRN (14:35)
--- NOTE | 2017-07-18 14:54 | PN ---
Progress Note, Physician History of Present Illness: s/p PC, afebrile, denies dyspnea. - Current Medication List Current Medications: Active Medications Abacavir Sulfate (Ziagen -) 300 mg PO BID [facility] Acetaminophen (Tylenol -) 1,000 mg PO Q6H PRN PRN Reason: FEVER OR PAIN Amlodipine Besylate (Norvasc -) 10 mg PO DAILY [facility] Atovaquone (Mepron -) 1,500 mg PO DAILY@0800 [facility] Epoetin Stanley (Epogen -) 4,000 units IVPUSH ONCE ONE Stop: 07/18/17 14:36 Heparin Sodium (Porcine) (Heparin -) 5,000 unit SQ Q8H-IV [facility] Nafcillin Sodium 2 gm/ (Dextrose) 100 mls @ 100 mls/hr IVPB Q4H-IV [facility] PRN Reason: Protocol Insulin Aspart (Novolog Vial Sliding Scale -) 1 vial SQ TIDAC [facility] PRN Reason: Protocol Metoprolol Tartrate (Lopressor -) 25 mg PO BID [facility] - Objective Vital Signs: Vital Signs Temperature 98.0 F 07/18/17 10:00 Pulse Rate 73 07/18/17 10:00 Respiratory Rate 18 07/18/17 10:00 Blood Pressure 146/88 07/18/17 10:00 O2 Sat by Pulse Oximetry (%) 97 07/17/17 21:00 Constitutional: Yes: No Distress, Calm Neck: Yes: Supple Cardiovascular: Yes: Regular Rate and Rhythm Respiratory: Yes: Regular, Diminished Gastrointestinal: Yes: Normal Bowel Sounds, Soft Edema: No Labs: CBC, BMP 07/18/17 06:00 07/18/17 06:00 INR, PTT INR 1.24 (0.82-1.09) H 07/11/17 11:07 Problem List - Problems (1) AIDS Code(s): B20 - HUMAN IMMUNODEFICIENCY VIRUS [HIV] DISEASE (2) Diabetes mellitus type II, controlled Code(s): E11.9 - TYPE 2 DIABETES MELLITUS WITHOUT COMPLICATIONS Qualifiers: Diabetes mellitus complication status: with kidney complications Diabetes mellitus complication detail: with chronic kidney disease Diabetes mellitus detention insulin use: unspecified detention insulin use status Chronic kidney disease stage: on chronic dialysis Qualified Code(s): E11.22 - Type 2 diabetes mellitus with diabetic chronic kidney disease; N18.6 - End stage renal disease; N18.6 - End stage renal disease; N18.6 - End stage renal disease; N18.6 - End stage renal disease; Z99.2 - Dependence on renal dialysis; Z99.2 - Dependence on renal dialysis; Z99.2 - Dependence on renal dialysis; Z99.2 - Dependence on renal dialysis (3) Staphylococcus aureus bacteremia Code(s): R78.81 - BACTEREMIA (4) HIV (human immunodeficiency virus infection) Code(s): Z21 - ASYMPTOMATIC HUMAN IMMUNODEFICIENCY VIRUS INFECTION STATUS (5) AVF (arteriovenous fistula) Code(s): I77.0 - ARTERIOVENOUS FISTULA, ACQUIRED (6) ESRD (end stage renal disease) on dialysis Code(s): N18.6 - END STAGE RENAL DISEASE; Z99.2 - DEPENDENCE ON RENAL DIALYSIS (7) HTN (hypertension) Code(s): I10 - ESSENTIAL (PRIMARY) HYPERTENSION Qualifiers: Hypertension type: essential hypertension Qualified Code(s): I10 - Essential (primary) hypertension Assessment/Plan 1. Staphylococcus aureus bacteremia/line sepsis post infected line removal - no evidence of vegetations 2. HTN 3. DM 4. ESRD on HD 5. HIV-AIDS PLAN: 1. Antibiotics coverage as per ID 2. Continue Lopressor 25 bid and Amlodipine 10 qd as tolerated 3. No further cardiac intervention is warranted
[2017-07-18] MEDS ORDERED: CEFAZOLIN 2 GM in DEXTROSE 5%-WATER - 50 ML IVPB ONE (15:45)
--- NOTE | 2017-07-18 15:51 | PN ---
Teaching Attending Note Name of Resident: Stefan Willett ATTENDING PHYSICIAN STATEMENT I saw and evaluated the patient. I reviewed the resident's note and discussed the case with the resident. I agree with the resident's findings and plan as documented. SUBJECTIVE: No fever or chills. NO cp or SOB OBJECTIVE: NAd CV: RRR, 3/6 SM all over pericardium Lungs: CTAB ext : no edema . ASSESSMENT AND PLAN: 56 yo Man with of HTN, Diabetes, HIV who presented with fever and chills and was found to have Sepsis due to MSSA bacteremia 1- Sepsis with MSSA bacteremia: last two blood cx remain neg to date - D/W Dr. Burns and Dr. Garcia. - Dc NAficillin , give 2 g of cefazolin today. Then 2 g after HD tomorrow . - After then, hE will get 2 g of cefazolin on Mondays and Wednesdays , then 3 g on Fridays - his abx prescriptions were sent by Dr. Garcia 2- ESRD on HD. HD today after perma cath placement HD today then tomorrow as out pt 3- DM : resume glemepiride as out tp 4- HTN: cont metoprolol and Norvasc 5- HIV: cont home regimen Microbiology 07/16/17 12:30 Blood Culture - Preliminary Blood - Peripheral Venous NO GROWTH OBTAINED AFTER 48 HOURS, INCUBATION TO CONTINUE FOR 3 DAYS. 07/16/17 12:40 Blood Culture - Preliminary Blood - Peripheral Venous NO GROWTH OBTAINED AFTER 48 HOURS, INCUBATION TO CONTINUE FOR 3 DAYS. 07/15/17 09:45 Blood Culture - Preliminary Blood - Peripheral Venous NO GROWTH OBTAINED AFTER 72 HOURS, INCUBATION TO CONTINUE FOR 2 DAYS. 07/15/17 09:48 Blood Culture - Preliminary Blood - Peripheral Venous NO GROWTH OBTAINED AFTER 72 HOURS, INCUBATION TO CONTINUE FOR 2 DAYS. DC home today .
[2017-07-18] MEDS ORDERED: CEFAZOLIN 2 GM/D5W 2 GM/50 ML ML IVPB ONE ×2 (16:00→18:30)
[2017-07-18] MEDS ORDERED: INSULIN SLIDING SCALE (NOVOLOG) 1 VIAL SQ SCH (16:30)
--- NOTE | 2017-07-18 16:32 | DS ---
Physical Exam: SUBJECTIVE: No acute events overnight. Cultures remain negative and pt afebrile. Pt has no complaints today and is wondering when he can go back home. Pt to receive permacath and dialysis today. OBJECTIVE: Vital Signs Period Temp Pulse Resp BP Sys/Estrada Pulse Ox Last 24 Hr 97.4 F-98.9 F 71-90 16-18 129-156/79-91 97-100 PHYSICAL EXAM GENERAL: NAD, resting comfortably in bed. HEENT: Moist mucosa, EOMI, ANDREW LUNGS: CTA bilaterally, no wheezes, rhonchi, rales. HEART: RRR, S1, S2 present with 3+/6 systolic murmur heard throughout all tomlin (strongest in apex and R upper sternal border) ABDOMEN: Soft, nontender, nondistended, normoactive bowel sounds, no guarding, no rebound, no hepatomegaly /Groin: Deferred today; increased size of scrotum apparent underneath sheet EXTREMITIES: DP, PT 2+ pulses, no edema NEUROLOGICAL: alert and orientedx3. 5/5 strength throughout. No neck stiffness SKIN: L hand scar near wrist noted. No splinter hemorrhages or rash noted. No Janeway lesions. No oslers nodes appreciated. LABS Laboratory Results - last 24 hr 07/18/17 07/18/17 07/18/17 05:48 06:00 06:00 WBC 8.1 RBC 2.69 L Hgb 7.9 L Hct 23.9 L MCV 89.0 MCH 29.2 MCHC 32.8 RDW 14.8 Plt Count 299 MPV 8.4 Neutrophils % 70.5 Lymphocytes % 15.1 Monocytes % 8.7 Eosinophils % 4.8 H Basophils % 0.9 Sodium 133 L Potassium 4.4 Chloride 98 Carbon Dioxide 22 Anion Gap 13 BUN 43 H Creatinine 8.9 H* Creat Clearance w eGFR 6.25 POC Glucometer 117 Random Glucose 113 H Calcium 7.7 L Magnesium 2.3 Total Bilirubin 3.0 H AST 28 D ALT 43 D Alkaline Phosphatase 141 H Total Protein 6.3 L Albumin 1.9 L 07/18/17 12:21 WBC RBC Hgb Hct MCV MCH MCHC RDW Plt Count MPV Neutrophils % Lymphocytes % Monocytes % Eosinophils % Basophils % Sodium Potassium Chloride Carbon Dioxide Anion Gap BUN Creatinine Creat Clearance w eGFR POC Glucometer 102 Random Glucose Calcium Magnesium Total Bilirubin AST ALT Alkaline Phosphatase Total Protein Albumin Microbiology 11/10/17 11:07 Blood - Peripheral Venous Blood Culture - Final Staphylococcus Aureus 07/11/17 11:28 Urine - Urine Clean Catch Urine Culture - Final NO GROWTH OBTAINED 07/11/17 11:40 Blood - Peripheral Venous Blood Culture - Final Staph Aureus Vanco Intermediat 07/11/17 17:10 Blood - Pre-Dialysis Blood Culture - Final Staphylococcus Aureus 07/11/17 17:10 Blood - Pre-Dialysis Blood Culture - Final Staphylococcus Aureus 07/14/17 15:56 Blood - Post-Dialysis Blood Culture - Final Staphylococcus Aureus 07/14/17 15:56 Blood - Post-Dialysis Blood Culture - Preliminary Staphylococcus Aureus 07/15/17 09:48 Blood - Peripheral Venous Blood Culture - Preliminary NO GROWTH OBTAINED AFTER 96 HOURS, INCUBATION TO CONTINUE FOR 1 DAYS. 07/15/17 09:45 Blood - Peripheral Venous Blood Culture - Preliminary NO GROWTH OBTAINED AFTER 96 HOURS, INCUBATION TO CONTINUE FOR 1 DAYS. 07/16/17 12:40 Blood - Peripheral Venous Blood Culture - Preliminary NO GROWTH OBTAINED AFTER 72 HOURS, INCUBATION TO CONTINUE FOR 2 DAYS. 07/16/17 12:30 Blood - Peripheral Venous Blood Culture - Preliminary NO GROWTH OBTAINED AFTER 72 HOURS, INCUBATION TO CONTINUE FOR 2 DAYS. HOSPITAL COURSE: Date of Admission:07/11/17 Date of Discharge: 07/18/17 Pt was admitted on 07/11/17 for a three day history of worsening fevers and chills found to have MSSA with Vancomycin intermediate bacteremia. During his hospital stay, pt was started on Vancomycin and Naficillin 2gm which was eventually changed to Naficillin 2gm only (due to his sensitivities), had his original permacath removed (revealing purulent material at the tip), and had a L groin shiley placed for his dialysis days. Pt's hospital course was complicated by fever spikes and the inability to clear his bacteremia, so his L groin shiley was removed, repeated cultures were drawn, and a R upper extremity doppler was performed which ruled out the possibility of a presenting thrombus with bacteria seeding. Once patient's blood cultures remained negative for over 2 days, a permacath was placed and dialysis was resumed per his regular schedule. 07/11/17 TTE: LV systolic function low-normal, with small mobile echodensities found on the posterior mitral valve in the apical view and on the aortic valve best seen in the parasternal view which was suspicious for vegetations. Mild MR , TR and moderate aortic sclerosis were also noted. follow-up 07/15/17 WILLARD: LV systolic function normal without any regional wall deficits, no thrombus in the HENRI, and no vegetations seen on the mitral and aortic valves. Mild MR and TR were also confirmed. Pt is being discharged today in stable condition, afebrile for over 48hrs, alongside a total of Naficillin 2gm for 6 days. Pt will have dialysis at 2pm and will then return to his [facility] schedule. Pt has also been arranged to receive Cefazolin after dialysis at his facility with 2gms to be given on Mondays and Friday and 3gms to be given on Fridays. Minutes to complete discharge: 36 Discharge Summary Reason For Visit: BACTEREMIA Current Active Problems DVT prophylaxis (Acute) Staphylococcus aureus bacteremia (Acute) Anemia (Chronic) Diabetes mellitus type II, controlled (Chronic) Condition: Stable - Instructions Diet, Activity, Other Instructions: You were hospitalized for an infection in your blood Please follow-up with your general medical doctor. --If you do not have one please call [phone] and schedule an appointment with Dr. Arriola Please continue with your dialysis schedule --You will have dialysis tomorrow at 2pm --At each dialysis scheduled time you will be given a dose of antibiotics afterwards; the antibiotic is Cefazolin 2gms on Mondays and Friday, 3gms on Fridays Make sure to follow-up with the [facility] for your HIV medication regiment Please continue all your medication as you had been prior to this hospitalization Referrals: Craig Arriola MD [Staff Physician] - Janice Metzger MD [Staff Physician] - ([facility] for HIV medication) Umer Garcia MD [Staff Physician] - () Disposition: HOME - Home Medications Comprehensive Discharge Medication List: Ambulatory Orders Abacavir Sulfate [Ziagen -] 300 mg PO BID #60 tablet 06/24/17 Amlodipine Besylate [Norvasc -] 10 mg PO DAILY #30 tablet 06/24/17 Atovaquone [Mepron Oral Solution -] 750 mg PO BIDWM #120 mg 06/24/17 Dolutegravir Sodium [Tivicay] 50 mg PO DAILY #30 tablet 06/24/17 Glimepiride 2 mg PO DAILY #30 tablet 06/24/17 Metoprolol Tartrate [Lopressor -] 25 mg PO BID #60 mg 06/24/17 Multivitamin-Min/Iron/FA/Vit K [Multi-Day Plus Minerals Tablet] 1 each PO DAILY #30 tablet 06/24/17 Rilpivirine HCl [Edurant] 25 mg PO DAILY #30 tablet 06/24/17 This patient is new to me today: No Emergency Visit: No Critical Care patient: No - Discharge Referral Referred to [facility] No
--- NOTE | 2017-07-18 17:13 | PN ---
Progress Note, Physician History of Present Illness: Pt seen and examined at bedside. He had the permacath placed today. Pt is eager to go home. - Current Medication List Current Medications: Active Medications Abacavir Sulfate (Ziagen -) 300 mg PO BID [facility] Acetaminophen (Tylenol -) 1,000 mg PO Q6H PRN PRN Reason: FEVER OR PAIN Amlodipine Besylate (Norvasc -) 10 mg PO DAILY [facility] Atovaquone (Mepron -) 1,500 mg PO DAILY@0800 [facility] Last Admin: 07/18/17 16:30 Dose: 1,500 mg Heparin Sodium (Porcine) (Heparin -) 5,000 unit SQ Q8H-IV [facility] Cefazolin Sodium/Dextrose (Ancef 2 Gm Premixed Ivpb -) 2 gm in 50 mls @ 100 mls /hr IVPB ONCE ONE Stop: 07/18/17 16:29 Insulin Aspart (Novolog Vial Sliding Scale -) 1 vial SQ TIDAC [facility] PRN Reason: Protocol Metoprolol Tartrate (Lopressor -) 25 mg PO BID [facility] - Objective Vital Signs: Vital Signs Temperature 97.9 F 07/18/17 16:59 Pulse Rate 79 07/18/17 16:59 Respiratory Rate 20 07/18/17 16:59 Blood Pressure 139/80 07/18/17 16:59 O2 Sat by Pulse Oximetry (%) 100 07/18/17 15:15 Constitutional: Yes: Calm Eyes: Yes: Conjunctiva Clear HENT: Yes: Atraumatic Neck: Yes: Supple Cardiovascular: Yes: Regular Rate and Rhythm, S1, S2 Respiratory: Yes: CTA Bilaterally Gastrointestinal: Yes: Normal Bowel Sounds, Soft Genitourinary: Yes: WNL Musculoskeletal: Yes: WNL Edema: No Neurological: Yes: Oriented Psychiatric: Yes: Oriented Labs: CBC, BMP 07/18/17 06:00 07/18/17 06:00 INR, PTT INR 1.24 (0.82-1.09) H 07/11/17 11:07 Problem List - Problems (1) Anemia Code(s): D64.9 - ANEMIA, UNSPECIFIED (2) AIDS Code(s): B20 - HUMAN IMMUNODEFICIENCY VIRUS [HIV] DISEASE (3) Staphylococcus aureus bacteremia Code(s): R78.81 - BACTEREMIA (4) HIV (human immunodeficiency virus infection) Code(s): Z21 - ASYMPTOMATIC HUMAN IMMUNODEFICIENCY VIRUS INFECTION STATUS Assessment/Plan Current Medications Generic Name Dose Route Start Last Admin Trade Name Fre[place] PRN Reason Stop Dose Admin Abacavir Sulfate 300 mg 07/18/17 22:00 Ziagen - PO BID [facility] Acetaminophen 1,000 mg 07/18/17 14:35 Tylenol - PO Q6H PRN FEVER OR PAIN Amlodipine Besylate 10 mg 07/19/17 10:00 Norvasc - PO DAILY [facility] Atovaquone 1,500 mg 07/19/17 08:00 07/18/17 16:30 Mepron - PO 1,500 mg DAILY@0800 [facility] Administration Heparin Sodium (Porcine) 5,000 unit 07/18/17 18:00 Heparin - SQ Q8H-IV [facility] Cefazolin Sodium/Dextrose 2 gm in 50 mls @ 100 mls/hr 07/18/17 16:00 Ancef 2 Gm Premixed Ivpb - IVPB 07/18/17 16:29 ONCE ONE Insulin Aspart 1 vial 07/18/17 16:30 Novolog Vial Sliding Scale - SQ TIDAC [facility] Protocol Metoprolol Tartrate 25 mg 07/18/17 22:00 Lopressor - PO BID [facility] Impression 1. ESRD 2. HIV 3. HTN 4. sepsis 5. anemia 6. bacteremia - staph 7. hernia Plan - pt had permacath placed - HD today - called HD unit and arranged for dialysis session tomorrow. Pt is on a MWF schedule - pt will be on cefazolin for another 2 weeks - discussed with ID - called in abx - isolation for VISA - kamlesh neg for vegetations - epogen for anemia - discussed plan with pt - cont wound care - discussed with medical attending - pt fully aware of plan and wants to go home today Dr Garcia
[2017-07-18] MEDS ORDERED: HEPARIN NA (PORCINE) 5,000 UNITS/ML 1ML VIAL SQ SCH (18:00)
[2017-07-18] MEDS ORDERED: NAFCILLIN - 2 GM in DEXTROSE 5%-WATER - 100 ML IVPB SCH (18:00)
--- NOTE | 2017-07-18 18:16 | PN ---
Progress Note (short form) - Note Progress Note: VAscular Surgery Pt s/p permacath Can be DC home Follow up in office on fri at 9am. will schedule avf as outpt Robert Morgan DO
[2017-07-18 21:12] VITALS: BP 163/88; PULSE 83; TEMP 99
[2017-07-18] MEDS ORDERED: METOPROLOL TARTRATE 25 MG TABLET (FP) PO SCH (22:00)
[2017-07-18] MEDS ORDERED: ABACAVIR SULFATE 300 MG TABLET PO SCH (22:00)
[2017-07-19] MEDS ORDERED: ATOVAQUONE 750 MG/5 ML (UNIT-DOSE PACKAGING) PO SCH (08:00)
[2017-07-19] MEDS ORDERED: DOLUTEGRAVIR SODIUM 50 MG TABLET PO SCH (10:00)
[2017-07-19] MEDS ORDERED: amLODIPine BESYLATE 10 MG TABLET (FP) PO SCH (10:00)
[2017-07-19] MEDS ORDERED: RILPIVIRINE HCL 25 MG TABLET PO SCH (12:00)
== END 2017-07-18 22:20 | disposition home or self-care (01) | DRG 314 ==
LOC: JER 10:00 → JERBED 12:49 → J6S 20:02 → J8W 07-15 16:46
PROVIDERS: ADMIT Internal Medicine; ATTEND Internal Medicine
PROC: 5A1D70Z Performance of Urinary Filtration, Intermittent, Less than 6 Hours Per Day (ICD-10-PCS; principal; 2017-07-14)
PROC: 06PYX3Z Removal of Infusion Device from Lower Vein, External Approach (ICD-10-PCS; 2017-07-14)
PROC: B246ZZ4 Ultrasonography of Right and Left Heart, Transesophageal (ICD-10-PCS; 2017-07-15)
PROC: 05HP33Z Insertion of Infusion Device into Right External Jugular Vein, Percutaneous Approach (ICD-10-PCS; 2017-07-18)
PROC: B513ZZA Fluoroscopy of Right Jugular Veins, Guidance (ICD-10-PCS; 2017-07-18)
DX: T82.7XXA Infection and inflammatory reaction due to other cardiac and vascular devices, implants and grafts, initial encounter (principal); A41.01 Sepsis due to Methicillin susceptible Staphylococcus aureus; N18.6 End stage renal disease; B20 Human immunodeficiency virus [HIV] disease; I33.0 Acute and subacute infective endocarditis; I12.0 Hypertensive chronic kidney disease with stage 5 chronic kidney disease or end stage renal disease; Y84.1 Kidney dialysis as the cause of abnormal reaction of the patient, or of later complication, without mention of misadventure at the time of the procedure; Y92.038 Other place in apartment as the place of occurrence of the external cause; E11.22 Type 2 diabetes mellitus with diabetic chronic kidney disease; Z99.2 Dependence on renal dialysis; I44.7 Left bundle-branch block, unspecified; R00.0 Tachycardia, unspecified; D64.9 Anemia, unspecified; E87.5 Hyperkalemia; Z51.89 Encounter for other specified aftercare
CPT/HCPCS: 36415; 71010-TC; 76000-TC; 80048; 80053; 80076; 81003; 81015; 82550; 82803; 83605; 83735; 84100; 84484; 85025; 85027; 85610; 85730; 86140; 86850; 86900; 86901; 87040; 87086; 87186; 93005; 93010; 93306-TC; 93312; 93325; 93971; 97116-GP; 97161-GP; 99283-25; G0480; J0885; J1644

== ENCOUNTER 2018-02-10 11:48 | Day surgery (SDC) | payer OTHER ==
[2018-02-09 10:45] VITALS: BMI 31.6
[2018-02-10] MEDS ORDERED: ONDANSETRON 4 MG/2 ML VIAL IVPUSH PRN (14:37)
[2018-02-10] MEDS ORDERED: PROMETHAZINE HCL 25 MG/1 ML VIAL IVPB PRN (14:37)
[2018-02-10] MEDS ORDERED: ceFAZolin SODIUM 1 GM VIAL IVPB ONE (14:45)
[2018-02-10] MEDS ORDERED: LACTATED RINGERS SOLUTION 1,000 ML IV SCH (14:45)
[2018-02-10] MEDS ORDERED: POVIDONE-IODINE OINTMENT 10% - 28.4 GM TUBE TP ONE (16:15)
--- NOTE | 2018-02-10 16:27 | OP ---
Operative Note - Note: Operative Date: 02/10/18 Pre-Operative Diagnosis: ESRD Operation: Creation of left cephalic vein fistula Post-Operative Diagnosis: Same as Pre-op Surgeon: Robert Morgan Anesthesia: Fractional Estimated Blood Loss (mls): 20 Operative Report Dictated: Yes
--- NOTE | 2018-02-10 16:29 | HP ---
Admitting History and Physical - Admission Chief Complaint: Pt here for AVF creation Limitations to Obtaining History: No Limitations - Past Medical History Cardiovascular: Yes: HTN, Hyperlipdemia Renal/: Yes: Renal Inusuff, Hemodialysis Heme/Onc: Yes: Anemia Infectious Disease: Yes: HIV - Smoking History Smoking history: Never smoked Have you smoked in the past 12 months: No - Alcohol/Substance Use Hx Alcohol Use: No - Social History ADL: Independent History of Recent Travel: No Home Medications - Allergies Allergies/Adverse Reactions: Allergies Allergy/AdvReac Type Severity Reaction Status Date / Time No Known Allergies Allergy Verified 02/10/18 12:23 - Home Medications Home Medications: Ambulatory Orders Multivit with Iron,Minerals [Compete] 1 each PO DAILY #30 tablet 10/22/17 Atovaquone [Mepron -] 1,500 mg PO DAILY@0800 #70 ml 10/24/17 Dolutegravir Sodium [Tivicay] 50 mg PO DAILY #30 tablet 10/24/17 Rilpivirine HCl [Edurant] 25 mg PO DAILY #30 tablet 10/24/17 Citalopram Hydrobromide [Celexa -] 10 mg PO DAILY #15 tablet 11/13/17 Docusate Sodium [Colace -] 1 - 2 cap PO DAILY #30 capsule 12/04/17 Amlodipine Besylate [Norvasc -] 10 mg PO DAILY #30 tablet 12/11/17 Glimepiride 2 mg PO DAILY #60 tablet 12/11/17 Abacavir Sulfate [Ziagen -] 300 mg PO BID #60 tablet 12/17/17 Metoprolol Tartrate 25 mg PO DAILY 02/09/18 Review of Systems - Review of Systems Constitutional: reports: No Symptoms Eyes: reports: No Symptoms HENT: reports: No Symptoms Neck: reports: No Symptoms Cardiovascular: reports: No Symptoms Respiratory: reports: No Symptoms Gastrointestinal: reports: No Symptoms Genitourinary: reports: No Symptoms Breasts: reports: No Symptoms Reported Musculoskeletal: reports: No Symptoms Integumentary: reports: No Symptoms Neurological: reports: No Symptoms Endocrine: reports: No Symptoms Hematology/Lymphatic: reports: No Symptoms Psychiatric: reports: No Symptoms Physical Examination Vital Signs: Vital Signs Temperature 98.5 F 02/10/18 12:25 Pulse Rate 81 02/10/18 12:25 Respiratory Rate 18 02/10/18 12:25 Blood Pressure 130/88 02/10/18 12:25 O2 Sat by Pulse Oximetry (%) 99 02/10/18 12:25 Constitutional: Yes: Well Nourished, No Distress, Calm Eyes: Yes: WNL, Conjunctiva Clear, EOM Intact HENT: Yes: WNL, Atraumatic, Normocephalic Neck: Yes: WNL, Supple, Trachea Midline Cardiovascular: Yes: WNL, Regular Rate and Rhythm Respiratory: Yes: WNL, Regular, CTA Bilaterally Gastrointestinal: Yes: WNL, Normal Bowel Sounds Musculoskeletal: Yes: WNL Extremities: Yes: WNL Edema: No Integumentary: Yes: WNL Neurological: Yes: WNL, Alert, Oriented ...Motor Strength: WNL Psychiatric: Yes: WNL Labs: CBC, BMP 02/10/18 11:56 Problem List - Problems (1) End stage renal disease Code(s): N18.6 - END STAGE RENAL DISEASE Assessment/Plan ESRD 1. For left avf creation
[2018-02-10 17:40] VITALS: BP 151/80; PULSE 77
--- NOTE | 2018-02-10 18:11 | OP ---
DATE OF OPERATION: 02/10/2018 PREOPERATIVE DIAGNOSIS: End-stage renal disease. POSTOPERATIVE DIAGNOSIS: End-stage renal disease. PROCEDURE: Creation of a cephalic vein fistula. SURGEON: Robert Vines D.O. ANESTHESIA: Fractional. BLOOD LOSS: 20 mL. INDICATION: The patient is a 57-year-old male that needs permanent dialysis access. Preoperatively, his ultrasound showed that he has good left cephalic vein at the antecubital fossa. Patient came into ambulatory surgery. Patient was consented for procedure understanding all risks, benefits, and alternatives and then taken to the operating room. DESCRIPTION OF PROCEDURE: Once in the operating suite, placed on operating room table in a supine manner. The area of the left arm was prepped and draped in a sterile surgical manner. Under ultrasound guidance, we marked our cephalic vein below the antecubital fossa, and we were able to reva our brachial artery medial to that, and we were able to draw a transverse incision using the skin marker. We then went ahead and injected 10 mL of lidocaine 1% over the area. We then went ahead and used number 15 blade and made a 7-cm incision. Bovie cautery used to control hemostasis, and we were able to take that down through subcutaneous tissue. We then dissected out our cephalic vein. Basilic vein was dissected anterior and posteriorly, and all branches were ligated using 3-0 silk. We then went medially, and went to the and we were able to find and get down through the fascia and get down to the brachial artery. The brachial artery was dissected anteriorly and posteriorly, and vessel loops were placed proximally and distally. We then ligated our vein distally using 2-0 silk, and then ligated the cephalic vein there, and we went ahead and placed a [address] Croatian feeding tube all the way up. There was good backbleeding in the vein, and the vein dilated up appropriately. At this point, 5000 units of IV heparin were administered to the patient. After 3 minutes, we got distal and proximal control on our artery, and using a number 15 blade, we made an arteriotomy which was extended to 7 mm using Herrera scissors. Using blunt scissors, we also made a 7-mm venotomy on the vein. We placed 6-0 Prolene stay sutures on the artery. We then went ahead and used a 6-0 Prolene double arm, went outside/in on the vein and inside/out on the artery and we ran a suture around to form anastomosis between the artery and the vein. Once completed, we opened the distal artery first and the proximal artery, and there was a good thrill in our AV fistula. The wound was well irrigated. Surgicel was placed. We then used 3-0 Vicryl and the subcutaneous tissue was approximated in an interrupted manner, and the skin was closed with skin sidney. Area was washed and dried, and 4x4 and Tegaderm were placed. Patient tolerated procedure with no complications. Patient transferred to PACU in stable condition. Patient had a good bruit and thrill on this AV fistula. ROBERT VINES DO [id number]
[2018-02-10 19:00] VITALS: TEMP 97.5
== END 2018-02-10 17:50 | disposition home or self-care (01) ==
LOC: JASU-SURG 11:48
PROVIDERS: ATTEND Surgery Vascular Surgery
PROC: 03180ZD Bypass Left Brachial Artery to Upper Arm Vein, Open Approach (ICD-10-PCS; principal; 2018-02-10 14:00)
DX: I12.0 Hypertensive chronic kidney disease with stage 5 chronic kidney disease or end stage renal disease (principal); D64.9 Anemia, unspecified; Z21 Asymptomatic human immunodeficiency virus [HIV] infection status
CPT/HCPCS: 36415; 82962; 84132; 94760

== ENCOUNTER → 2019-04-28 | Outpatient (CLI) | payer OTHER | LOC: YHH 10:34 ==

== ENCOUNTER 2020-06-15 17:41 | Inpatient (IN) | payer OTHER ==
[2020-06-15 18:35] VITALS: TEMP 98.1; BMI 35.1
--- NOTE | 2020-06-15 19:32 | PDOC ---
History of Present Illness - General Chief Complaint: Respiratory Stated Complaint: EVALUATION/COVID TEST Time Seen by Provider: 06/15/20 17:59 - History of Present Illness Initial Comments: HPI: 06/15/20 19:19 59 yo M PMH HTN, HLD, NIDDM, HIV (viral load 0), sent in by Dr. Metzger due to concern for possible COVID-19 and for potential admission. Malay speaking only. States that he had fever with chills on Friday and a cough, but has since been feeling well. Currently has no complaints. Denies CP, SOB, N/V, diaphoresis, LEWIS, constipation/diarrhea. Further denies COVID contacts and travel. ROS: GENERAL/CONSTITUTIONAL: endorses fever and chills on Friday, now resolved HEAD, EYES, EARS, NOSE AND THROAT: denies rhinorrhea, nasal congestion NEUROLOGIC: denies headache, focal weakness, dizziness CARDIOVASCULAR: denies chest pain, syncope, palpitations, irregular heart rate, lightheadedness RESPIRATORY: endorses cough (now resolved). Denies shortness of breath, dyspnea with exertion GASTROINTESTINAL: denies abdominal pain, abdominal distension, nausea, vomiting, diarrhea, constipation GENITOURINARY: denies dysuria, frequency, urgency MUSCULOSKELETAL: denies myalgia, arthralgia, joint swelling, back pain, neck pain SKIN: denies rash, itching PE: Gen: well-developed, well-nourished, NAD Neuro: AAOX4, CN II-XII intact HEENT: atraumatic, normocephalic Neck: trachea midline, supple CV: regular rate, regular rhythm, no murmurs, rubs, or gallops Pulm: CTA b/l, no wheezing Abd: soft, non-distended, non-tender MSK: full ROM, intact pulses Extr: no edema, no deformities Skin: warm, dry MDM: Low clinical concern for COVID-19 considering history, physical exam, and vital signs. - COVID-19 work-up - reassess - likely dc for further outpatient management 06/15/20 20:04 CXR with patient contracted forward, otherwise unconcerning 06/15/20 20:24 WBC 3.8, Hgb 10.4 06/15/20 20:30 Patient reassessed, would like to go home. Will await results, plan to dc for further outpatient management. 10/15/20 20:[address] Garcia, his concern is that he won't be able to dialyze the patient without a negative COVID-19 test. If it is not back, he will have to go to a COVID positive dialysis unit. Will f/u K and reassess. 06/15/20 21:00 K 5.3. Discussed situation with patient, and he is reluctantly willing to stay for dialysis. Will admit patient. 06/15/20 21:58 Cr 11.9. 06/15/20 22:09 Patient states that bed is too uncomfortable and he refuses to say. Expresses his understanding that he cannot go to dialysis tomorrow and further states that he understands that he may going so long between sessions. Adamantly still wants to leave. Will sign out AMA. Past History - Medical History Allergies/Adverse Reactions: Allergies Allergy/AdvReac Type Severity Reaction Status Date / Time No Known Allergies Allergy Verified 06/15/20 17:48 Home Medications: Ambulatory Orders Lidocaine 5% Top. Ointment [Xylocaine 5% Top. Ointment -] 1 applic TP DAILY #1 tube 04/16/18 Lidocaine 4% Topical [Xylocaine 4% Topical -] 1 applic MM DAILY #1 btl 06/18/18 Alcohol Antiseptic Pads [Alcohol Prep Pads] 1 each TP BID #1 box 01/22/19 Tadalafil [Cialis] 5 mg PO ASDIR PRN #10 tablet 02/02/19 Glipizide [Glucotrol -] 5 mg PO BID #60 tablet 02/03/20 Famotidine [Pepcid -] 20 mg PO DAILY PRN #30 tablet 03/07/20 Atorvastatin Ca [Lipitor] 20 mg PO HS #30 tablet 06/06/20 Dolutegravir Sodium [Tivicay] 50 mg PO DAILY #30 tablet 06/06/20 Rilpivirine HCl [Edurant] 25 mg PO DAILY #30 tablet 06/06/20 Tenofovir Disoproxil Fumarate [Viread -] 300 mg PO WEEKLY #4 tablet 06/06/20 Anemia: No Asthma: No Cancer: No Cardiac Disorders: No CVA: No COPD: No CHF: No Dementia: No Diabetes: Yes Dialysis: Yes (ESRD ON HD MWF) GI Disorders: No Disorders: No HTN: Yes Hypercholesterolemia: No Liver Disease: No Seizures: No Thyroid Disease: No - Surgical History Abdominal Surgery: No (hernia) Appendectomy: No Cardiac Surgery: No Cholecystectomy: No Lung Surgery: No Neurologic Surgery: No Orthopedic Surgery: No - Immunization History Immunization Up to Date: Yes - Psycho-Social/Smoking History Smoking History: Never smoked Have you smoked in the past 12 months: No Cigars Per Day: 0 *Physical Exam - Vital Signs Last Vital Signs Temp Pulse Resp BP Pulse Ox 98.1 F 82 16 94/46 L 99 06/15/20 18:33 06/15/20 18:33 06/15/20 18:33 06/15/20 18:33 06/15/20 18:33 ED Treatment Course - LABORATORY CBC & Chemistry Diagram: 06/15/20 19:44 06/15/20 19:44 - RADIOLOGY Radiology Studies Ordered: Category Date Time Status CHEST X-RAY PORTABLE* [RAD] Stat Radiology 06/15/20 19:00 Ordered Discharge - Discharge Information Problems reviewed: Yes Clinical Impression/Diagnosis: Hyperkalemia, Renal insufficiency Disposition: AGAINST MEDICAL ADVICE - Follow up/Referral - Patient Discharge Instructions - Post Discharge Activity
[2020-06-15 19:51] VITALS: BP 121/93; PULSE 84
[2020-06-15 20:11] LABS: BASO % 0.7 % (0-2.0); EOS % 9.2 % (0-4.5); HEMATOCRIT 31.2 % (35.4-49); HEMOGLOBIN 10.4 GM/dL (11.7-16.9); LYMPH % 28.2 % (8-40); MCH 31.5 pg (25.7-33.7); MCHC 33.3 g/dl (32.0-35.9); MEAN CELL VOLUME 94.7 fl (80-96); MEAN PLT VOLUME 9.1 fl (7.5-11.1); MONO % 15.5 % (3.8-10.2); NEUT % 46.4 % (42.8-82.8); PLATELET COUNT 151 K/MM3 (134-434); RBC 3.29 M/mm3 (4.00-5.60); RDW 12.8 % (11.9-15.9); WHITE BLOOD COUNT 3.8 K/mm3 (4.0-10.0)
[2020-06-15 20:20] LABS: INR 0.97 (0.83-1.09); PROTHROMBIN TIME (PATIENT) 11.7 SEC (9.7-13.0)
[2020-06-15 20:22] LABS: ACTIVATED PTT 30.8 SECONDS (25.2-36.5)
--- NOTE | 2020-06-15 20:23 | PDOC ---
Attending Attestation - Resident Resident Name: Osmar Tomlinson - ED Attending Attestation I have performed the following: I have examined & evaluated the patient, The case was reviewed & discussed with the resident, I agree w/resident's findings & plan, Exceptions are as noted - HPI HPI: 06/15/20 20:23 See resident HPI - Physicial Exam PE: 06/15/20 20:23 Agree with documented exam - Medical Decision Making 06/15/20 20:24 High risk pt [HIV, dialysis] with self-limited episode of fever/chills several days ago sent by primary for covid eval for triage to appropriate dialysis center Given results for covid swab would arrive after next scheduled dialysis, pcp is requesting admission for in patient dialysis until covid status is confirmed f/u labs, ekg, cxr Patient refusing admission, Pt has capacity, understands risks of leaving, including possible , disability and dialysis in setting of possible covid exposure Discharge - Discharge Information Problems reviewed: Yes Clinical Impression/Diagnosis: Hyperkalemia, Renal insufficiency Condition: Fair Disposition: AGAINST MEDICAL ADVICE - Follow up/Referral - Patient Discharge Instructions - Post Discharge Activity
[2020-06-15 20:41] LABS: ALBUMIN 3.6 g/dl (3.4-5.0); ALK PHOS 131 U/L (45-117); ANION GAP 10 MMOL/L (8-16); BILIRUBIN,DIRECT 0.1 mg/dL (0.0-0.2); BILIRUBIN,TOTAL 0.4 mg/dL (0.2-1); BLOOD UREA NITROGEN 39.9 mg/dL (7-18); CALCIUM 8.3 mg/dL (8.5-10.1); CHLORIDE 98 mmol/L (98-107); CO2 24 mmol/L (21-32); GLUCOSE,RANDOM 225 mg/dL (74-106); POTASSIUM 5.3 mmol/L (3.5-5.1); SGOT/AST 20 U/L (15-37); SGPT/ALT 22 U/L (13-61); SODIUM 132 mmol/L (136-145)
[2020-06-15 20:53] LABS: EPI CELLS 4 /uL (0-25.1); HYALINE CASTS 0 /uL (0-3.1); PH,URINE >= 9.0 (5.0-8.0); URINE APPEARANCE CLEAR; URINE BACTERIA 46 /uL (0-1359); URINE BILIRUBIN NEGATIVE (NEGATIVE); URINE COLOR YELLOW; URINE GLUCOSE (UA) 2+ (NEGATIVE); URINE KETONE NEGATIVE (NEGATIVE); URINE LEUK ESTERASE NEGATIVE (NEGATIVE); URINE NITRITE NEGATIVE (NEGATIVE); URINE PROTEIN 3+ (NEGATIVE); URINE RBC 6 /uL (0-23.9); URINE UROBILINOGEN 0.2 mg/dL (0.2-1.0); URINE WBC 4 /uL (0-25.8)
[2020-06-15 21:00] LABS: LDH 171 U/L (87-246)
[2020-06-15 21:33] LABS: CREATININE 11.9 mg/dL (0.55-1.3)
== END 2020-06-15 22:22 | disposition left against medical advice (07) | DRG 640 ==
LOC: JER 17:41 → JERBED 21:15
PROVIDERS: ADMIT Internal Medicine; ATTEND Internal Medicine
DX: E87.5 Hyperkalemia (principal); N18.6 End stage renal disease; I12.0 Hypertensive chronic kidney disease with stage 5 chronic kidney disease or end stage renal disease; E78.5 Hyperlipidemia, unspecified; E11.22 Type 2 diabetes mellitus with diabetic chronic kidney disease; Z21 Asymptomatic human immunodeficiency virus [HIV] infection status; Z99.2 Dependence on renal dialysis
CPT/HCPCS: 36415; 71045-TC-FY; 80053; 81003; 82248; 82550; 82553; 82728; 83605; 83615; 84484; 85025; 85610; 85730; 86140; 87040; 87086; 99285-25; C9803; U0003